=== PATIENT | female | born 1935 | race Caucasian/White ===

== ENCOUNTER → 2017-01-28 | Outpatient (CLI) | payer OTHER ==
[~2017-01-28] MED LIST: POLY335019 PO
[2017-01-28 16:38] LABS: BASO % 0.4 %; BASO ABS # 0.02 K/uL (0-0.2); COMPLETE YES; EOS % 1.9 %; LYMPH % 37.5 %; LYMPH ABS # 1.93 K/uL (1.2-3.4); MEAN CELL VOLUME 91.3 fL (80-100); MEAN CORPUSCULAR HEMOGLOBIN 30.4 pg (25-34); MEAN CORPUSCULAR HGB CONC 33.3 g/dl (32-36); MEAN PLATELET VOLUME 9.8 fL (7.4-10.4); MONO % 8.9 %; NEUT % 51.3 %; PLATELET COUNT 152 K/uL (130-400); RED BLOOD COUNT 4.71 M/uL (4.2-5.4); WHITE BLOOD COUNT 5.15 K/uL (4.8-10.8)
[2017-01-28 16:49] LABS: ALT/SGPT 13 U/L (12-78); BLOOD UREA NITROGEN 18 mg/dl (7-18); BUN/CREATININE RATIO 18.8 (10-20); CARBON DIOXIDE 26 mmol/L (21-32); CHLORIDE 108 mmol/L (98-107); CHOLESTEROL 177 mg/dl (0-200); CREATININE 0.98 mg/dl (0.60-1.20); GLUCOSE 95 mg/dl (70-99); POTASSIUM 4.2 mmol/L (3.5-5.1); SODIUM 143 mmol/L (136-145)
[2017-01-28 17:00] LABS: ALB/GLOB RATIO 1.2 (0.9-2); ALKALINE PHOSPHATASE 73 U/L (45-117); AST/SGOT 25 U/L (15-37); CHOLESTEROL/HDL RATIO 2.5; HDL CHOLESTEROL 71 mg/dl; LDL CHOLESTEROL CALCULATED 93 mg/dl; TRIGLYCERIDES 63 mg/dl (0-150); VERY LOW DENSITY LIPOPROT CALC 13 mg/dl
== END | disposition home or self-care (01) ==
LOC: C.LABBC 13:39
PROVIDERS: ATTEND Internal Medicine
DX: E55.9 Vitamin D deficiency, unspecified (principal)

== ENCOUNTER → 2017-03-22 | Outpatient (CLI) | payer OTHER ==
--- NOTE | 2017-03-22 11:10 | DIAGNOSTIC IMAGING REPORT ---
RIGHT SHOULDER MIN 2 VIEWS ROUTINE CLINICAL HISTORY: Right shoulder pain. COMPARISON: None FINDINGS: Alignment of the right shoulder is anatomic. No fracture or suspicious osseous lesion is present. There is moderate osteoarthritis of the right acromioclavicular joint. IMPRESSION: 1. Moderate osteoarthritis of the right acromioclavicular joint. Minimal osteoarthritis of the right glenohumeral joint. 2. No fracture or dislocation of the right shoulder. Electronically signed by: Kimani Cruz M.D. 03/22/2017 11:09 AM Dictated Date/Time: 03/22/2017 11:07 AM
--- NOTE | 2017-03-22 11:17 | DIAGNOSTIC IMAGING REPORT ---
RIGHT STERNOCLAVICULAR JOINT(S) CLINICAL HISTORY: 81 years-old Female presenting with pain in the right shoulder. TECHNIQUE: Frontal and bilateral oblique views of the sternoclavicular joints were obtained. COMPARISON: None. FINDINGS: The bilateral sternoclavicular joints are grossly intact. No clavicle fracture evident. Visualized portion of the thorax normal. IMPRESSION: No gross osseous abnormality of the sternoclavicular joints. Electronically signed by: Morro Lau M.D. 03/22/2017 11:15 AM Dictated Date/Time: 03/22/2017 11:14 AM
== END | disposition home or self-care (01) ==
LOC: C.RADBC 10:44
PROVIDERS: ATTEND Internal Medicine
DX: M19.011 Primary osteoarthritis, right shoulder (principal)

== ENCOUNTER → 2017-07-13 | Day surgery (SDC) | payer OTHER ==
[2017-06-24 11:57] VITALS: Ht 172.7 cm; Wt 74.5 kg
[~2017-07-13] VITALS: Ht 172.7 cm; Wt 74.5 kg
== END | disposition home or self-care (01) ==
LOC: EDSTATUS 09:30 → C.PAT 15:31
PROVIDERS: ATTEND Specialist
DX: H26.9 Unspecified cataract (principal)

== ENCOUNTER → 2017-07-20 | Outpatient (CLI) | payer OTHER ==
--- NOTE | 2017-07-20 11:36 | DIAGNOSTIC IMAGING REPORT ---
CHEST 2 VIEWS ROUTINE CLINICAL HISTORY: Cough. COMPARISON STUDY: Chest radiograph April 01, 2016. FINDINGS: Lung volumes are at the upper limits of normal. There is no pneumothorax or pleural effusion. There is no evidence for pulmonary edema. Mild linear bibasilar opacities suggest atelectasis or scarring. There is no consolidation to suggest pneumonia. Cardiomediastinal silhouette is normal. Pulmonary vascularity is normal. IMPRESSION: 1. No acute cardiopulmonary findings. 2. Linear bibasilar opacities suggestive atelectasis or scarring. Electronically signed by: Kimani Cruz M.D. 07/20/2017 11:34 AM Dictated Date/Time: 07/20/2017 11:32 AM
[2017-07-20 13:18] LABS: BASO % 0.2 %; BASO ABS # 0.01 K/uL (0-0.2); EOS % 0.5 %; EOS ABS # 0.03 K/uL (0-0.5); HEMATOCRIT 46.5 % (37-47); HEMOGLOBIN 15.5 g/dL (12.0-16.0); IG# 0.01 K/uL (0.00-0.02); LYMPH % 15.9 %; LYMPH ABS # 1.01 K/uL (1.2-3.4); MEAN CELL VOLUME 90.1 fL (80-100); MEAN CORPUSCULAR HGB CONC 33.3 g/dl (32-36); MONO % 8.7 %; MONO ABS # 0.55 K/uL (0.11-0.59); NEUT % 74.5 %; NEUT ABS # 4.73 K/uL (1.4-6.5); PLATELET COUNT 163 K/uL (130-400); RED CELL DISTRIBUTION WIDTH CV 13.7 % (11.5-14.5); RED CELL DISTRIBUTION WIDTH SD 45.8 fL (36.4-46.3); WHITE BLOOD COUNT 6.34 K/uL (4.8-10.8)
[2017-07-20 13:33] LABS: ALBUMIN 4.1 gm/dl (3.4-5.0); ALT/SGPT 15 U/L (12-78); BLOOD UREA NITROGEN 14 mg/dl (7-18); CALCIUM 9.3 mg/dl (8.5-10.1); CARBON DIOXIDE 27 mmol/L (21-32); CREATININE 1.06 mg/dl (0.60-1.20); GLUCOSE 117 mg/dl (70-99); POTASSIUM 3.7 mmol/L (3.5-5.1); SODIUM 138 mmol/L (136-145)
[2017-07-20 13:37] LABS: ALKALINE PHOSPHATASE 75 U/L (45-117); AST/SGOT 30 U/L (15-37); TOTAL PROTEIN 7.4 gm/dl (6.4-8.2)
== END | disposition home or self-care (01) ==
LOC: C.RADBC 11:01
PROVIDERS: ATTEND Physician Assistant Medical
DX: R05 Cough (principal); R91.8 Other nonspecific abnormal finding of lung field; R63.0 Anorexia; E55.9 Vitamin D deficiency, unspecified

== ENCOUNTER → 2017-07-21 | Outpatient (CLI) | payer OTHER | END | disposition home or self-care (01) | LOC: C.LABBC 12:27 | PROVIDERS: ATTEND Internal Medicine | DX: R63.0 Anorexia (principal) ==

== ENCOUNTER → 2017-09-02 | Outpatient (CLI) | payer OTHER ==
--- NOTE | 2017-09-02 14:59 | DIAGNOSTIC IMAGING REPORT ---
CHEST 2 VIEWS ROUTINE CLINICAL HISTORY: 82 years-old Female presenting with R05 Cough. TECHNIQUE: PA and lateral views of the chest were obtained. COMPARISON: 07/20/2017. FINDINGS: Atherosclerosis of the aortic arch. Cardiac silhouette normal in size. Minimal linear opacity at the left lung base unchanged, likely scarring. Lungs and pleural spaces clear. Slightly exaggerated thoracic kyphosis. Osseous structures otherwise normal. Upper abdomen normal. IMPRESSION: 1. No acute cardiopulmonary disease. Electronically signed by: Morro Lau M.D. 09/02/2017 2:58 PM Dictated Date/Time: 09/02/2017 2:57 PM
== END | disposition home or self-care (01) ==
LOC: C.RADBC 14:29
PROVIDERS: ATTEND Physician Assistant Medical
DX: R05 Cough (principal)

== ENCOUNTER 2017-11-15 10:28 | Emergency (ER) | payer OTHER ==
[2017-11-15 10:30] VITALS: TEMP 36.6
[2017-11-15] MEDS ORDERED: MECLIZINE HCL 25 MG TAB PO STA ×2 (11:13→12:56)
[2017-11-15] MEDS ORDERED: ONDANSETRON INJ 2 MG/ML 2 ML VIAL IV STA (11:13)
[2017-11-15] MEDS ORDERED: METHYLPREDNISOLONE 125 MG VIAL IV STA (11:13)
[2017-11-15] MEDS ORDERED: SODIUM CHLORIDE 0.9% 500ML 500 ML IV STA (11:13)
[2017-11-15] MEDS ORDERED: SODIUM CHLORIDE 0.9% 1000ML 1,000 ML IV STA (11:13)
[2017-11-15 11:29] LABS: BASO % 0.4 %; BASO ABS # 0.02 K/uL (0-0.2); HEMATOCRIT 42.2 % (37-47); IG# 0.01 K/uL (0.00-0.02); LYMPH % 45.3 %; LYMPH ABS # 2.24 K/uL (1.2-3.4); MEAN CELL VOLUME 88.7 fL (80-100); MEAN CORPUSCULAR HEMOGLOBIN 29.4 pg (25-34); MEAN CORPUSCULAR HGB CONC 33.2 g/dl (32-36); MEAN PLATELET VOLUME 9.3 fL (7.4-10.4); MONO % 6.1 %; NEUT ABS # 2.27 K/uL (1.4-6.5); PLATELET COUNT 123 K/uL (130-400); RED CELL DISTRIBUTION WIDTH CV 14.1 % (11.5-14.5); RED CELL DISTRIBUTION WIDTH SD 45.8 fL (36.4-46.3); WHITE BLOOD COUNT 4.94 K/uL (4.8-10.8)
--- NOTE | 2017-11-15 11:39 | DIAGNOSTIC IMAGING REPORT ---
SINGLE VIEW CHEST CLINICAL HISTORY: Cough FINDINGS: An AP, portable, upright chest radiograph is compared to study dated 09/02/2017. The examination is degraded by portable technique and patient rotation. The cardiomediastinal silhouette is unremarkable. There is atherosclerotic calcification of the thoracic aorta. Chronic interstitial thickening is similar to previous. There is minimal bibasilar atelectasis. No airspace consolidation or large pleural effusion is identified. No pneumothorax is seen. The skeletal structures are osteopenic. The bony thorax is grossly intact. IMPRESSION: No acute cardiopulmonary abnormality. Electronically signed by: Kevin Dobson M.D. 11/15/2017 11:38 AM Dictated Date/Time: 11/15/2017 11:37 AM
[2017-11-15 11:49] LABS: CREATININE 0.98 mg/dl (0.60-1.20); GLUCOSE 104 mg/dl (70-99)
--- NOTE | 2017-11-15 12:21 | DIAGNOSTIC IMAGING REPORT ---
HEAD CT NONCONTRAST, SINUS CT NONCONTRAST CT DOSE: HISTORY: Chronic congestion. Cough. vertigo TECHNIQUE: Multiaxial CT images of the head were performed without the use of intravenous contrast. Automated exposure control was utilized for this study. A dose lowering technique was utilized adhering to the principles of ALARA. Comparison: None. Findings: Sinus CT: Mild mucosal thickening within the right frontal sinus and ethmoid air cells. Moderate mucosal thickening within the floors of the bilateral maxillary sinuses. There are small fluid levels within the maxillary sinuses, left sphenoid sinus, and right ethmoid air cells therefore, these findings are consistent with acute on chronic sinusitis. The mastoid air cells are clear. The nasal septum is essentially midline. Partial opacification of the bilateral ethmoid infundibula the orbits are unremarkable. Head CT: The calvarium and skull base are intact. There is no mass, hematoma, midline shift, acute infarct. White matter hypodensity is nonspecific but suggestive of microvascular ischemic change. The ventricles and sulci demonstrate mild age-related involutional changes. Impression: 1. Mild acute on chronic paranasal sinusitis as described above. 2. No acute intracranial abnormality. Electronically signed by: Juan Luis Ugalde M.D. 11/15/2017 12:19 PM Dictated Date/Time: 11/15/2017 12:09 PM
[2017-11-15 12:29] LABS: ALBUMIN 3.9 gm/dl (3.4-5.0); ALKALINE PHOSPHATASE 71 U/L (45-117); ALT/SGPT 13 U/L (12-78); AST/SGOT 28 U/L (15-37); BLOOD UREA NITROGEN 16 mg/dl (7-18); CALCIUM 8.8 mg/dl (8.5-10.1); CARBON DIOXIDE 28 mmol/L (21-32); POTASSIUM 3.9 mmol/L (3.5-5.1); SODIUM 141 mmol/L (136-145)
[2017-11-15] MEDS ORDERED: LORAZEPAM 2 MG/ML 1 ML VIAL IV STA (12:56)
[2017-11-15] MEDS ORDERED: CEFD1CAP14 PO (13:19)
[2017-11-15 13:20] VITALS: BP 164/97; PULSE 77; O2SAT 95
[2017-11-15] MEDS ORDERED: ANT25 PO (13:20)
--- NOTE | 2017-11-15 13:34 | EMERGENCY ROOM VISIT NOTE ---
History Report prepared by Joanna: David Hamm Under the Supervision of: Dr. Damaris Johnson M.D. First contact with patient: 10:55 Chief Complaint: DIZZY Stated Complaint: DIZZINESS Nursing Triage Summary: Pt states she woke up at 0800 and was dizzy. Reports right sided weakness. History of Present Illness The patient is a 82 year old female who presents to the Emergency Room with complaints of constant lightheadedness beginning a few hours ago. She noticed her symptoms upon waking up today. She states "I feel like my equilibrium is off ". The patient denies vomiting or headaches. She does not feel like she is going to pass out. She has no history of similar symptoms. The patient states that she has had a cough for the past three months which has been treated with antibiotics and steroids, but has still persisted. Her cough is occasionally productive, producing a white sputum. She states that she does not have to blow her nose much. The patient notes that she is currently going through therapy for her right shoulder. Her most recent therapy was four days ago. She notes that she strained her neck a few weeks ago during therapy. Source of History: patient Onset: A few hours ago Quality: other (lightheadedness) Timing: constant Associated Symptoms: + cough (x3 months), No headache, No vomiting Review of Systems See HPI for pertinent positives & negatives. A total of 10 systems reviewed and were otherwise negative. Past Medical & Surgical Medical Problems: (1) Chronic constipation (2) History of - tubal ligation (3) IRRITABLE BOWEL SYNDROME (4) Tonsillectomy (5) Vaginal prolapse Family History No pertinent family history stated. Social History Smoking Status: Former Smoker Alcohol Use: occasionally Marital Status: Housing Status: lives with family Occupation Status: retired Current/Historical Medications Scheduled Cefdinir (Omnicef), 300 MG PO Q12H Scheduled PRN Meclizine HCl (Meclizine HCl), 1 TAB PO BID PRN for vertigo Polyethylene Glycol 3350 (Miralax), 17 GM PO DAILY PRN for CONSTIPATION Allergies Coded Allergies: Penicillins (Verified Adverse Reaction, Unknown, SEVERE INTERNAL VAGINITIS , 11/15/17) Physical Exam Vital Signs Date Time Temp Pulse Resp B/P (MAP) Pulse Ox O2 Delivery O2 Flow Rate FiO2 11/15/17 13:20 77 18 164/97 95 11/15/17 12:13 81 17 181/85 97 Room Air 11/15/17 10:49 79 170/93 82 159/89 99 158/94 11/15/17 10:46 79 11/15/17 10:30 36.6 78 20 160/94 99 Room Air Physical Exam Vital signs reviewed. Noted to be mildly orthostatic. General: Well-appearing female, in no significant distress. HEENT: No scleral icterus, PERRLA, neck supple. No nystagmus. Atraumatic. Cardiovascular: Regular rate and rhythm, no extra sounds. Pulmonary: Clear to auscultation bilaterally, normal work of breathing. Abdomen: Soft, nontender, nondistended, positive bowel sounds. Musculoskeletal: Atraumatic, no peripheral edema. Neurologic: Patient awake alert and oriented x 3, full strength in all 4 extremities. Cranial nerves 2 through 12 grossly intact. No nystagmus appreciated. Skin: Warm, dry, no rash Medical Decision & Procedures ER Provider Diagnostic Interpretation: Radiology results as stated below per my review and radiologist interpretation: SINGLE VIEW CHEST FINDINGS: An AP, portable, upright chest radiograph is compared to study dated 09/02/2017. The examination is degraded by portable technique and patient rotation. The cardiomediastinal silhouette is unremarkable. There is atherosclerotic calcification of the thoracic aorta. Chronic interstitial thickening is similar to previous. There is minimal bibasilar atelectasis. No airspace consolidation or large pleural effusion is identified. No pneumothorax is seen. The skeletal structures are osteopenic. The bony thorax is grossly intact. IMPRESSION: No acute cardiopulmonary abnormality. Electronically signed by: Kevin Dobson M.D. HEAD CT NONCONTRAST, SINUS CT NONCONTRAST Findings: Sinus CT: Mild mucosal thickening within the right frontal sinus and ethmoid air cells. Moderate mucosal thickening within the floors of the bilateral maxillary sinuses. There are small fluid levels within the maxillary sinuses, left sphenoid sinus, and right ethmoid air cells therefore, these findings are consistent with acute on chronic sinusitis. The mastoid air cells are clear. The nasal septum is essentially midline. Partial opacification of the bilateral ethmoid infundibula the orbits are unremarkable. Head CT: The calvarium and skull base are intact. There is no mass, hematoma, midline shift, acute infarct. White matter hypodensity is nonspecific but suggestive of microvascular ischemic change. The ventricles and sulci demonstrate mild age-related involutional changes. Impression: 1. Mild acute on chronic paranasal sinusitis as described above. 2. No acute intracranial abnormality. Electronically signed by: Juan Luis Ugalde M.D. 11/15/2017 12:19 PM Laboratory Results 11/15/17 10:50 Red Blood Count 4.76, Mean Corpuscular Volume 88.7, Mean Corpuscular Hemoglobin 29.4, Mean Corpuscular Hemoglobin Concent 33.2, Mean Platelet Volume 9.3, Neutrophils (%) (Auto) 46.0, Lymphocytes (%) (Auto) 45.3, Monocytes (%) (Auto) 6.1, Eosinophils (%) (Auto) 2.0, Basophils (%) (Auto) 0.4, Neutrophils # (Auto) 2.27, Lymphocytes # (Auto) 2.24, Monocytes # (Auto) 0.30, Eosinophils # (Auto) 0.10, Basophils # (Auto) 0.02 11/15/17 10:50 Test 11/15/17 10:50 11/15/17 11:40 White Blood Count 4.94 K/uL (4.8-10.8) Red Blood Count 4.76 M/uL (4.2-5.4) Hemoglobin 14.0 g/dL (12.0-16.0) Hematocrit 42.2 % (37-47) Mean Corpuscular Volume 88.7 fL (80-100) Mean Corpuscular Hemoglobin 29.4 pg (25-34) Mean Corpuscular Hemoglobin Concent 33.2 g/dl (32-36) Platelet Count 123 K/uL (130-400) Mean Platelet Volume 9.3 fL (7.4-10.4) Neutrophils (%) (Auto) 46.0 % Lymphocytes (%) (Auto) 45.3 % Monocytes (%) (Auto) 6.1 % Eosinophils (%) (Auto) 2.0 % Basophils (%) (Auto) 0.4 % Neutrophils # (Auto) 2.27 K/uL (1.4-6.5) Lymphocytes # (Auto) 2.24 K/uL (1.2-3.4) Monocytes # (Auto) 0.30 K/uL (0.11-0.59) Eosinophils # (Auto) 0.10 K/uL (0-0.5) Basophils # (Auto) 0.02 K/uL (0-0.2) RDW Standard Deviation 45.8 fL (36.4-46.3) RDW Coefficient of Variation 14.1 % (11.5-14.5) Immature Granulocyte % (Auto) 0.2 % Immature Granulocyte # (Auto) 0.01 K/uL (0.00-0.02) Anion Gap 6.0 mmol/L (3-11) Estimated GFR () 63.1 Estimated GFR (Non- 54.5 BUN/Creatinine Ratio 16.3 (10-20) Calcium Level 8.8 mg/dl (8.5-10.1) Magnesium Level 2.2 mg/dl (1.8-2.4) Total Bilirubin 0.7 mg/dl (0.2-1) Direct Bilirubin 0.2 mg/dl (0-0.2) Aspartate Amino Transf (AST/SGOT) 28 U/L (15-37) Alanine Aminotransferase (ALT/SGPT) 13 U/L (12-78) Alkaline Phosphatase 71 U/L (45-117) Total Protein 7.0 gm/dl (6.4-8.2) Albumin 3.9 gm/dl (3.4-5.0) Urine Color YELLOW Urine Appearance CLEAR (CLEAR) Urine pH 7.0 (4.5-7.5) Urine Specific [place] 1.010 (1.000-1.030) Urine Protein NEG (NEG) Urine Glucose (UA) NEG (NEG) Urine Ketones NEG (NEG) Urine Occult Blood NEG (NEG) Urine Nitrite NEG (NEG) Urine Bilirubin NEG (NEG) Urine Urobilinogen NEG (NEG) Urine Leukocyte Esterase NEG (NEG) Laboratory results per my review. Medications Administered Medications (Trade) Dose Ordered Sig/Raymond Route Start Time Stop Time Status Last Admin Dose Admin Sodium Chloride 500 ml @ 999 mls/hr Q31M STAT IV 11/15/17 11:13 11/15/17 11:43 DC 11/15/17 12:56 999 MLS/HR Sodium Chloride 1,000 ml @ 125 mls/hr Q8H STAT IV 11/15/17 11:13 11/15/17 15:02 DC 11/15/17 11:30 125 MLS/HR Meclizine HCl (Antivert Tab) 12.5 mg NOW STAT PO 11/15/17 11:13 11/15/17 11:18 DC 11/15/17 11:29 12.5 MG Methylprednisolone Sodium Succinate (Solu-Medrol IV) 125 mg NOW STAT IV 11/15/17 11:13 11/15/17 11:18 DC 11/15/17 11:30 125 MG Meclizine HCl (Antivert Tab) 12.5 mg NOW STAT PO 11/15/17 12:56 11/15/17 12:58 DC 11/15/17 13:11 12.5 MG Lorazepam (Ativan Inj) 1 mg NOW STAT IV 11/15/17 12:56 11/15/17 12:58 DC 11/15/17 13:11 1 MG ECG Per My Interpretation Indication: other (dizziness) Rate (beats per minute): 77 Rhythm: sinus rhythm Findings: PAC, other (No ST elevation. ) ED Course 1112: Past medical records reviewed. The patient was evaluated in room B11B. A complete history and physical examination was performed. 1113: Ordered Zofran Inj 4 mg IV, Solu-Medrol 125 mg IV, Antivert Tab 12.5 mg PO , Sodium Chloride 1000 ml @ 125 mls/hr IV, Sodium Chloride 500 ml @ 999 mls/hr IV. 1256: Ordered Ativan Inj 1 mg IV, Antivert Tab 12.5 mg PO. 1310: Upon reevaluation, the patient appeared to have improvement of her symptoms. I discussed findings with her. She verbalized agreement of the treatment plan. The patient was discharged home. Medical Decision Differential diagnosis: Etiologies such as benign positional vertigo, dehydration, hypovolemia, anemia, tumor, infection, hypoglycemia, electrolyte abnormalities, cardiac sources, intracerebral event, toxicologic, neurologic, as well as others were entertained. This patient was evaluated and appeared to be in no significant distress. Physical examination is fairly unrevealing. There is no focal neurologic deficit on exam. Patient is mildly orthostatic but is also slightly hypertensive. CT scan of the head and sinuses reveals a mild acute and chronic sinusitis. Patient was hydrated with normal saline solution, given p.o. meclizine 12.5 mg and IV Zofran. She was given 125 mg of IV Solu-Medrol. Patient states she is continually "dizzy" on her ambulation to the bathroom however did relatively well. She was given a dose of IV Ativan and additional 12.5 mg of p.o. meclizine. I discussed the findings with the patient and her . She has been complaining of sinus congestion for some time. I suspect this in addition to the patient's orthostasis is the cause of the patient's dizziness. She will be discharged with a prescription for meclizine as well as Omnicef 300 mg p.o. twice daily for 10 days for sinusitis. She was advised to use Afrin nasal spray for decongestion as she is slightly hypertensive. She will follow-up with her physician this week for reevaluation and return to the ER for worsening of symptoms or any medical concerns. Medication Reconcilliation Current Medication List: was personally reviewed by me Blood Pressure Screening Patient's blood pressure: Elevated blood pressure Blood pressure disposition: Referred to PCP Impression Primary Impression: Sinusitis, acute Additional Impression: Vertigo Scribe Attestation The scribe's documentation has been prepared under my direction and personally reviewed by me in its entirety. I confirm that the note above accurately reflects all work, treatment, procedures, and medical decision making performed by me. Departure Information Dispostion Home / Self-Care Prescriptions Meclizine HCl (Meclizine HCl) 25 Mg Tab 1 TAB PO BID Y for vertigo, #30 TAB Prov: Damaris Johnson M.D. 11/15/17 Cefdinir (Omnicef) 300 Mg Cap 300 MG PO Q12H, #20 CAP Prov: Damaris Johnson M.D. 11/15/17 Referrals Morro Chao M.D. (PCP) Forms HOME CARE DOCUMENTATION FORM, IMPORTANT VISIT INFORMATION Patient Instructions My [facility] Additional Instructions Diagnosis: Acute sinusitis, vertigo Please drink plenty of clear fluids. Meclizine 25 mg every 8 hours as needed for vertigo. Omnicef 300 mg twice daily for 10 days for sinusitis. Mucinex as directed or Afrin nasal spray to sprays in each nostril twice daily for 3 days. Follow-up with Dr. Chao for reevaluation this week. Return to the ER for worsening of symptoms or any medical concerns. Problem Qualifiers
== END 2017-11-15 13:20 | disposition home or self-care (01) ==
LOC: C.EDB 10:28
DX: J01.90 Acute sinusitis, unspecified (principal); R42 Dizziness and giddiness; Z98.51 Tubal ligation status; R03.0 Elevated blood-pressure reading, without diagnosis of hypertension; K58.1 Irritable bowel syndrome with constipation; Z88.0 Allergy status to penicillin; Z87.891 Personal history of nicotine dependence

== ENCOUNTER → 2018-02-08 | Day surgery (SDC) | payer OTHER ==
[2018-02-01 14:49] VITALS: Ht 172.7 cm; Wt 73.6 kg
[~2018-02-08] VITALS: Ht 172.7 cm; Wt 73.6 kg
[~2018-02-08] MED LIST changes: +500ML BSS 0.3ML EPI 1:1000PF IRRIG ONE; +ACETAMINOPHEN 325 MG TAB PO PRN; +AMVISC PLUS 0.8ML SYRINGE INT OCU ONE; +ANT25 PO; +ATROPINE SULFATE 0.1 MG/ML 5ML SYR IV PRN; +AcetaZOLAMIDE 250 MG TAB PO SCH; +BETAXOLOL HCL 0.25% OP SUSP PER DROP CHARGE OPR SCH; +BRIMONIDINE TART 0.2% OP SOLN PER DROP CHARGE ONE; +BSS FLUSH ONE; +CYCLOPENTOLATE HCL 1% OP SOLN PER DROP CHARGE OPR SCH; +ENDOCOAT 0.85ML SYRINGE INT OCU ONE; +EpHEDrine SULFATE INJ 50 MG/ML AMP IV PRN; +EpINEphrine INJ 1MG/ML AMP 1 MG/ML AMP ONE; +LACTATED RINGER'S 1000ML 500 ML IV SCH; +LIDOCAINE 4% OP SOLN DROP CHARGE ONE; +LIDOCAINE 4% OP SOLN DROP CHARGE OPR SCH; +LIDOCAINE HCL 1% MPF 2 ML VIAL ONE; +MIDAZOLAM HCL 1 MG/ML 2ML VIAL ONE; +MIX: 4ML BSS 1ML EPI 1:1000 PF INSTIL ONE; +MOXIFLOXACIN OPH SOLN PER DROP CHARGE ONE; +MOXIFLOXACIN OPH SOLN PER DROP CHARGE OPR SCH; +OCUCOAT 1 ML SOLN IO ONE; +PHENYLEPHRINE HCL 2.5% OP SOLN PER DROP CHARGE OPR SCH; +POVIDONE-IODINE OP SOLN 30 ML BTL ONE; +PROPARACAINE 0.5% OP SOLN PER DROP CHARGE OPR SCH; +TOBRAMYCIN/DEXAMETHASONE OPH OINT PER APPLN CHARGE ONE; +TROPICAMIDE 1% OP SOLN PER DROP CHARGE OPR SCH
--- NOTE | 2018-02-08 07:34 | History & Physical Bridge - SC ---
H&P Re-Evaluation Bridge Note: I have examined the patient, reviewed the History & Physical and in the interval since the performance of the History & Physical I have noted the following changes of clinical significance: No changes noted
--- NOTE | 2018-02-08 08:53 | [facility] Operative Report ---
Operative Report Date of Service Feb 08, 2018. Operative Report 1. PREOPERATIVE DIAGNOSIS: Senile nuclear cataract, right eye. 2. POSTOPERATIVE DIAGNOSIS: Senile nuclear cataract, right eye. 3. PROCEDURE: Phacoemulsification of right cataract with posterior chamber lens implant, type [employer], model MI60L, power +21.5 diopters. ANESTHESIA: Local standby. SURGEON: Dr. Fulton. COMPLICATIONS: None. OPERATING TIME: 10 minutes. 4. OPERATION AND FINDINGS: DESCRIPTION OF PROCEDURE: The right pupil was dilated. The anesthetic was administered using a topical technique. The right eye was prepped and draped. A speculum was placed. A clear corneal incision was formed. The chamber was filled with Amvisc Plus and Endocoat. Epinephrine solution was used. A paracentesis was placed. A capsulorrhexis was performed. The nucleus was hydrodissected. A dense lens was removed with phacoemulsification. Time was 8.85 seconds. The aspiration unit was used to remove the cortex. The capsule was filled with Amvisc Plus. The lens implant was folded and placed into the capsule. The incision was hydrated. The Amvisc was aspirated. The wound was secure. The chamber was deep. The pupil was round. Brimonidine, TobraDex ointment and Vigamox solution were placed. The speculum was removed. The patient was returned to the Recovery Room in stable condition. I attest to the content of the Intraoperative Record and any orders documented therein. Any exceptions are noted below. The scribe's documentation has been prepared in my presence, under my direction and personally reviewed by me in its entirety. I confirm that the note above accurately reflects all work, treatment, procedures, and medical decision making performed by me. I personally scribed for Сергей Fulton M.D. ([email or web address]) on 02/08/18 at 08:53. Electronically submitted by Ashley Ramon ([email or web address]).
--- NOTE | 2018-02-08 08:56 | Discharge Instructions-SurgCtr ---
Discharge Instructions Date of Service Feb 08, 2018. Visit Reason for Visit: Cataract Right Eye Discharge Discharge Diagnosis / Problem: lens implant right eye Discharge Goals Goal(s): Improve function Activity Recommendations Activity Limitations: resume your previous activity Lifting Limitations: no more than 10 pounds Exercise/Sports Limitations: gradually increase as tolerated May Resume Sexual Activity: when tolerated Shower/Bathe: tomorrow Driving or Machine Use: resume 1 day after discharge Anesthesia . Post Anesthesia Instructions: If you have had General Anesthesia or IV Sedation: * Do not drive today. * Resume driving when surgeon permits. * Do not make important decisions or sign legal documents today. * Call surgeon for: 1. Temperature elevations greater than 101 degrees F. 2. Uncontrollable pain. 3. Excessive bleeding. 4. Persistent nausea and vomiting. 5. Medication intolerance (nausea, vomiting or rash). * For nausea and vomiting use only clear liquids such as: tea, soda, bouillon until nausea subsides, then gradually increase diet as tolerated. * If you have any concerns or questions, call your surgeon's office. If physician is unavailable and it is an emergency, call 911 or go to the nearest emergency room. . Instructions / Follow-Up Instructions / Follow-Up ACTIVITY RECOMMENDATIONS: * Light activities. * Mild irritation and blurred vision are common for the first few days. * You may walk outside, read, watch television. * Redness around the white part of the eye is common. MEDICATIONS: Resume previous medications unless instructed otherwise by your surgeon. * Take white Diamox (Acetazolamide) tablet at 1 pm today. Start all eye drops at 1 pm today: * Eye drops (today and tomorrow): Prednisone - one drop in operative eye every 3 hours while awake Ofloxacin - one drop in operative eye every 3 hours while awake Prolensa - one drop in operative eye once daily SPECIAL CARE INSTRUCTIONS: * Tape plastic shield over eye to sleep at night. Call your doctor at with any concerns or problems. FOLLOW UP VISIT: Follow-up with Dr Fulton at [place] office as scheduled. Diet Recommendations Home Diet: no limitations Procedures Procedures Performed: Right Cataract Phacoemulsification With Intraocular Lens Implant Pending Studies Studies pending at discharge: no Medical Emergencies . Who to Call and When: Medical Emergencies: If at any time you feel your situation is an emergency, please call 911 immediately. . Non-Emergent Contact Non-Emergency issues call your: Tool And [employer] Inspector Call Non-Emergent contact if: your pain is not controlled [phone] . . "Provider Documentation" section prepared by Сергей Fulton. .
--- NOTE | 2018-02-08 09:13 | Anesthesia Progress Nt - [facility] ---
Anesthesia Post Op Note Date & Time Feb 08, 2018 at 09:14 Vital Signs Pain Intensity: 0 Vital Signs Past 12 Hours Date Time Temp Pulse Resp B/P (MAP) Pulse Ox O2 Delivery O2 Flow Rate FiO2 02/08/18 09:04 36.7 61 16 127/75 (92) 96 Room Air 02/08/18 07:50 37.2 84 16 150/86 (107) 94 Room Air Notes Mental Status: alert / awake / arousable, participated in evaluation Nausea / Vomiting: adequately controlled Pain: adequately controlled Airway Patency, RR, SpO2: stable & adequate BP & HR: stable & adequate Hydration State: stable & adequate Anesthetic Complications: no major complications apparent
[2018-02-08 09:21] VITALS: BP 134/80; PULSE 78; O2SAT 97
== END | disposition home or self-care (01) ==
LOC: X.SURG 07:42
PROVIDERS: ATTEND Specialist
DX: H25.11 Age-related nuclear cataract, right eye (principal); K21.9 Gastro-esophageal reflux disease without esophagitis; M19.90 Unspecified osteoarthritis, unspecified site; Z88.8 Allergy status to other drugs, medicaments and biological substances

== ENCOUNTER → 2018-02-17 | Outpatient (CLI) | payer MEDICARE, OTHER ==
[~2018-02-17] MED LIST changes: -500ML BSS 0.3ML EPI 1:1000PF IRRIG ONE; -ACETAMINOPHEN 325 MG TAB PO PRN; -AMVISC PLUS 0.8ML SYRINGE INT OCU ONE; -ATROPINE SULFATE 0.1 MG/ML 5ML SYR IV PRN; -AcetaZOLAMIDE 250 MG TAB PO SCH; -BETAXOLOL HCL 0.25% OP SUSP PER DROP CHARGE OPR SCH; -BRIMONIDINE TART 0.2% OP SOLN PER DROP CHARGE ONE; -BSS FLUSH ONE; -CYCLOPENTOLATE HCL 1% OP SOLN PER DROP CHARGE OPR SCH; -ENDOCOAT 0.85ML SYRINGE INT OCU ONE; -EpHEDrine SULFATE INJ 50 MG/ML AMP IV PRN; -EpINEphrine INJ 1MG/ML AMP 1 MG/ML AMP ONE; -LACTATED RINGER'S 1000ML 500 ML IV SCH; -LIDOCAINE 4% OP SOLN DROP CHARGE ONE; -LIDOCAINE 4% OP SOLN DROP CHARGE OPR SCH; -LIDOCAINE HCL 1% MPF 2 ML VIAL ONE; -MIDAZOLAM HCL 1 MG/ML 2ML VIAL ONE; -MIX: 4ML BSS 1ML EPI 1:1000 PF INSTIL ONE; -MOXIFLOXACIN OPH SOLN PER DROP CHARGE ONE; -MOXIFLOXACIN OPH SOLN PER DROP CHARGE OPR SCH; -OCUCOAT 1 ML SOLN IO ONE; -PHENYLEPHRINE HCL 2.5% OP SOLN PER DROP CHARGE OPR SCH; -POVIDONE-IODINE OP SOLN 30 ML BTL ONE; -PROPARACAINE 0.5% OP SOLN PER DROP CHARGE OPR SCH; -TOBRAMYCIN/DEXAMETHASONE OPH OINT PER APPLN CHARGE ONE; -TROPICAMIDE 1% OP SOLN PER DROP CHARGE OPR SCH
[2018-02-17 10:51] LABS: BASO % 0.4 %; BASO ABS # 0.02 K/uL (0-0.2); EOS % 3.1 %; EOS ABS # 0.15 K/uL (0-0.5); HEMATOCRIT 42.1 % (37-47); HEMOGLOBIN 13.9 g/dL (12.0-16.0); LYMPH ABS # 1.91 K/uL (1.2-3.4); MEAN CELL VOLUME 89.8 fL (80-100); MEAN CORPUSCULAR HEMOGLOBIN 29.6 pg (25-34); MEAN PLATELET VOLUME 9.8 fL (7.4-10.4); MONO % 7.5 %; MONO ABS # 0.36 K/uL (0.11-0.59); NEUT ABS # 2.34 K/uL (1.4-6.5); PLATELET COUNT 131 K/uL (130-400); RED CELL DISTRIBUTION WIDTH CV 14.4 % (11.5-14.5); RED CELL DISTRIBUTION WIDTH SD 47.1 fL (36.4-46.3); WHITE BLOOD COUNT 4.78 K/uL (4.8-10.8)
[2018-02-17 11:15] LABS: BLOOD UREA NITROGEN 16 mg/dl (7-18); GLUCOSE 103 mg/dl (70-99)
[2018-02-17 11:16] LABS: ALBUMIN 3.7 gm/dl (3.4-5.0); ALKALINE PHOSPHATASE 72 U/L (45-117); ALT/SGPT 12 U/L (12-78); AST/SGOT 22 U/L (15-37); CALCIUM 8.7 mg/dl (8.5-10.1); CARBON DIOXIDE 28 mmol/L (21-32); CHOLESTEROL 171 mg/dl (0-200); LDL CHOLESTEROL CALCULATED 85 mg/dl; POTASSIUM 3.9 mmol/L (3.5-5.1); SODIUM 141 mmol/L (136-145); TOTAL PROTEIN 6.6 gm/dl (6.4-8.2)
[2018-02-17 12:33] LABS: HEMOGLOBIN A1C 5.7 % (4.5-5.6)
== END | disposition home or self-care (01) ==
LOC: C.LABBC 08:43
PROVIDERS: ATTEND Internal Medicine
DX: D72.819 Decreased white blood cell count, unspecified (principal); E55.9 Vitamin D deficiency, unspecified; R73.9 Hyperglycemia, unspecified; K59.00 Constipation, unspecified; R03.0 Elevated blood-pressure reading, without diagnosis of hypertension

== ENCOUNTER 2019-10-04 08:38 | Inpatient (IN) ==
[2019-10-04] MEDS ORDERED: KETOROLAC TROMETHAMINE 15 MG/ML VIAL IV STA (09:04)
[2019-10-04] MEDS ORDERED: ONDANSETRON INJ 2 MG/ML 2 ML VIAL IV STA (09:04)
--- NOTE | 2019-10-04 09:10 | Emergency Department Note ---
History of Present Illness General Chief Complaint: Abdominal Pain Stated Complaint: STOMACH PAIN Time Seen by Provider: 10/04/19 08:48 Source: patient Mode of arrival: ambulatory Limitations: no limitations History of Present Illness Provider Complaint: abdominal pain Onset (ago): 3 hour(s) Pain Consistency: intermittent Location: LLQ and RLQ Radiation: none Migration to: no migration Severity: severe Maximum Pain Intensity: 10 Current Pain Intensity: 1 Quality: + cramping Relieved By: + nothing Exacerbated By: + nothing Context: no foreign travel, no possible food poisoning and no sick contacts Associated Symptoms: + nausea and + vomiting Treatments prior to arrival: none This is an 84-year-old female who presents to the ED with a chief complaint of lower abdominal pain. The patient states that her symptoms started around 5 AM this morning and awoke her from sleep. She states that she had a normal bowel movement yesterday. She thought that her symptoms might be related to constipation. She states that it is a colicky type pain that comes and goes. It is severe and when it comes on strong, it causes her to feel nauseated. This caused her to vomit once this morning. Denies any radiation of the pain. Denies any abdominal surgeries other than tubal ligation. Her symptoms are currently mild. They become severe with the pain. Home Medications Home Medications Medication Instructions Recorded Confirmed Type polyethylene glycol 3350 17 17 gm PO DAILY PRN gm 01/17/19 10/04/19 History gram/dose oral powder folic acid 1 mg PO DAILY 10/04/19 10/04/19 History methotrexate sodium 7.5 mg PO BID 10/04/19 10/04/19 History methylprednisolone 12 mg PO DAILY 10/04/19 10/04/19 History Allergies Allergy/AdvReac Type Severity Reaction Status Date / Time influenza virus vaccine Allergy Intermediate rash Verified 10/04/19 09:18 trivalent amoxicillin [From Amoxil] Allergy Unknown Verified 10/04/19 09:18 diazepam [From Valium] Allergy Unknown Verified 10/04/19 09:18 procaine [From Novocain] Allergy Unknown Verified 10/04/19 09:18 fexofenadine [From Sherine] Allergy Verified 10/04/19 09:18 Penicillins AdvReac Unknown SEVERE Verified 10/04/19 09:18 INTERNAL VAGINITIS Anesthesia IV Set MISC Allergy Unknown Uncoded 10/04/19 09:18 Ethyl Chloride AERO Allergy Unknown Uncoded 10/04/19 09:18 Past Med/Surg History Medical History Actinic keratosis Benign positional vertigo Cheilosis Cystocele, midline Elevated blood pressure reading without diagnosis of hypertension Gastroparesis Generalized anxiety disorder History of skin cancer of unknown type Hyperglycemia Hypothyroidism Irregular heartbeat Irritable bowel syndrome Leukopenia Pain in joint of right shoulder Paresthesias Persistent insomnia Rectocele Second degree uterine prolapse Skin cancer Tonsillectomy planned (01/30/13) Vitamin D deficiency Surgical History History of right cataract surgery History of surgical removal of ganglion cyst History of tonsillectomy History of tubal ligation (01/30/13) Family History Mother Lymphoma Heart disease Arthritis Father Stroke Social History Preferred Language: Malay Communication Ability: Effective Visual Impairment: Limited Hearing Ability: Normal 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 marital status: Current Living Situation: Spouse Current Living Situation Comment: [facility] at [facility] current occupational status: retired Feels Safe at Home: Yes Smoking Status: Never smoker Tobacco Type: cigarettes ; Age Started Using Tobacco: 22 ; Age Quit Using Tobacco: 42 ; packs per day: 1 ; Second Hand Exposure: No ; Hx Alcohol Use: Yes Hx Substance Use: No Childhood Exposure to Second-Hand Smoke: Yes caffeine: No Dental Care, Regularly: Yes Physical Activity Frequency: Does not Exercise Seatbelt Use: always Sunscreen Use: Yes Review of Systems A total of 10 systems reviewed and were otherwise negative Physical Exam Vital Signs: Vital Signs - 24 hr 10/04/19 08:43 10/04/19 09:08 10/04/19 09:40 Temperature 36.4 C L Temperature Source Oral Pulse Rate 80 Pulse Rate [Left F gayle] 73 Respiratory Rate 20 16 Respiratory Effort / Characteristics Non-Labored Sponta neous Respiratory Depth Normal Respiratory Patter n Regular Blood Pressure 167/91 H Blood Pressure [Le ft Arm] 139/67 Blood Pressure Moon n 116 Blood Pressure Moon n [Left Arm] 91 Blood Pressure Pos ition Sitting Pulse Oximetry 97 99 95 Oxygen Delivery Me thod Room Air Room Air Room Air Sepsis Recent Feve r Within 48 Hours No Sepsis New/Unexpla ined Change in Men lili Status No Sepsis Action Take n by Nursing No Action Required 10/04/19 10:05 10/04/19 11:28 Temperature Temperature Source Pulse Rate Pulse Rate [Left F gayle] 87 96 H Respiratory Rate 18 18 Respiratory Effort / Characteristics Respiratory Depth Respiratory Patter n Blood Pressure Blood Pressure [Le ft Arm] 139/67 136/93 Blood Pressure Moon n Blood Pressure Moon n [Left Arm] 91 107 Blood Pressure Pos ition Pulse Oximetry 97 98 Oxygen Delivery Me thod Room Air Sepsis Recent Feve r Within 48 Hours Sepsis New/Unexpla ined Change in Men lili Status Sepsis Action Take n by Nursing Physical Exam: CONSTITUTIONAL/VITAL SIGNS: Reviewed / noted above. GENERAL: Non-toxic in appearance. INTEGUMENTARY: Warm, dry, and [place]. HEAD: Normocephalic. EYES: without scleral icterus or trauma. ENT/OROPHARYNX: clear and moist. LYMPHADENOPATHY/NECK: Is supple without lymphadenopathy or meningismus. RESPIRATORY: Lungs clear and equal. CARDIOVASCULAR: Regular rate and rhythm. GI/ABDOMEN: Soft and diffusely tender but more so in the lower abdomen. No organomegaly or pulsatile mass. No rebound or guarding. Normal bowel sounds. EXTREMITIES: Warm and well perfused. BACK: No CVA tenderness. NEUROLOGICAL: Intact without focal deficits. PSYCHIATRIC: normal affect. MUSCULOSKELETAL: Normally developed with good muscle tone. RECTAL: There was no stool in the rectal vault on digital exam TRIAGE NURSING DOCUMENTATION REVIEWED. Course Administered Medications Fentanyl Citrate (Fentanyl Citrate) 50 mcg IV Q15M PRN PRN Reason: Pain Stop: 10/18/19 09:03 Last Admin: 10/04/19 10:58 Dose: 50 mcg Documented by: [id number] Admin: 10/04/19 10:04 Dose: 50 mcg Documented by: [id number] Admin: 10/04/19 09:13 Dose: 50 mcg Documented by: [id number] Discontinued Medications Sodium Chloride (Nss) 500 mls @ 999 mls/hr IV .Q31M SHELLY Stop: 10/04/19 09:45 Last Infusion: 10/04/19 09:59 Dose: 0 mls/hr Documented by: [id number] Admin: 10/04/19 09:13 Dose: 999 mls/hr Documented by: [id number] Ceftriaxone Sodium (Rocephin) 1,000 mg in 50 mls @ 100 mls/hr IV NOW STA Stop: 10/04/19 11:23 Last Infusion: 10/04/19 11:30 Dose: 0 mls/hr Documented by: [id number] Admin: 10/04/19 10:58 Dose: 100 mls/hr Documented by: [id number] Ketorolac Tromethamine (Toradol) 15 mg IV NOW STA Stop: 10/04/19 09:05 Last Admin: 10/04/19 09:13 Dose: 15 mg Documented by: [id number] Ondansetron HCl (Zofran) 4 mg IV NOW STA Stop: 10/04/19 09:05 Last Admin: 10/04/19 09:13 Dose: 4 mg Documented by: [id number] Medical Decision Making Differential Diagnosis Differential considered: pancreatitis, hepatitis, acute cholecystitis, AAA, UTI, pyelonephritis, kidney stones, appendicitis, diverticulitis, shingles, bowel obstruction, mesenteric ischemia, intussusception,hernia. Medical Records Attestation: I reviewed the patient's medical records. Home Medications Current Medication List: was personally reviewed by me Laboratory Data Attestation: I reviewed the patient's lab results. Result diagrams: 10/04/19 09:05 10/04/19 09:05 Lab Results 10/04/19 10/04/19 10/04/19 Range/Units 09:05 09:05 10:05 WBC 14.57 H (4.8-10.8) K/uL RBC 5.08 (4.2-5.4) M/uL Hgb 15.5 (12.0-16.0) g/dL Hct 46.5 (37-47) % MCV 91.5 (80-100) fL MCH 30.5 (25-34) pg MCHC 33.3 (32-36) g/dL RDW Std Deviation 51.0 H (36.4-46.3) fL RDW Coeff of Arturo 15.5 H (11.5-14.5) % Plt Count 138 (130-400) K/uL MPV 8.7 (7.4-10.4) fL Immature Gran % (Auto) 0.5 % Neut % (Auto) 81.3 % Lymph % (Auto) 14.2 % Garden % (Auto) 3.7 % Eos % (Auto) 0.3 % Baso % (Auto) 0.0 % Immature Gran # (Auto) 0.08 H (0.00-0.02) K/uL Neut # (Auto) 11.84 H (1.4-6.5) K/uL Lymph # (Auto) 2.07 (1.2-3.4) K/uL Garden # (Auto) 0.54 (0.11-0.59) K/uL Eos # (Auto) 0.04 (0-0.5) K/uL Baso # (Auto) 0.00 (0-0.2) K/uL Sodium 138 (136-145) mmol/L Potassium 3.6 (3.5-5.1) mmol/L Chloride 105 (98-107) mmol/L Carbon Dioxide 27 (21-32) mmol/L Anion Gap 6.0 (3-11) BUN 33 H (7-18) mg/dl Creatinine 1.11 (0.6-1.2) mg/dl Est Cr Clr Drug Dosing 36.6 ml/min Est GFR ( Amer) 53.6 Est GFR (Non-Af Amer) 46.2 BUN/Creatinine Ratio 29.3 H (10-20) Glucose 174 H (70-99) mg/dl Calcium 9.1 (8.5-10.1) mg/dl Total Bilirubin 0.8 (0.2-1) mg/dl AST 20 (15-37) U/L ALT 19 (12-78) U/L Alkaline Phosphatase 79 (45-117) U/L Total Protein 6.7 (6.4-8.2) gm/dl Albumin 3.9 (3.4-5.0) gm/dl Globulin 2.8 (2.5-4.0) gm/dl Albumin/Globulin Ratio 1.4 (0.9-2) Lipase 152 (73-393) U/L Urine Color Dark Yellow Urine Appearance Cloudy A (Clear) Urine pH 5.0 (4.5-7.5) Ur Specific [place] 1.031 H (1.000-1.030) Urine Protein Negative (Negative) Urine Glucose (UA) Negative (Negative) Urine Ketones Trace H (Negative) Urine Blood Negative (Negative) Urine Nitrite Positive A (Negative) Urine Bilirubin Negative (Negative) Urine Urobilinogen Negative (Negative) Ur Leukocyte Esterase Trace H (Negative) Urine WBC (Auto) 1-5 (0-5) /hpf Urine RBC (Auto) 0-4 (0-4) /hpf U Hyaline Cast (Auto) 1-5 (0-5) /lpf U Epithel Cells (Auto) >30 H (0-5) /lpf Urine Bacteria (Auto) 4+ H (Negative) Urine Crystals Calcium Oxalate A (None Prsent) Imaging Data Radiologist's Impression: MPRESSION: 1. Extensive wall thickening involving the mid to distal transverse colon through the rectosigmoid junction with mild to moderate pericolonic fat infiltration is consistent with colitis, most likely infectious or inflammatory. An ischemic etiology would be considered less likely. The extent also does not favor neoplasm. Low-grade partial large bowel obstruction may be present. Follow-up colonoscopy could be considered after resolution of inflammation. 2. Diverticulosis coli. Inflammation does not appear to represent diverticulitis. Blood Pressure Blood Pressure Findings: Elevated blood pressure Blood Pressure Disposition: Referred to patients primary care provider MDM Narrative This is an 84-year-old female who presents to the ED with a chief complaint of lower abdominal pain. The patient states that her symptoms started around 5 AM this morning and awoke her from sleep. She states that she had a normal bowel movement yesterday. She thought that her symptoms might be related to constipation. She states that it is a colicky type pain that comes and goes. It is severe and when it comes on strong, it causes her to feel nauseated. This caused her to vomit once this morning. Denies any radiation of the pain. Denies any abdominal surgeries other than tubal ligation. Her symptoms are currently mild. They become severe with the pain. The patient's blood pressure was noted to be elevated. Her physical exam revealed some diffuse abdominal tenderness but more so in the lower abdomen. The patient also had a rectal exam that did not show any stool in the rectal vault. There is no gross blood. The patient's white blood cell count is elevated at 14.5. BUN is 33. Chemistry panel was otherwise unremarkable. CT scan of the abdomen pelvis reveals extensive wall thickening of the transverse and rectosigmoid colon suggestive of colitis. A low grade partial large bowel obstruction is also noted. The patient's urine is suggestive of infection. The patient was treated with IV fluids, IV fentanyl, IV Toradol, IV Zofran as well as IV Rocephin. She will be seen by the hospitalist for further inpatient evaluation and care. Impression & Plan Partial bowel obstruction, Abdominal pain, Vomiting, Colitis, Acute UTI Discharge Plan Visit Data Chief Complaint: Abdominal Pain Stated Complaint: STOMACH PAIN ED Provider: Ned Hernandez Discharge Problem: Partial bowel obstruction, Abdominal pain, Vomiting, Colitis, Acute UTI Patient Disposition: Being Evaluated by Hospitalist Forms Stand Alone Forms: [facility] [employer] Direct Prescriptions Prescriptions: No Action polyethylene glycol 3350 17 gram/dose powder 17 gm PO DAILY PRN (Reason: Constipation) RF: 0 methotrexate sodium 2.5 mg tablet 7.5 mg PO BID RF: 0 methylprednisolone 8 mg tablet 12 mg PO DAILY RF: 0 folic acid 1 mg tablet 1 mg PO DAILY RF: 0 Referrals Referrals: Morro Chao MD [Primary Care Provider] -
[2019-10-04] MEDS: fentaNYL citrate 100 MCG/2 ML VIAL IV PRN ×3 (09:13→10:58)
[2019-10-04] MEDS ORDERED: SODIUM CHLORIDE 0.9% 500 ML IV SCH (09:15)
[2019-10-04 09:31] LABS: Eosinophils # (auto) 0.04 K/uL (0-0.5); Eosinophils % (auto) 0.3 %; Hematocrit (blood only) 46.5 % (37-47); Hemoglobin 15.5 g/dL (12.0-16.0); Immature Granulocytes # (auto) 0.08 K/uL (0.00-0.02); Immature Granulocytes % (auto) 0.5 %; Lymphocytes # (auto) 2.07 K/uL (1.2-3.4); Lymphocytes % (auto) 14.2 %; Mean Corpuscular Hemoglobin 30.5 pg (25-34); Mean Corpuscular Hgb Conc 33.3 g/dL (32-36); Mean Corpuscular Volume 91.5 fL (80-100); Mean Platelet Volume 8.7 fL (7.4-10.4); Monocytes # (auto) 0.54 K/uL (0.11-0.59); Monocytes % (auto) 3.7 %; Neutrophils # (auto) 11.84 K/uL (1.4-6.5); Neutrophils % (auto) 81.3 %; Platelet Count 138 K/uL (130-400); RDW Coefficient of Variation 15.5 % (11.5-14.5); Red Blood Count 5.08 M/uL (4.2-5.4); White Blood Count 14.57 K/uL (4.8-10.8)
[2019-10-04 09:37] LABS: Albumin Level 3.9 gm/dl (3.4-5.0); BUN Creatinine Ratio 29.3 (10-20); Calcium 9.1 mg/dl (8.5-10.1); Creatinine Clr Calc Pharmacy 36.6 ml/min; Est GFR (African American) 53.6; Est GFR (Non-African American) 46.2; Potassium 3.6 mmol/L (3.5-5.1)
[2019-10-04 09:40] LABS: Albumin Globulin Ratio 1.4 (0.9-2); Bilirubin,Total 0.8 mg/dl (0.2-1); Globulin 2.8 gm/dl (2.5-4.0); Total Protein 6.7 gm/dl (6.4-8.2)
--- NOTE | 2019-10-04 09:40 | CT Scan Report ---
CT abd pelvis wo con CLINICAL HISTORY: 84 years-old Female presenting with CRAMPY LOWER ABD PAIN, N/V. TECHNIQUE: Multidetector CT of the abdomen and pelvis was performed without the use of intravenous co ntrast. IV contrast: None. One or more dose lowering techniques were used consistent with the princip les of ALA (as low as reasonably achievable), including automatic exposure control, mA or kV adjust ment to individual patient size, and/or use of iterative reconstruction. COMPARISON: 01/30/2013. CT DOSE (mGy.cm): The estimated cumulative dose is 627.67 mGycm. FINDINGS: Continuous Churn Buttermaker topogram: Unremarkable. Lung bases: Normal heart size. No pericardial or pleural effusion. Minimal dependent changes likely a telectasis. Liver: Normal morphology. Normal density. Biliary: No gross biliary ductal dilatation allowing for noncontrast technique. Normal gallbladder. Pancreas: Normal noncontrast appearance. Spleen: Normal noncontrast appearance. Anterior splenule noted unchanged from prior. Adrenal glands: Normal noncontrast appearance. Kidneys and ureters: Several small parapelvic and more prominent upper pole left renal cysts. No hydr onephrosis or nephrolithiasis. Ureters nondistended. Bladder: Normal noncontrast appearance. Pelvic organs: Normal noncontrast appearance. Bowel: Diverticulosis of the distal sigmoid colon. Significant wall thickening of the descending colo n with moderate upstream stool burden. Wall thickening extends from the mid to distal transverse colo n to the rectosigmoid junction. There is mild to moderate pericolonic fat infiltration. The appendix is normal. No high-grade bowel obstruction. Small bowel nondistended. Trace hiatal hernia. Peritoneal cavity: Trace fluid in the left paracolic gutter. No extraluminal or free intraperitoneal gas. Lymph nodes: Scattered subcentimeter periaortic lymph nodes, nonspecific. No gross lymphadenopathy al lowing for noncontrast technique. Vasculature: Atherosclerosis of the normal caliber abdominal aorta. Abdominal wall: Small fat-containing umbilical hernia. Musculoskeletal: Degenerative changes of the spine. Osteopenia. IMPRESSION: 1. Extensive wall thickening involving the mid to distal transverse colon through the rectosigmoid j unction with mild to moderate pericolonic fat infiltration is consistent with colitis, most likely in fectious or inflammatory. An ischemic etiology would be considered less likely. The extent also does not favor neoplasm. Low-grade partial large bowel obstruction may be present. Follow-up colonoscopy c ould be considered after resolution of inflammation. 2. Diverticulosis coli. Inflammation does not appear to represent diverticulitis. ACT 112: Negative or not required by law. Electronically signed by: Morro Lau M.D. 10/04/2019 9:39 AM
[2019-10-04 10:22] LABS: Appearance Urine Cloudy (Clear); Blood Urine Negative (Negative); Color Urine Dark Yellow; Epithelial Cell Urine Auto >30 /lpf (0-5); Glucose Urine UA Negative (Negative); Ketones Urine Trace (Negative); Leukocyte Esterase Urine Trace (Negative); Nitrite Urine Positive (Negative); Protein Urine Negative (Negative); Specific Gravity Urine 1.031 (1.000-1.030); Urobilinogen Urine Negative (Negative)
[2019-10-04 10:52] LABS: Bilirubin Urine Negative (Negative); Ictotest Urine Negative (Negative)
[2019-10-04] MEDS ORDERED: cefTRIAXone SODIUM 1,000 MG/50 ML BAG IV STA (10:54)
[2019-10-04 11:07] LABS: Bacteria Urine Automated 4+ (Negative); RBC Urine Automated 0-4 /hpf (0-4)
--- NOTE | 2019-10-04 12:19 | History & Physical Report ---
Date of Service October 04, 2019 Assessment & Plan (1) Colitis: Admit med/surg With leukocytosis, afebrile, mild abdominal pain - CT a/p showing extensive wall thickening involving the mid to distal transverse colon through the rectosigmoid junction consistent with colitis, ischemia less likely. Low grade partial large bowel obstruction. Follow up colonoscopy recommended after resolution of inflammation Cipro/flagyl IV, NSS @ 80 mls/hr x 2L Stool culture, cdiff NPO for now (2) Partial bowel obstruction: As above (3) Abdominal pain: As above Morphine 2mg q4h prn for pain U/a with possible infection, will await cultures. Patient without specific urinary symptoms. Cipro for colitis will cover this anyhow (4) Idiopathic polyneuropathy: Will hold methotrexate for now, continue home methylprednisolone dosing of 12 mg daily (5) DVT prophylaxis: heparin subq, scds History of Present Illness Ms. Benito awoke this morning with diffuse abdominal pain. She vomited x1 which was brown in appearance, denies any further nausea or vomiting. Last bowel movement was yesterday. Her pain has improved and is now mild and on the left side of her abdomen. She denies aches, chills, fever, chest pain, palpitations, sob, cough, dysuria or hesitancy, no skin problems. She does note that her just had a diarrheal illness for about five days. 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 Primary Care Provider: Morro Chao MD Allergies Allergy/AdvReac Type Severity Reaction Status Date / Time influenza virus vaccine Allergy Intermediate rash Verified 10/04/19 09:18 trivalent amoxicillin [From Amoxil] Allergy Unknown Verified 10/04/19 09:18 diazepam [From Valium] Allergy Unknown Verified 10/04/19 09:18 procaine [From Novocain] Allergy Unknown Verified 10/04/19 09:18 fexofenadine [From Sherine] Allergy Verified 10/04/19 09:18 Penicillins AdvReac Unknown SEVERE Verified 10/04/19 09:18 INTERNAL VAGINITIS Anesthesia IV Set MISC Allergy Unknown Uncoded 10/04/19 09:18 Ethyl Chloride AERO Allergy Unknown Uncoded 10/04/19 09:18 Home Medications Home Medications Medication Instructions Recorded Confirmed Type polyethylene glycol 3350 17 17 gm PO DAILY PRN gm 01/17/19 10/04/19 History gram/dose oral powder folic acid 1 mg PO DAILY 10/04/19 10/04/19 History methotrexate sodium 7.5 mg PO BID 10/04/19 10/04/19 History methylprednisolone 12 mg PO DAILY 10/04/19 10/04/19 History Past Med/Surg History Medical History Actinic keratosis Benign positional vertigo Cheilosis Cystocele, midline Elevated blood pressure reading without diagnosis of hypertension Gastroparesis Generalized anxiety disorder History of skin cancer of unknown type Hyperglycemia Hypothyroidism Irregular heartbeat Irritable bowel syndrome Leukopenia Pain in joint of right shoulder Paresthesias Persistent insomnia Rectocele Second degree uterine prolapse Skin cancer Tonsillectomy planned (01/30/13) Vitamin D deficiency Surgical History History of right cataract surgery History of surgical removal of ganglion cyst History of tonsillectomy History of tubal ligation (01/30/13) Family History Mother Lymphoma Heart disease Arthritis Father Stroke Social History Preferred Language: Sinhala Communication Ability: Effective Visual Impairment: Limited Hearing Ability: Normal 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: No Beliefs That Will Affect Care: None marital status: Current Living Situation: Spouse Current Living Situation Comment: [facility] at [facility] current occupational status: retired Other Information That Helps Us Care for You: No Feels Safe at Home: Yes Safety Concerns: Feels Safe At This Time Smoking Status: Former smoker Tobacco Type: cigarettes ; Age Started Using Tobacco: 22 ; Age Quit Using Tobacco: 42 ; packs per day: 1 ; Do You Dip or Chew Tobacco: No ; Second Hand Exposure: No ; Tobacco Cessation Education Requested by Patient: No Hx Alcohol Use: Yes Alcohol type: wine Hx Substance Use: No Childhood Exposure to Second-Hand Smoke: Yes caffeine: No Dental Care, Regularly: Yes Physical Activity Frequency: Does not Exercise Seatbelt Use: always Sunscreen Use: Yes Physical Exam Physical Exam: General: no distress Eyes: normal inspection, PERLL Respiratory: chest non tender, clear to auscultation, normal breath sounds, no respiratory distress, no accessory muscle use Cardiac: regular rate and rhythm, no rub or gallop, diastolic murmur 2/6 llsb, +1 pitting edema lower extremities, no jvd GI/: active bowel sounds, mild abd pain left side, soft, non distended Extremities: normal range of motion, normal strength, non tender Neuro:oriented x 3, moves all extremities Psych: alert, normal mood and affect Skin: normal color, dry Results & Data Results & Data ([facility]) Vital Signs (Past 12 Hours) Vital Signs Temp Pulse Pulse Resp BP BP Pulse Ox 10/04/19 11:28 96 H 18 136/93 98 10/04/19 10:05 87 18 139/67 97 10/04/19 09:40 73 16 139/67 95 10/04/19 09:08 99 10/04/19 08:43 36.4 C L 80 20 167/91 H 97 Supervising Physician Co-Signing Physician Notes I supervised Belkis Chao NP on this patient's care. I examined the patient today independently of her. I discussed the plan of care with her with the plan being as written in her note except for any following changes/exceptions: None. Patient in no acute distress on interview today. Reports she had an episode of diarrhea after interview with Belkis Jeremie which matches her 's self- limited GI illness. Discussed with her my suspision that this is a viral GI illness and will hopefully resolve on its own. However, will rule out infectious causes (particularly C. diff given the diarrhea). Defer abx administration to Ms. Chao, though would probably preferentially not give them given no clear bacterial cause of her GI illness. Other possibility is an IBD. Possibly of higher concern given her autoimmune issues related to flu vaccination. Given present coronavirus concerns, likely cannot get colonoscopy in the near future; however, if diarrhea & abdominal pain persist, will likely need this eventually. However, non-bloody BM, acute onset, and close contact with similar illness all point away from IBD. Will discuss with GI as needed and arrange follow up DEB if needed. PG Care Time/CCT Total # of Minutes Spent Total Time Spent with Patient: Total time spent is greater than 50% in coordination of care (as documented) at patient's floor/unit and/or counseling patient: Coding Level of Care Code 46497 Initial Inpt Care Lvl 3 Diagnoses Colitis K52.9 Partial bowel obstruction K56.690 Intestinal obstruction type: other intestinal obstruction Abdominal pain R10.84 Abdominal location: generalized Idiopathic polyneuropathy G60.9 DVT prophylaxis Z29.9 (1) Partial bowel obstruction Intestinal obstruction type: other intestinal obstruction Qualified Code(s): K56.690 - Other partial intestinal obstruction (2) Abdominal pain Abdominal location: generalized Qualified Code(s): R10.84 - Generalized abdominal pain
[2019-10-04] MEDS ORDERED: ONDANSETRON INJ 2 MG/ML 2 ML VIAL IV PRN (14:30)
[2019-10-04] MEDS ORDERED: MoRPHine SULFATE 2 MG/ML CARP IV PRN (14:30)
[2019-10-04] MEDS ORDERED: POLYETHYLENE (MIRALAX) 17 GM PACK PO PRN (14:30)
[2019-10-04 15:09] LABS: Calcium 8.5 mg/dl (8.5-10.1); Creatinine Clr Calc Pharmacy 39.8 ml/min; Est GFR (African American) 59.3; Est GFR (Non-African American) 51.2
[2019-10-04] MEDS: metroNIDAZOLE 500 MG/100 ML BAG IV SCH ×2 (15:40→21:21)
[2019-10-04] MEDS: SODIUM CHLORIDE 0.9% 1000ML 1,000 ML IV SCH (15:40)
[2019-10-04] MEDS: CIPROFLOXACIN / D5W 400 MG/200 ML BAG IV SCH (15:50)
[2019-10-04] MEDS: HEPARIN SOD 5,000 UNIT/0.5 ML VIAL SQ SCH (20:20)
[2019-10-05] MEDS: CIPROFLOXACIN / D5W 400 MG/200 ML BAG IV SCH (02:26)
[2019-10-05] MEDS: SODIUM CHLORIDE 0.9% 1000ML 1,000 ML IV SCH (05:14)
[2019-10-05] MEDS: metroNIDAZOLE 500 MG/100 ML BAG IV SCH (05:15)
[2019-10-05 05:30] LABS: Eosinophils # (auto) 0.07 K/uL (0-0.5); Eosinophils % (auto) 0.9 %; Hematocrit (blood only) 39.3 % (37-47); Hemoglobin 12.7 g/dL (12.0-16.0); Immature Granulocytes # (auto) 0.01 K/uL (0.00-0.02); Immature Granulocytes % (auto) 0.1 %; Lymphocytes # (auto) 1.97 K/uL (1.2-3.4); Lymphocytes % (auto) 24.6 %; Mean Corpuscular Hemoglobin 30.3 pg (25-34); Mean Corpuscular Hgb Conc 32.3 g/dL (32-36); Mean Corpuscular Volume 93.8 fL (80-100); Mean Platelet Volume 8.9 fL (7.4-10.4); Monocytes # (auto) 0.27 K/uL (0.11-0.59); Monocytes % (auto) 3.4 %; Neutrophils # (auto) 5.69 K/uL (1.4-6.5); Platelet Count 114 K/uL (130-400); RDW Coefficient of Variation 16.2 % (11.5-14.5); RDW Standard Deviation 54.9 fL (36.4-46.3); Red Blood Count 4.19 M/uL (4.2-5.4); White Blood Count 8.01 K/uL (4.8-10.8)
[2019-10-05 05:58] LABS: BUN Creatinine Ratio 26.4 (10-20); Creatinine Clr Calc Pharmacy 39.4 ml/min; Est GFR (African American) 58.6; Est GFR (Non-African American) 50.6; Potassium 4.4 mmol/L (3.5-5.1)
[2019-10-05] MEDS: HEPARIN SOD 5,000 UNIT/0.5 ML VIAL SQ SCH (08:58)
[2019-10-05] MEDS ORDERED: methylPREDNISolone 4 MG TAB PO SCH (09:00)
[2019-10-05] MEDS ORDERED: FOLIC ACID 1 MG TAB PO SCH (09:00)
--- NOTE | 2019-10-05 12:24 | Discharge Summary ---
Date of Service October 05, 2019 Admission HPI Per Admitting Provider Ms. Benito awoke this morning with diffuse abdominal pain. She vomited x1 which was brown in appearance, denies any further nausea or vomiting. Last bowel movement was yesterday. Her pain has improved and is now mild and on the left side of her abdomen. She denies aches, chills, fever, chest pain, palpitations, sob, cough, dysuria or hesitancy, no skin problems. She does note that her just had a diarrheal illness for about five days. Principal Diagnosis colitis Discharge Exam Constitutional WD/WN, vitals as above Respiratory normal respiratory effort, lungs clear to auscultation Cardiovascular RRR, no murmur, no edema Gastrointestinal (Abdomen) Inspection/Auscultation: abdomen normal to inspection and normal bowel sounds; abdomen not distended Percussion/Palpation: abdomen soft; abdomen nontender Musculoskeletal no cyanosis or clubbing, extremities motor strength 5/5 Skin no rashes, warm and dry Neurologic moves all extremities and awake Psychiatric A+Ox3, euthymic affect Discharge Data Allergies Allergy/AdvReac Type Severity Reaction Status Date / Time influenza virus vaccine Allergy Intermediate rash Verified 10/04/19 09:18 trivalent amoxicillin [From Amoxil] Allergy Unknown Verified 10/04/19 09:18 diazepam [From Valium] Allergy Unknown Verified 10/04/19 09:18 procaine [From Novocain] Allergy Unknown Verified 10/04/19 09:18 fexofenadine [From Sherine] Allergy Verified 10/04/19 09:18 Penicillins AdvReac Unknown SEVERE Verified 10/04/19 09:18 INTERNAL VAGINITIS Anesthesia IV Set MISC Allergy Unknown Uncoded 10/04/19 09:18 Ethyl Chloride AERO Allergy Unknown Uncoded 10/04/19 09:18 Consultations 10/04/19 11:37 ED Decision to Admit Stat 10/04/19 14:30 Consult Case Management - Discharge Planning Routine Ordered Studies 10/04/19 09:04 CT abd pelvis wo con Stat Hospital Course (1) Colitis: Admit med/surg With leukocytosis, afebrile, mild abdominal pain - CT a/p showing extensive wall thickening involving the mid to distal transverse colon through the rectosigmoid junction consistent with colitis, ischemia less likely. Low grade partial large bowel obstruction. Follow up colonoscopy recommended after resolution of inflammation Cipro/flagyl IV, NSS @ 80 mls/hr x 2L - Stool culture, cdiff tolerating advancind diet Possible that patient has a viral enteritis as her recently had this however given her elevated white count on admission and immunocompromised status, will give cipro/flagyl x 7 days (2) Partial bowel obstruction: As above (3) Abdominal pain: As above given Morphine 2mg q4h prn for pain inpatient (4) Idiopathic polyneuropathy: Will hold methotrexate for now, continue home methylprednisolone dosing of 12 mg daily (5) DVT prophylaxis: heparin subq, scds (6) CKD (chronic kidney disease), stage III: avoid nephrotoxins Total Time Total Time Spent Total Time Spent (In Minutes): greater than 30 minutes Discharge Plan Discharge Items Patient Disposition: Home - Self-Care Reason For Visit: ABDOMINAL PAIN Discharge Diagnosis: abdominal pain Activity: Resume your previous activity Non-emergency contact: Primary Care Provider Call non-emergency contact if: you have any medication questions Follow-up/Referrals: Morro Chao MD [Primary Care Provider] - Diet: Regular Addtl Attending Provider Instructions: (1) Colitis: On admission you had increased white blood cells which can indicate infection. Your CT scan of your abdomen showed colitis in your colon with a low grade partial large bowel obstruction. You will continue with antibiotics for a total of 7 days. Your stool cultures are still pending. You will be notified if they are positive for bacterial growth Please arrange for a follow up colonoscopy with your primary care provider (2) Partial bowel obstruction: As above (3) Abdominal pain: Resolved (4) Idiopathic polyneuropathy: Hold your methotrexate until you finish your antibiotic course and then resume, continue home methylprednisolone dosing of 12 mg daily Pending Studies at Discharge: Yes Studies:: Stool culture Stand-Alone Forms: My [facility] [place], Smoking Cessation Medications and DC Order Prescriptions: New ciprofloxacin HCl 500 mg tablet 500 mg PO BID Qty: 12 RF: 0 metronidazole 500 mg tablet 500 mg PO TID Qty: 18 RF: 0 Continued polyethylene glycol 3350 17 gram/dose powder 17 gm PO DAILY PRN (Reason: Constipation) RF: 0 levothyroxine 25 mcg tablet 25 mcg PO DAILY Qty: 30 RF: 2 methotrexate sodium 2.5 mg tablet 7.5 mg PO BID RF: 0 methylprednisolone 8 mg tablet 12 mg PO DAILY RF: 0 folic acid 1 mg tablet 1 mg PO DAILY RF: 0 Discharge Orders: Discharge Order (Routine); Ordered 10/05/19 Ordered By: Belkis Marcano/Other Patient Handouts: DVT Admission Data Admit Date/Time: 10/04/19 12:45 Attending Provider: Rolando Emanuel Admit Provider: Rolando Emanuel Primary Care Provider: Morro Chao Other Providers: Rolando Emanuel Other Interventions: Discharge Summary Assessment (RN) Last Done: 10/05/19 13:17 DC Date/Time DO NOT enter until pt leaves facility: 10/05/19 13:45 Supervising Physician Co-Signing Physician Notes Attending note: patient seen and examined with Belkis HOGAN. I agree with her discharge summary. I personally reviewed the labs and imaging findings. patient feeling much better, tolerating diet, no pain, limited bowel movements, she wants to go home - Colitis: likely infectious, viral vs bacterial, will give her short course of Cipro/Flagyl advance diet as tolerated, discharge to home Coding Level of Care Code D/C Day Management >30 mins Diagnoses Colitis K52.9 Partial bowel obstruction K56.690 Intestinal obstruction type: other intestinal obstruction Abdominal pain R10.84 Abdominal location: generalized Idiopathic polyneuropathy G60.9 DVT prophylaxis Z29.9 CKD (chronic kidney disease), stage III N18.3
== END 2019-10-05 13:45 | disposition home or self-care (01) | DRG 392 ==
LOC: ED 08:38 → 3E 12:45

== ENCOUNTER 2019-11-25 06:49 | Inpatient (IN) ==
[2019-11-25] MEDS ORDERED: SODIUM CHLORIDE 0.9% 1000ML 1,000 ML IV SCH ×2 (07:30→13:16)
[2019-11-25] MEDS ORDERED: OPTIRAY 320 125ml IV PRN (07:31)
--- NOTE | 2019-11-25 07:43 | XRay Report ---
XR chest 1V portable CLINICAL HISTORY: Dyspnea COMPARISON STUDY: Chest radiograph November 15, 2017. FINDINGS: Note is made of a 2.3 cm nodular opacity within the left midlung. There is no pneumothorax or pleural effusion. There is lower lung interstitial thickening and bibasilar opacities. Cardiomedia stinal silhouette is stable. IMPRESSION: 1. 2.3 cm nodular opacity within the lateral left midlung. A small focus of pneumonia is favored mcnair keiko a pulmonary nodule could appear similar. Radiographic follow up is recommended. 2. Mild bibasilar opacities and interstitial thickening which favors atelectasis although an infectio us process could appear similar. ACT 112: Negative or not required by law. Electronically signed by: Kimani Cruz M.D. 11/25/2019 7:42 AM
[2019-11-25 07:46] LABS: Basophils # (auto) 0.01 K/uL (0-0.2); Basophils % (auto) 0.1 %; Eosinophils # (auto) 0.09 K/uL (0-0.5); Hematocrit (blood only) 38.7 % (37-47); Hemoglobin 12.7 g/dL (12.0-16.0); Immature Granulocytes # (auto) 0.09 K/uL (0.00-0.02); Lymphocytes # (auto) 0.54 K/uL (1.2-3.4); Lymphocytes % (auto) 6.1 %; Mean Corpuscular Hemoglobin 30.3 pg (25-34); Mean Corpuscular Hgb Conc 32.8 g/dL (32-36); Mean Corpuscular Volume 92.4 fL (80-100); Monocytes # (auto) 0.16 K/uL (0.11-0.59); Monocytes % (auto) 1.8 %; Neutrophils # (auto) 7.97 K/uL (1.4-6.5); Platelet Count 163 K/uL (130-400); RDW Coefficient of Variation 17.7 % (11.5-14.5); RDW Standard Deviation 58.8 fL (36.4-46.3); Red Blood Count 4.19 M/uL (4.2-5.4); White Blood Count 8.86 K/uL (4.8-10.8)
[2019-11-25 08:01] LABS: Partial Thromboplastin Ratio 0.7; Partial Thromboplastin Time 20.8 Seconds (21.0-31.0); Prothrombin Time 10.5 Seconds (9.0-12.0)
[2019-11-25 08:02] LABS: Alanine Aminotransferase 15 U/L (12-78); Albumin Level 3.1 gm/dl (3.4-5.0); Aspartate Aminotransferase 24 U/L (15-37); BUN Creatinine Ratio 21.1 (10-20); Blood Urea Nitrogen 20 mg/dl (7-18); Calcium 9.1 mg/dl (8.5-10.1); Carbon Dioxide 27 mmol/L (21-32); Chloride 106 mmol/L (98-107); Est GFR (African American) 65.5; Est GFR (Non-African American) 56.5; Glucose 110 mg/dl (70-99); Magnesium 2.2 mg/dl (1.8-2.4); Potassium 3.7 mmol/L (3.5-5.1); Sodium 141 mmol/L (136-145)
[2019-11-25 08:07] LABS: Albumin Globulin Ratio 1.1 (0.9-2); Alkaline Phosphatase 49 U/L (45-117); Bilirubin,Total 0.8 mg/dl (0.2-1); Globulin 2.8 gm/dl (2.5-4.0); Total Protein 5.9 gm/dl (6.4-8.2); Troponin I < 0.015 ng/ml (0-0.045)
--- NOTE | 2019-11-25 08:17 | Emergency Department Note ---
History of Present Illness General Chief complaint: Shortness of Breath/Dyspnea Stated complaint: SOB Time Seen by Provider: 11/25/19 07:10 Source: patient and RN notes reviewed Mode of arrival: ambulatory Limitations: no limitations History of Present Illness Provider complaint: Dry cough, shortness of breath Onset (ago): day(s) 2 Maximum Pain Intensity: 0 This patient is an 84-year-old female who presents to the emergency department with complaints of increasing shortness of breath and dry cough. Patient states she has had some low-grade fevers. She denies any significant chest pain. She states she and her have been quarantining with very little outside contact. Patient denies any nausea, vomiting or diarrhea. She does admit to a history of rheumatoid arthritis and vasculitis. She is currently taking hydroxychloroquine and methotrexate. Home Medications Home Medications Medication Instructions Recorded Confirmed Type polyethylene glycol 3350 17 17 gm PO DAILY PRN gm 01/17/19 11/25/19 History gram/dose oral powder folic acid 1 mg PO QAM 10/04/19 11/25/19 History methotrexate sodium 7.5 mg PO BID 10/04/19 11/25/19 History methylprednisolone 12 mg PO DAILY 10/04/19 11/25/19 History hydroxychloroquine 200 mg PO DAILY 11/25/19 11/25/19 History levothyroxine 25 mcg PO QAM 11/25/19 11/25/19 History Allergies Allergy/AdvReac Type Severity Reaction Status Date / Time influenza virus vaccine Allergy Intermediate rash Verified 11/25/19 09:04 trivalent amoxicillin [From Amoxil] Allergy Unknown Unknown Verified 11/25/19 09:04 Anesthetics - Amide Type Allergy Unknown Unknown Unverified 11/25/19 09:04 diazepam [From Valium] Allergy Unknown Unknown Verified 11/25/19 09:04 ethyl chloride Allergy Unknown Unknown Unverified 11/25/19 09:04 procaine [From Novocain] Allergy Unknown Unknown Verified 11/25/19 09:04 Penicillins AdvReac Unknown SEVERE Verified 11/25/19 09:04 INTERNAL VAGINITIS Past Med/Surg History Medical History Actinic keratosis Benign positional vertigo Cheilosis (Resolved) Cystocele, midline Elevated blood pressure reading without diagnosis of hypertension Gastroparesis Generalized anxiety disorder History of skin cancer of unknown type Hyperglycemia Hypothyroidism Irregular heartbeat (Resolved) Irritable bowel syndrome Leukopenia Pain in joint of right shoulder (Resolved) Paresthesias (Resolved) Persistent insomnia Rectocele Second degree uterine prolapse Skin cancer Tonsillectomy planned (Resolved 01/30/13) Vitamin D deficiency Surgical History H/O tooth extraction History of right cataract surgery History of surgical removal of ganglion cyst History of tonsillectomy History of tubal ligation (01/30/13) Family History Mother , age 80 Lymphoma Heart disease Arthritis Father , age 56 Stroke Denies family history of Ovarian cancer Breast cancer Colorectal cancer Social History Preferred Language: Georgian Communication Ability: Effective Visual Impairment: No Limitations Hearing Ability: Normal 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 Machine 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 Required: No Beliefs That Will Affect Care: None marital status: Current Living Situation: Spouse Current Living Situation Comment: [facility] current occupational status: retired Other Information That Helps Us Care for You: No Feels Safe at Home: Yes Safety Concerns: Feels Safe At This Time Smoking Status: Former smoker Tobacco Type: cigarettes ; Age Started Using Tobacco: 22 ; Age Quit Using Tobacco: 42 ; packs per day: 1 ; Do You Dip or Chew Tobacco: No ; Second Hand Exposure: No ; Tobacco Cessation Education Requested by Patient: No Hx Alcohol Use: Yes Alcohol type: wine and hard liquor Hx Substance Use: No Childhood Exposure to Second-Hand Smoke: Yes caffeine: No Dental Care, Regularly: Yes Physical Activity Frequency: Does not Exercise Seatbelt Use: always Sunscreen Use: Yes Review of Systems See HPI for pertinent positives & negatives. and A total of 10 systems reviewed and were otherwise negative Physical Exam Vital Signs Vital Signs - 24 hr 11/25/19 06:55 11/25/19 07:09 11/25/19 07:21 Temperature 36.8 C Temperature Source Oral Pulse Rate 110 H Pulse Rate [Apical] Respiratory Rate 20 Respiratory Effort / Characteristics Non-Labored Non-Labored Respiratory Depth Normal Normal Blood Pressure 132/91 Blood Pressure [Left Arm] Blood Pressure Mean 104 Blood Pressure Mean [Left Arm] Pulse Oximetry 94 95 95 Oxygen Delivery Method Room Air Room Air Room Air Oxygen Flow Rate Sepsis Recent Fever Within 48 Hours No Sepsis Action Taken by Nursing No Action Required 11/25/19 08:49 11/25/19 08:50 11/25/19 10:00 Temperature Temperature Source Pulse Rate Pulse Rate [Apical] 98 H 83 Respiratory Rate 18 19 Respiratory Effort / Characteristics Respiratory Depth Blood Pressure Blood Pressure [Left Arm] 154/88 H 128/74 Blood Pressure Mean Blood Pressure Mean [Left Arm] 110 92 Pulse Oximetry 96 89 L 96 Oxygen Delivery Method Room Air Room Air Room Air Oxygen Flow Rate 0 Sepsis Recent Fever Within 48 Hours Sepsis Action Taken by Nursing Vital signs reviewed. General: Generally well-appearing 84-year-old female, in no significant distress. HEENT: No scleral icterus, PERRLA, neck supple. Atraumatic. Cardiovascular: Regular rate and rhythm, no extra sounds. Pulmonary: Clear to auscultation bilaterally, normal work of breathing. Dry cough with deep inspiration. Abdomen: Soft, nontender, nondistended, positive bowel sounds. Musculoskeletal: Atraumatic, no peripheral edema. Neurologic: Patient awake alert and oriented x 3 Skin: Warm, dry, purpuric appearing rash to the ankles bilaterally Course Administered Medications Albuterol (Duoneb) 3 ml INH Q6R SHELLY Stop: 12/25/19 13:29 Last Admin: 11/25/19 13:35 Dose: 3 ml Documented by: [id number] Ceftriaxone Sodium 2,000 mg/ (Dextrose) 70 mls @ 100 mls/hr IV DAILY@1200 SHELLY; Protocol Stop: 12/02/19 13:59 Last Admin: 11/25/19 14:03 Dose: 100 mls/hr Documented by: [id number] Azithromycin 500 mg/ Dextrose 255 mls @ 125 mls/hr IV ONE ONE Stop: 11/25/19 15:32 Last Infusion: 11/25/19 14:09 Dose: 0 mls/hr Documented by: [id number] Admin: 11/25/19 14:03 Dose: 125 mls/hr Documented by: [id number] Sodium Chloride (Nss 1000ml) 1,000 mls @ 100 mls/hr IV .Q10H SHELLY Stop: 11/25/19 23:15 Last Admin: 11/25/19 14:03 Dose: 100 mls/hr Documented by: [id number] Discontinued Medications Sodium Chloride (Nss 1000ml) 1,000 mls @ 125 mls/hr IV .Q8H SHELLY Stop: 12/25/19 07:29 Last Infusion: 11/25/19 13:41 Dose: 0 mls/hr Documented by: [id number] Admin: 11/25/19 08:37 Dose: 125 mls/hr Documented by: [id number] Ioversol (Optiray 320 125ml) 120 ml IV ONCE PRN PRN Reason: Interaction Checking Stop: 11/29/19 07:30 Last Admin: 11/25/19 07:31 Dose: 120 ml Documented by: [id number] Medical Decision Making Differential Diagnosis Differential diagnosis: Etiologies such as infections, reactive airway disease, COPD, pneumonia, pleural effusion, pulmonary edema, ARDS, pneumothorax, CHF, cardiac ischemia, cardiac tamponade, dysrhythmia, anemia, pulmonary embolism, musculoskeletal, gastrointestinal process, as well as others were entertained. Medical Records Attestation: I reviewed the patient's medical records. Home Medications Current Medication List: was personally reviewed by me Laboratory Data Attestation: I reviewed the patient's lab results. Result diagrams: 11/25/19 07:37 11/25/19 07:37 Lab Results 11/25/19 11/25/19 11/25/19 Range/Units 07:37 07:37 07:37 WBC 8.86 (4.8-10.8) K/uL RBC 4.19 L (4.2-5.4) M/uL Hgb 12.7 (12.0-16.0) g/dL Hct 38.7 (37-47) % MCV 92.4 (80-100) fL MCH 30.3 (25-34) pg MCHC 32.8 (32-36) g/dL RDW Std Deviation 58.8 H (36.4-46.3) fL RDW Coeff of Arturo 17.7 H (11.5-14.5) % Plt Count 163 (130-400) K/uL MPV 9.0 (7.4-10.4) fL Immature Gran % (Auto) 1.0 % Neut % (Auto) 90.0 % Lymph % (Auto) 6.1 % Ferry % (Auto) 1.8 % Eos % (Auto) 1.0 % Baso % (Auto) 0.1 % Immature Gran # (Auto) 0.09 H (0.00-0.02) K/uL Neut # (Auto) 7.97 H (1.4-6.5) K/uL Lymph # (Auto) 0.54 L (1.2-3.4) K/uL Ferry # (Auto) 0.16 (0.11-0.59) K/uL Eos # (Auto) 0.09 (0-0.5) K/uL Baso # (Auto) 0.01 (0-0.2) K/uL PT 10.5 (9.0-12.0) Seconds INR 1.0 (0.9-1.1) APTT 20.8 L (21.0-31.0) Seconds PTT Ratio 0.7 Sodium 141 (136-145) mmol/L Potassium 3.7 (3.5-5.1) mmol/L Chloride 106 (98-107) mmol/L Carbon Dioxide 27 (21-32) mmol/L Anion Gap 8.0 (3-11) BUN 20 H (7-18) mg/dl Creatinine 0.94 (0.6-1.2) mg/dl Est Cr Clr Drug Dosing Not Reportable Est GFR ( Amer) 65.5 Est GFR (Non-Af Amer) 56.5 BUN/Creatinine Ratio 21.1 H (10-20) Glucose 110 H (70-99) mg/dl Calcium 9.1 (8.5-10.1) mg/dl Magnesium 2.2 (1.8-2.4) mg/dl Total Bilirubin 0.8 (0.2-1) mg/dl AST 24 (15-37) U/L ALT 15 (12-78) U/L Alkaline Phosphatase 49 (45-117) U/L Troponin I < 0.015 (0-0.045) ng/ml Total Protein 5.9 L (6.4-8.2) gm/dl Albumin 3.1 L (3.4-5.0) gm/dl Globulin 2.8 (2.5-4.0) gm/dl Albumin/Globulin Ratio 1.1 (0.9-2) Urine Color Urine Appearance (Clear) Urine pH (4.5-7.5) Ur Specific Roebling (1.000-1.030) Urine Protein (Negative) Urine Glucose (UA) (Negative) Urine Ketones (Negative) Urine Blood (Negative) Urine Nitrite (Negative) Urine Bilirubin (Negative) Urine Urobilinogen (Negative) Ur Leukocyte Esterase (Negative) COVID-19 PCR (Negative) 11/25/19 11/25/19 Range/Units 08:25 08:37 WBC (4.8-10.8) K/uL RBC (4.2-5.4) M/uL Hgb (12.0-16.0) g/dL Hct (37-47) % MCV (80-100) fL MCH (25-34) pg MCHC (32-36) g/dL RDW Std Deviation (36.4-46.3) fL RDW Coeff of Arturo (11.5-14.5) % Plt Count (130-400) K/uL MPV (7.4-10.4) fL Immature Gran % (Auto) % Neut % (Auto) % Lymph % (Auto) % Ferry % (Auto) % Eos % (Auto) % Baso % (Auto) % Immature Gran # (Auto) (0.00-0.02) K/uL Neut # (Auto) (1.4-6.5) K/uL Lymph # (Auto) (1.2-3.4) K/uL Ferry # (Auto) (0.11-0.59) K/uL Eos # (Auto) (0-0.5) K/uL Baso # (Auto) (0-0.2) K/uL PT (9.0-12.0) Seconds INR (0.9-1.1) APTT (21.0-31.0) Seconds PTT Ratio Sodium (136-145) mmol/L Potassium (3.5-5.1) mmol/L Chloride (98-107) mmol/L Carbon Dioxide (21-32) mmol/L Anion Gap (3-11) BUN (7-18) mg/dl Creatinine (0.6-1.2) mg/dl Est Cr Clr Drug Dosing Est GFR ( Amer) Est GFR (Non-Af Amer) BUN/Creatinine Ratio (10-20) Glucose (70-99) mg/dl Calcium (8.5-10.1) mg/dl Magnesium (1.8-2.4) mg/dl Total Bilirubin (0.2-1) mg/dl AST (15-37) U/L ALT (12-78) U/L Alkaline Phosphatase (45-117) U/L Troponin I (0-0.045) ng/ml Total Protein (6.4-8.2) gm/dl Albumin (3.4-5.0) gm/dl Globulin (2.5-4.0) gm/dl Albumin/Globulin Ratio (0.9-2) Urine Color Yellow Urine Appearance Clear (Clear) Urine pH 8.0 H (4.5-7.5) Ur Specific Roebling 1.029 (1.000-1.030) Urine Protein Negative (Negative) Urine Glucose (UA) Negative (Negative) Urine Ketones Negative (Negative) Urine Blood Negative (Negative) Urine Nitrite Negative (Negative) Urine Bilirubin Negative (Negative) Urine Urobilinogen Negative (Negative) Ur Leukocyte Esterase Negative (Negative) COVID-19 PCR NEGATIVE (Negative) Imaging Data Radiologist's Impression: XR chest 1V portable CLINICAL HISTORY: Dyspnea COMPARISON STUDY: Chest radiograph November 15, 2017. FINDINGS: Note is made of a 2.3 cm nodular opacity within the left midlung. There is no pneumothorax or pleural effusion. There is lower lung interstitial thickening and bibasilar opacities. Cardiomediastinal silhouette is stable. IMPRESSION: 1. 2.3 cm nodular opacity within the lateral left midlung. A small focus of pneumonia is favored however a pulmonary nodule could appear similar. Radiographic follow up is recommended. 2. Mild bibasilar opacities and interstitial thickening which favors atelectasis although an infectious process could appear similar. ACT 112: Negative or not required by law. Electronically signed by: Kimani Cruz M.D. 11/25/2019 7:42 AM Dictated: 11/25/19 0740 Transcribed: 11/25/[address] ANGIOGRAPHY OF THE CHEST, PULMONARY EMBOLUS PROTOCOL CLINICAL HISTORY: Shortness of breath. Upper chest pain radiating to back. COMPARISON STUDY: Chest radiographs November 15, 2017 and November 25, 2019. TECHNIQUE: Following IV administration of 129 mL of Optiray-320, helical axial images of the chest were obtained utilizing the pulmonary embolus protocol. Maximal intensity projections and sagittal and coronal reformats were viewed on an independent 3D workstation. IV contrast was administered without complication. Automated exposure control was utilized for the study. A dose lowering technique was utilized adhering to the principles of ALARA. CT DOSE: 360.83 mGy.cm FINDINGS: No pulmonary emboli are identified. The heart is mildly enlarged. There is no thoracic aortic dissection. No enlarged axillary, mediastinal or hilar lymph nodes are present. Central airways are patent. There is no pneumothorax or pleural effusion. Multifocal moderate groundglass opacities are noted throughout both lungs, predominately peripheral in location. There is no cavitation. There is no lobar consolidation. Bony thorax is unremarkable. A cyst within the upper pole the left kidney is noted. IMPRESSION: 1. No pulmonary emboli identified. 2. Moderate multifocal groundglass opacities throughout the lungs, predominantly peripheral in location. The findings favor an infectious process such as viral pneumonia. A bacterial etiology could appear similar although is considered less likely. Findings discussed with Dr. Johnson at time of dictation. ACT 112: Negative or not required by law. Electronically signed by: Kimani Cruz M.D. 11/25/2019 8:17 AM Dictated: 11/25/19807 Transcribed: 11/25/19807 ECG Data Attestation: I personally reviewed and interpreted this ECG as follows: Indication: + SOB/dyspnea Rate (beats per minute): 98 Rhythm: + sinus rhythm ECG Intervals/blocks: + Prolonged QT ECG ST segments: + Nonspecific ST abnormalities ECG Findings: + PACs and + LVH; no PVCs Blood Pressure Blood Pressure Findings: Elevated blood pressure Blood Pressure Disposition: further management by hospitalist MURALI Colunga An order for cardiac monitoring was placed and the patient is found to be in a sinus rhythm with occasional PAC at 110 bpm. This patient is an 84-year-old female who presents to the emergency department with complaints of shortness of breath/cough. Patient was placed on the bus driver/monitor and found to be in a sinus rhythm. IV hydration was initiated. Chest x-ray was performed and is concerning for a small focus of pneumonia within the lateral left midlung. Follow-up chest CT was performed and reveals moderate multifocal groundglass opacities. There is concern for COVID. COVID testing has been sent. No antibiotics were initiated at this time as the patient has no fever and no white count, awaiting viral testing. Patient became hypoxic upon ambulation to the bathroom according to nursing staff. She does remain stable while at rest on room air. Patient was informed of the findings. Case was discussed with the hospitalist, Dr. Irizarry, who will evaluate the patient for further management. Impression & Plan Hypoxia, Multifocal pneumonia Discharge Plan Visit Data *Final* Discharge Date/Time: 11/25/19 13:03 Chief Complaint: Shortness of Breath/Dyspnea Stated Complaint: SOB ED Provider: Damaris Johnson Discharge Problem: Hypoxia, Multifocal pneumonia Patient Disposition: Admitted As Inpatient Discharge Instructions Interventions: ED Discharge Assessment Last Done: 11/25/19 13:03
--- NOTE | 2019-11-25 08:18 | CT Scan Report ---
CT ANGIOGRAPHY OF THE CHEST, PULMONARY EMBOLUS PROTOCOL CLINICAL HISTORY: Shortness of breath. Upper chest pain radiating to back. COMPARISON STUDY: Chest radiographs November 15, 2017 and November 25, 2019. TECHNIQUE: Following IV administration of 129 mL of Optiray-320, helical axial images of the chest we re obtained utilizing the pulmonary embolus protocol. Maximal intensity projections and sagittal and coronal reformats were viewed on an independent 3D workstation. IV contrast was administered withou t complication. Automated exposure control was utilized for the study. A dose lowering technique wa s utilized adhering to the principles of ALARA. CT DOSE: 360.83 mGy.cm FINDINGS: No pulmonary emboli are identified. The heart is mildly enlarged. There is no thoracic aor tic dissection. No enlarged axillary, mediastinal or hilar lymph nodes are present. Central airways a re patent. There is no pneumothorax or pleural effusion. Multifocal moderate groundglass opacities ar e noted throughout both lungs, predominately peripheral in location. There is no cavitation. There is no lobar consolidation. Bony thorax is unremarkable. A cyst within the upper pole the left kidney is noted. IMPRESSION: 1. No pulmonary emboli identified. 2. Moderate multifocal groundglass opacities throughout the lungs, predominantly peripheral in locati on. The findings favor an infectious process such as viral pneumonia. A bacterial etiology could appe ar similar although is considered less likely. Findings discussed with Dr. Johnson at time of dict ation. ACT 112: Negative or not required by law. Electronically signed by: Kimani Cruz M.D. 11/25/2019 8:17 AM
[2019-11-25 08:55] LABS: Appearance Urine Clear (Clear); Bilirubin Urine Negative (Negative); Blood Urine Negative (Negative); Color Urine Yellow; Glucose Urine UA Negative (Negative); Ketones Urine Negative (Negative); Leukocyte Esterase Urine Negative (Negative); Nitrite Urine Negative (Negative); Protein Urine Negative (Negative); Specific Gravity Urine 1.029 (1.000-1.030); Urobilinogen Urine Negative (Negative)
--- NOTE | 2019-11-25 09:30 | History & Physical Report ---
Date of Service November 25, 2019 Assessment & Plan (1) Hypoxia: Hypoxia with peripheral groundglass opacities seen on CT scan. Patient be put on broad-spectrum antibiotics. COVID testing is negative. Pending bio i-Neumaticos test to evaluate for other viral etiologies. Patient is already on Plaquenil. She takes chronic daily steroids. We will give her stress dose steroids for [address] chest with contrast 11/25/2019 impression No PE Moderate multifocal groundglass opacities throughout the lungs predominantly in the periphery. This favors an infectious process. 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 Her methotrexate dosing is curious at 7.5 twice daily on Fridays per rheumatology notation from 11/12/2019 Patient's leukocytoclastic vasculitis was initially attributed to influenza vaccine. She was treated intermittently with steroids with transient response. Multiple serological markers were positive including rheumatoid factor JUAN CARLOS nucleolar pattern SCL 70 and low C4 (4) Reactive depression: Patient is typically not on any daily medication we will continue to f tacos (5) CKD (chronic kidney disease), stage III: Appropriate renally dose medications (6) DVT prophylaxis: Enoxaparin 30 subcu twice daily will be added History of Present Illness Primary Care Provider: Morro Chao MD This patient's been feeling ill for a few days. She saw Dr. Chao in the office 11/[address] Naylor was concerned she may have some steroid-induced myopathy and reduced her Medrol from 12 to 8 mg. She is very nondescript symptoms she is a nonproductive cough she has had mild nausea she is had generalized weakness mostly proximal muscle this is clouded by the f act that she is being treated for leukocytoclastic vasculitis and that may have come on after an influenza vaccine. She currently is on weekly methotrexate and steroids. She and her have been self isolating at home. She has had no known context of COVID. Her COVID test is negative in the ED. There is a bio fire respiratory panel and flu test pending. Patient does have groundglass inf iltrates on chest x-ray and she is placed on ceftriaxone and azithromycin. Allergies Allergy/AdvReac Type Severity Reaction Status Date / Time influenza virus vaccine Allergy Intermediate rash Verified 11/25/19 09:04 trivalent amoxicillin [From Amoxil] Allergy Unknown Unknown Verified 11/25/19 09:04 Anesthetics - Amide Type Allergy Unknown Unknown Unverified 11/25/19 09:04 diazepam [From Valium] Allergy Unknown Unknown Verified 11/25/19 09:04 ethyl chloride Allergy Unknown Unknown Unverified 11/25/19 09:04 procaine [From Novocain] Allergy Unknown Unknown Verified 11/25/19 09:04 Penicillins AdvReac Unknown SEVERE Verified 11/25/19 09:04 INTERNAL VAGINITIS Home Medications Home Medications Medication Instructions Recorded Confirmed Type polyethylene glycol 3350 17 17 gm PO DAILY PRN gm 01/17/19 11/25/19 History gram/dose oral powder folic acid 1 mg PO QAM 10/04/19 11/25/19 History methotrexate sodium 7.5 mg PO BID 10/04/19 11/25/19 History methylprednisolone 12 mg PO DAILY 10/04/19 11/25/19 History hydroxychloroquine 200 mg PO DAILY 11/25/19 11/25/19 History levothyroxine 25 mcg PO QAM 11/25/19 11/25/19 History Past Med/Surg History Medical History (Updated 11/25/19 @ 09:25 by Sheldon Irizarry MD) Actinic keratosis Benign positional vertigo Cheilosis (Resolved) Cystocele, midline Elevated blood pressure reading without diagnosis of hypertension Gastroparesis Generalized anxiety disorder History of skin cancer of unknown type Hyperglycemia Hypothyroidism Irregular heartbeat (Resolved) Irritable bowel syndrome Leukopenia Pain in joint of right shoulder (Resolved) Paresthesias (Resolved) Persistent insomnia Rectocele Second degree uterine prolapse Skin cancer Tonsillectomy planned (Resolved 01/30/13) Vitamin D deficiency Surgical History (Updated 10/09/19 @ 13:02 by Morro Chao MD) H/O tooth extraction History of right cataract surgery History of surgical removal of ganglion cyst History of tonsillectomy History of tubal ligation (01/30/13) Family History (Updated 10/11/19 @ 13:34 by Lexus Gaxiola MA) Mother , age 80 Lymphoma Heart disease Arthritis Father , age 56 Stroke Denies family history of Ovarian cancer Breast cancer Colorectal cancer Social History Preferred Language: Frisian Communication Ability: Effective Visual Impairment: No Limitations Hearing Ability: Normal Burr Sander Required: No Beliefs That Will Affect Care: None marital status: Current Living Situation: Spouse Current Living Situation Comment: [facility] current occupational status: retired Feels Safe at Home: Yes Smoking Status: Former smoker Tobacco Type: cigarettes ; Age Started Using Tobacco: 22 ; Age Quit Using Tobacco: 42 ; packs per day: 1 ; Second Hand Exposure: No ; Hx Alcohol Use: Yes Alcohol type: wine Hx Substance Use: No Childhood Exposure to Second-Hand Smoke: Yes caffeine: No Dental Care, Regularly: Yes Physical Activity Frequency: Does not Exercise Seatbelt Use: always Sunscreen Use: Yes Review of Systems Review of Systems: Mild to moderate distress and fatigue no headache, blurry or double vision no speech or swallowing issues no chest pain, pressure or palpitations Mild shortness of breath, nonproductive cough no wheezes no abdominal pain, mild nausea without vomiting, diarrhea or constipation no dysuria, hematuria or frequency no focal joint pain or swelling no back pain, CVA tenderness or radicular pain no bruising, bleeding or rashes no focal signs of weakness or numbness or altered sensation no complaints or anxiety or depression Physical Exam Physical Exam: The patient appeared well nourished and normally developed. Vital signs as documented. Head exam is normocephalic atraumatic no scleral icterus Neck is without JVD, thyromegaly, or carotid bruits. Lungs are scant coarse breath sounds heard bilaterally no wheezes no focal air loss Cardiac exam, Rhythm is regular.. No murmurs, rubs or gallops. Abdominal exam reveals normal bowel sounds, soft non tender, no masses Extremities are nonedematous and both pedal pulses are normal. Neurologic exam is alert and oriented, no focal loss of strength or sensation Skin is without bruises or rashes Psychologically is with concerns for anxiety Results & Data Results & Data ([facility]) Vital Signs (Past 12 Hours) Vital Signs Temp Pulse Pulse Resp BP BP Pulse Ox 11/25/19 08:50 89 L 11/25/19 08:49 98 H 18 154/88 H 96 11/25/19 07:21 95 11/25/19 07:09 95 11/25/19 06:55 98.2 F 110 H 20 132/91 94 PG Care Time/CCT Total # of Minutes Spent Total Time Spent with Patient: Total time spent is greater than 50% in coordination of care (as documented) at patient's floor/unit and/or counseling patient: Coding Level of Care Code 24773 Initial Inpt Care Lvl 2 Diagnoses Hypoxia R09.02 Hypothyroidism E03.9 Leukocytoclastic vasculitis M31.0 Reactive depression F32.9 CKD (chronic kidney disease), stage III N18.3 DVT prophylaxis Z29.9
--- NOTE | 2019-11-25 10:07 | Electrocardiogram Report ---
Test Reason : Blood Pressure : / mmHG Vent. Rate : 098 BPM Atrial Rate : 098 BPM P-R Int : 136 ms QRS Dur : 082 ms QT Int : 324 ms P-R-T Axes : 036 -01 017 degrees QTc Int : 413 ms Sinus rhythm with Premature atrial complexes Voltage criteria for left ventricular hypertrophy Borderline ECG When compared with ECG of 15-NOV-2017 10:44, No significant change was found Confirmed by Obed Rodarte ([id number]) on 11/25/2019 10:07:30 AM Referred By: REFERRED SELF Confirmed By:Obed Rodarte
[2019-11-25] MEDS ORDERED: ACETAMINOPHEN 325 MG TAB PO PRN (13:16)
[2019-11-25] MEDS ORDERED: POLYETHYLENE (MIRALAX) 17 GM PACK PO PRN (13:16)
[2019-11-25] MEDS ORDERED: ALUMINUM/MAGNESIUM SUSP 30 ML UDC PO PRN (13:16)
[2019-11-25] MEDS ORDERED: ONDANSETRON INJ 2 MG/ML 2 ML VIAL IV PRN (13:16)
[2019-11-25] MEDS ORDERED: AZITHROMYCIN 500 MG in DEXTROSE 5% 250 ML IV ONE (13:30)
[2019-11-25] MEDS: ALBUT/IPRATROP 3MG/0.5MG NEB 3 ML VIAL INH SCH ×2 (13:35→19:25)
[2019-11-25] MEDS ORDERED: HYDROCORTISONE SOD SUCCINATE 100 MG/2 ML VIAL IV SCH (14:00)
[2019-11-25] MEDS: cefTRIAXone SODIUM 2,000 MG in DEXTROSE 5% 50 ML IV SCH (14:03)
[2019-11-25] MEDS: HYDROCORTISONE SOD 50 MG in SYRINGE 0 ML IV SCH ×2 (14:48→20:18)
[2019-11-25 15:42] LABS: Adenovirus PCR Not Detected (NotDetected); Bordetella parapertussis PCR Not Detected (NotDetected); Bordetella pertussis PCR Not Detected (NotDetected); Chlamydia pneumoniae PCR Not Detected (NotDetected); Coronavirus 229E PCR Not Detected (NotDetected); Coronavirus HKU1 PCR Not Detected (NotDetected); Coronavirus NL63 PCR Not Detected (NotDetected); Coronavirus OC43PCR Not Detected (NotDetected); Human Metapneumovirus PCR Not Detected (NotDetected); Influenza A PCR Not Detected (NotDetected); Influenza B PCR Not Detected (NotDetected); Mycoplasma pneumoniae PCR Not Detected (NotDetected); Parainfluenza Virus 1 PCR Not Detected (NotDetected); Parainfluenza Virus 2 PCR Not Detected (NotDetected); Parainfluenza Virus 3 PCR Not Detected (NotDetected); Parainfluenza Virus 4 PCR Not Detected (NotDetected); Respiratory Syncytial VirusPCR Not Detected (NotDetected); Rhinovirus/Enterovirus PCR Not Detected (NotDetected)
[2019-11-25] MEDS ORDERED: ENOXAPARIN INJ 40 MG/0.4 ML SYR SQ SCH (16:00)
[2019-11-25] MEDS ORDERED: Nursing to Pharmacy Communication ONE (17:13)
[2019-11-25] MEDS ORDERED: HYDROXYCHLOROQUINE SULFATE 200 MG TAB PO SCH (18:00)
[2019-11-25] MEDS: BUDESONIDE 0.5 MG/2 ML VIAL (PULMICORT) NEB SCH (19:25)
[2019-11-26] MEDS: ALBUT/IPRATROP 3MG/0.5MG NEB 3 ML VIAL INH SCH ×3 (00:59→13:35)
[2019-11-26] MEDS ORDERED: LEVOTHYROXINE SODIUM 25 MCG TABLET PO SCH (04:00)
[2019-11-26] MEDS: HYDROCORTISONE SOD 50 MG in SYRINGE 0 ML IV SCH (04:16)
[2019-11-26] MEDS: BUDESONIDE 0.5 MG/2 ML VIAL (PULMICORT) NEB SCH (06:58)
[2019-11-26 07:33] LABS: Hematocrit (blood only) 36.4 % (37-47); Hemoglobin 11.9 g/dL (12.0-16.0); Mean Corpuscular Hgb Conc 32.7 g/dL (32-36); Mean Corpuscular Volume 91.7 fL (80-100); Mean Platelet Volume 9.1 fL (7.4-10.4); Platelet Count 171 K/uL (130-400); RDW Coefficient of Variation 17.3 % (11.5-14.5); RDW Standard Deviation 58.2 fL (36.4-46.3); Red Blood Count 3.97 M/uL (4.2-5.4); White Blood Count 6.97 K/uL (4.8-10.8)
[2019-11-26 07:52] LABS: BUN Creatinine Ratio 17.5 (10-20); Calcium 8.9 mg/dl (8.5-10.1); Creatinine Clr Calc Pharmacy 49.7 ml/min; Est GFR (African American) 70.9; Est GFR (Non-African American) 61.2; Potassium 3.6 mmol/L (3.5-5.1)
[2019-11-26] MEDS ORDERED: FOLIC ACID 1 MG TAB PO SCH ×2 (08:00→09:00)
[2019-11-26] MEDS ORDERED: HYDROXYCHLOROQUINE SULFATE 200 MG TAB PO SCH ×2 (08:00→17:00)
[2019-11-26] MEDS ORDERED: AZITHROMYCIN 500 MG in DEXTROSE 5% 250 ML IV SCH ×2 (08:00→09:00)
--- NOTE | 2019-11-26 12:24 | Discharge Summary ---
Date of Service November 26, 2019 Admission HPI Per Admitting Provider This patient's been feeling ill for a few days. She saw Dr. Chao in the office 11/[address] Naylor was concerned she may have some steroid-induced myopathy and reduced her Medrol from 12 to 8 mg. She is very nondescript symptoms she is a nonproductive cough she has had mild nausea she is had generalized weakness mostly proximal muscle this is clouded by the fact that she is being treated for leukocytoclastic vasculitis and that may have come on after an influenza vaccine. She currently is on weekly methotrexate and steroids. She and her have been self isolating at home. She has had no known context of COVID. Her COVID test is negative in the ED. There is a bio fire respiratory panel and flu test pending. Patient does have groundglass infiltrates on chest x-ray and she is placed on ceftriaxone and azithromycin. Principal Diagnosis Pneumonia Discharge Exam Constitutional WD/WN, vitals as above Eyes PERRL, conjunctivae normal, anicteric sclerae ENMT external ear and nose normal, oropharynx normal Neck trachea midline, no thyromegaly Respiratory normal respiratory effort, lungs clear to auscultation Cardiovascular RRR, no murmur, no edema Gastrointestinal (Abdomen) normal bowel sounds, soft, nontender, no hepatosplenomegaly Musculoskeletal no cyanosis or clubbing, extremities motor strength 5/5 Skin no rashes, warm and dry Neurologic patellar DTR's 2+ bilat, sensation intact and PERRL, EOMI, accommodation nl, no face palsy, no dysarthria Psychiatric A+Ox3, euthymic affect Lymphatic no cervical or axillary lymphadenopathy Discharge Data Allergies Allergy/AdvReac Type Severity Reaction Status Date / Time influenza virus vaccine Allergy Intermediate rash Verified 11/25/19 09:04 trivalent amoxicillin [From Amoxil] Allergy Unknown Unknown Verified 11/25/19 09:04 Anesthetics - Amide Type Allergy Unknown Unknown Unverified 11/25/19 09:04 diazepam [From Valium] Allergy Unknown Unknown Verified 11/25/19 09:04 ethyl chloride Allergy Unknown Unknown Unverified 11/25/19 09:04 procaine [From Novocain] Allergy Unknown Unknown Verified 11/25/19 09:04 Penicillins AdvReac Unknown SEVERE Verified 11/25/19 09:04 INTERNAL VAGINITIS Consultations 11/25/19 08:56 ED Decision to Admit Stat Ordered Studies 11/25/19 07:27 CT angio chest PE protocol Stat Hospital Course (1) Multifocal pneumonia: seen on CT chest, peripheral ground glass opacities COVID negative, Biofire for other viral etiologies also negative will treat for bacterial infection, initially given Rocephin and Zithromax d/c on Cefdinir and Zithromax follow up with PCP (2) Hypoxia: Hypoxia with peripheral groundglass opacities seen on CT scan. COVID testing is negative. Bio fire test to evaluate for other viral etiologies - all negative Patient is already on Plaquenil. She takes chronic daily steroids. We will give her stress dose steroids for 24 hours quickly titrated off of oxygen, breathing room air with no distress at time of discharge CT chest with contrast 11/25/2019 impression No PE Moderate multifocal groundglass opacities throughout the lungs predominantly in the periphery. This favors an infectious process. 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 Her methotrexate dosing is curious at 7.5 twice daily on Fridays per rheumatology notation from 11/12/2019 Patient's leukocytoclastic vasculitis was initially attributed to influenza vaccine. She was treated intermittently with steroids with transient response. Multiple serological markers were positive including rheumatoid factor JUAN CARLOS nucleolar pattern SCL 70 and low C4 (5) Reactive depression: Patient is typically not on any daily medication we will continue to follow (6) CKD (chronic kidney disease), stage III: Appropriate renally dose medications (7) DVT prophylaxis: Enoxaparin 30 subcu twice daily will be added Total Time Total Time Spent Total Time Spent (In Minutes): 33 minutes Total Time Includes: Examination of the Patient, Discharge Planning and Medication Reconciliation Discharge Plan Discharge Items Patient Disposition: Home - Self-Care Reason For Visit: HYPOXIA Discharge Diagnosis: Pneumonia Acute hypoxia, resolved Condition on Discharge: Good Goals: complete course of antibiotics get rest, stay well hydrated and well nourished follow up with rheumatology as previously scheduled Activity: Resume your previous activity Driving/Machine Use: No limitations Weightbearing: Full weightbearing Non-emergency contact: Primary Care Provider Call non-emergency contact if: you have any medication questions, your symptoms worsen and you have a fever Follow-up/Referrals: Morro Chao MD [Primary Care Provider] - (one week) Diet: Regular Addtl Attending Provider Instructions: Medications: CEFDINIR: 300mg twice a day for 5 more days for pneumonia AZITHROMYCIN: 250mg daily for 3 more days for pneumonia PLAQUENIL: HOLD this medication for three days due to interaction with azithromycin, can then resume Pneumonia, hypoxia CT of the chest with multifocal pneumonia COVID 19 is NEGATIVE, other viral testing is negative as well, will treat possible bacterial etiology titrated off of oxygen quickly, the lowest you reached was 89%, stable today on room air at 95% recommend that you complete a brief course of antibiotics, get rest, stay well hydrated and well nourished follow up with Dr. Chao in a week Pending Studies at Discharge: No Stand-Alone Forms: My [facility], Smoking Cessation Medications and DC Order Prescriptions: New cefdinir 300 mg capsule 300 mg PO BID 5 Days Qty: 10 RF: 0 Continued polyethylene glycol 3350 17 gram/dose powder 17 gm PO DAILY PRN (Reason: Constipation) RF: 0 methotrexate sodium 2.5 mg tablet 7.5 mg PO BID RF: 0 methylprednisolone 8 mg tablet 12 mg PO DAILY RF: 0 folic acid 1 mg tablet 1 mg PO QAM RF: 0 hydroxychloroquine 200 mg tablet 200 mg PO DAILY RF: 0 Discontinued levothyroxine 25 mcg tablet 25 mcg PO QAM RF: 0 Discharge Orders: Discharge Order (Routine); Ordered 11/26/19 Ordered By: Jimmy Chung Admission Data Admit Date/Time: 11/25/19 10:21 Attending Provider: Jimmy Chung Admit Provider: Sheldon Irizarry Primary Care Provider: Morro Chao Other Providers: Sheldon Irizarry Other Interventions: Discharge Summary Assessment (RN) Last Done: 11/26/19 14:32 DC Date/Time DO NOT enter until pt leaves facility: 11/26/19 14:33 Coding Level of Care Code D/C Day Management >30 mins Diagnoses Multifocal pneumonia J18.9 Hypoxia R09.02 Hypothyroidism E03.9 Leukocytoclastic vasculitis M31.0 Reactive depression F32.9 CKD (chronic kidney disease), stage III N18.3 DVT prophylaxis Z29.9
[2019-11-26] MEDS: cefTRIAXone SODIUM 2,000 MG in DEXTROSE 5% 50 ML IV SCH (12:58)
[2019-11-27] MEDS ORDERED: methylPREDNISolone 4 MG TAB PO SCH ×3 (08:00)
== END 2019-11-26 14:33 | disposition home or self-care (01) | DRG 195 ==
LOC: ED 06:49 → SUATTDRO 10:21 → 2N 10:21

== ENCOUNTER 2020-10-01 12:58 | Inpatient (IN) ==
[2020-10-01] MEDS ORDERED: SODIUM CHLORIDE 0.9% 1000ML 1,000 ML IV SCH (14:15)
[2020-10-01 14:32] LABS: Basophils # (auto) 0.02 K/uL (0-0.2); Basophils % (auto) 0.3 %; Eosinophils # (auto) 0.12 K/uL (0-0.5); Hematocrit (blood only) 32.6 % (37-47); Hemoglobin 10.5 g/dL (12.0-16.0); Immature Granulocytes # (auto) 0.01 K/uL (0.00-0.02); Immature Granulocytes % (auto) 0.2 %; Lymphocytes % (auto) 21.4 %; Mean Corpuscular Hgb Conc 32.2 g/dL (32-36); Mean Corpuscular Volume 90.1 fL (80-100); Mean Platelet Volume 9.9 fL (7.4-10.4); Monocytes # (auto) 0.31 K/uL (0.11-0.59); Monocytes % (auto) 5.1 %; Neutrophils # (auto) 4.32 K/uL (1.4-6.5); Platelet Count 151 K/uL (130-400); RDW Standard Deviation 49.3 fL (36.4-46.3); Red Blood Count 3.62 M/uL (4.2-5.4); White Blood Count 6.08 K/uL (4.8-10.8)
[2020-10-01 14:44] LABS: Partial Thromboplastin Ratio 0.8; Partial Thromboplastin Time 21.1 Seconds (21.0-31.0); Prothrombin Time 10.1 Seconds (9.0-12.0)
--- NOTE | 2020-10-01 14:56 | Electrocardiogram Report ---
Test Reason : Blood Pressure : / mmHG Vent. Rate : 090 BPM Atrial Rate : 090 BPM P-R Int : 142 ms QRS Dur : 076 ms QT Int : 382 ms P-R-T Axes : 036 000 023 degrees QTc Int : 467 ms Poor data quality, interpretation may be adversely affected Normal sinus rhythm Normal ECG When compared with ECG of 25-NOV-2019 07:09, Premature atrial complexes are no longer Present QT has lengthened Confirmed by Сергей Parham ([id number]) on 10/01/2020 2:55:57 PM Referred By: REFERRED SELF Confirmed By:Сергей Parham
[2020-10-01 15:10] LABS: Albumin Globulin Ratio 1.2 (0.9-2); Albumin Level 3.5 gm/dl (3.4-5.0); Bilirubin,Total 0.8 mg/dl (0.2-1); Blood Urea Nitrogen 20 mg/dl (7-18); Carbon Dioxide 24 mmol/L (21-32); Chloride 110 mmol/L (98-107); Creatinine Clr Calc Pharmacy 34.9 ml/min; Est GFR (African American) 53.8; Est GFR (Non-African American) 46.4; Glucose 138 mg/dl (70-99); Magnesium 2.1 mg/dl (1.8-2.4); Potassium 3.8 mmol/L (3.5-5.1); Sodium 140 mmol/L (136-145); Total Protein 6.5 gm/dl (6.4-8.2); Troponin I < 0.015 ng/ml (0-0.045)
[2020-10-01 15:11] LABS: Alanine Aminotransferase 10 U/L (12-78); Alkaline Phosphatase 55 U/L (45-117); Aspartate Aminotransferase 25 U/L (15-37); Calcium 9.7 mg/dl (8.5-10.1)
[2020-10-01] MEDS ORDERED: OPTIRAY 320 125ml IV ONE (15:52)
[2020-10-01 15:55] LABS: Influenza A virus by PCR Negative (Neg); Influenza B virus by PCR Negative (Neg); RSV by PCR Negative (Neg); SARS CoV2 RNA(COVID-19) InHosp NEGATIVE (Negative)
--- NOTE | 2020-10-01 16:10 | CT Scan Report ---
HEAD CT NONCONTRAST CT DOSE: 1093.56 mGy.cm HISTORY: Stroke Like Symptoms TECHNIQUE: Multiaxial CT images of the head were performed without the use of intravenous contrast. A utomated exposure control was utilized for this study. A dose lowering technique was utilized adheri ng to the principles of ALARA. Comparison: Head CT 11/15/2017. Findings: The paranasal sinuses and mastoid air cells are clear. The calvarium and skull base are int act. There is no mass, hematoma, midline shift, acute infarct. White matter hypodensity is nonspecifi c but suggestive of microvascular ischemic change. The ventricles and sulci demonstrate mild age-rela chelo involutional changes. Impression: No acute intracranial abnormality. Atrophy and microvascular ischemic changes. ACT 112: Negative or not required by law. Electronically signed by: Juan Luis Ugalde M.D. 10/01/2020 4:08 PM
--- NOTE | 2020-10-01 16:18 | CT Scan Report ---
CT angio neck with con, CT angio head w con CLINICAL HISTORY: 85 years-old Female with Stroke Like Symptoms. Acute strokelike symptoms COMPARISON STUDY: Head CT of same day and also 11/15/2017 TECHNIQUE: Following the IV administration of 118 mL of Optiray 320, CT angiogram of the head and nec k was performed from the aortic arch to the skull apex. Images are reviewed in the axial, sagittal, a nd coronal planes. 3-D MIPS images are created and assessed. IV contrast was administered without com plication. All measurements were calculated based on NASCET criteria. A dose lowering technique was utilized adhering to the principles of ALARA. FINDINGS: Three-vessel morphology of the thoracic aortic arch. Patency of the innominate and imaged subclavian arteries. The common and internal carotid arteries are patent. Calcified plaque of the cavernous, cli noid and supraclinoid segments without high-grade stenosis. Tortuosity of the distal cervical segment left ICA with 3 mm intramedial saccular outpouching on image 307. The middle and anterior cerebral a rteries are patent. Codominant and patent vertebral arteries. The basilar and posterior cerebral steven jose l are patent. Cerebral venous sinuses are patent. No abnormal intracranial enhancement. Intralobular septal thickening with subpleural round glass densities of the imaged right lung. No pne umothorax. Unremarkable thyroid and soft tissues. Prior right-sided lens repair. Degenerative changes of the cervical spine. No acute fracture. Grade 1 anterolisthesis C3 on C4, likely on a degenerative basis. IMPRESSION: 1. Tortuosity of the distal cervical segment left ICA with 3 mm saccular outpouching suggestive of an eurysm. 2. Otherwise unremarkable CTA of the head and neck. 3. Intralobular septal thickening of the lung apices suggestive of pulmonary edema. Asymmetric ground glass densities throughout the right lung may also reflect pulmonary edema or a nonspecific pneumonit is. ACT 112: Negative or not required by law. The above report was generated using voice recognition software. It may contain grammatical, syntax o r spelling errors. Electronically signed by: Truman Lau M.D. 10/01/2020 4:16 PM
[2020-10-01 17:36] LABS: Appearance Urine Cloudy (Clear); Bacteria Urine Automated 4+ (Negative); Bilirubin Urine Negative (Negative); Blood Urine 3+ (Negative); Color Urine Yellow; Epithelial Cell Urine Auto 20-30 /lpf (0-5); Glucose Urine UA Negative (Negative); Ketones Urine Negative (Negative); Leukocyte Esterase Urine Trace (Negative); Nitrite Urine Positive (Negative); Protein Urine 2+ (Negative); Specific Gravity Urine 1.015 (1.000-1.030); Urobilinogen Urine Negative (Negative); WBC Urine Automated >30 /hpf (0-5); pH Urine 6.5 (4.5-7.5)
[2020-10-01] MEDS ORDERED: cefTRIAXone SODIUM 1,000 MG/50 ML BAG IV STA (17:43)
--- NOTE | 2020-10-01 18:33 | XRay Report ---
XR chest 1V portable HISTORY: 85 years-old Female Intralobular septal thickening of lung apices CTA acute shortness of br eath with possible pulmonary edema COMPARISON: Chest radiograph 11/25/2019, chest CT 01/17/2020 TECHNIQUE: Portable AP view of the chest FINDINGS: Unchanged mild cardiomegaly. Unchanged reticular opacities. No overt pulmonary edema identified. No p neumothorax, pleural effusion or new airspace consolidation. Degenerative changes of the shoulders an d spine. IMPRESSION: Cardiomegaly with chronic interstitial coarsening. ACT 112: Negative or not required by law. The above report was generated using voice recognition software. It may contain grammatical, syntax o r spelling errors. Electronically signed by: Truman Lau M.D. 10/01/2020 6:31 PM
--- NOTE | 2020-10-01 20:56 | History & Physical Report ---
Date of Service October 01, 2020 Assessment & Plan (1) Facial droop: 85yo C female presenting with left facial droop first noted yesterday at 22:00. Concern for new CVA -Admit to medical floor with telemetry -Check MRI Brain -Check A1C and lipid panel -PT/OT evaluation -ASA 81mg po daily -Plavix 75mg po daily -Atorvastatin 40mg po daily -Speech/Swallow evaluation for formal testing in patient with significant facial droop -Neurology consultation appreciated Present on Admission?: Yes (2) UTI (urinary tract infection): Afebrile. Nontoxic in appearance. 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 She has been recently weaned off her steroids and Plaquenil with plan to repeat some blood work while off these agents. 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 Stable -Continue to monitor -Avoid nephrotoxic agents Present on Admission?: Yes (5) Elevated blood pressure reading without diagnosis of hypertension: Patient not on any antihypertensive agents. -Allow for permissive HTN in event of new CVA -Monitor. Presently 153/81 Present on Admission?: Yes History of Present Illness Chief Complaint: facial droop Primary Care Provider: Morro Chao MD Nuris Benito is a pleasant 85yo C female presenting with left facial droop and slurred speech that started 09/30/20 around 22:00. 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 She has been following with Rheumatology both locally and at [facility] as well as Hematology at [facility]. She has been on Prednisone and Plaquenil for years. She has recently been weaned off both medications (has been off Prednisone since August and Plaquenil and Cymbalta since September) with plans to repeat Rheumatological workup whilst off these medications to get a clearer picture of patient's diagnosis. Last night around 22:00 patient's noted her having slurred speech and not making sense. She went to bed and states she was very restless overnight - waking up appx 4 times to use the restroom which is unusual for her. This morning when she woke up at 10:00 her left face was drooping and she had some trouble ambulating initially. Her speech was improved, however, not quite back to normal. Patient also had some blurry vision in her right eye. These symptoms prompted her to come to the ER. Patient denies LALA, CP, palpitations, abdominal pain, nausea, vomiting, diarrhea, constipation. No additional complaints at this time. ER Course: Ceftriaxone. NSS Allergies Allergy/AdvReac Type Severity Reaction Status Date / Time influenza virus vaccine Allergy Intermediate rash Verified 09/09/20 14:57 trivalent amoxicillin [From Amoxil] Allergy Unknown Unknown Verified 09/09/20 14:57 Anesthetics - Amide Type - Allergy Unknown Unknown Verified 09/09/20 14:57 Select A [Anesthetics - Amide Type] diazepam [From Valium] Allergy Unknown Unknown Verified 09/09/20 14:57 ethyl chloride Allergy Unknown Unknown Verified 09/09/20 14:57 procaine [From Novocain] Allergy Unknown Unknown Verified 09/09/20 14:57 Penicillins AdvReac Unknown SEVERE Verified 09/09/20 14:57 INTERNAL VAGINITIS Home Medications Medication Instructions Recorded Confirmed Type polyethylene glycol 3350 17 17 gm PO DAILY PRN gm 01/17/19 10/01/20 History gram/dose oral powder multivitamin 1 tab PO DAILY 02/03/20 10/01/20 History cholecalciferol (vitamin D3) 25 1,000 unit PO DAILY tab 05/23/20 10/01/20 History mcg (1,000 unit) tablet cyanocobalamin (vitamin B-12) 1,000 mcg SUBLINGUAL DAILY 05/23/20 10/01/20 History 1,000 mcg sublingual lozenge Past Med/Surg History Medical History (Updated 10/02/20 @ 03:24 by Charlette Sage DO) Abrasion of knee Actinic keratosis Benign positional vertigo Cheilosis CKD (chronic kidney disease), stage III Cystocele, midline Elevated blood pressure reading without diagnosis of hypertension Gastroparesis Generalized anxiety disorder History of skin cancer of unknown type Hyperglycemia Hypothyroidism Irregular heartbeat Irritable bowel syndrome Leukocytoclastic vasculitis Leukopenia Pain in joint of right shoulder Paresthesias Persistent insomnia Rectocele Second degree uterine prolapse Skin cancer Tonsillectomy planned (01/30/13) Vitamin D deficiency Surgical History H/O tooth extraction History of right cataract surgery History of surgical removal of ganglion cyst History of tonsillectomy History of tubal ligation (01/30/13) Family History Mother , age 80 Lymphoma Heart disease Arthritis Father , age 56 Stroke Denies family history of Ovarian cancer Breast cancer Colorectal cancer Social History Smoking Status: Former smoker Tobacco Type: Cigarettes Age Started Using Tobacco: 22; Age Quit Using Tobacco: 42; packs per day: 1; Years Smoked: 20; Smoking End Date: quit in 1959; Second Hand Exposure: No; Hx Alcohol Use: Yes Alcohol type: hard liquor Alcohol Intake Frequency: Monthly or Less Hx Substance Use: No Preferred Language: Arabic Communication Ability: Effective Visual Impairment: Limited Hearing Ability: Normal Drywall Hanger Required: No Beliefs That Will Affect Care: None marital status: Current Living Situation: Spouse Current Living Situation Comment: with at [facility] current occupational status: retired Feels Safe at Home: Yes Safety Concerns: Feels Safe At This Time Childhood Exposure to Second-Hand Smoke: Yes caffeine: No Dental Care, Regularly: Yes Physical Activity Frequency: Does not Exercise Seatbelt Use: always Sunscreen Use: Yes Assistive Devices: Cane and Glasses Review of Systems Review of Systems: All systems reviewed & are unremarkable except as noted in HPI & below Physical Exam Physical Exam: General: patient resting comfortably, NAD, non-toxic in appearance, AA&O to self and location with confusion on date Skin: warm, dry, intact, erythematous, macular lesions noted on arms and legs, tender to palpation HEENT: NC/AT, PERRL, EOMI, anicteric sclera, conjunctiva without injection, external ear normal to inspection and nontender, nares patent, moist mucus membranes, dentition intact, no oropharyngeal lesions, neck supple, trachea midline, no LAD, no thyromegaly, no JVD Heart: +S1/S2, regular, no m/r/g Lungs: equal air entry bilaterally, no rales/rhonchi/wheezes Abd: +BS, soft, NT/ND, no masses/organomegaly/ascites Ext: warm, 2+ pulses in UE/LE bilaterally, no clubbing/cyanosis or edema Neuro: significant left facial droop, decreased sensation to light touch right V1 distribution, otherwise sensation to light touch intact, MS 5/5 Results & Data Results & Data ([facility]) Vital Signs (Past 12 Hours) Vital Signs Temp Pulse Resp BP Pulse Ox 10/01/20 19:31 109 H 18 169/96 H 99 10/01/20 19:00 92 H 16 164/97 H 99 10/01/20 18:00 85 23 157/77 H 98 10/01/20 17:30 91 H 17 159/95 H 98 10/01/20 17:00 84 20 149/85 H 98 10/01/20 16:30 90 26 H 161/88 H 98 10/01/20 16:01 104 H 14 172/91 H 98 10/01/20 15:30 97 H 167/100 H 99 10/01/20 15:00 84 152/82 H 99 10/01/20 14:30 86 146/85 H 99 10/01/20 14:11 90 20 139/80 98 10/01/20 13:13 36.7 C 106 H 18 128/77 96 Laboratory Results Lab Results 10/01/20 10/01/20 10/01/20 Range/Units 13:39 13:39 13:39 WBC 6.08 (4.8-10.8) K/uL RBC 3.62 L (4.2-5.4) M/uL Hgb 10.5 L (12.0-16.0) g/dL Hct 32.6 L (37-47) % MCV 90.1 (80-100) fL MCH 29.0 (25-34) pg MCHC 32.2 (32-36) g/dL RDW Std Deviation 49.3 H (36.4-46.3) fL RDW Coeff of Arturo 15.0 H (11.5-14.5) % Plt Count 151 (130-400) K/uL MPV 9.9 (7.4-10.4) fL Immature Gran % (Auto) 0.2 % Neut % (Auto) 71.0 % Lymph % (Auto) 21.4 % [place] % (Auto) 5.1 % Eos % (Auto) 2.0 % Baso % (Auto) 0.3 % Neut # (Auto) 4.32 (1.4-6.5) K/uL Lymph # (Auto) 1.30 (1.2-3.4) K/uL [place] # (Auto) 0.31 (0.11-0.59) K/uL Eos # (Auto) 0.12 (0-0.5) K/uL Baso # (Auto) 0.02 (0-0.2) K/uL Immature Gran # (Auto) 0.01 (0.00-0.02) K/uL PT 10.1 (9.0-12.0) Seconds INR 1.0 (0.9-1.1) APTT 21.1 (21.0-31.0) Seconds PTT Ratio 0.8 Sodium 140 (136-145) mmol/L Potassium 3.8 (3.5-5.1) mmol/L Chloride 110 H (98-107) mmol/L Carbon Dioxide 24 (21-32) mmol/L Anion Gap 6.0 (3-11) BUN 20 H (7-18) mg/dl Creatinine 1.10 (0.6-1.2) mg/dl Est Cr Clr Drug Dosing 34.9 ml/min Est GFR ( Amer) 53.8 Est GFR (Non-Af Amer) 46.4 BUN/Creatinine Ratio 18.0 (10-20) Glucose 138 H (70-99) mg/dl Calcium 9.7 (8.5-10.1) mg/dl Magnesium 2.1 (1.8-2.4) mg/dl Total Bilirubin 0.8 (0.2-1) mg/dl AST 25 (15-37) U/L ALT 10 L (12-78) U/L Alkaline Phosphatase 55 (45-117) U/L Troponin I < 0.015 (0-0.045) ng/ml Total Protein 6.5 (6.4-8.2) gm/dl Albumin 3.5 (3.4-5.0) gm/dl Globulin 3.0 (2.5-4.0) gm/dl Albumin/Globulin Ratio 1.2 (0.9-2) Urine Color Urine Appearance (Clear) Urine pH (4.5-7.5) Ur Specific [place] (1.000-1.030) Urine Protein (Negative) Urine Glucose (UA) (Negative) Urine Ketones (Negative) Urine Blood (Negative) Urine Nitrite (Negative) Urine Bilirubin (Negative) Urine Urobilinogen (Negative) Ur Leukocyte Esterase (Negative) Urine WBC (Auto) (0-5) /hpf Urine RBC (Auto) (0-4) /hpf U Hyaline Cast (Auto) (0-5) /lpf U Epithel Cells (Auto) (0-5) /lpf Urine Bacteria (Auto) (Negative) COVID-19 Eval Order SARS-CoV-2 (PCR) (Negative) Influenza Type A (PCR) (Neg) Influenza Type B (PCR) (Neg) RSV (RT-PCR) (Neg) Blood Type Antibody Screen 10/01/20 10/01/20 10/01/20 Range/Units 14:26 14:48 14:48 WBC (4.8-10.8) K/uL RBC (4.2-5.4) M/uL Hgb (12.0-16.0) g/dL Hct (37-47) % MCV (80-100) fL MCH (25-34) pg MCHC (32-36) g/dL RDW Std Deviation (36.4-46.3) fL RDW Coeff of Arturo (11.5-14.5) % Plt Count (130-400) K/uL MPV (7.4-10.4) fL Immature Gran % (Auto) % Neut % (Auto) % Lymph % (Auto) % [place] % (Auto) % Eos % (Auto) % Baso % (Auto) % Neut # (Auto) (1.4-6.5) K/uL Lymph # (Auto) (1.2-3.4) K/uL [place] # (Auto) (0.11-0.59) K/uL Eos # (Auto) (0-0.5) K/uL Baso # (Auto) (0-0.2) K/uL Immature Gran # (Auto) (0.00-0.02) K/uL PT (9.0-12.0) Seconds INR (0.9-1.1) APTT (21.0-31.0) Seconds PTT Ratio Sodium (136-145) mmol/L Potassium (3.5-5.1) mmol/L Chloride (98-107) mmol/L Carbon Dioxide (21-32) mmol/L Anion Gap (3-11) BUN (7-18) mg/dl Creatinine (0.6-1.2) mg/dl Est Cr Clr Drug Dosing ml/min Est GFR ( Amer) Est GFR (Non-Af Amer) BUN/Creatinine Ratio (10-20) Glucose (70-99) mg/dl Calcium (8.5-10.1) mg/dl Magnesium (1.8-2.4) mg/dl Total Bilirubin (0.2-1) mg/dl AST (15-37) U/L ALT (12-78) U/L Alkaline Phosphatase (45-117) U/L Troponin I (0-0.045) ng/ml Total Protein (6.4-8.2) gm/dl Albumin (3.4-5.0) gm/dl Globulin (2.5-4.0) gm/dl Albumin/Globulin Ratio (0.9-2) Urine Color Urine Appearance (Clear) Urine pH (4.5-7.5) Ur Specific [place] (1.000-1.030) Urine Protein (Negative) Urine Glucose (UA) (Negative) Urine Ketones (Negative) Urine Blood (Negative) Urine Nitrite (Negative) Urine Bilirubin (Negative) Urine Urobilinogen (Negative) Ur Leukocyte Esterase (Negative) Urine WBC (Auto) (0-5) /hpf Urine RBC (Auto) (0-4) /hpf U Hyaline Cast (Auto) (0-5) /lpf U Epithel Cells (Auto) (0-5) /lpf Urine Bacteria (Auto) (Negative) COVID-19 Eval Order [facility]Rsv at [facility] SARS-CoV-2 (PCR) NEGATIVE (Negative) Influenza Type A (PCR) Negative (Neg) Influenza Type B (PCR) Negative (Neg) RSV (RT-PCR) Negative (Neg) Blood Type B Positive Antibody Screen NEGATIVE 10/01/20 Range/Units 15:34 WBC (4.8-10.8) K/uL RBC (4.2-5.4) M/uL Hgb (12.0-16.0) g/dL Hct (37-47) % MCV (80-100) fL MCH (25-34) pg MCHC (32-36) g/dL RDW Std Deviation (36.4-46.3) fL RDW Coeff of Arturo (11.5-14.5) % Plt Count (130-400) K/uL MPV (7.4-10.4) fL Immature Gran % (Auto) % Neut % (Auto) % Lymph % (Auto) % [place] % (Auto) % Eos % (Auto) % Baso % (Auto) % Neut # (Auto) (1.4-6.5) K/uL Lymph # (Auto) (1.2-3.4) K/uL [place] # (Auto) (0.11-0.59) K/uL Eos # (Auto) (0-0.5) K/uL Baso # (Auto) (0-0.2) K/uL Immature Gran # (Auto) (0.00-0.02) K/uL PT (9.0-12.0) Seconds INR (0.9-1.1) APTT (21.0-31.0) Seconds PTT Ratio Sodium (136-145) mmol/L Potassium (3.5-5.1) mmol/L Chloride (98-107) mmol/L Carbon Dioxide (21-32) mmol/L Anion Gap (3-11) BUN (7-18) mg/dl Creatinine (0.6-1.2) mg/dl Est Cr Clr Drug Dosing ml/min Est GFR ( Amer) Est GFR (Non-Af Amer) BUN/Creatinine Ratio (10-20) Glucose (70-99) mg/dl Calcium (8.5-10.1) mg/dl Magnesium (1.8-2.4) mg/dl Total Bilirubin (0.2-1) mg/dl AST (15-37) U/L ALT (12-78) U/L Alkaline Phosphatase (45-117) U/L Troponin I (0-0.045) ng/ml Total Protein (6.4-8.2) gm/dl Albumin (3.4-5.0) gm/dl Globulin (2.5-4.0) gm/dl Albumin/Globulin Ratio (0.9-2) Urine Color Yellow Urine Appearance Cloudy A (Clear) Urine pH 6.5 (4.5-7.5) Ur Specific [place] 1.015 (1.000-1.030) Urine Protein 2+ H (Negative) Urine Glucose (UA) Negative (Negative) Urine Ketones Negative (Negative) Urine Blood 3+ H (Negative) Urine Nitrite Positive A (Negative) Urine Bilirubin Negative (Negative) Urine Urobilinogen Negative (Negative) Ur Leukocyte Esterase Trace H (Negative) Urine WBC (Auto) >30 H (0-5) /hpf Urine RBC (Auto) 10-30 H (0-4) /hpf U Hyaline Cast (Auto) 1-5 (0-5) /lpf U Epithel Cells (Auto) 20-30 H (0-5) /lpf Urine Bacteria (Auto) 4+ H (Negative) COVID-19 Eval Order SARS-CoV-2 (PCR) (Negative) Influenza Type A (PCR) (Neg) Influenza Type B (PCR) (Neg) RSV (RT-PCR) (Neg) Blood Type Antibody Screen Diagnostic Findings HEAD CT NONCONTRAST CT DOSE: 1093.56 mGy.cm HISTORY: Stroke Like Symptoms TECHNIQUE: Multiaxial CT images of the head were performed without the use of intravenous contrast. Automated exposure control was utilized for this study. A dose lowering technique was utilized adhering to the principles of ALARA. Comparison: Head CT 11/15/2017. Findings: The paranasal sinuses and mastoid air cells are clear. The calvarium and skull base are intact. There is no mass, hematoma, midline shift, acute infarct. White matter hypodensity is nonspecific but suggestive of microvascular ischemic change. The ventricles and sulci demonstrate mild age-related involutional changes. Impression: No acute intracranial abnormality. Atrophy and microvascular ischemic changes. ACT 112: Negative or not required by law. Electronically signed by: Juan Luis Ugalde M.D. 10/01/2020 4:08 PM Dictated: 10/01/20 1600Transcribed: 10/01/[address] angio neck with con, CT angio head w con CLINICAL HISTORY: 85 years-old Female with Stroke Like Symptoms. Acute strokelike symptoms COMPARISON STUDY: Head CT of same day and also 11/15/2017 TECHNIQUE: Following the IV administration of 118 mL of Optiray 320, CT angiogram of the head and neck was performed from the aortic arch to the skull apex. Images are reviewed in the axial, sagittal, and coronal planes. 3-D MIPS images are created and assessed. IV contrast was administered without complication. All measurements were calculated based on NASCET criteria. A dose lowering technique was utilized adhering to the principles of ALARA. FINDINGS: Three-vessel morphology of the thoracic aortic arch. Patency of the innominate and imaged subclavian arteries. The common and internal carotid arteries are patent. Calcified plaque of the cavernous, clinoid and supraclinoid segments without high-grade stenosis. Tortuosity of the distal cervical segment left ICA with 3 mm intramedial saccular outpouching on image 307. The middle and anterior cerebral arteries are patent. Codominant and patent vertebral arteries. The b asilar and posterior cerebral arteries are patent. Cerebral venous sinuses are patent. No abnormal intracranial enhancement. Intralobular septal thickening with subpleural round glass densities of the imaged right lung. No pneumothorax. Unremarkable thyroid and soft tissues. Prior right-sided lens repair. Degenerative changes of the cervical spine. No acute fracture. Grade 1 anterolisthesis C3 on C4, likely on a degenerative basis. IMPRESSION: 1. Tortuosity of the distal cervical segment left ICA with 3 mm saccular outpouching suggestive of aneurysm. 2. Otherwise unremarkable CTA of the head and neck. 3. Intralobular septal thickening of the lung apices suggestive of pulmonary edema. Asymmetric groundglass densities throughout the right lung may also reflect pulmonary edema or a nonspecific pneumonitis. ACT 112: Negative or not required by law. The above report was generated using voice recognition software. It may contain grammatical, syntax or spelling errors. Electronically signed by: Truman Lau M.D. 10/01/2020 4:16 PM Dictated: 10/01/201607Transcribed: 10/01/201607 R chest 1V portable HISTORY: 85 years-old Female Intralobular septal thickening of lung apices CTA acute shortness of breath with possible pulmonary edema COMPARISON: Chest radiograph 11/25/2019, chest CT 01/17/2020 TECHNIQUE: Portable AP view of the chest FINDINGS: Unchanged mild cardiomegaly. Unchanged reticular opacities. No overt pulmonary edema identified. No pneumothorax, pleural effusion or new airspace consolidation. Degenerative changes of the shoulders and spine. IMPRESSION: Cardiomegaly with chronic interstitial coarsening. ACT 112: Negative or not required by law. The above report was generated using voice recognition software. It may contain grammatical, syntax or spelling errors. Electronically signed by: Truman Lau M.D. 10/01/2020 6:31 PM Dictated: 10/01/201828Transcribed: 10/01/201828 ECG Additional Comments: est Reason : Blood Pressure : / mmHG Vent. Rate : 090 BPM Atrial Rate : 090 BPM P-R Int : 142 ms QRS Dur : 076 ms QT Int : 382 ms P-R-T Axes : 036 000 023 degrees QTc Int : 467 ms Poor data quality, interpretation may be adversely affected Normal sinus rhythm Normal ECG When compared with ECG of 25-NOV-2019 07:09, Premature atrial complexes are no longer Present QT has lengthened Confirmed by Сергей Parham ([id number]) on 10/01/2020 2:55:57 PM Referred By: REFERRED SELF Confirmed By:Сергей Parham PG Care Time/CCT Total # of Minutes Spent Total Time Spent with Patient: Total time spent is greater than 50% in coordination of care (as documented) at patient's floor/unit and/or counseling patient: Coding Level of Care Code 41840 Initial Inpt Care Lvl 3 Diagnoses Facial droop R29.810 UTI (urinary tract infection) N39.0 Urinary tract infection type: site unspecified Hematuria presence: without hematuria Leukocytoclastic vasculitis M31.0 CKD (chronic kidney disease), stage III N18.30 Chronic kidney disease stage 3 subtype: unspecified whether 3a or 3b Elevated blood pressure reading without diagnosis of hypertension R03.0 (1) CKD (chronic kidney disease), stage III Chronic kidney disease stage 3 subtype: unspecified whether 3a or 3b Qualified Code(s): N18.30 - Chronic kidney disease, stage 3 unspecified (2) UTI (urinary tract infection) Urinary tract infection type: site unspecified Hematuria presence: without hematuria Qualified Code(s): N39.0 - Urinary tract infection, site not specified
[2020-10-01] MEDS ORDERED: LORazepam 1 MG/2 ML VIAL IV STA (20:59)
[2020-10-01] MEDS ORDERED: ONDANSETRON INJ 2 MG/ML 2 ML VIAL IV PRN (22:14)
[2020-10-01] MEDS ORDERED: LORazepam 1 MG/2 ML VIAL IV PRN (22:14)
[2020-10-02 06:39] LABS: Basophils # (auto) 0.01 K/uL (0-0.2); Basophils % (auto) 0.1 %; Eosinophils # (auto) 0.13 K/uL (0-0.5); Eosinophils % (auto) 1.9 %; Hematocrit (blood only) 30.7 % (37-47); Hemoglobin 10.3 g/dL (12.0-16.0); Immature Granulocytes # (auto) 0.01 K/uL (0.00-0.02); Immature Granulocytes % (auto) 0.1 %; Lymphocytes # (auto) 0.59 K/uL (1.2-3.4); Lymphocytes % (auto) 8.8 %; Mean Corpuscular Hemoglobin 29.7 pg (25-34); Mean Corpuscular Hgb Conc 33.6 g/dL (32-36); Mean Corpuscular Volume 88.5 fL (80-100); Mean Platelet Volume 9.8 fL (7.4-10.4); Monocytes # (auto) 0.34 K/uL (0.11-0.59); Monocytes % (auto) 5.1 %; Neutrophils # (auto) 5.61 K/uL (1.4-6.5); Platelet Count 131 K/uL (130-400); RDW Coefficient of Variation 15.1 % (11.5-14.5); RDW Standard Deviation 48.8 fL (36.4-46.3); Red Blood Count 3.47 M/uL (4.2-5.4); White Blood Count 6.69 K/uL (4.8-10.8)
[2020-10-02 07:25] LABS: BUN Creatinine Ratio 16.7 (10-20); Calcium 8.6 mg/dl (8.5-10.1); Est GFR (African American) 64.2; Est GFR (Non-African American) 55.4; Potassium 3.4 mmol/L (3.5-5.1)
[2020-10-02 07:33] LABS: Estimated Average Glucose 103 mg/dl; Hemoglobin A1C 5.2 % (4.5-5.6)
--- NOTE | 2020-10-02 07:36 | Magnetic Resonance Report ---
MRI OF THE BRAIN WITHOUT IV CONTRAST CLINICAL HISTORY: Strokelike symptoms. COMPARISON STUDY: CT of the brain dated 10/01/2020. TECHNIQUE: MRI of the brain was performed utilizing various T1 and T2-weighted sequences in the axial , sagittal, and coronal planes. IV contrast was not administered for this examination. The examinatio n is degraded by motion artifact. FINDINGS: Brain parenchyma: There are foci of restricted diffusion identified in the right basal ganglia and th e right ji radiata consistent acute to subacute ischemia. Tiny T1 hyperintense foci within the ri ght basal ganglia and the right ji radiata seen on axial images #14 and #16 likely represent trac e petechial hemorrhage. No additional foci of restricted diffusion are identified. There is no mass e ffect. There is age-related involutional change noting moderate subcortical and periventricular micro angiopathic disease. No extra-axial fluid collection is seen. The cerebellar tonsils are normal in c onfiguration. Ventricles, sulci, and cisterns: Prominent secondary to involutional change. Pituitary and sella: Unremarkable. Intracranial vasculature: Normal flow voids are maintained at the skull base. Orbits: The bony orbits are grossly intact. Orbital contents are normal in appearance noting a right ocular lens implant. Sinuses and mastoids: Clear. Calvarium: Unremarkable. Cervical cord: Partially visualized cervical spinal cord is normal in morphology and signal intensity . IMPRESSION: 1. There are foci of the restricted diffusion in the right ji radiata and the right basal ganglia consistent with acute to subacute ischemia. 2. There are trace foci of petechial hemorrhage identified within these infarcts. 3. No additional foci of acute ischemia are identified and there is no mass effect. ACT 112: Negative or not required by law. Electronically signed by: Kevin Dobson M.D. 10/02/2020 7:35 AM
--- NOTE | 2020-10-02 07:54 | Medical Student Progress Note ---
Date of Service October 02, 2020 Assessment & Plan (1) Facial droop: Nuris is a 85-yo woman who presented to the ED with left facial droop, dysarthria first noted 09/30 at 22:00. She was found to also have a UTI with symptoms of frequency and urgency. Imaging showed stroke of the R MCA territory. Patient started on Plavix, aspirin, and atorvastatin. Stroke with Facial Droop -MRI showed restricted diffusion in rt ji radiata and rt basal ganglia, trace foci of petechial hemorrhage -Echo showed no cardiac source of emboli, mild mitral regurg -Neuro: acute to subacute thromboembolic stroke to R MCA territory, LCV is likely unrelated to cause -A1C and lipids nl -PT/OT evaluation -ASA 81mg po daily -Plavix 75mg po daily -Atorvastatin 40mg po daily -Repeat CT ordered to rule out hemorrhage in setting of sedate state at bedside UTI -urinary frequency and urgency, afebrile, no dysuria, no hematuria -Cx prelim gram negative bacilli -Ceftriaxone dose given 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 -Allow for permissive HTN in event of new CVA -Monitor. Presently 131/76 Admission and Anticipated Discharge Date Admission Date: October 01, 2020 Supervising Attestation I personally examined the patient and verified all borrego points of history and exam, discussed case, and agree with decision making with Le. No HPI or review of systems obtainable from me. MS 2 corroborates that patient was much different earlier in the day. She will awaken to noxious stim such as sternal rub, follow some simple commands, but then falls back to sleep. present, extensive discussion (probably 40 minutes) on diagnosis and implicatio ns, he also expressed an adamant desire that I ensure that her [facility] veterans service officer was okay with her being on antiplatelet agents for her stroke. He gave me his name, and the phone number for the central scheduling at [facility]. I tried to call, but was unable to get through at this time. 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 Vitals noted, fairly somnolent does awaken briefly to sternal rub, not just grimace, follows simple commands nad. heent nc at mmm. lungs cta bl no rrw good effort abd soft nd nt. ext no c/c, maybe trace edema. neuro difficult to assess since somnolent, no gross asymmetry in muscle tone. neuro exam by ms2 and dr zamorano far more telling, given that she was more alert then. Cryptogenic strokesecondary risk reduction per neuro for now. Should have prolonged rhythm monitoring (has had sinus here on monitor and on EKG, had a 48- hour Holter as an outpatient that was sinus, but still concerning given no clear source). Altered mental statusmost likely is waxing and waning delirium, and more of a somnolent phase now, but given that her stroke did have a very small area of hemorrhage into it, repeat head CT to ensure she does not have any expansion of this (highly unlikely). Outlined delirium to her extensively. Leukocytoclastic vasculitisshe was for a hematologic malignancy work-up at [facility], apparently including a bone marrow biopsy, is adamant that I reach out to [facility] to be sure that her veterans service officer there is okay with our stroke management here. Dr Dayne Leavitt -- # given is main [employer] [place] line of [phone] Subjective Nuris is feeling alright today. She continues to have trouble talking due to the facial droop and her mouth being very dry. She notes that her legs still feel weak making getting out of bed difficult. She had noticed that she was peeing much more frequently in the past few days, and urinary frequency and urgency in combination with her leg weakness make it difficult for her to make it to the restroom here in the hospital. Today she recalled that her father of a cerebral hemorrhage; she denies any other family history of stroke, hemorrhage, or heart problems. Returned to bedside in the evening, she was deeply sleeping and difficult to arose. Review of Systems Constitutional: + chills; no fever Eyes: reports no noticeable changes in vision Cardiovascular: + dyspnea (some SOB in the morning); no chest pain Genitourinary: as per Subjective / HPI Musculoskeletal: as per Subjective / HPI Neurologic: + unsteadiness (uses a cane when walking) Physical Exam Constitutional: well developed; no acute distress appeared tired Respiratory: normal respiratory effort, lungs clear to auscultation Cardiovascular: Rate/Rhythm: + tachycardic Heart Sounds: normal S1 and normal S2; no gallop, no murmur and no cardiac rub Neurologic: moves all extremities and awake left sided facial droop, dysarthria, in tact symmetric sensation on the face, filler block inserter remover strength symmetric Results & Data ([facility]) Vital Signs (Past 12 Hours) Vital Signs Temp Pulse Pulse Resp BP BP Pulse Ox 10/02/20 07:35 112 H 10/02/20 07:26 36.7 C 105 H 20 146/79 H 97 10/02/20 04:20 36.7 C 107 H 20 157/81 H 98 10/02/20 01:28 36.8 C 107 H 18 153/81 H 97 10/01/20 22:14 36.8 C 103 H 96 H 20 161/81 H 99 10/01/20 21:57 92 H 18 174/92 H 98 10/01/20 21:00 22 161/94 H 99 10/01/20 20:30 15 159/100 H 99 10/01/20 20:01 20 198/119 H 98
--- NOTE | 2020-10-02 09:52 | Neurology Consultation ---
Date of Consultation October 02, 2020 Assessment & Plan (1) Stroke: Acute to subacute thromboembolic stroke to the right MCA territory. No significant thrombosis or vascular lesion on CT angiography of the head and neck. (Does have an incidental 3 mm saccular aneurysm within the distal cervic al segment of the left ICA.) Patient has been hypertensive in the context of this current hospitalization, although no history of hypertension as an outpatient. She did have a 2-day Holter monitor completed in August that revealed frequent isolated APD's and couplets as well as isolated nonsustained episodes of atrial tachycardia. No atrial fibrillation, however. She has a history of leukocytoclastic vasculitis which appears to be primarily a cutaneous issue for which she has been following with rheumatology. I do not suspect that her stroke is due to cerebral vasculitis. Agree with aspirin, Plavix, and atorvastatin as initiated during this hospitalization. However, would discontinue Plavix after 3 weeks and continue with low-dose aspirin monotherapy thereafter. Would also recommend a mobile 30-day court monitor. Follow-up with results of echocardiogram. PT/OT/speech therapy. Continue to monitor patient's hypertension, avoid aggressive treatment. The 3 mm saccular aneurysm within the distal cervical segment of the left ICA will need some follow-up imaging. Would not require a neurosurgical consultation at this time. History of Present Illness Reason for Consultation: Stroke Requesting Physician: Charlette Sage Attending Physician: Chaim Wahl DO History of Present Illness The patient is an 85-year-old female with a chief complaint of persistent left facial droop and associated dysarthria that began 2 days ago, on September 30 at around 10 PM. She also complains of some associated mild weakness of the left arm and leg. Her history is notable for a leukocytoclastic vasculitis for which she follows with rheumatology at [facility] and locally. This vasculitis appears to have primarily cutaneous manifestations. She has been treated with glucocorticoids and Plaquenil previously. She does not take an antiplatelet medication, statin, or antihypertensive as an outpatient. A brain MRI revealed foci of restricted diffusion within the right ji radiata and right basal ganglia consistent with acute to subacute infarcts. There are trace foci of petechial hemorrhage within these infarcts as well. There is a moderate degree of chronic small vessel ischemic disease. These findings were observed by the interpreting radiologist. I reviewed the images as well and agree. CT angiography of the head and neck revealed some tortuosity of the distal cervical segment of the left internal carotid artery with a 3 [address] saccular aneurysm. The CT angiography is otherwise unremarkable, no occlusion, thrombosis, or dissection within the vessels of the head or neck. Allergies Allergy/AdvReac Type Severity Reaction Status Date / Time influenza virus vaccine Allergy Intermediate rash Verified 09/09/20 14:57 trivalent amoxicillin [From Amoxil] Allergy Unknown Unknown Verified 09/09/20 14:57 Anesthetics - Amide Type - Allergy Unknown Unknown Verified 09/09/20 14:57 Select A [Anesthetics - Amide Type] diazepam [From Valium] Allergy Unknown Unknown Verified 09/09/20 14:57 ethyl chloride Allergy Unknown Unknown Verified 09/09/20 14:57 procaine [From Novocain] Allergy Unknown Unknown Verified 09/09/20 14:57 Penicillins AdvReac Unknown SEVERE Verified 09/09/20 14:57 INTERNAL VAGINITIS Home Medications Medication Instructions Recorded Confirmed Type polyethylene glycol 3350 17 17 gm PO DAILY PRN gm 01/17/19 10/01/20 History gram/dose oral powder multivitamin 1 tab PO DAILY 02/03/20 10/01/20 History cholecalciferol (vitamin D3) 25 1,000 unit PO DAILY tab 05/23/20 10/01/20 History mcg (1,000 unit) tablet cyanocobalamin (vitamin B-12) 1,000 mcg SUBLINGUAL DAILY 05/23/20 10/01/20 History 1,000 mcg sublingual lozenge Patient History Medical History (Updated 10/02/20 @ 09:42 by Segun Bang MD) Abrasion of knee Actinic keratosis Benign positional vertigo Cheilosis CKD (chronic kidney disease), stage III Cystocele, midline Elevated blood pressure reading without diagnosis of hypertension Gastroparesis Generalized anxiety disorder History of skin cancer of unknown type Hyperglycemia Hypothyroidism Irregular heartbeat Irritable bowel syndrome Leukocytoclastic vasculitis Leukopenia Pain in joint of right shoulder Paresthesias Persistent insomnia Rectocele Second degree uterine prolapse Skin cancer Tonsillectomy planned (01/30/13) Vitamin D deficiency Surgical History H/O tooth extraction History of right cataract surgery History of surgical removal of ganglion cyst History of tonsillectomy History of tubal ligation (01/30/13) Family History Mother , age 80 Lymphoma Heart disease Arthritis Father , age 56 Stroke Denies family history of Ovarian cancer Breast cancer Colorectal cancer Social History Smoking Status: Former smoker Tobacco Type: Cigarettes Age Started Using Tobacco: 22; Age Quit Using Tobacco: 42; packs per day: 1; Years Smoked: 20; Smoking End Date: quit in 1959; Second Hand Exposure: No; Hx Alcohol Use: Yes Alcohol type: hard liquor Alcohol Intake Frequency: Monthly or Less Hx Substance Use: No Preferred Language: Vietnamese Communication Ability: Effective Visual Impairment: Limited Hearing Ability: Normal Operations Manager Assistant Required: No Beliefs That Will Affect Care: None marital status: Current Living Situation: Spouse Current Living Situation Comment: with at [facility] current occupational status: retired Feels Safe at Home: Yes Safety Concerns: Feels Safe At This Time Childhood Exposure to Second-Hand Smoke: Yes caffeine: No Dental Care, Regularly: Yes Physical Activity Frequency: Does not Exercise Seatbelt Use: always Sunscreen Use: Yes Assistive Devices: Cane and Glasses Review of Systems Constitutional: no fever and no chills Eyes: no blind spots and no diplopia Ear, Nose, Mouth, Throat: no hearing loss Respiratory: no cough and no dyspnea Cardiovascular: no chest pain and no palpitations Gastrointestinal: no nausea and no vomiting Genitourinary: no dysuria Musculoskeletal: no myalgia Integumentary: + rash and + lesions Neurologic: + localized weakness; no tremor(s), no headache(s) and no confusion Psychiatric: no depression and no anxiety Hematologic / Lymphatic: no easy bleeding and no easy bruising Exam (Neuro) Constitutional: well developed and well nourished; no acute distress Eyes: normal visual rush by confrontation, PERRL, normal accommodation and EOM intact bilaterally; no fundoscopic abnormality, no nystagmus and no papilledema Cardiovascular: Vessels: normal carotid upstroke; no carotid bruit Neurologic: Oriented to:: Person, Place and Time Memory: Short Term Intact and Remote Intact Attention: Span Intact; negative Concentration Intact Language: Naming Objects and Repeating Phrases Speech Fluency: Dysarthria Speech Aphasia: negative Aphasia Fund of Knowledge: Current Events, Past History and Vocabulary Cranial Nerves: Normal II (Visual rush full to confrontation, visual acuity normal), III, IV, (Pupils equal round reactive to light and accommodation, eye movements normal), V (Facial sensation intact), VIII (Hearing intact), IX, X (Palate elevates to midline), XI (Shoulder shrug intact) and XII (Tongue protrudes to midline); Abnorm VII (There is a moderate degree of left lower facial weakness/facial droop noted) Motor Strength: Hemiparesis (mild left hemiparesis noted) Laterality: Left; negative Normal Lower Extremities, Normal Upper Extremities and Pronator Drift Motor Tone: Normal Lower Extremities and Normal Upper Extremities Muscle Bulk/Involuntary Movements: No Involuntary Movements; negative Muscle Atrophy Sensation: Light Touch Intact, Pain/Temperature Intact, Vibration Intact and Proprioception Intact Coordination: Normal, Finger-Nose Abnormal Laterality: Left and Heel- Hackett Abnormal Laterality: Left; negative Dysdiadochokinesia Deep Tendon Reflexes: Rt Triceps: 2+, Lt Triceps: 2+, Rt Biceps: 2+, Lt Biceps: 3+, Rt Brachioradialis: 2+, Lt Brachioradialis: 2+, Rt Patellar: 2+, Lt Patellar: 3+, Rt Ankle: 2+ and Lt Ankle: 2+ Special Tests: Babinski Present (Left plantar response equivocal) Details: Gait not tested in the context of patient's current neurological/medical status. Results & Data ([facility]) Vital Signs (Past 12 Hours) Vital Signs Temp Pulse Pulse Resp BP BP Pulse Ox 10/02/20 07:35 112 H 10/02/20 07:26 36.7 C 105 H 20 146/79 H 97 10/02/20 04:20 36.7 C 107 H 20 157/81 H 98 10/02/20 01:28 36.8 C 107 H 18 153/81 H 97 10/01/20 22:14 36.8 C 103 H 96 H 20 161/81 H 99 10/01/20 21:57 92 H 18 174/92 H 98 Laboratory Results WBC 6.69, hemoglobin 10.3, hematocrit 30.7, platelet count 131, sodium 144, potassium 3.4, BUN 16, creatinine 0.95, glucose 89, hemoglobin A1c 5.2, triglycerides 77, cholesterol 144, LDL 80, VLDL 15, HDL 49 Diagnostic Findings Neuro imaging results including CT of the head, CT angiography of the head and neck, and brain MRI are as described in the history of present illness. An electrocardiogram reveals a normal sinus rhythm, 90 bpm. A 2-day Holter monitor completed August 18, 2020 revealed a sinus rhythm. There were isolated nonsustained episodes of atrial tachycardia. Coding Level of Care Code 63638 Initial In Care Lvl 3 Diagnoses Stroke I63.9
[2020-10-02] MEDS ORDERED: LACTATED RINGER'S 500 ML IV ONE (10:30)
[2020-10-02] MEDS: ASPIRIN 81 MG ECTAB PO SCH (11:52)
[2020-10-02] MEDS: CLOPIDOGREL BISULFATE 75 MG TAB PO SCH (11:53)
[2020-10-02] MEDS: ATORVASTATIN 40 MG TAB PO SCH (11:53)
--- NOTE | 2020-10-02 12:52 | XCELERA ---
[id number]
--- NOTE | 2020-10-02 19:46 | Billing Data ---
Date of Service October 02, 2020 Coding Level of Care Code 73142 Subseq Hosp Care Lvl 3
--- NOTE | 2020-10-02 20:54 | CT Scan Report ---
CT OF THE HEAD WITHOUT CONTRAST CLINICAL HISTORY: somnolence, small bleed on MRI, eval for expansion COMPARISON STUDY: Head CT, CTA of the head and MRI of the brain October 01, 2020. CT DOSE: 614.27 mGy.cm TECHNIQUE: Helical axial images of the head were obtained without IV contrast. Automated exposure con trol was utilized for the study. A dose lowering technique was utilized adhering to the principles o f ALARA. FINDINGS: No acute intracranial hemorrhage, midline shift or mass effect is present. Ventricular syst em is stable. Basilar cisterns are patent. There are no extra axial collections. Acute infarcts withi n the right basal ganglia and right ji radiata are better depicted on MRI of October 01, 2020. Ther e is no mass effect. No hemorrhage is identified by CT. There are no significant calvarial abnormalit ies. IMPRESSION: Acute infarcts within the right basal ganglia and right ji radiata better depicted on MRI of Varun 2020. No mass effect. No hemorrhage by CT. Petechial hemorrhage shown on MRI is not evident giv en CT technique. ACT 112: Negative or not required by law. Electronically signed by: Kimani Cruz M.D. 10/02/2020 8:53 PM
[2020-10-03 06:49] LABS: Basophils # (auto) 0.01 K/uL (0-0.2); Basophils % (auto) 0.2 %; Eosinophils # (auto) 0.25 K/uL (0-0.5); Eosinophils % (auto) 4.1 %; Hematocrit (blood only) 28.6 % (37-47); Hemoglobin 9.5 g/dL (12.0-16.0); Immature Granulocytes # (auto) 0.01 K/uL (0.00-0.02); Immature Granulocytes % (auto) 0.2 %; Lymphocytes # (auto) 1.04 K/uL (1.2-3.4); Lymphocytes % (auto) 17.2 %; Mean Corpuscular Hemoglobin 29.6 pg (25-34); Mean Corpuscular Hgb Conc 33.2 g/dL (32-36); Mean Corpuscular Volume 89.1 fL (80-100); Mean Platelet Volume 9.4 fL (7.4-10.4); Monocytes # (auto) 0.29 K/uL (0.11-0.59); Monocytes % (auto) 4.8 %; Neutrophils # (auto) 4.43 K/uL (1.4-6.5); Neutrophils % (auto) 73.5 %; Platelet Count 118 K/uL (130-400); RDW Coefficient of Variation 15.3 % (11.5-14.5); Red Blood Count 3.21 M/uL (4.2-5.4); White Blood Count 6.03 K/uL (4.8-10.8)
[2020-10-03 07:34] LABS: BUN Creatinine Ratio 18.8 (10-20); Calcium 8.4 mg/dl (8.5-10.1); Creatinine Clr Calc Pharmacy 42.6 ml/min; Est GFR (African American) 61.8; Est GFR (Non-African American) 53.3; Potassium 3.2 mmol/L (3.5-5.1)
[2020-10-03] MEDS: ATORVASTATIN 40 MG TAB PO SCH (08:09)
[2020-10-03] MEDS: CLOPIDOGREL BISULFATE 75 MG TAB PO SCH (08:10)
[2020-10-03] MEDS: ASPIRIN 81 MG ECTAB PO SCH (08:10)
--- NOTE | 2020-10-03 18:01 | Hospitalist Progress Note ---
Date of Service October 03, 2020 Assessment & Plan (1) Facial droop: 85yo female who presented to the ED approx 12 hours after the onset of left-sided facial droop and slurred speech, imaging consistent with ischemic stroke of right MCA territory. Stable, being treated with DAPT and pending dis charge to long-term care. Also being treated for UTI. Ischemic stroke -likely thromboembolic in nature -echo showed mild mitral regurgitation but no mural thrombus -A1c and lipid panel unremarkable -minced and moist diet with monitoring for oral pocketing recommended per speech -continue atorvastatin -continue DAPT with ASA/clopidogrel for 3 weeks followed by ASA monotherapy -recommend 30-day event monitor -plan for discharge back to [facility] on 10/04 - approved per CM UTI -patient presented with new-onset urinary incontinence, frequency, and urgency; afebrile, no dysuria or hematuria -received one dose of ceftriaxone in ED -culture positive for pansensitive E. coli -continue to monitor Elevated BP -noted on admission (high of 198/119), no history of HTN; pressures have since normalized; no signs/symptoms ACS -plan to allow for permissive HTN per neurology -continue to monitor; recommend PCP follow-up CKD3 -Cr stable -avoiding nephrotoxic agents -recommend PCP follow-up Leukocytoclastic vasculitis -followed by rheumatology at [facility] -neuro felt unlikely to be a contributory factor to current clinical picture; patient's advertising account executive agreed; follow-up FENGI: minced moist diet CODE STATUS: full code ISOLATION: none HELD HOME MEDS: none CONSULTS: neurology DISPO: discharge to the [facility] approved for Wednesday 10/04 Admission and Anticipated Discharge Date Admission Date: October 01, 2020 Supervising Physician Co-Signing Physician Notes I personally examined the patient and verified all borrego points of history and exam, discussed case, and agree with decision making with Dr Harvey. More awake and alert, still seems to be easily confused, shows no new findings, or immediate complaints. At the 's request I was able to contact her rhe umatologist at [place], who was perfectly okay with us using antiplatelets for part of her stroke treatment/secondary risk reduction. Vitals noted, in general she is awake and alert although easily confused (for instance she asked me if she finished her salad) no distress. HEENT normocephalic atraumatic mucous membranes moist. Breathing unlabored no accessory muscle use good effort. Skin shows no rashes no pallor or icterus. Strokecryptogenic. For now antiplatelets as recommended per neurology, 30-day event monitor, plus or minus loop recorder. Delirium/metabolic encephalopathyrelated to stroke, hospital environment, etc. Supportive care. Dispoanticipate [facility]acute [facility] Subjective No acute events overnight. Feels okay today. Facial droop and swallowing difficulties have improved. Urinary incontinence continues but seems to be improving. Denies CP, SOB, nausea, vomiting, or other symptoms. Review of Systems Review of Systems: See HPI Physical Exam Physical Exam: Awake but drowsy, laying in bed NCAT, MMM Resp CTABL Neuro: left sided facial droop, no new focal deficits appreciated Psych: mood "okay", flat affect, cooperative but tired Results & Data Results & Data ([facility]) Vital Signs (Past 12 Hours) Vital Signs Temp Pulse Pulse Resp BP Pulse Ox 10/03/20 15:51 101 H 10/03/20 15:19 36.8 C 98 H 18 124/76 97 10/03/20 11:58 36.8 C 97 H 16 144/73 H 99 10/03/20 08:15 36.6 C 96 H 16 134/68 96 10/03/20 07:47 86 Resident Activity Tracking Resident Involvement: Resident Care Provided Care Provided: Adult Hospital Medicine
--- NOTE | 2020-10-03 18:40 | Emergency Department Note ---
Impression & Plan Stroke-like symptoms, Arrival in emergency room within 2 hours after onset of stroke symptoms, Slurred speech, Mouth droop due to facial weakness ED Provider Note NAME: MAGNOLIA GANDHI AGE: 85 SEX: F ARRIVES VIA: Walk-In INFORMANT: Patient, ED PROVIDER(S): Damaris Johnson MD CHIEF COMPLAINT: Stroke symptoms, slurred speech PLAN: Disposition: Admission Condition: Fair Referral: Hospitalist MEDICAL DECISION MAKING: This pt was evaluated and appeared to be in no distress. IV access was obtained and lab work was drawn. An order for cardiac monitoring was placed and the pt was noted to be in a NSR at [address]/CTA of head and neck was performed and revealed negative noncontrast head CT, tortuosity of the distal cervical segment L ICA with 3 mm saccular outpouching suggestive of aneurysm on CTA. Pt does have a mild dysarthria and L nasolabial fold flattening however she presents >12 hours after onset of symptoms. No stroke alert was called as pt presents outside of window for IV TPA and no large vessel occlusion was seen on CTA. I did inform patient of the findings and plan, she became upset with the idea of the MRI. Hospitalist was consulted for admission and IV ativan was ordered prior to her MR. Triage Nursing notes reviewed. Additional history obtained from . Prior medical records reviewed Vital Signs: reviewed and remarkable for no significant abnormalities Differential diagnosis: Infection, dehydration, metabolic abnormality, hypo/hyperglycemia, electrolyte disturbance, anemia, hypoxia, cardiac sources, intracerebral event, toxicologic, neurologic, as well as other pathologies. ER treatment provided: IVF IV ativan Diagnostics interpreted by me: ECG: See below Laboratory studies: See below Imaging studies: See below Consultation(s): hospitalist HPI: 85/F arrives for evaluation of CVA symptoms. Pt slurred speech and facial droop. Pt's states her speech was "off" last night before bed at approximately 10-1030 pm. Pt felt her balance was off as well, states "that's been going on for months. Pt woke up this am at about 10 am propped herself up, noting speech continued to be slurred and left face is droopy. They have a magnet on their fridge detailing warning signs of stroke, so decided to get evaluated this morning. Pt denies confusion, visual changes, LALA, fevers, cough, CP. ROS: See above HPI for pertinent positives & negatives. A total of 10 systems reviewed and were otherwise negative. PAST MEDICAL HISTORY:See Below PAST SURGICAL HISTORY:See Below FAMILY HISTORY:See Below SOCIAL HISTORY:See Below HOME MEDICATIONS:See Below ALLERGIES:See Below VITALS:See Below PHYSICAL EXAMINATION: Vital signs reviewed. General: Well-appearing elderly 85 yo female , in no significant distress. HEENT: No scleral icterus, PERRLA, neck supple. Atraumatic. Cardiovascular: Regular rate and rhythm, no extra sounds. Pulmonary: Clear to auscultation bilaterally, normal work of breathing. Abdomen: Soft, nontender, nondistended, positive bowel sounds. Musculoskeletal: Atraumatic, no peripheral edema. Neurologic: Patient awake alert and oriented x 3 (although initially says 2021), full strength in all 4 extremities. Slurred speech, L nasolabial fold flattening. Neg pronator drift, intact finger to nose. Skin: Warm, dry, no rash Damaris Johnson MD Past Med/Surg History Medical History (Updated 10/03/20 @ 18:34 by Damairs Johnson MD) Abrasion of knee Actinic keratosis Benign positional vertigo Cheilosis CKD (chronic kidney disease), stage III Cystocele, midline Elevated blood pressure reading without diagnosis of hypertension Gastroparesis Generalized anxiety disorder History of skin cancer of unknown type Hyperglycemia Hypothyroidism Irregular heartbeat Irritable bowel syndrome Leukocytoclastic vasculitis Leukopenia Pain in joint of right shoulder Paresthesias Persistent insomnia Rectocele Second degree uterine prolapse Skin cancer Tonsillectomy planned (01/30/13) Vitamin D deficiency Surgical History H/O tooth extraction History of right cataract surgery History of surgical removal of ganglion cyst History of tonsillectomy History of tubal ligation (01/30/13) Family History Mother , age 80 Lymphoma Heart disease Arthritis Father , age 56 Stroke Denies family history of Ovarian cancer Breast cancer Colorectal cancer Social History Smoking Status: Former smoker Tobacco Type: Cigarettes Age Started Using Tobacco: 22; Age Quit Using Tobacco: 42; packs per day: 1; Years Smoked: 20; Smoking End Date: quit in 1959; Second Hand Exposure: No; Hx Alcohol Use: Yes Alcohol type: hard liquor Alcohol Intake Frequency: Monthly or Less Hx Substance Use: No Preferred Language: Croatian Communication Ability: Effective Visual Impairment: Limited Hearing Ability: Normal Stacker Tender Required: No Beliefs That Will Affect Care: None marital status: Current Living Situation: Spouse Current Living Situation Comment: with at [facility] current occupational status: retired Feels Safe at Home: Yes Safety Concerns: Feels Safe At This Time Childhood Exposure to Second-Hand Smoke: Yes caffeine: No Dental Care, Regularly: Yes Physical Activity Frequency: Does not Exercise Seatbelt Use: always Sunscreen Use: Yes Assistive Devices: Cane and Glasses Allergies Allergies Allergy/AdvReac Type Severity Reaction Status Date / Time influenza virus vaccine Allergy Intermediate rash Verified 09/09/20 14:57 trivalent amoxicillin [From Amoxil] Allergy Unknown Unknown Verified 09/09/20 14:57 Anesthetics - Amide Type - Allergy Unknown Unknown Verified 09/09/20 14:57 Select A [Anesthetics - Amide Type] diazepam [From Valium] Allergy Unknown Unknown Verified 09/09/20 14:57 ethyl chloride Allergy Unknown Unknown Verified 09/09/20 14:57 procaine [From Novocain] Allergy Unknown Unknown Verified 09/09/20 14:57 Penicillins AdvReac Unknown SEVERE Verified 09/09/20 14:57 INTERNAL VAGINITIS Home Meds Home Medications Medication Instructions Recorded Confirmed polyethylene glycol 3350 17 17 gm PO DAILY PRN gm 01/17/19 10/01/20 gram/dose oral powder multivitamin 1 tab PO DAILY 02/03/20 10/01/20 cholecalciferol (vitamin D3) 25 1,000 unit PO DAILY tab 05/23/20 10/01/20 mcg (1,000 unit) tablet cyanocobalamin (vitamin B-12) 1,000 mcg SUBLINGUAL DAILY 05/23/20 10/01/20 1,000 mcg sublingual lozenge Results & Data (ED) Vital Signs Vital Signs - 24 hr 10/01/20 13:13 10/01/20 14:11 10/01/20 14:30 Temperature 36.7 C Temperature Source Oral Pulse Rate 106 H 90 86 Pulse Rate from SpO2 Sensor 90 85 Pulse Rhythm Regular Pulse Strength Normal Respiratory Rate 18 20 Respiratory Effort / Characteristics Non-Labored Respiratory Depth Normal Respiratory Pattern Regular Blood Pressure 128/77 139/80 146/85 H Blood Pressure Mean 94 99 105 Blood Pressure Position Sitting Pulse Oximetry 96 98 99 Oxygen Delivery Method Room Air Sepsis Recent Fever Within 48 Hours No Sepsis New/Unexplained Change in Mental Status N/A Sepsis Action Taken by Nursing No Action Required Home Medications Current Medication List: was personally reviewed by me Laboratory Data Attestation: I reviewed the patient's lab results. Result diagrams: 10/03/20 06:22 10/03/20 06:22 Lab Results 10/01/20 10/01/20 10/01/20 Range/Units 13:39 13:39 13:39 WBC 6.08 (4.8-10.8) K/uL RBC 3.62 L (4.2-5.4) M/uL Hgb 10.5 L (12.0-16.0) g/dL Hct 32.6 L (37-47) % MCV 90.1 (80-100) fL MCH 29.0 (25-34) pg MCHC 32.2 (32-36) g/dL RDW Std Deviation 49.3 H (36.4-46.3) fL RDW Coeff of Arturo 15.0 H (11.5-14.5) % Plt Count 151 (130-400) K/uL MPV 9.9 (7.4-10.4) fL Immature Gran % (Auto) 0.2 % Neut % (Auto) 71.0 % Lymph % (Auto) 21.4 % [place] % (Auto) 5.1 % Eos % (Auto) 2.0 % Baso % (Auto) 0.3 % Neut # (Auto) 4.32 (1.4-6.5) K/uL Lymph # (Auto) 1.30 (1.2-3.4) K/uL [place] # (Auto) 0.31 (0.11-0.59) K/uL Eos # (Auto) 0.12 (0-0.5) K/uL Baso # (Auto) 0.02 (0-0.2) K/uL Immature Gran # (Auto) 0.01 (0.00-0.02) K/uL PT 10.1 (9.0-12.0) Seconds INR 1.0 (0.9-1.1) APTT 21.1 (21.0-31.0) Seconds PTT Ratio 0.8 Sodium 140 (136-145) mmol/L Potassium 3.8 (3.5-5.1) mmol/L Chloride 110 H (98-107) mmol/L Carbon Dioxide 24 (21-32) mmol/L Anion Gap 6.0 (3-11) BUN 20 H (7-18) mg/dl Creatinine 1.10 (0.6-1.2) mg/dl Est Cr Clr Drug Dosing 34.9 ml/min Est GFR ( Amer) 53.8 Est GFR (Non-Af Amer) 46.4 BUN/Creatinine Ratio 18.0 (10-20) Glucose 138 H (70-99) mg/dl Calcium 9.7 (8.5-10.1) mg/dl Magnesium 2.1 (1.8-2.4) mg/dl Total Bilirubin 0.8 (0.2-1) mg/dl AST 25 (15-37) U/L ALT 10 L (12-78) U/L Alkaline Phosphatase 55 (45-117) U/L Troponin I < 0.015 (0-0.045) ng/ml Total Protein 6.5 (6.4-8.2) gm/dl Albumin 3.5 (3.4-5.0) gm/dl Globulin 3.0 (2.5-4.0) gm/dl Albumin/Globulin Ratio 1.2 (0.9-2) Urine Color Urine Appearance (Clear) Urine pH (4.5-7.5) Ur Specific [place] (1.000-1.030) Urine Protein (Negative) Urine Glucose (UA) (Negative) Urine Ketones (Negative) Urine Blood (Negative) Urine Nitrite (Negative) Urine Bilirubin (Negative) Urine Urobilinogen (Negative) Ur Leukocyte Esterase (Negative) Urine WBC (Auto) (0-5) /hpf Urine RBC (Auto) (0-4) /hpf U Hyaline Cast (Auto) (0-5) /lpf U Epithel Cells (Auto) (0-5) /lpf Urine Bacteria (Auto) (Negative) COVID-19 Eval Order SARS-CoV-2 (PCR) (Negative) Influenza Type A (PCR) (Neg) Influenza Type B (PCR) (Neg) RSV (RT-PCR) (Neg) Blood Type Antibody Screen 10/01/20 10/01/20 10/01/20 Range/Units 14:26 14:48 14:48 WBC (4.8-10.8) K/uL RBC (4.2-5.4) M/uL Hgb (12.0-16.0) g/dL Hct (37-47) % MCV (80-100) fL MCH (25-34) pg MCHC (32-36) g/dL RDW Std Deviation (36.4-46.3) fL RDW Coeff of Arturo (11.5-14.5) % Plt Count (130-400) K/uL MPV (7.4-10.4) fL Immature Gran % (Auto) % Neut % (Auto) % Lymph % (Auto) % [place] % (Auto) % Eos % (Auto) % Baso % (Auto) % Neut # (Auto) (1.4-6.5) K/uL Lymph # (Auto) (1.2-3.4) K/uL [place] # (Auto) (0.11-0.59) K/uL Eos # (Auto) (0-0.5) K/uL Baso # (Auto) (0-0.2) K/uL Immature Gran # (Auto) (0.00-0.02) K/uL PT (9.0-12.0) Seconds INR (0.9-1.1) APTT (21.0-31.0) Seconds PTT Ratio Sodium (136-145) mmol/L Potassium (3.5-5.1) mmol/L Chloride (98-107) mmol/L Carbon Dioxide (21-32) mmol/L Anion Gap (3-11) BUN (7-18) mg/dl Creatinine (0.6-1.2) mg/dl Est Cr Clr Drug Dosing ml/min Est GFR ( Amer) Est GFR (Non-Af Amer) BUN/Creatinine Ratio (10-20) Glucose (70-99) mg/dl Calcium (8.5-10.1) mg/dl Magnesium (1.8-2.4) mg/dl Total Bilirubin (0.2-1) mg/dl AST (15-37) U/L ALT (12-78) U/L Alkaline Phosphatase (45-117) U/L Troponin I (0-0.045) ng/ml Total Protein (6.4-8.2) gm/dl Albumin (3.4-5.0) gm/dl Globulin (2.5-4.0) gm/dl Albumin/Globulin Ratio (0.9-2) Urine Color Urine Appearance (Clear) Urine pH (4.5-7.5) Ur Specific [place] (1.000-1.030) Urine Protein (Negative) Urine Glucose (UA) (Negative) Urine Ketones (Negative) Urine Blood (Negative) Urine Nitrite (Negative) Urine Bilirubin (Negative) Urine Urobilinogen (Negative) Ur Leukocyte Esterase (Negative) Urine WBC (Auto) (0-5) /hpf Urine RBC (Auto) (0-4) /hpf U Hyaline Cast (Auto) (0-5) /lpf U Epithel Cells (Auto) (0-5) /lpf Urine Bacteria (Auto) (Negative) COVID-19 Eval Order [facility]sv at [facility] SARS-CoV-2 (PCR) NEGATIVE (Negative) Influenza Type A (PCR) Negative (Neg) Influenza Type B (PCR) Negative (Neg) RSV (RT-PCR) Negative (Neg) Blood Type B Positive Antibody Screen NEGATIVE 10/01/20 Range/Units 15:34 WBC (4.8-10.8) K/uL RBC (4.2-5.4) M/uL Hgb (12.0-16.0) g/dL Hct (37-47) % MCV (80-100) fL MCH (25-34) pg MCHC (32-36) g/dL RDW Std Deviation (36.4-46.3) fL RDW Coeff of Arturo (11.5-14.5) % Plt Count (130-400) K/uL MPV (7.4-10.4) fL Immature Gran % (Auto) % Neut % (Auto) % Lymph % (Auto) % [place] % (Auto) % Eos % (Auto) % Baso % (Auto) % Neut # (Auto) (1.4-6.5) K/uL Lymph # (Auto) (1.2-3.4) K/uL [place] # (Auto) (0.11-0.59) K/uL Eos # (Auto) (0-0.5) K/uL Baso # (Auto) (0-0.2) K/uL Immature Gran # (Auto) (0.00-0.02) K/uL PT (9.0-12.0) Seconds INR (0.9-1.1) APTT (21.0-31.0) Seconds PTT Ratio Sodium (136-145) mmol/L Potassium (3.5-5.1) mmol/L Chloride (98-107) mmol/L Carbon Dioxide (21-32) mmol/L Anion Gap (3-11) BUN (7-18) mg/dl Creatinine (0.6-1.2) mg/dl Est Cr Clr Drug Dosing ml/min Est GFR ( Amer) Est GFR (Non-Af Amer) BUN/Creatinine Ratio (10-20) Glucose (70-99) mg/dl Calcium (8.5-10.1) mg/dl Magnesium (1.8-2.4) mg/dl Total Bilirubin (0.2-1) mg/dl AST (15-37) U/L ALT (12-78) U/L Alkaline Phosphatase (45-117) U/L Troponin I (0-0.045) ng/ml Total Protein (6.4-8.2) gm/dl Albumin (3.4-5.0) gm/dl Globulin (2.5-4.0) gm/dl Albumin/Globulin Ratio (0.9-2) Urine Color Yellow Urine Appearance Cloudy A (Clear) Urine pH 6.5 (4.5-7.5) Ur Specific [place] 1.015 (1.000-1.030) Urine Protein 2+ H (Negative) Urine Glucose (UA) Negative (Negative) Urine Ketones Negative (Negative) Urine Blood 3+ H (Negative) Urine Nitrite Positive A (Negative) Urine Bilirubin Negative (Negative) Urine Urobilinogen Negative (Negative) Ur Leukocyte Esterase Trace H (Negative) Urine WBC (Auto) >30 H (0-5) /hpf Urine RBC (Auto) 10-30 H (0-4) /hpf U Hyaline Cast (Auto) 1-5 (0-5) /lpf U Epithel Cells (Auto) 20-30 H (0-5) /lpf Urine Bacteria (Auto) 4+ H (Negative) COVID-19 Eval Order SARS-CoV-2 (PCR) (Negative) Influenza Type A (PCR) (Neg) Influenza Type B (PCR) (Neg) RSV (RT-PCR) (Neg) Blood Type Antibody Screen Administered Medications Aspirin (Aspirin 81 Mg Ectab) 81 mg PO [facility] Stop: 11/01/20 08:59 Last Admin: 10/03/20 08:10 Dose: 81 mg Documented by: [id number] Admin: 10/02/20 11:52 Dose: 81 mg Documented by: [id number] Atorvastatin Calcium (Atorvastatin 40 Mg Tab) 40 mg PO [facility] Stop: 11/01/20 08:59 Last Admin: 10/03/20 08:09 Dose: 40 mg Documented by: [id number] Admin: 10/02/20 11:53 Dose: 40 mg Documented by: [id number] Clopidogrel Bisulfate (Clopidogrel Bisulfate 75 Mg Tab) 75 mg PO [facility] Stop: 11/01/20 08:59 Last Admin: 10/03/20 08:10 Dose: 75 mg Documented by: [id number] Admin: 10/02/20 11:53 Dose: 75 mg Documented by: [id number] Discontinued Medications Sodium Chloride (Nss 1000ml) 1,000 mls @ 125 mls/hr IV .Q8H [facility] Stop: 10/31/20 14:14 Last Infusion: 10/01/20 21:43 Dose: 0 mls/hr Documented by: [id number] Admin: 10/01/20 14:15 Dose: 125 mls/hr Documented by: [id number] Ceftriaxone Sodium (Rocephin) 1,000 mg in 50 mls @ 100 mls/hr IV NOW STA Stop: 10/01/20 18:12 Last Infusion: 10/01/20 20:22 Dose: 0 mls/hr Documented by: [id number] Admin: 10/01/20 17:51 Dose: 100 mls/hr Documented by: [id number] Lorazepam (Ativan) 1 mg in 2 mls @ 2 mls/min IV NOW STA Stop: 10/01/20 21:00 Last Admin: 10/01/20 22:22 Dose: 2 mls/min Documented by: [id number] Lactated Ringer's (Lr) 500 mls @ 999 mls/hr IV .Q31M ONE Stop: 10/02/20 11:00 Last Infusion: 10/02/20 11:53 Dose: 0 mls/hr Documented by: [id number] Admin: 10/02/20 11:17 Dose: 999 mls/hr Documented by: [id number] Ioversol (Optiray 320 125ml) 118 ml IV ONCE ONE Stop: 10/01/20 15:53 Last Admin: 10/01/20 15:53 Dose: 118 ml Documented by: [id number] Imaging Data Radiologist's Impression: Head CT 10/01/20 14:[address] DOSE: 1093.56 mGy.cm HISTORY: Stroke Like Symptoms TECHNIQUE: Multiaxial CT images of the head were performed without the use of intravenous contrast. Automated exposure control was utilized for this study. A dose lowering technique was utilized adhering to the principles of ALARA. Comparison: Head CT 11/15/2017. Findings: The paranasal sinuses and mastoid air cells are clear. The calvarium and skull base are intact. There is no mass, hematoma, midline shift, acute infarct. White matter hypodensity is nonspecific but suggestive of microvascular ischemic change. The ventricles and sulci demonstrate mild age-related involutional changes. Impression: No acute intracranial abnormality. Atrophy and microvascular ischemic changes. ACT 112: Negative or not required by law. Electronically signed by: Juan Luis Ugalde M.D. 10/01/2020 4:08 PM Head CTA 10/01/20 14:06 CT angio neck with con, CT angio head w con CLINICAL HISTORY: 85 years-old Female with Stroke Like Symptoms. Acute strokelike symptoms COMPARISON STUDY: Head CT of same day and also 11/15/2017 TECHNIQUE: Following the IV administration of 118 mL of Optiray 320, CT angiogram of the head and neck was performed from the aortic arch to the skull apex. Images are reviewed in the axial, sagittal, and coronal planes. 3-D MIPS images are created and assessed. IV contrast was administered without complication. All measurements were calculated based on NASCET criteria. A dose lowering technique was utilized adhering to the principles of ALARA. FINDINGS: Three-vessel morphology of the thoracic aortic arch. Patency of the innominate and imaged subclavian arteries. The common and internal carotid arteries are patent. Calcified plaque of the cavernous, clinoid and supraclinoid segments without high-grade stenosis. Tortuosity of the distal cervical segment left ICA with 3 mm intramedial saccular outpouching on image 307. The middle and anterior cerebral arteries are patent. Codominant and patent vertebral arteries. The basilar and posterior cerebral arteries are patent. Cerebral venous sinuses are patent. No abnormal intracranial enhancement. Intralobular septal thickening with subpleural round glass densities of the imaged right lung. No pneumothorax. Unremarkable thyroid and soft tissues. Prior right-sided lens repair. Degenerative changes of the cervical spine. No acute fracture. Grade 1 anterolisthesis C3 on C4, likely on a degenerative basis. IMPRESSION: 1. Tortuosity of the distal cervical segment left ICA with 3 mm saccular outpouching suggestive of aneurysm. 2. Otherwise unremarkable CTA of the head and neck. 3. Intralobular septal thickening of the lung apices suggestive of pulmonary edema. Asymmetric groundglass densities throughout the right lung may also reflect pulmonary edema or a nonspecific pneumonitis. ACT 112: Negative or not required by law. The above report was generated using voice recognition software. It may contain grammatical, syntax or spelling errors. Electronically signed by: Truman Lau M.D. 10/01/2020 4:16 PM Neck CTA 10/01/20 14:06 CT angio neck with con, CT angio head w con CLINICAL HISTORY: 85 years-old Female with Stroke Like Symptoms. Acute strokelike symptoms COMPARISON STUDY: Head CT of same day and also 11/15/2017 TECHNIQUE: Following the IV administration of 118 mL of Optiray 320, CT angiogram of the head and neck was performed from the aortic arch to the skull apex. Images are reviewed in the axial, sagittal, and coronal planes. 3-D MIPS images are created and assessed. IV contrast was administered without complication. All measurements were calculated based on NASCET criteria. A dose lowering technique was utilized adhering to the principles of ALARA. FINDINGS: Three-vessel morphology of the thoracic aortic arch. Patency of the innominate and imaged subclavian arteries. The common and internal carotid arteries are patent. Calcified plaque of the cavernous, clinoid and supraclinoid segments without high-grade stenosis. Tortuosity of the distal cervical segment left ICA with 3 mm intramedial saccular outpouching on image 307. The middle and anterior cerebral arteries are patent. Codominant and patent vertebral arteries. The basilar and posterior cerebral arteries are patent. Cerebral venous sinuses are patent. No abnormal intracranial enhancement. Intralobular septal thickening with subpleural round glass densities of the imaged right lung. No pneumothorax. Unremarkable thyroid and soft tissues. Prior right-sided lens repair. Degenerative changes of the cervical spine. No acute fracture. Grade 1 anterolisthesis C3 on C4, likely on a degenerative basis. IMPRESSION: 1. Tortuosity of the distal cervical segment left ICA with 3 mm saccular outpouching suggestive of aneurysm. 2. Otherwise unremarkable CTA of the head and neck. 3. Intralobular septal thickening of the lung apices suggestive of pulmonary edema. Asymmetric groundglass densities throughout the right lung may also reflect pulmonary edema or a nonspecific pneumonitis. ACT 112: Negative or not required by law. The above report was generated using voice recognition software. It may contain grammatical, syntax or spelling errors. Electronically signed by: Truman Lau M.D. 10/01/2020 4:16 PM Chest X-Ray 10/01/20 18:06 XR chest 1V portable HISTORY: 85 years-old Female Intralobular septal thickening of lung apices CTA acute shortness of breath with possible pulmonary edema COMPARISON: Chest radiograph 11/25/2019, chest CT 01/17/2020 TECHNIQUE: Portable AP view of the chest FINDINGS: Unchanged mild cardiomegaly. Unchanged reticular opacities. No overt pulmonary edema identified. No pneumothorax, pleural effusion or new airspace conso lidation. Degenerative changes of the shoulders and spine. IMPRESSION: Cardiomegaly with chronic interstitial coarsening. ACT 112: Negative or not required by law. The above report was generated using voice recognition software. It may contain grammatical, syntax or spelling errors. Electronically signed by: Truman Lau M.D. 10/01/2020 6:31 PM ECG Data Attestation: I personally reviewed and interpreted this ECG as follows: Indication: + weakness (Cva sx) Rate (beats per minute): 90 Rhythm: normal sinus ECG Intervals/blocks: + Prolonged QT (467) ECG Aiken: + Normal ECG ST segments: + Normal ST segments ECG Findings: + Other (Poor quality baseline for interpretation); no PACs and no PVCs Comparison ECG Date: from (11/25/19) Change: the following changes noted (QTc lengthened from 413->) Discharge Plan Visit Data Chief Complaint: Neuro Symptoms/Deficit Stated Complaint: WORRIED OF POSSIBLE STROKE, NEUROLOGICAL SYMPTOMS ED Provider: Damaris Johnson Discharge Problem: Stroke-like symptoms, Arrival in emergency room within 2 hours after onset of stroke symptoms, Slurred speech, Mouth droop due to facial weakness Patient Disposition: Admitted As Inpatient Discharge Instructions Interventions: ED Discharge Assessment Last Done: 10/01/20 21:57
--- NOTE | 2020-10-03 19:32 | Billing Data ---
Date of Service October 03, 2020 Coding Level of Care Code 77479 Subseq Hosp Care Lvl 3
[2020-10-04] MEDS ORDERED: ACETAMINOPHEN 500 MG TAB PO ONE (00:55)
--- NOTE | 2020-10-04 07:45 | Discharge Summary ---
Date of Service October 04, 2020 Admission HPI Per Admitting Provider Nuris Benito is a pleasant 85yo C female presenting with left facial droop and slurred speech that started 09/30/20 around 22:00. 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 She has been following with Rheumatology both locally and at [facility] as well as Hematology at [facility]. She has been on Prednisone and Plaquenil for years. She has recently been weaned off both medications (has been off Prednisone since August and Plaquenil and Cymbalta since September) with plans to repeat Rheumatological workup whilst off these medications to get a clearer picture of patient's diagnosis. Last night around 22:00 patient's noted her having slurred speech and not making sense. She went to bed and states she was very restless overnight - waking up appx 4 times to use the restroom which is unusual for her. This morning when she woke up at 10:00 her left face was drooping and she had some trouble ambulating initially. Her speech was improved, however, not quite back to normal. Patient also had some blurry vision in her right eye. These symptoms prompted her to come to the ER. Patient denies LALA, CP, palpitations, abdominal pain, nausea, vomiting, diarrhea, constipation. No additional complaints at this time. ER Course: Ceftriaxone. NSS Admission Exam Per Admitting Provider General: patient resting comfortably, NAD, non-toxic in appearance, AA&O to self and location with confusion on date Skin: warm, dry, intact, erythematous, macular lesions noted on arms and legs, tender to palpation HEENT: NC/AT, PERRL, EOMI, anicteric sclera, conjunctiva without injection, external ear normal to inspection and nontender, nares patent, moist mucus membranes, dentition intact, no oropharyngeal lesions, neck supple, trachea midline, no LAD, no thyromegaly, no JVD Heart: +S1/S2, regular, no m/r/g Lungs: equal air entry bilaterally, no rales/rhonchi/wheezes Abd: +BS, soft, NT/ND, no masses/organomegaly/ascites Ext: warm, 2+ pulses in UE/LE bilaterally, no clubbing/cyanosis or edema Neuro: significant left facial droop, decreased sensation to light touch right V1 distribution, otherwise sensation to light touch intact, MS 5/5 Principal Diagnosis Ischemic stroke Discharge Exam General: Lying in bed no acute distress HEENT: Normocephalic atraumatic Cardiac: Regular rate and rhythm I did not appreciate significant murmurs rubs or gallops, normal S1, normal S2, negative pedal edema, negative calf tenderness Respiratory: Clear to auscultation bilaterally with symmetrical chest expansion I did not appreciate any significant wheezes, rales, rhonchi GI: Soft nontender, bowel sounds present Neuro: Left-sided facial droop, no new focal deficits appreciated Psych: Calm and cooperative with the interview Discharge Data Allergies Allergy/AdvReac Type Severity Reaction Status Date / Time influenza virus vaccine Allergy Intermediate rash Verified 09/09/20 14:57 trivalent amoxicillin [From Amoxil] Allergy Unknown Unknown Verified 09/09/20 14:57 Anesthetics - Amide Type - Allergy Unknown Unknown Verified 09/09/20 14:57 Select A [Anesthetics - Amide Type] diazepam [From Valium] Allergy Unknown Unknown Verified 09/09/20 14:57 ethyl chloride Allergy Unknown Unknown Verified 09/09/20 14:57 procaine [From Novocain] Allergy Unknown Unknown Verified 09/09/20 14:57 Penicillins AdvReac Unknown SEVERE Verified 09/09/20 14:57 INTERNAL VAGINITIS Consultations 10/01/20 18:19 ED Decision to Admit Stat 10/01/20 22:14 Consult Neurology Routine Ordered Studies 10/01/20 14:06 CT angio head w con Stat CT angio neck with con Stat CT head/brain wo con Stat 10/01/20 22:14 MR brain wo con Routine 10/02/20 19:38 CT head/brain wo con Urgent Hospital Course (1) Facial droop: Ischemic stroke Patient presented to the ED on 10/01/20 approximately 12 hours after the onset of slurred speech and facial droop. Imaging was consistent with acute to subacute thromboembolic stroke to the right MCA territory. No significant thrombosis or vascular lesion was seen, nor was any sign of hemorrhage. Thrombolytics were not indicated. DAPT and statin therapy were initiated. Cardiac rhythm was sinus, and echo showed mild mitral regurgitation but no mural thrombus. Neurology was consulted and felt patients symptoms were likely due to thromboembolic stroke. Speech therapy evaluated patients swallowing function and found her to be at risk for aspiration, and recommended a minced and moist diet with monitoring for oral pocketing. Patients slurred speech and facial droop improved slightly during her hospital stay. Patient was discharged to long-term care on hospital day two in stable condition with a 30-day event monitor. New medications on discharge included atorvastatin and three weeks of DAPT (aspirin 81mg and clopidogrel 75mg) followed by aspirin monotherapy. Elevated blood pressure Patients BP in the ED was elevated, with a max of 198/119. Patient was noted to not carry a diagnosis of HTN prior to admission. This gradually improved over time. Medical team as well as neurology consult felt patient's elevated BP was likely a consequence rather than cause of patient's stroke. Neurology recommended close monitoring without pharmacologic intervention. Antihypertensives were not initiated during this hospital stay, nor upon discharge. PCP follow-up was recommended. UTI Urinalysis done in the ED showed a UTI, and patient was treated with a dose of ceftriaxone. Patient noted new-onset urinary incontinence, frequency, and urgency without urinary pain. Urine culture of a sample obtained prior to antibiotic therapy was notable for pansensitve E. coli. Further therapy was not felt to be indicated. CKD Patients history of CKD was noted on admission. Nephrotoxic agents were avoided. Leukocytoclastic vasculitis Patient was noted on admission to have a history of leukocytoclastic vasculitis, managed by a [facility] cost and sales record supervisor. Neurology felt this condition was not contributory to patients stroke. Case was discussed with patients cost and sales record supervisor, who agreed that her leukocytoclastic vasculitis was noncontributory. DIET INSTRUCTIONS As noted above, speech therapy was consulted due to concern for aspiration risk, and recommended minced and moist diet with monitoring for oral pocketing. Total Time Total Time Spent Total Time Spent (In Minutes): <30 Discharge Plan Discharge Items Patient Disposition: Transfer [facility] Fac Reason For Visit: LEFT FACIAL DROOP, SLURRED SPEECH Discharge Diagnosis: Ischemic stroke Activity: Per Instructions section Non-emergency contact: Primary Care Provider Call non-emergency contact if: your symptoms worsen and you have a fever Follow-up/Referrals: Morro Chao MD [Primary Care Provider] - Diet: Other - See Diet Comment Addtl Attending Provider Instructions: Ischemic stroke Patient presented to the ED on 10/01/20 approximately 12 hours after the onset of slurred speech and facial droop. Imaging was consistent with acute to subacute thromboembolic stroke to the right MCA territory. No significant thrombosis or vascular lesion was seen, nor was any sign of hemorrhage. Thrombolytics were not indicated. DAPT and statin therapy were initiated. Cardiac rhythm was sinus, and echo showed mild mitral regurgitation but no mural thrombus. Neurology was consulted and felt patients symptoms were likely due to thromboembolic stroke. Speech therapy evaluated patients swallowing function and found her to be at risk for aspiration, and recommended a minced and moist diet with monitoring for oral pocketing. Patients slurred speech and facial droop improved slightly during her hospital stay. Patient was discharged to long-term care on hospital day two in stable condition with a 30-day event monitor. New medications on discharge included atorvastatin and three weeks of DAPT (aspirin 81mg and clopidogrel 75mg) followed by aspirin monotherapy. Elevated blood pressure Patients BP in the ED was elevated, with a max of 198/119. Patient was noted to not carry a diagnosis of HTN prior to admission. This gradually improved over time. Medical team as well as neurology consult felt patient's elevated BP was likely a consequence rather than cause of patient's stroke. Neurology recommended close monitoring without pharmacologic intervention. Antihypertensives were not initiated during this hospital stay, nor upon discharge. PCP follow-up was recommended. UTI Urinalysis done in the ED showed a UTI, and patient was treated with a dose of ceftriaxone. Patient noted new-onset urinary incontinence, frequency, and urgency without urinary pain. Urine culture of a sample obtained prior to antibiotic therapy was notable for pansensitve E. coli. Further therapy was not felt to be indicated. CKD Patients history of CKD was noted on admission. Nephrotoxic agents were avoided. Leukocytoclastic vasculitis Patient was noted on admission to have a history of leukocytoclastic vasculitis, managed by a [facility] cost and sales record supervisor. Neurology felt this condition was not contributory to patients stroke. Case was discussed with patients cost and sales record supervisor, who agreed that her leukocytoclastic vasculitis was n oncontributory. DIET INSTRUCTIONS As noted above, speech therapy was consulted due to concern for aspiration risk, and recommended minced and moist diet with monitoring for oral pocketing. Patient education information: Risk Factors for Stroke: You can reduce your chances of stroke by working with your medical provider to adopt a healthy lifestyle. Some specific ways to lower your chance of stroke are: * If you are a smoker, now is the time to stop smoking cigarettes * If you are diabetic, improve the control of your blood sugars * Avoid excessive amounts of alcohol * Control high blood pressure * Lose weight if you are overweight * Be sure to lead an active lifestyle * Eat a healthy diet low in salt, cholesterol and fat You should know about other risk factors for stroke that you are unable to control. These include: * Age 55 years or older * Male gender * Certain racial groups: , or / * Family History of Stroke, Mini stroke or Heart Attack * Sickle Cell Disease Follow Up: It is important for you to keep your follow up appointments with your medical provider. Who to Call and When: Medical Emergencies: Call 911 immediately if you experience any of the following warning signs and symptoms of Stroke: * Sudden numbness or weakness of the face, arm or leg, especially on one side of the body * Sudden confusion, trouble speaking or understanding * Sudden trouble seeing in one or both eyes * Sudden trouble walking, dizziness, loss of balance or coordination * Sudden severe headache with no cause Do not delay calling 911 if you experience any warning signs or symptoms of a stroke. Delay in seeking medical attention may affect what treatments can be given to you. . Pending Studies at Discharge: No Stand-Alone Forms: [facility] Skilled Items Patient informed of condition?: Yes DNR: No Discharge Level of Care: Skilled Communicable Disease: No Discharge Prognosis: Stable Lines: None Urinary Catheter: No Medications and DC Order Prescriptions: New atorvastatin 40 mg Tablet 40 mg PO QAM 30 Days Qty: 30 RF: 0 clopidogrel 75 mg Tablet 75 mg PO QAM 30 Days Qty: 30 RF: 0 aspirin 81 mg Tablet,Delayed Release (Dr/Ec) 81 mg PO QAM 30 Days Qty: 30 RF: 0 cefdinir 300 mg capsule 300 mg PO BID 5 Days Qty: 10 RF: 0 Continued polyethylene glycol 3350 17 gram/dose powder 17 gm PO DAILY PRN (Reason: Constipation) RF: 0 cholecalciferol (vitamin D3) 25 mcg (1,000 unit) tablet 1,000 unit PO DAILY RF: 0 cyanocobalamin (vitamin B-12) 1,000 mcg lozenge 1,000 mcg sublingual DAILY RF: 0 multivitamin Tablet 1 tab PO DAILY RF: 0 Discharge Orders: Discharge Order (Routine); Ordered 10/04/20 Ordered By: Brandyn Sage Admission Data Admit Date/Time: 10/01/20 20:55 Attending Provider: Chaim Wahl Admit Provider: Charlette Sage Primary Care Provider: Morro Chao Other Providers: Oneil Waggoner ; Segun Bang ; Charlette Sage Other Interventions: Discharge Summary Assessment (RN) Last Done: 10/04/20 13:06 Supervising Physician Co-Signing Physician Notes I personally examined the patient and verified all borrego points of history and exam, discussed case, and agree with decision making with Dr Sage. Awake, sitting up in the chair, no distress. [facility]els okay [facility], outlined plans with patient. Vitals noted, in general she is awake and alert HEENT normocephalic atraumatic mucous membranes moist right facial droop. Skin shows no rashes no pallor or icterus. Breathing unlabored no accessory muscle use good effort. Strokecryptogenic. For now antiplatelets as recommended per neurology, 30-day event monitor, plus or minus loop recorder. Stable for transfer to SNF with a rehab emphasis. Delirium/metabolic encephalopathyrelated to stroke, hospital environment, etc. Supportive care. This appears surprisingly much better today Dispostable for subacute rehab at the [facility] Resident Activity Tracking Resident Involvement: Resident Care Provided Care Provided: Adult Hospital Medicine
[2020-10-04] MEDS: CLOPIDOGREL BISULFATE 75 MG TAB PO SCH (07:52)
[2020-10-04] MEDS: ASPIRIN 81 MG ECTAB PO SCH (07:53)
[2020-10-04] MEDS: ATORVASTATIN 40 MG TAB PO SCH (07:53)
[2020-10-04 08:25] LABS: Basophils # (auto) 0.01 K/uL (0-0.2); Basophils % (auto) 0.2 %; Eosinophils % (auto) 3.7 %; Hematocrit (blood only) 32.4 % (37-47); Hemoglobin 10.8 g/dL (12.0-16.0); Immature Granulocytes # (auto) 0.01 K/uL (0.00-0.02); Immature Granulocytes % (auto) 0.2 %; Lymphocytes # (auto) 1.42 K/uL (1.2-3.4); Lymphocytes % (auto) 26.6 %; Mean Corpuscular Hemoglobin 29.7 pg (25-34); Mean Corpuscular Hgb Conc 33.3 g/dL (32-36); Mean Platelet Volume 9.5 fL (7.4-10.4); Monocytes # (auto) 0.18 K/uL (0.11-0.59); Monocytes % (auto) 3.4 %; Neutrophils # (auto) 3.52 K/uL (1.4-6.5); Neutrophils % (auto) 65.9 %; Platelet Count 130 K/uL (130-400); RDW Standard Deviation 49.2 fL (36.4-46.3); Red Blood Count 3.64 M/uL (4.2-5.4); White Blood Count 5.34 K/uL (4.8-10.8)
[2020-10-04] MEDS ORDERED: CEFDINIR 300 MG CAP PO STA (08:33)
[2020-10-04 08:46] LABS: Calcium 8.8 mg/dl (8.5-10.1)
[2020-10-04 08:47] LABS: BUN Creatinine Ratio 22.3 (10-20); Creatinine Clr Calc Pharmacy 41.9 ml/min; Est GFR (African American) 61.1; Est GFR (Non-African American) 52.7; Potassium 3.2 mmol/L (3.5-5.1)
--- NOTE | 2020-10-04 15:43 | Billing Data ---
Date of Service October 04, 2020 Coding Level of Care Code D/C Day Management <30 mins
== END 2020-10-04 14:41 | DRG 64 ==
LOC: ED 12:58 → 2W 20:55 → SUATTDRO 20:55 → 2W 21:57

== ENCOUNTER 2020-11-15 08:13 | Inpatient (IN) ==
--- NOTE | 2020-11-15 09:01 | Emergency Department Note ---
History of Present Illness General Chief complaint: Weakness Stated complaint: WEAKNESS Time Seen by Provider: 11/15/20 08:33 Source: patient, family (Spouse who is at the bedside), RN notes reviewed and old records reviewed Mode of arrival: EMS Limitations: no limitations History of Present Illness Maximum Pain Intensity: 4 This patient comes in with inability to go to walk. She has been weak on her left side. It started yesterday morning before 6 AM so it has been going on for over 24 hours now. She does have a history of stroke but her said in the past it only affected her speech. She was seen here at the end of September with the stroke. She does not normally have trouble walking. She said yest erday morning at the she was on the toilet and clean get off and felt like she had no strength in her left leg. She was seen here yesterday had extensive work-up done her CAT scan did show no acute hemorrhage but had some subacute infarcts. She is finishing up antibiotics for UTI she has no symptoms with that she is had no fever or chills she is had both Covid vaccines. She said her left hand felt a little uncoordinated yesterday but is no numbness or weakness in the hand or face. No worsening of her swallowing or difficulty speaking. No change in vision. No headache neck pain or stiffness. She is on no significant blood thinners. Home Medications Medication Instructions Recorded Confirmed Type polyethylene glycol 3350 17 17 gm PO DAILY PRN gm 01/17/19 11/15/20 History gram/dose oral powder cyanocobalamin (vitamin B-12) 1,000 mcg SUBLINGUAL QAM 05/23/20 11/15/20 History 1,000 mcg sublingual lozenge ciprofloxacin HCl 250 mg tablet 250 mg PO BID #10 tab 11/12/20 11/15/20 Rx aspirin [Aspir-81] 81 mg PO QAM 11/14/20 11/15/20 History atorvastatin 40 mg PO QAM 11/14/20 11/15/20 History cholecalciferol (vitamin D3) 25 mcg PO QAM 11/14/20 11/15/20 History [Vitamin D3] multivitamin [Daily-Charlie] 1 tab PO QAM 11/14/20 11/15/20 History Allergies Allergy/AdvReac Type Severity Reaction Status Date / Time influenza virus vaccine Allergy Intermediate rash Verified 11/15/20 09:44 trivalent amoxicillin [From Amoxil] Allergy Unknown Unknown Verified 11/15/20 09:44 Anesthetics - Amide Type - Allergy Unknown Unknown Verified 11/15/20 09:44 Select A [Anesthetics - Amide Type] diazepam [From Valium] Allergy Unknown Unknown Verified 11/15/20 12:59 ethyl chloride Allergy Unknown Unknown Verified 11/15/20 09:44 procaine [From Novocain] Allergy Unknown Unknown Verified 11/15/20 09:44 Penicillins AdvReac Unknown SEVERE Verified 11/15/20 09:44 INTERNAL VAGINITIS Past Med/Surg History Medical History (Updated 11/15/20 @ 14:44 by Segun Simpson MD) Abrasion of knee Actinic keratosis Benign positional vertigo Cheilosis CKD (chronic kidney disease), stage III Cystocele, midline Elevated blood pressure reading without diagnosis of hypertension Gastroparesis Generalized anxiety disorder History of skin cancer of unknown type Hyperglycemia Hypothyroidism Irregular heartbeat Irritable bowel syndrome Leukocytoclastic vasculitis Leukopenia Pain in joint of right shoulder Paresthesias Persistent insomnia Rectocele Second degree uterine prolapse Skin cancer Tonsillectomy planned (01/30/13) Vitamin D deficiency Surgical History H/O tooth extraction History of right cataract surgery History of surgical removal of ganglion cyst History of tonsillectomy History of tubal ligation (01/30/13) Family History Mother , age 80 Lymphoma Heart disease Arthritis Father , age 56 Stroke Denies family history of Ovarian cancer Breast cancer Colorectal cancer Social History Smoking Status: Never smoker Tobacco Type: Cigarettes Age Started Using Tobacco: 22; Age Quit Using Tobacco: 42; packs per day: 1; Years Smoked: 20; Second Hand Exposure: No; Hx Alcohol Use: Yes Alcohol type: wine and hard liquor Alcohol Intake Frequency: Monthly or Less Hx Substance Use: No Preferred Language: Maori Communication Ability: Effective Visual Impairment: Limited Hearing Ability: Normal Instructor Pilot Required: No Beliefs That Will Affect Care: None marital status: Current Living Situation: Personal Care Facility Current Living Situation Comment: [facility] current occupational status: retired Other Information That Helps Us Care for You: No Feels Safe at Home: Yes Safety Concerns: Feels Safe At This Time Childhood Exposure to Second-Hand Smoke: Yes caffeine: No Dental Care, Regularly: Yes Physical Activity Frequency: Does not Exercise Seatbelt Use: always Sunscreen Use: Yes Assistive Devices: Cane, Glasses and Walker Assistive Devices Comment: GLASSES WITH PATIENT Review of Systems A total of 10 systems reviewed and were otherwise negative Physical Exam Vital Signs Vital Signs - 24 hr 11/15/20 08:17 11/15/20 08:20 11/15/20 10:03 Temperature 37.0 C Temperature Source Oral Pulse Rate 100 H 87 Pulse Rate from SpO2 Sensor 97 H Respiratory Rate 21 16 Blood Pressure 177/94 H 177/94 H 161/89 H Blood Pressure Mean 121 121 113 Pulse Oximetry 99 99 Oxygen Delivery Method Room Air Sepsis Recent Fever Within 48 Hours No Sepsis New/Unexplained Change in Mental Status N/A Sepsis Action Taken by Nursing No Action Required 11/15/20 10:22 11/15/20 10:30 11/15/20 11:00 Temperature Temperature Source Pulse Rate 88 83 97 H Pulse Rate from SpO2 Sensor Respiratory Rate 19 16 18 Blood Pressure 164/84 H 152/82 H 165/90 H Blood Pressure Mean 110 105 115 Pulse Oximetry Oxygen Delivery Method Sepsis Recent Fever Within 48 Hours Sepsis New/Unexplained Change in Mental Status Sepsis Action Taken by Nursing 11/15/20 11:30 Temperature Temperature Source Pulse Rate 73 Pulse Rate from SpO2 Sensor Respiratory Rate 19 Blood Pressure 167/83 H Blood Pressure Mean 111 Pulse Oximetry Oxygen Delivery Method Sepsis Recent Fever Within 48 Hours Sepsis New/Unexplained Change in Mental Status Sepsis Action Taken by Nursing General: Well developed well nourished older female who appears in no acute distress, breathing comfortably on room air. Normal speech HEENT: Normal cephalic atraumatic. Pupils are equal round and reactive to light. Extraocular movements are intact. Oropharynx is pink with moist mucous membranes. No swelling of the mouth lips or tongue. Neck: Supple with a midline trachea. No meningeal signs or stiffness, no JVD or bruits. No Stridor. Chest: Clear to auscultation bilaterally. No wheezes or rhonchi. No increased work of breathing. Heart: Regular rate and rhythm without murmurs or gallops. Abdomen: Soft nontender, nondistended without rebound guarding or rigidity. Extremities: No cyanosis clubbing or edema. No calf tenderness or assymetry Spine/Back. Non tender to palpation. No CVA tenderness Skin: Good turgor without rashes. Neurologic exam: Cranial nerves two through 12 are intact. Motor and sensation are intact and symmetrical throughout the exception of she does seem weaker on the left leg than the right. Especially with flexion at the hip. Anger to nose is intact. No tremor or pronator drift. Course Administered Medications Discontinued Medications Lorazepam (Ativan) 0.5 mg in 1 mls @ 1 mls/min IV NOW STA Stop: 11/15/20 12:45 Last Admin: 11/15/20 14:30 Dose: 1 mls/min Documented by: [id number] Ioversol (Optiray 350 500ml) 106 ml IV ONCE ONE Stop: 11/15/20 10:15 Last Admin: 11/15/20 10:14 Dose: 106 ml Documented by: [id number] Medical Decision Making Differential Diagnosis Stroke, intracranial hemorrhage, electrolyte or metabolic abnormality, sepsis, trauma Medical Records Attestation: I reviewed the patient's medical records. Home Medications Current Medication List: was personally reviewed by me Laboratory Data Attestation: I reviewed the patient's lab results. Result diagrams: 11/15/20 09:10 11/15/20 09:10 Lab Results 11/15/20 11/15/20 11/15/20 Range/Units 09:10 09:10 09:10 WBC 5.17 (4.8-10.8) K/uL RBC 3.05 L (4.2-5.4) M/uL Hgb 9.2 L (12.0-16.0) g/dL Hct 28.6 L (37-47) % MCV 93.8 (80-100) fL MCH 30.2 (25-34) pg MCHC 32.2 (32-36) g/dL RDW Std Deviation 52.9 H (36.4-46.3) fL RDW Coeff of Arturo 15.5 H (11.5-14.5) % Plt Count 141 (130-400) K/uL MPV 9.6 (7.4-10.4) fL Immature Gran % (Auto) 0.0 % Neut % (Auto) 67.9 % Lymph % (Auto) 23.2 % [place] % (Auto) 5.8 % Eos % (Auto) 2.7 % Baso % (Auto) 0.4 % Neut # (Auto) 3.51 (1.4-6.5) K/uL Lymph # (Auto) 1.20 (1.2-3.4) K/uL [place] # (Auto) 0.30 (0.11-0.59) K/uL Eos # (Auto) 0.14 (0-0.5) K/uL Baso # (Auto) 0.02 (0-0.2) K/uL Immature Gran # (Auto) 0.00 (0.00-0.02) K/uL PT 10.3 (9.0-12.0) Seconds INR 1.0 (0.9-1.1) APTT 21.4 (21.0-31.0) Seconds PTT Ratio 0.8 Sodium 144 (136-145) mmol/L Potassium 4.3 (3.5-5.1) mmol/L Chloride 111 H (98-107) mmol/L Carbon Dioxide 29 (21-32) mmol/L Anion Gap 4.0 (3-11) BUN 19 H (7-18) mg/dl Creatinine 0.98 (0.6-1.2) mg/dl Est Cr Clr Drug Dosing 43.9 ml/min Est GFR ( Amer) 61.8 ml/min Est GFR (Non-Af Amer) 53.3 ml/min BUN/Creatinine Ratio 19.4 (10-20) Glucose 106 H (70-99) mg/dl Calcium 9.1 (8.5-10.1) mg/dl Magnesium 2.2 (1.8-2.4) mg/dl Total Bilirubin 0.7 (0.2-1) mg/dl AST 24 (15-37) U/L ALT 10 L (12-78) U/L Alkaline Phosphatase 57 (45-117) U/L Troponin I < 0.015 (0-0.045) ng/ml Total Protein 6.3 L (6.4-8.2) gm/dl Albumin 3.1 L (3.4-5.0) gm/dl Globulin 3.2 (2.5-4.0) gm/dl Albumin/Globulin Ratio 1.0 (0.9-2) COVID-19 Eval Order SARS-CoV-2 (PCR) (Negative) 11/15/20 11/15/20 Range/Units 09:10 09:10 WBC (4.8-10.8) K/uL RBC (4.2-5.4) M/uL Hgb (12.0-16.0) g/dL Hct (37-47) % MCV (80-100) fL MCH (25-34) pg MCHC (32-36) g/dL RDW Std Deviation (36.4-46.3) fL RDW Coeff of Arturo (11.5-14.5) % Plt Count (130-400) K/uL MPV (7.4-10.4) fL Immature Gran % (Auto) % Neut % (Auto) % Lymph % (Auto) % [place] % (Auto) % Eos % (Auto) % Baso % (Auto) % Neut # (Auto) (1.4-6.5) K/uL Lymph # (Auto) (1.2-3.4) K/uL [place] # (Auto) (0.11-0.59) K/uL Eos # (Auto) (0-0.5) K/uL Baso # (Auto) (0-0.2) K/uL Immature Gran # (Auto) (0.00-0.02) K/uL PT (9.0-12.0) Seconds INR (0.9-1.1) APTT (21.0-31.0) Seconds PTT Ratio Sodium (136-145) mmol/L Potassium (3.5-5.1) mmol/L Chloride (98-107) mmol/L Carbon Dioxide (21-32) mmol/L Anion Gap (3-11) BUN (7-18) mg/dl Creatinine (0.6-1.2) mg/dl Est Cr Clr Drug Dosing ml/min Est GFR ( Amer) ml/min Est GFR (Non-Af Amer) ml/min BUN/Creatinine Ratio (10-20) Glucose (70-99) mg/dl Calcium (8.5-10.1) mg/dl Magnesium (1.8-2.4) mg/dl Total Bilirubin (0.2-1) mg/dl AST (15-37) U/L ALT (12-78) U/L Alkaline Phosphatase (45-117) U/L Troponin I (0-0.045) ng/ml Total Protein (6.4-8.2) gm/dl Albumin (3.4-5.0) gm/dl Globulin (2.5-4.0) gm/dl Albumin/Globulin Ratio (0.9-2) COVID-19 Eval Order Covid19 at [facility] SARS-CoV-2 (PCR) NEGATIVE (Negative) Imaging Data Radiologist's Impression: Head CTA 11/15/20 08:51 CT angio head wo/w CT DOSE: CLINICAL HISTORY: Weakness. Difficulty ambulating. Possible acute stroke. TECHNIQUE: Noncontrast images were obtained to the brain. CT angiography was then performed a dynamic helical fashion during intravenous administration of 105 cc Optiray 350. MIP images were acquired. A dose lowering technique was utilized adhering to the principles of ALARA. COMPARISON STUDY: Noncontrast head CT dated 11/14/2020, CT angiography the brain dated 10/02/2019 FINDINGS: Noncontrast images reveal no evidence of acute or subacute infarction. There is no midline shift. There is no evidence of acute hemorrhage. There is no h ydrocephalus. There are patchy white matter hypodensities likely on a small vessel ischemic basis. There are areas of prior infarction within the right basal ganglia and ji radiata. There is no evidence of acute sinusitis. 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 There are no major intracranial branch occlusions. There is a mild stenosis of the left posterior cerebral artery. There is no evidence of dural venous sinus thrombosis. IMPRESSION: 1. No acute intracranial findings 2. Areas of prior infarction within the right basal ganglia and ji radiata 3. 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 Mild stenosis of the left posterior cerebral artery. ACT 112: Negative or not required by law. Electronically signed by: Kal Diaz M.D. 11/15/2020 10:30 AM Neck CTA 11/15/20 08:51 CT angio neck with con CLINICAL HISTORY: left leg weakness COMPARISON STUDY: No previous studies for comparison. TECHNIQUE: CT angiography was performed from the aortic arch to the skull base. MIP imaging was performed. The patient was scanned in a dynamic helical fashion during intravenous administration of cc of Optiray. A dose lowering technique was utilized adhering to the principles of ALARA. CT DOSE: 1157.72 mGy.cm Technique: CT angiogram of the carotid and vertebral arteries was obtained using intravenous contrast and 3-D reconstruction. NASCET criteria was utilized. Findings: Images to the lung apices reveal partial visualization of a 37 mm low-density pleural-based opacity within the right upper lobe. There is mild interlobular septal thickening. The right carotid revealed no evidence of aneurysm and no evidence of dissection. There is no evidence of hemodynamic significant stenosis. Images the left carotid revealed a 3 mm saccular aneurysm of the high left cerv ical internal carotid. There is no evidence of hemodynamically significant stenosis. There is no evidence of dissection. There is no evidence of hemodynamically significant vertebral stenosis. There is no evidence of vertebral dissection. IMPRESSION: 1. 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 No evidence of carotid or vertebral artery stenosis or dissection 3. Interlobular septal thickening at the lung apices 4. Partial visualization of a 37 mm low-density pleural-based opacity within the right upper lung ACT 112: Negative or not required by law. Electronically signed by: Kal Diaz M.D. 11/15/2020 10:36 AM Chest X-Ray 11/15/20 11:29 XR chest 1V portable CLINICAL HISTORY: Abnormal CT scan LEFT LEG WEAKNESS. POSSIBLE STROKE. COMPARISON STUDY: 11/14/2020, CT angiogram of the neck dated 11/15/2020 FINDINGS: The cardiac and mediastinal contours remain stable. There is chronic interstitial thickening. There is a new right basilar opacity, atelectatic versus infectious/inflammatory. The low-density pleural-based opacity described on the CT scan performed the same day is not visualized on chest x-ray..[ IMPRESSION: 1. Chronic interstitial thickening 2. New right basilar opacity, atelectatic versus infectious/inflammatory 3. 37 mm low-density pleural-based opacity visualized on the CT angiogram is not visualized on chest x-ray. ACT 112: Negative or not required by law. Electronically signed by: Kal Diaz M.D. 11/15/2020 11:46 AM ECG Data Attestation: I personally reviewed and interpreted this ECG as follows: Indication: + weakness Rate (beats per minute): 91 Rhythm: + normal sinus and + other (Poor baseline) ECG Intervals/blocks: + Normal QRS, + Normal QT and + Normal VA ECG [place]: + Normal ECG ST segments: + Normal ST segments ECG Findings: no PACs and no PVCs Comparison ECG Date: from (11/14/20) Change: no significant change MDM Narrative This patient comes in as described above. She was placed on a school bus monitor room A2. She is here for treatment and evaluation of weakness mostly in her left leg. It has been going on for over 24 hours so she is outside of the window for TPA or acute intervention. I did review her records from yesterday and she does have some subacute infarcts. I am concerned that she is not functional at home in her setting. I did order a CTA of the head and the neck as it was done without contrast yesterday to further do a stroke work-up. Multiple blood testing was obtained using a stroke order set. She was placed on a school bus monitor. She was reassessed frequently. CTA of the head and neck did not show any acute findings. She does have subacute infarcts noted yesterday however looking at her most recent MRI when she had a recent stroke these are in the same distribution. She has nursing of electrolyte or metabolic abnormality. Has not think she has acute coronary syndrome or arrhythmia. I am concerned she may have had another stroke as she is weak in the left leg. This is her second visit and she is having difficulty caring for self at home. I have consulted the hospitalist to see her in the ER for these measures. Continuous cardiac monitoring: An order was placed in the EMR for continuous cardiac monitoring. The patient was noted to be normal sinus rhythm with a rate of 85. Impression & Plan Acute CVA (cerebrovascular accident), Left leg weakness, Ambulatory dysfunctio n, Lab test negative for COVID-19 virus Discharge Plan Visit Data Chief Complaint: Weakness Stated Complaint: WEAKNESS ED Provider: Segun Simpson Discharge Problem: Acute CVA (cerebrovascular accident), Left leg weakness, Ambulatory dysfunction, Lab test negative for COVID-19 virus Patient Disposition: Admitted As Inpatient Discharge Instructions Interventions: ED Discharge Assessment Last Done: 11/15/20 13:10
[2020-11-15 09:24] LABS: Basophils # (auto) 0.02 K/uL (0-0.2); Basophils % (auto) 0.4 %; Eosinophils # (auto) 0.14 K/uL (0-0.5); Eosinophils % (auto) 2.7 %; Hematocrit (blood only) 28.6 % (37-47); Hemoglobin 9.2 g/dL (12.0-16.0); Lymphocytes % (auto) 23.2 %; Mean Corpuscular Hemoglobin 30.2 pg (25-34); Mean Corpuscular Hgb Conc 32.2 g/dL (32-36); Mean Corpuscular Volume 93.8 fL (80-100); Mean Platelet Volume 9.6 fL (7.4-10.4); Monocytes % (auto) 5.8 %; Neutrophils # (auto) 3.51 K/uL (1.4-6.5); Neutrophils % (auto) 67.9 %; Platelet Count 141 K/uL (130-400); RDW Coefficient of Variation 15.5 % (11.5-14.5); RDW Standard Deviation 52.9 fL (36.4-46.3); Red Blood Count 3.05 M/uL (4.2-5.4); White Blood Count 5.17 K/uL (4.8-10.8)
[2020-11-15 09:34] LABS: Partial Thromboplastin Ratio 0.8; Partial Thromboplastin Time 21.4 Seconds (21.0-31.0); Prothrombin Time 10.3 Seconds (9.0-12.0)
[2020-11-15 09:51] LABS: Albumin Level 3.1 gm/dl (3.4-5.0); BUN Creatinine Ratio 19.4 (10-20); Bilirubin,Total 0.7 mg/dl (0.2-1); Blood Urea Nitrogen 19 mg/dl (7-18); Carbon Dioxide 29 mmol/L (21-32); Chloride 111 mmol/L (98-107); Creatinine Clr Calc Pharmacy 43.9 ml/min; Est GFR (African American) 61.8 ml/min; Est GFR (Non-African American) 53.3 ml/min; Globulin 3.2 gm/dl (2.5-4.0); Magnesium 2.2 mg/dl (1.8-2.4); Potassium 4.3 mmol/L (3.5-5.1); Sodium 144 mmol/L (136-145); Total Protein 6.3 gm/dl (6.4-8.2); Troponin I < 0.015 ng/ml (0-0.045)
[2020-11-15 09:52] LABS: Alanine Aminotransferase 10 U/L (12-78); Alkaline Phosphatase 57 U/L (45-117); Aspartate Aminotransferase 24 U/L (15-37); Calcium 9.1 mg/dl (8.5-10.1); Glucose 106 mg/dl (70-99)
[2020-11-15] MEDS ORDERED: OPTIRAY 350 500ml IV ONE (10:14)
--- NOTE | 2020-11-15 10:32 | CT Scan Report ---
CT angio head wo/w CT DOSE: CLINICAL HISTORY: Weakness. Difficulty ambulating. Possible acute stroke. TECHNIQUE: Noncontrast images were obtained to the brain. CT angiography was then performed a dynamic helical fashion during intravenous administration of 105 cc Optiray 350. MIP images were acquired. A dose lowering technique was utilized adhering to the principles of ALARA. COMPARISON STUDY: Noncontrast head CT dated 11/14/2020, CT angiography the brain dated 10/02/2019 FINDINGS: Noncontrast images reveal no evidence of acute or subacute infarction. There is no midline shift. The re is no evidence of acute hemorrhage. There is no hydrocephalus. There are patchy white matter hypod ensities likely on a small vessel ischemic basis. There are areas of prior infarction within the righ t basal ganglia and ji radiata. There is no evidence of acute sinusitis. CT angiographic images reveal a stable 3 mm saccular aneurysm of the distal left internal carotid art tana. There are no major intracranial branch occlusions. There is a mild stenosis of the left posterio r cerebral artery. There is no evidence of dural venous sinus thrombosis. IMPRESSION: 1. No acute intracranial findings 2. Areas of prior infarction within the right basal ganglia and ji radiata 3. 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 Mild stenosis of the left posterior cerebral artery. ACT 112: Negative or not required by law. Electronically signed by: Kal Diaz M.D. 11/15/2020 10:30 AM
--- NOTE | 2020-11-15 10:38 | CT Scan Report ---
CT angio neck with con CLINICAL HISTORY: left leg weakness COMPARISON STUDY: No previous studies for comparison. TECHNIQUE: CT angiography was performed from the aortic arch to the skull base. MIP imaging was perfo rmed. The patient was scanned in a dynamic helical fashion during intravenous administration of cc of Optiray. A dose lowering technique was utilized adhering to the principles of ALARA. CT DOSE: 1157.72 mGy.cm Technique: CT angiogram of the carotid and vertebral arteries was obtained using intravenous contrast and 3-D reconstruction. NASCET criteria was utilized. Findings: Images to the lung apices reveal partial visualization of a 37 mm low-density pleural-based opacity w ithin the right upper lobe. There is mild interlobular septal thickening. The right carotid revealed no evidence of aneurysm and no evidence of dissection. There is no evidenc e of hemodynamic significant stenosis. Images the left carotid revealed a 3 mm saccular aneurysm of the high left cervical internal carotid. There is no evidence of hemodynamically significant stenosis. There is no evidence of dissection. There is no evidence of hemodynamically significant vertebral stenosis. There is no evidence of verte bral dissection. IMPRESSION: 1. 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 No evidence of carotid or vertebral artery stenosis or dissection 3. Interlobular septal thickening at the lung apices 4. Partial visualization of a 37 mm low-density pleural-based opacity within the right upper lung ACT 112: Negative or not required by law. Electronically signed by: Kal Diaz M.D. 11/15/2020 10:36 AM
--- NOTE | 2020-11-15 11:32 | History & Physical Report ---
Date of Service November 15, 2020 Assessment & Plan (1) Stroke-like symptoms: LLE > LUE weakness CTA head/neck without any acute findings MRI brain with and without contrast TTE HbA1c 5.2 in October. No reason to repeat this. LDL 80 in October. No reason to repeat this. PT/OT/speech Consult neurology (2) Left leg weakness: as above (3) Ataxia of left upper extremity: As above (4) Fall: Suspected secondary to CVA. Management as above No injuries suspected from fall as mainly just slumped to side on toilet. (5) Ambulatory dysfunction: PT/OT as above (6) Asymptomatic bacteriuria: Persistent E. coli in urine. No symptoms per patient. Currently on ciprofloxacin with 2 days left of current course. Will currently hold off further antibiotics at this time as no indication this represents a current infection. 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 (8) DVT prophylaxis: SCDs Chemical prophylaxis deferred pending MRI History of Present Illness Chief Complaint: Left sided weakness Primary Care Provider: Morro Chao MD Nuris Benito is an 85-year-old female who presents to the ER with recurrent falls and left-sided weakness. She has a significant history of a CVA on October 01 causing mainly dysarthria, left facial droop and mild weakness in her left arm and leg. She was discharged on 10/04/20 on aspirin and clopidogrel with the clopidogrel since being stopped after three weeks. She is yet to have her outpatient cardiac monitoring. Her notes since her stroke she has been getting progressively weaker with a slow decline from a cane to a walker. She has not been eating much. However, there has also been a more rapid decline over the last few days. Yesterday she fell to the side while sitting on the toilet, she was found hunched over the left side after pressing her call jansen. She was brought to the ER and CT head was taken which showed evolving subacute infarcts in right basal ganglia and ji radiata. Since no new CVA was found suspected symptoms were secondary to old CVA therefore [facility]. Unfortunately she has continued to be profoundly weak on her left side and unable to ambulate at this time therefore this morning was sent back to the ER. No change in speech, vision or hearing. No new facial droop. LLE > LUE weakness. Her reports she has had a poor appetite since her CVA, only just started getting physical therapy 2 weeks ago and is yet to have her cardiac event monitor placed. In the ER CTA showed stable 3mm saccular aneurysm but no evidence of carotid or vertebral stenosis or dissection. Allergies Allergy/AdvReac Type Severity Reaction Status Date / Time influenza virus vaccine Allergy Intermediate rash Verified 11/15/20 09:44 trivalent amoxicillin [From Amoxil] Allergy Unknown Unknown Verified 11/15/20 09:44 Anesthetics - Amide Type - Allergy Unknown Unknown Verified 11/15/20 09:44 Select A [Anesthetics - Amide Type] diazepam [From Valium] Allergy Unknown Unknown Verified 11/15/20 12:59 ethyl chloride Allergy Unknown Unknown Verified 11/15/20 09:44 procaine [From Novocain] Allergy Unknown Unknown Verified 11/15/20 09:44 Penicillins AdvReac Unknown SEVERE Verified 11/15/20 09:44 INTERNAL VAGINITIS Home Medications Medication Instructions Recorded Confirmed Type polyethylene glycol 3350 17 17 gm PO DAILY PRN gm 01/17/19 11/15/20 History gram/dose oral powder cyanocobalamin (vitamin B-12) 1,000 mcg SUBLINGUAL QAM 05/23/20 11/15/20 History 1,000 mcg sublingual lozenge ciprofloxacin HCl 250 mg tablet 250 mg PO BID #10 tab 11/12/20 11/15/20 Rx aspirin [Aspir-81] 81 mg PO QAM 11/14/20 11/15/20 History atorvastatin 40 mg PO QAM 11/14/20 11/15/20 History cholecalciferol (vitamin D3) 25 mcg PO QAM 11/14/20 11/15/20 History [Vitamin D3] multivitamin [Daily-Charlie] 1 tab PO QAM 11/14/20 11/15/20 History Past Med/Surg History Medical History (Updated 11/16/20 @ 07:05 by Oneil Waggoner MD) Abrasion of knee Actinic keratosis Benign positional vertigo Cheilosis CKD (chronic kidney disease), stage III Cystocele, midline Elevated blood pressure reading without diagnosis of hypertension Gastroparesis Generalized anxiety disorder History of skin cancer of unknown type Hyperglycemia Hypothyroidism Irregular heartbeat Irritable bowel syndrome Leukocytoclastic vasculitis Leukopenia Pain in joint of right shoulder Paresthesias Persistent insomnia Rectocele Second degree uterine prolapse Skin cancer Tonsillectomy planned (01/30/13) Vitamin D deficiency Surgical History H/O tooth extraction History of right cataract surgery History of surgical removal of ganglion cyst History of tonsillectomy History of tubal ligation (01/30/13) Family History Mother , age 80 Lymphoma Heart disease Arthritis Father , age 56 Stroke Denies family history of Ovarian cancer Breast cancer Colorectal cancer Social History Smoking Status: Never smoker Tobacco Type: Cigarettes Age Started Using Tobacco: 22; Age Quit Using Tobacco: 42; packs per day: 1; Years Smoked: 20; Second Hand Exposure: No; Hx Alcohol Use: Yes Alcohol type: wine and hard liquor Alcohol Intake Frequency: Monthly or Less Hx Substance Use: No Preferred Language: Colombian Communication Ability: Effective Visual Impairment: Limited Hearing Ability: Normal 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 Quality Specialist Required: No Beliefs That Will Affect Care: None marital status: Current Living Situation: Personal Care Facility Current Living Situation Comment: [facility] current occupational status: retired Other Information That Helps Us Care for You: No Feels Safe at Home: Yes Safety Concerns: Feels Safe At This Time Childhood Exposure to Second-Hand Smoke: Yes caffeine: No Dental Care, Regularly: Yes Physical Activity Frequency: Does not Exercise Seatbelt Use: always Sunscreen Use: Yes Assistive Devices: None Assistive Devices Comment: GLASSES WITH PATIENT Review of Systems Review of Systems: All systems reviewed & are unremarkable except as noted in HPI & below Physical Exam Constitutional: WD/WN, vitals as above Eyes: PERRL, conjunctivae normal, anicteric sclerae ENMT: external ear and nose normal, oropharynx normal Neck: trachea midline Respiratory: normal respiratory effort, lungs clear to auscultation Cardiovascular: Rate/Rhythm: regular rate and regular rhythm Heart Sounds: normal S1 and normal S2; no murmur Extremities: normal capillary refill; no calf tenderness and no pedal edema Gastrointestinal (Abdomen): normal bowel sounds, soft, nontender, no hepatosplenomegaly Musculoskeletal: no cyanosis or clubbing, extremities motor strength 5/5 Skin: no rashes, warm and dry Neurologic: moves all extremities, + focal motor deficit (Left sided LE > UE weakness) and awake Speech / Cognition: normal speech Motor/Sensory: + pronator drift (mild left sided); no tremor Cranial Nerves: PERRL, normal accommodation, EOM intact bilaterally, normal facial strength, tongue midline, able to rotate head bilaterally, able to elevate shoulders bilaterally, no nystagmus and symmetric palate elevation Coordination: + abnormal [id number] test (significantly impaired on left) Psychiatric: A+Ox3, euthymic affect Results & Data Results & Data ([facility]) Vital Signs (Past 12 Hours) Vital Signs Temp Pulse Resp BP Pulse Ox 11/15/20 11:00 97 H 18 165/90 H 11/15/20 10:30 83 16 152/82 H 11/15/20 10:22 88 19 164/84 H 11/15/20 10:03 161/89 H 11/15/20 08:20 37.0 C 87 16 177/94 H 99 11/15/20 08:17 100 H 21 177/94 H [address] angio head wo/w IMPRESSION: 1. No acute intracranial findings 2. Areas of prior infarction within the right basal ganglia and ji radiata 3. 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 Mild stenosis of the left posterior cerebral artery. CT angio neck with con IMPRESSION: 1. 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 No evidence of carotid or vertebral artery stenosis or dissection 3. Interlobular septal thickening at the lung apices 4. Partial visualization of a 37 mm low-density pleural-based opacity within the right upper lung XR chest 1V portable IMPRESSION: 1. Chronic interstitial thickening 2. New right basilar opacity, atelectatic versus infectious/inflammatory 3. 37 mm low-density pleural-based opacity visualized on the CT angiogram is not visualized on chest x-ray. MRI OF THE BRAIN WITHOUT AND WITH IV CONTRAST IMPRESSION: 1. Redemonstration of the previously described right basal ganglia and coronal radiata infarcts. There is slight increase in the post infarct microhemorrhage. 2. New focus of restricted water diffusion involving the right thalamus consistent with interval development of an acute/subacute thalamic infarct Medications Administered ER medications given: None ECG Indication: other Rate (beats per minute): 91 Rhythm: normal sinus Comparison ECG Date: from (November 14, 2020) Change: the following changes noted (Fusion complexes no longer present) Code Status & VTE Plan Code Status Full - per POLST VTE Prophylaxis Plan VTE Prophylaxis will be ordered: Yes Reason for no VTE drug order: Treatment not indicated PG Care Time/CCT Total # of Minutes Spent Total Time Spent with Patient: Total time spent is greater than 50% in coordination of care (as documented) at patient's floor/unit and/or counseling patient: Coding Level of Care Code 55666 OBS Care - Level 3 Diagnoses Stroke-like symptoms R29.90 Left leg weakness R29.898 Ataxia of left upper extremity R27.0 Fall W19.XXXA Encounter type: initial encounter Ambulatory dysfunction R26.2 Asymptomatic bacteriuria R82.71 Leukocytoclastic vasculitis M31.0 DVT prophylaxis Z29.9 (1) Fall Encounter type: initial encounter Qualified Code(s): W19.XXXA - Unspecified fall, initial encounter
--- NOTE | 2020-11-15 11:47 | XRay Report ---
XR chest 1V portable CLINICAL HISTORY: Abnormal CT scan LEFT LEG WEAKNESS. POSSIBLE STROKE. COMPARISON STUDY: 11/14/2020, CT angiogram of the neck dated 11/15/2020 FINDINGS: The cardiac and mediastinal contours remain stable. There is chronic interstitial thickenin g. There is a new right basilar opacity, atelectatic versus infectious/inflammatory. The low-density pleural-based opacity described on the CT scan performed the same day is not visualized on chest x-ra y..[ IMPRESSION: 1. Chronic interstitial thickening 2. New right basilar opacity, atelectatic versus infectious/inflammatory 3. 37 mm low-density pleural-based opacity visualized on the CT angiogram is not visualized on chest x-ray. ACT 112: Negative or not required by law. Electronically signed by: Kal Diaz M.D. 11/15/2020 11:46 AM
[2020-11-15] MEDS ORDERED: LORazepam 0.5 MG/1 ML VIAL IV STA (12:44)
[2020-11-15] MEDS ORDERED: ACETAMINOPHEN 325 MG TAB PO PRN (14:13)
[2020-11-15] MEDS ORDERED: POLYETHYLENE (MIRALAX) 17 GM PACK PO PRN (14:13)
[2020-11-15] MEDS ORDERED: PHARMACIST DISCHARGE MED REC CONSULT PRN (14:13)
[2020-11-15] MEDS ORDERED: GADOBUTROL 65ML VIAL IV ONE (15:17)
--- NOTE | 2020-11-15 15:33 | Magnetic Resonance Report ---
MRI OF THE BRAIN WITHOUT AND WITH IV CONTRAST CLINICAL HISTORY: Left sided weakness POSSIBLE ACUTE STROKE. INABILITY TO WALK. COMPARISON STUDY: MRI dated 10/01/2020, CT scan dated 11/14/2020 TECHNIQUE: MRI of the brain was performed from the vertex to the skull base utilizing various T1 and T2 weighted sequences. Following the IV administration of 6.5 mL of Gadavist contrast, additional enh anced images were obtained. FINDINGS: Sagittal T1, axial diffusion, proton density and T2 weighted axial, coronal FLAIR, and pre and post a xial T1-weighted images were acquired. These were supplemented with post gadolinium coronal T1 weight ed images. No intra or extra-axial mass lesions are visualized. There are persistent foci of restricted water diffusion involving the right basal ganglia and ji radiata consistent with subacute infarcts. There is a new subtle focus of restricted water diffusion involving the right thalamus consistent with interval development of an acute/subacute thalamic infar ct. There is no evidence of ventricular dilatation. Proton density T2-weighted and FLAIR images reveal scattered foci of increased T2 signal within the w sarita matter, likely on a small vessel basis. There are areas of increased T2 signal in the right basa l ganglia and coronal radiata consistent with subacute infarcts. There are no abnormal flow voids. There is no evidence of pathologic enhancement. There is increased T1 hemorrhage in the region of the right basal ganglia infarct consistent with khadra rohemorrhage. The examination is motion degraded. IMPRESSION: 1. Redemonstration of the previously described right basal ganglia and coronal radiata infarcts. Ther e is slight increase in the post infarct microhemorrhage. 2. New focus of restricted water diffusion involving the right thalamus consistent with interval deve lopment of an acute/subacute thalamic infarct ACT 112: Negative or not required by law. Electronically signed by: Kal Diaz M.D. 11/15/2020 3:31 PM
--- NOTE | 2020-11-15 16:33 | Electrocardiogram Report ---
Test Reason : Blood Pressure : / mmHG Vent. Rate : 091 BPM Atrial Rate : 091 BPM P-R Int : 148 ms QRS Dur : 076 ms QT Int : 392 ms P-R-T Axes : 056 016 039 degrees QTc Int : 482 ms Poor data quality, interpretation may be adversely affected Normal sinus rhythm Normal ECG When compared with ECG of 14-NOV-2020 08:09, Fusion complexes are no longer Present Confirmed by Louie Burks ([id number]) on 11/15/2020 4:32:52 PM Referred By: REFERRED SELF Confirmed By:Jeremy Burks
[2020-11-15] MEDS ORDERED: ASPIRIN 300 MG SUPP PR STA (16:48)
[2020-11-15] MEDS: D5W AND 1/2NSS 1,000 ML IV SCH (17:12)
[2020-11-16] MEDS: D5W AND 1/2NSS 1,000 ML IV SCH ×2 (00:57→13:06)
[2020-11-16] MEDS ORDERED: ACETAMINOPHEN 1000 MG/100 ML IV IV PRN (02:43)
[2020-11-16 06:35] LABS: Basophils # (auto) 0.01 K/uL (0-0.2); Basophils % (auto) 0.1 %; Eosinophils # (auto) 0.31 K/uL (0-0.5); Eosinophils % (auto) 3.1 %; Hematocrit (blood only) 25.3 % (37-47); Hemoglobin 8.4 g/dL (12.0-16.0); Immature Granulocytes # (auto) 0.01 K/uL (0.00-0.02); Immature Granulocytes % (auto) 0.1 %; Lymphocytes # (auto) 0.62 K/uL (1.2-3.4); Lymphocytes % (auto) 6.2 %; Mean Corpuscular Hemoglobin 30.4 pg (25-34); Mean Corpuscular Hgb Conc 33.2 g/dL (32-36); Mean Corpuscular Volume 91.7 fL (80-100); Mean Platelet Volume 9.3 fL (7.4-10.4); Monocytes # (auto) 0.44 K/uL (0.11-0.59); Monocytes % (auto) 4.4 %; Neutrophils # (auto) 8.66 K/uL (1.4-6.5); Neutrophils % (auto) 86.1 %; Platelet Count 123 K/uL (130-400); RDW Standard Deviation 53.6 fL (36.4-46.3); Red Blood Count 2.76 M/uL (4.2-5.4); White Blood Count 10.05 K/uL (4.8-10.8)
[2020-11-16 07:04] LABS: BUN Creatinine Ratio 17.5 (10-20); Est GFR (African American) 51.5 ml/min; Est GFR (Non-African American) 44.4 ml/min; Potassium 3.3 mmol/L (3.5-5.1)
[2020-11-16] MEDS ORDERED: ATORVASTATIN 40 MG TAB PO SCH (09:00)
--- NOTE | 2020-11-16 09:35 | Neurology Consultation ---
Date of Consultation November 16, 2020 Assessment & Plan (1) Acute CVA (cerebrovascular accident): Recent subacute to acute ischemic infarct within the right thalamus presenting with worsening left-sided weakness, especially the leg. This stroke is adjacent to her previous strokes occurring within the right basal ganglia and ji radiata, diagnosed 6 weeks ago. She had presented with dysarthria and mild hemiparesis at that time. There is also evidence of a slight increase in the post infarct microhemorrhage involving the previous right basal ganglia and ji radiata infarcts. This patient's most recent stroke occurs while on daily low-dose aspirin and atorvastatin. She had been on Plavix as well after her previous hospitalization although the Plavix was discontinued after 3 weeks as directed. Her blood pressure has been elevated although appears to be improved this morning. She does not have a diagnosis of longstanding hypertension. She had an unremarkable lipid panel previously. She does not have a known history of at rial fibrillation. She has had hyperglycemia previously although this issue may have been related to glucocorticoid therapy. She is a former cigarette smoker, quit 40 years ago. 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 She continues to follow periodically with rheumatology at [facility]. She may have an associated cryoglobulinemia, monoclonal gammopathy and idiopathic polyneuropathy . She has never been diagnosed with temporal arteritis or [employer]OR angiitis. Given the presence of evolving post stroke microhemorrhage, I would recommend discontinuing the atorvastatin. Her previous lipid panel was fairly unremarkab le. I would recommend a temporal artery biopsy to potentially evaluate for temporal arteritis in this patient in light of her history of recurrent stroke, headache, and history of vasculitis. Given this patient's clinical stability, I would rather hold off on starting glucocorticoids (prednisone) until her biopsy results return. She has been on prednisone previously for her leukocytoclastic vasculitis and was more than happy to get off of this medication. It looks like she may have had modestly elevated glucose while on prednisone. Continue with daily low-dose aspirin for the time being. However, after completion of temporal artery biopsy, I would recommend switching from aspirin to clopidogrel 75 mg/day. If patient's temporal artery biopsy is suggestive of vasculitis, patient would need start prednisone 60 mg/day. Would need additional follow-up with her installation & maintenance executive as well. History of Present Illness Reason for Consultation: Stroke Requesting Physician: Oneil Waggoner MD Attending Physician: Jimmy Chung DO History of Present Illness The patient is an 85-year-old female with a history of recent subacute thromboembolic stroke to the right MCA territory occurring 6 weeks ago, presenting with a mild left hemiparesis and dysarthria. I had evaluated her in neurological consultation at that time. She underwent a thorough stroke evaluation including CT angiography of the head and neck, brain MRI, and echocardiography. Past medical history notable for leukocytoclastic vasculitis (follows with a installation & maintenance executive at [facility]), thrombocytopenia, and idiopathic polyneuropathy. Patient was started on aspirin, Plavix, and atorvastatin during her last hospitalization. Plavix was discontinued after 3 weeks as recommended and she has continued with daily low-dose aspirin. The patient had presented to the emergency department 2 days ago, on November 14 complaining of headache and left- sided weakness after a fall at home. She did have a CT of the head and cervical spine completed at that time. She was discharged to home in stable condition. She presented again, yesterday, complaining of difficulty walking and persistent left-sided weakness, especially the leg that seems worse or new since her last stroke occurring 6 weeks ago. She also complains of an associated low-grade frontal headache. Again, she has been following with a installation & maintenance executive at [facility], Dr. Danye Leavitt, for leukocytoclastic vasculitis. According to a clinic note from this past September she has had lab work suggesting the possibility of cryoglobulinemia and plasma cell disorder previously. She has been treated with glucocorticoids, methotrexate briefly, and Plaquenil. Her condition is characterized primarily by cutaneous lesions. She was also evaluated by hematology oncology at [facility], Dr. Nicole Cat this past August. This particular clinic note discusses the possibility of IgM kappa monoclonal gammopathy in the setting of her leukocytoclastic vasculitis. She has been weaning off prednisone at that time. There was a discussion regarding obtaining follow-up lab evaluation as well as a possible consultation with neurology which I presume may have been related to the monoclonal gammopathy and her history of idiopathic polyneuropathy. Upon further questioning of the patient, she denies experiencing any history of painless monocular vision loss (amaurosis fugax), significant myalgias, jaw claudication, or exquisite scalp sensitivity. She has never had a temporal artery biopsy and does not have a known history of giant cell arteritis or [employer] angiitis. Her leukocytoclastic vasculitis apparently began in April 2019 potentially related to an influenza vaccine at that time. She did have an EMG completed August till 2019 in our office, with Dr. 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 Allergies Allergy/AdvReac Type Severity Reaction Status Date / Time influenza virus vaccine Allergy Intermediate rash Verified 11/15/20 09:44 trivalent amoxicillin [From Amoxil] Allergy Unknown Unknown Verified 11/15/20 09:44 Anesthetics - Amide Type - Allergy Unknown Unknown Verified 11/15/20 09:44 Select A [Anesthetics - Amide Type] diazepam [From Valium] Allergy Unknown Unknown Verified 11/15/20 12:59 ethyl chloride Allergy Unknown Unknown Verified 11/15/20 09:44 procaine [From Novocain] Allergy Unknown Unknown Verified 11/15/20 09:44 Penicillins AdvReac Unknown SEVERE Verified 11/15/20 09:44 INTERNAL VAGINITIS Home Medications Medication Instructions Recorded Confirmed Type polyethylene glycol 3350 17 17 gm PO DAILY PRN gm 01/17/19 11/15/20 History gram/dose oral powder cyanocobalamin (vitamin B-12) 1,000 mcg SUBLINGUAL QAM 05/23/20 11/15/20 History 1,000 mcg sublingual lozenge ciprofloxacin HCl 250 mg tablet 250 mg PO BID #10 tab 11/12/20 11/15/20 Rx aspirin [Aspir-81] 81 mg PO QAM 11/14/20 11/15/20 History atorvastatin 40 mg PO QAM 11/14/20 11/15/20 History cholecalciferol (vitamin D3) 25 mcg PO QAM 11/14/20 11/15/20 History [Vitamin D3] multivitamin [Daily-Charlie] 1 tab PO QAM 11/14/20 11/15/20 History Patient History Medical History Abrasion of knee Actinic keratosis Benign positional vertigo Cheilosis CKD (chronic kidney disease), stage III Cystocele, midline Elevated blood pressure reading without diagnosis of hypertension Gastroparesis Generalized anxiety disorder History of skin cancer of unknown type Hyperglycemia Hypothyroidism Irregular heartbeat Irritable bowel syndrome Leukocytoclastic vasculitis Leukopenia Pain in joint of right shoulder Paresthesias Persistent insomnia Rectocele Second degree uterine prolapse Skin cancer Tonsillectomy planned (01/30/13) Vitamin D deficiency Surgical History H/O tooth extraction History of right cataract surgery History of surgical removal of ganglion cyst History of tonsillectomy History of tubal ligation (01/30/13) Family History Mother , age 80 Lymphoma Heart disease Arthritis Father , age 56 Stroke Denies family history of Ovarian cancer Breast cancer Colorectal cancer Social History Smoking Status: Never smoker Tobacco Type: Cigarettes Age Started Using Tobacco: 22; Age Quit Using Tobacco: 42; packs per day: 1; Years Smoked: 20; Second Hand Exposure: No; Hx Alcohol Use: Yes Alcohol type: wine and hard liquor Alcohol Intake Frequency: Monthly or Less Hx Substance Use: No Preferred Language: Vincentian Communication Ability: Effective Visual Impairment: Limited Hearing Ability: Normal Garbage Person Required: No Beliefs That Will Affect Care: None marital status: Current Living Situation: Personal Care Facility Current [facility] Situation Comment: [facility] current occupational status: retired Other Information That Helps Us Care for You: No Feels Safe at Home: Yes Safety Concerns: Feels Safe At This Time Childhood Exposure to Second-Hand Smoke: Yes caffeine: No Dental Care, Regularly: Yes Physical Activity Frequency: Does not Exercise Seatbelt Use: always Sunscreen Use: Yes Assistive Devices: None Assistive Devices Comment: GLASSES WITH PATIENT Review of Systems Constitutional: no fever and no chills Eyes: no blind spots and no diplopia Ear, Nose, Mouth, Throat: no ear pain and no hearing loss Respiratory: no cough and no dyspnea Cardiovascular: no chest pain and no palpitations Gastrointestinal: no nausea and no vomiting Genitourinary: no dysuria Musculoskeletal: no myalgia Integumentary: as per Subjective / HPI and + lesions (Cutaneous lesions related to leukocytoclastic vasculitis, purpura, arms and legs.) Neurologic: as per Subjective / HPI, + gait abnormality, + localized weakness, + loss of sensation and + headache(s) Psychiatric: + anxiety; no depression Hematologic / Lymphatic: + easy bruising; no easy bleeding Exam (Neuro) Constitutional: well developed and well nourished; no acute distress Eyes: normal visual rush by confrontation, PERRL, normal accommodation and EOM intact bilaterally; no fundoscopic abnormality, no nystagmus and no papilledema Cardiovascular: Vessels: normal carotid upstroke; no carotid bruit Neurologic: Oriented to:: Person, Place and Time Memory: Short Term Intact and Remote Intact Attention: Span Intact and Concentration Intact L anguage: Naming Objects and Repeating Phrases Speech Fluency: negative Dysarthria Speech Aphasia: negative Aphasia Fund of Knowledge: Current Events, Past History and Vocabulary Cranial Nerves: Normal II (Visual rush full to confrontation, visual acuity normal), III, IV, (Pupils equal round reactive to light and accommodation, eye movements normal), V (Facial sensation intact), VIII (Hearing intact), IX, X (Palate elevates to midline), XI (Shoulder shrug intact) and XII (Tongue protrudes to midline); Abnorm VII (There is a mild left lower facial droop noted) Motor Strength: Pronator Drift Laterality: Left and Hemiparesis (Mild) Laterality: Left; negative Normal Lower Extremities and Normal Upper Extremities Motor Tone: Normal Lower Extremities and Normal Upper Extremities Muscle Bulk/Involuntary Movements: No Involuntary Movements; negative Muscle Atrophy Sensation: negative Light Touch Intact, Pain/Temperature Intact, Vibration Intact and Proprioception Intact Coordination: Finger-Nose Abnormal Laterality: Left and Heel-Hackett Abnormal Laterality: Left; negative Dysdiadochokinesia Deep Tendon Reflexes: Rt Triceps: 2+, Lt Triceps: 3+, Rt Biceps: 2+, Lt Biceps: 3+, Rt Brachioradialis: 2+, Lt Brachioradialis: 3+, Rt Patellar: 2+, Lt Patellar: 3+, Rt Ankle: 2+ and Lt Ankle: 2+ Special Tests: Babinski Present (Plantar response grasp on the left, downgoing on the right) Details: Gait not tested in the context of patient's neurological status. Results & Data ([facility]) Vital Signs (Past 12 Hours) Vital Signs Temp Pulse Pulse Resp BP Pulse Ox 11/16/20 07:34 36.9 C 96 H 20 122/71 96 11/16/20 03:55 37.2 C 97 H 20 128/70 96 11/15/20 23:40 103 H 11/15/20 23:00 36.7 C 100 H 20 150/76 H 97 Laboratory Results WBC 10.05, hemoglobin 8.4, hematocrit 25.3, platelet count 123, sodium 142, potassium 3.3, BUN 20, creatinine 1.14, calcium 8.0, AST 24, ALT 10, troponin less than 0.015 Lipid panel completed this past October reviewed, triglycerides 77, cholesterol 144, VLDL 15, HDL 49 Diagnostic Findings Most recent neuroimaging evaluation reviewed including CT of the head, CT angio graphy of the head and neck, and brain MRI. Brain MRI does reveal a new focus of restricted diffusion within the right thalamus consistent with an acute to subacute ischemic infarct in this area, new compared with the previous MRI done on October 01, 2020. The previous acute infarcts within the right basal ganglia and ji radiata were again seen with evidence of associated post infarct microhemorrhage, slight increase compared with prior. 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 There is mild stenosis of the left posterior cerebral artery. I reviewed the images as well as the radiologist's interpretation of these tests. Electrocardiogram reveals a normal sinus rhythm, 91 bpm An echocardiogram completed on October 02, 2020 was negative for cardioembolic source. Normal left ventricular systolic function. No definitive PFO although inconclusive in this regard. Normal left atrial size. Coding Level of Care Code 89624 Initial Inpt Care Lvl 3 Diagnoses Acute CVA (cerebrovascular accident) I63.9
[2020-11-16] MEDS: CYANOCOBALAMIN 500 MCG TABLET (VITAMIN B-12) PO SCH (11:54)
[2020-11-16] MEDS: ASPIRIN 81 MG ECTAB PO SCH (11:54)
[2020-11-16] MEDS: MULTIVITAMIN TAB PO SCH (11:55)
[2020-11-16] MEDS: CHOLECALCIFEROL 1,000 UNITS 25 MCG TAB PO SCH (11:55)
[2020-11-16 12:07] LABS: Folate (Folic Acid) > 20.00 ng/ml (>5.38); Vitamin B12 1064 pg/ml (193-986)
--- NOTE | 2020-11-16 12:48 | XCELERA ---
[id number]
--- NOTE | 2020-11-16 13:46 | Hospitalist Progress Note ---
Date of Service November 16, 2020 Assessment & Plan (1) Acute CVA (cerebrovascular accident): new acute stroke in right thalamus on MRI, prior strokes in right basal ganglia and ji radiata with microhemorrhage second stroke in 6 weeks d/w Dr. Bang, certainly could just be atherosclerotic, could treat with aspirin and Plavix x 3 weeks then just Plavix will stop Lipitor due to microhemorrhage, her LDL had been well controlled no h/o diabetes, BP is normal (no h/o HTN) due to her history of vasculitis, need to consider remote possibility of temporal artery arteritis, inflammation of cerebral vessels causing strokes will ask for temporal artery biopsy, hold on Plavix until is is done discussed starting on Prednisone 60mg now, she is adverse to doing that due to side effects she experienced before, she wants to wait Dr. Bang ordered further serological work up, extensive studies, see his orders/consultation, follow up results, they are send out labs PT/OT consulted, speech therapy consulted (she was not eating well at home, minced/moist diet was very unappealing, hoping she can eat more substantial food) continue on tele might need rehab on discharge, very weak in left leg (2) Stroke-like symptoms: see above, MRI with new stroke in right thalamus (3) Left leg weakness: as above (4) Ataxia of left upper extremity: As above (5) Fall: Suspected secondary to CVA. Management as above No injuries suspected from fall as mainly just slumped to side on toilet. likely will need rehab, await PT/OT (6) Ambulatory dysfunction: PT/OT as above (7) Asymptomatic bacteriuria: Persistent E. coli in urine. No symptoms per patient. Currently on ciprofloxacin with 2 days left of current course. Will currently hold off further antibiotics at this time as no indication this represents a current infection. 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 per her , she follows with Dr. Dayne Leavitt, his phone number is [phone] he was suspicious that some hematologic malignancy was driving the vasculitis as she did not respond to typical therapies (Prednisone, Methotrexate, Plaquenil) she was supposed to get hematologic work up once off steroids, last day of steroids was October 01 and then she suffered first stroke her suggests that we can call Dr. Leavitt with any questions (9) DVT prophylaxis: SCDs hold on Lovenox due to microhemorrhage on MRI brain Admission and Anticipated Discharge Date Admission Date: November 15, 2020 Subjective patient sleeping when I visited her in the afternoon, she is comfortable she says she still has weakness in her left lower extremity, but she can swallow and her speech is clear has not been evaluated by therapy, unsure how she is ambulating spoke with Dr. Bang, appreciate his input he would like to rule out temporal arteritis due to her history of leukoclastic vasculitis, being treated by [facility] patient is open to getting temporal artery biopsy, will place general surgery consult she does not want to start on Prednisone at this time, see below long talk with her , he said she has had the vasculitis for a few years she did not respond to typical treatment with Prednisone, Methotrexate, Hydroxychloroquine they were not getting any answers locally so they were referred to [facility] she follows there with Dr. Dayne Leavitt, his phone number is [phone] Leavitt wanted her to see hematology/oncology as he had concerns there was underlying blood disorder, leukemia? so the c.o.d. clerk wanted her to wean off steroids so that her testing would be accurate the patient went through a long tapering process and finally finished on October 01 and was supposed to get her hematologic work up and then she had her first stroke so now she has not had any work up and it will continue to be delayed while she gets stroke treatment he understands plan for temporal artery biopsy and reasoning behind it I explained that we were stopping the Lipitor due to small amount of stroke bed hemorrhage on MRI brain Review of Systems Review of Systems: All systems reviewed & are unremarkable except as noted in Subjective Constitutional: + fatigue and + weakness; no fever Respiratory: no cough and no dyspnea Cardiovascular: no chest pain, no palpitations and no edema Gastrointestinal: + early satiety; no abdominal pain, no nausea, no vomiting, no constipation and no diarrhea/loose stools Musculoskeletal: + muscle weakness (left leg) Neurologic: + localized weakness (left lower extremity) Physical Exam Constitutional: WD/WN, vitals as above Neck: trachea midline, no thyromegaly Respiratory: normal respiratory effort, lungs clear to auscultation Cardiovascular: RRR, no murmur, no edema Gastrointestinal (Abdomen): normal bowel sounds, soft, nontender, no hepatosplenomegaly Musculoskeletal: Head/Neck/Chest: normocephalic, head atraumatic and neck supple Extremities: extremities normal to inspection; + abnormal strength (left lower extremity 3 out of 5 strength), no cyanosis, no clubbing and no petechiae Skin: no rashes, warm and dry Neurologic: normal touch/pain/proprioception, CN's II-XI intact bilaterally, deep tendon reflexes 2+ bilaterally, moves all extremities, + focal motor deficit (left lower leg) and awake Speech / Cognition: normal speech Psychiatric: A+Ox3, euthymic affect Lymphatic: no cervical or axillary lymphadenopathy Results & Data Results & Data ([facility]) Vital Signs (Past 12 Hours) Vital Signs Temp Pulse Pulse Resp BP Pulse Ox 11/16/20 12:12 37.2 C 96 H 18 125/75 97 11/16/20 08:00 82 11/16/20 07:34 36.9 C 96 H 20 122/71 96 11/16/20 03:55 37.2 C 97 H 20 128/70 96 Laboratory Results Laboratory Results - last 24 hr 11/16/20 11/16/20 11/16/20 06:15 06:15 06:15 WBC 10.05 RBC 2.76 L Hgb 8.4 L Hct 25.3 L MCV 91.7 MCH 30.4 MCHC 33.2 RDW Std Deviation 53.6 H RDW Coeff of Arturo 16.0 H Plt Count 123 L MPV 9.3 Immature Gran % (Auto) 0.1 Neut % (Auto) 86.1 Lymph % (Auto) 6.2 [place] % (Auto) 4.4 Eos % (Auto) 3.1 Baso % (Auto) 0.1 Neut # (Auto) 8.66 H Lymph # (Auto) 0.62 L [place] # (Auto) 0.44 Eos # (Auto) 0.31 Baso # (Auto) 0.01 Immature Gran # (Auto) 0.01 ESR 20 Lupus Anticoagulant Lupus Anticoag aPTT Dil Chas Viper Venom dRVVT Mix Interpret Sodium 142 Potassium 3.3 L D Chloride 110 H Carbon Dioxide 28 Anion Gap 4.0 BUN 20 H Creatinine 1.14 Est Cr Clr Drug Dosing 36.0 Est GFR ( Amer) 51.5 Est GFR (Non-Af Amer) 44.4 BUN/Creatinine Ratio 17.5 Glucose 120 H Calcium 8.0 L C-Reactive Protein Vitamin B12 Folate Homocysteine Serum Immunofixation Cryoglobulin Cryoglobulin Cryocrit Rheumatoid Factor JUAN CARLOS Screen SS-A/Ro Antibody SS-B/La Antibody Sm (Rosales) Antibody DATA WAREHOUSING ENGINEER Antibody Scl-70 Scleroderma Ab Anti-ds DNA (Crithidia) Chromatin Antibody Anti-Centromere Ab Thyroid Antimicrosomal Anti-Cardiolipin IgG Ab Anti-Cardiolipin IgA Ab Anti-Cardiolipin IgM Ab Complement C3 Complement C4 11/16/20 11/16/20 11/16/20 10:42 10:42 10:42 WBC RBC Hgb Hct MCV MCH MCHC RDW Std Deviation RDW Coeff of Arturo Plt Count MPV Immature Gran % (Auto) Neut % (Auto) Lymph % (Auto) [place] % (Auto) Eos % (Auto) Baso % (Auto) Neut # (Auto) Lymph # (Auto) [place] # (Auto) Eos # (Auto) Baso # (Auto) Immature Gran # (Auto) ESR Lupus Anticoagulant Pending Lupus Anticoag aPTT Pending Dil Chas Viper Venom Pending dRVVT Mix Interpret Pending Sodium Potassium Chloride Carbon Dioxide Anion Gap BUN Creatinine Est Cr Clr Drug Dosing Est GFR ( Amer) Est GFR (Non-Af Amer) BUN/Creatinine Ratio Glucose Calcium C-Reactive Protein 5.94 H Vitamin B12 1064 H Folate > 20.00 Homocysteine Serum Immunofixation Pending Cryoglobulin Cancelled Cryoglobulin Cryocrit Cancelled Rheumatoid Factor Pending JUAN CARLOS Screen Pending SS-A/Ro Antibody Pending SS-B/La Antibody Pending Sm (Rosales) Antibody Pending DATA WAREHOUSING ENGINEER Antibody Pending Scl-70 Scleroderma Ab Pending Anti-ds DNA (Crithidia) Pending Chromatin Antibody Pending Anti-Centromere Ab Pending Thyroid Antimicrosomal Pending Anti-Cardiolipin IgG Ab Pending Anti-Cardiolipin IgA Ab Pending Anti-Cardiolipin IgM Ab Pending Complement C3 Pending Complement C4 Pending 11/16/20 10:42 WBC RBC Hgb Hct MCV MCH MCHC RDW Std Deviation RDW Coeff of Arturo Plt Count MPV Immature Gran % (Auto) Neut % (Auto) Lymph % (Auto) [place] % (Auto) Eos % (Auto) Baso % (Auto) Neut # (Auto) Lymph # (Auto) [place] # (Auto) Eos # (Auto) Baso # (Auto) Immature Gran # (Auto) ESR Lupus Anticoagulant Lupus Anticoag aPTT Dil Chas Viper Venom dRVVT Mix Interpret Sodium Potassium Chloride Carbon Dioxide Anion Gap BUN Creatinine Est Cr Clr Drug Dosing Est GFR ( Amer) Est GFR (Non-Af Amer) BUN/Creatinine Ratio Glucose Calcium C-Reactive Protein Vitamin B12 Folate Homocysteine Pending Serum Immunofixation Cryoglobulin Cryoglobulin Cryocrit Rheumatoid Factor JUAN CARLOS Screen SS-A/Ro Antibody SS-B/La Antibody Sm (Rosales) Antibody DATA WAREHOUSING ENGINEER Antibody Scl-70 Scleroderma Ab Anti-ds DNA (Crithidia) Chromatin Antibody Anti-Centromere Ab Thyroid Antimicrosomal Anti-Cardiolipin IgG Ab Anti-Cardiolipin IgA Ab Anti-Cardiolipin IgM Ab Complement C3 Complement C4 Diagnostic Findings MRI brain IMPRESSION: 1. Redemonstration of the previously described right basal ganglia and coronal radiata infarcts. There is slight increase in the post infarct microhemorrhage. 2. New focus of restricted water diffusion involving the right thalamus consistent with interval development of an acute/subacute thalamic infarct Medications Administered Current Inpatient Medications Acetaminophen (Acetaminophen 325 Mg Tab) 650 mg PO Q4H PRN PRN Reason: Pain or Fever Stop: 12/15/20 14:12 Acetaminophen (Acetaminophen 1000 Mg/100 Ml Iv) 1,000 mg IV Q8 PRN PRN Reason: Pain Stop: 11/19/20 02:42 Last Admin: 11/16/20 02:55 Dose: 1,000 mg Documented by: Aspirin (Aspirin 81 Mg Ectab) 81 mg PO QAM [facility] Stop: 12/16/20 08:59 Last Admin: 11/16/20 11:54 Dose: 81 mg Documented by: Cyanocobalamin (Cyanocobalamin 500 Mcg Tablet (Vitamin B-12)) 1,000 mcg PO QAM SHELLY Stop: 12/16/20 08:59 Last Admin: 11/16/20 11:54 Dose: 1,000 mcg Documented by: Dextrose/Sodium Chloride (D5w And 1/2nss) 1,000 mls @ 80 mls/hr IV .[id number] [facility] Stop: 12/15/20 16:59 Last Admin: 11/16/20 13:06 Dose: 80 mls/hr Documented by: Miscellaneous Information (Pharmacist Discharge Med Rec Consult) 1 ea N/A UD PRN PRN Reason: Consult Stop: 12/15/20 14:12 Multivitamins (Multivitamin Tab) 1 tab PO QAM [facility] Stop: 12/16/20 08:59 Last Admin: 11/16/20 11:55 Dose: 1 tab Documented by: Polyethylene Glycol (Polyethylene (Miralax) 17 Gm Pack) 17 gm PO DAILY PRN PRN Reason: Constipation Stop: 12/15/20 14:12 Vitamin D (Cholecalciferol 1,000 Units 25 Mcg Tab) 1,000 units PO QAM [facility] Stop: 12/16/20 08:59 Last Admin: 11/16/20 11:55 Dose: 1,000 units Documented by: PG Care Time/CCT Total # of Minutes Spent Total Time Spent with Patient: Total time spent is greater than 50% in coordination of care (as documented) at patient's floor/unit and/or counseling patient: Coding Level of Care Code 94573 Subseq Hosp Care Lvl 3 Diagnoses Acute CVA (cerebrovascular accident) I63.9 Stroke-like symptoms R29.90 Left leg weakness R29.898 Ataxia of left upper extremity R27.0 Fall W19.XXXA Encounter type: initial encounter Ambulatory dysfunction R26.2 Asymptomatic bacteriuria R82.71 Leukocytoclastic vasculitis M31.0 DVT prophylaxis Z29.9 (1) Fall Encounter type: initial encounter Qualified Code(s): W19.XXXA - Unspecified fall, initial encounter
[2020-11-17 05:48] LABS: Basophils # (auto) 0.01 K/uL (0-0.2); Basophils % (auto) 0.2 %; Eosinophils # (auto) 0.38 K/uL (0-0.5); Eosinophils % (auto) 6.2 %; Hematocrit (blood only) 24.5 % (37-47); Hemoglobin 8.1 g/dL (12.0-16.0); Immature Granulocytes # (auto) 0.01 K/uL (0.00-0.02); Immature Granulocytes % (auto) 0.2 %; Lymphocytes # (auto) 1.16 K/uL (1.2-3.4); Lymphocytes % (auto) 18.8 %; Mean Corpuscular Hemoglobin 29.9 pg (25-34); Mean Corpuscular Hgb Conc 33.1 g/dL (32-36); Mean Corpuscular Volume 90.4 fL (80-100); Mean Platelet Volume 9.2 fL (7.4-10.4); Monocytes # (auto) 0.34 K/uL (0.11-0.59); Monocytes % (auto) 5.5 %; Neutrophils # (auto) 4.26 K/uL (1.4-6.5); Neutrophils % (auto) 69.1 %; Platelet Count 119 K/uL (130-400); RDW Coefficient of Variation 15.7 % (11.5-14.5); RDW Standard Deviation 52.1 fL (36.4-46.3); Red Blood Count 2.71 M/uL (4.2-5.4); White Blood Count 6.16 K/uL (4.8-10.8)
[2020-11-17 06:25] LABS: BUN Creatinine Ratio 22.5 (10-20); Calcium 8.1 mg/dl (8.5-10.1); Creatinine Clr Calc Pharmacy 41.8 ml/min; Est GFR (African American) 58.9 ml/min; Est GFR (Non-African American) 50.8 ml/min; Potassium 3.4 mmol/L (3.5-5.1)
[2020-11-17] MEDS: MULTIVITAMIN TAB PO SCH (08:41)
[2020-11-17] MEDS: CYANOCOBALAMIN 500 MCG TABLET (VITAMIN B-12) PO SCH (08:41)
[2020-11-17] MEDS: ASPIRIN 81 MG ECTAB PO SCH (08:41)
[2020-11-17] MEDS: CHOLECALCIFEROL 1,000 UNITS 25 MCG TAB PO SCH (08:41)
--- NOTE | 2020-11-17 09:56 | Surgery Consultation ---
Date of Consultation November 17, 2020 Assessment & Plan (1) Acute CVA (cerebrovascular accident): This is an 85yF with a PMH of a recent CVA 09/21, vasculitis, anxiety, who presented to the [facility] ED on 11/14/20 after a fall and complaining of left sided weakness. Workup consistent with an acute/subacute right thalamic infarct. It has been requested to perform a temporal artery biopsy to evaluate for temporal arteritis in light of recurrent stroke in 6 weeks. Plavix has been held. We can plan to book patient for the OR tomorrow for a temporal artery biopsy. Keep NPO at midnight. Dr. العلي will be by to obtain surgical consent. Supervising Physician Co-Signing Physician Notes I personally saw and evaluated the patient with Jojo Davis PA-C and agree with the assessment and plan 85 yo female with possible vasculitis, recent CVA -Will plan on right TA biopsy tomorrow -NPO after MN -Hold Plavix -Ok to keep ASA onboard History of Present Illness Attending Physician: Stephane Alba History of Present Illness This is an 85yF with a PMH of a recent CVA 09/21, vasculitis, anxiety, who presented to the [facility] ED on 11/14/20 after a fall and complaining of left sided weakness. Hospitalists admitted the patient with Neurology consultation. Workup consistent with an acute/subacute right thalamic infarct. It is noted she has a history of leukocytoclastic vasculitis and neurology requesting temporal artery biopsy to rule out temporal arteritis. Today on my interview patient denies h eadaches, dizziness, change in eye sight. She says at home she usually ambulates with a walker. Today she does complain of some lower extremity left sided weakness. Allergies Allergy/AdvReac Type Severity Reaction Status Date / Time influenza virus vaccine Allergy Intermediate rash Verified 11/15/20 09:44 trivalent amoxicillin [From Amoxil] Allergy Unknown Unknown Verified 11/15/20 09:44 Anesthetics - Amide Type - Allergy Unknown Unknown Verified 11/15/20 09:44 Select A [Anesthetics - Amide Type] diazepam [From Valium] Allergy Unknown Unknown Verified 11/15/20 12:59 ethyl chloride Allergy Unknown Unknown Verified 11/15/20 09:44 procaine [From Novocain] Allergy Unknown Unknown Verified 11/15/20 09:44 Penicillins AdvReac Unknown SEVERE Verified 11/15/20 09:44 INTERNAL VAGINITIS Home Medications Medication Instructions Recorded Confirmed Type polyethylene glycol 3350 17 17 gm PO DAILY PRN gm 01/17/19 11/15/20 History gram/dose oral powder cyanocobalamin (vitamin B-12) 1,000 mcg SUBLINGUAL QAM 05/23/20 11/15/20 History 1,000 mcg sublingual lozenge ciprofloxacin HCl 250 mg tablet 250 mg PO BID #10 tab 11/12/20 11/15/20 Rx aspirin [Aspir-81] 81 mg PO QAM 11/14/20 11/15/20 History atorvastatin 40 mg PO QAM 11/14/20 11/15/20 History cholecalciferol (vitamin D3) 25 mcg PO QAM 11/14/20 11/15/20 History [Vitamin D3] multivitamin [Daily-Charlie] 1 tab PO QAM 11/14/20 11/15/20 History Patient History Medical History Abrasion of knee Actinic keratosis Anemia Benign positional vertigo Cheilosis CKD (chronic kidney disease), stage III Cystocele, midline Elevated blood pressure reading without diagnosis of hypertension Gastroparesis Generalized anxiety disorder History of skin cancer of unknown type Hyperglycemia Hypothyroidism Irregular heartbeat Irritable bowel syndrome Leukocytoclastic vasculitis Leukopenia Pain in joint of right shoulder Paresthesias Persistent insomnia Rectocele Second degree uterine prolapse Skin cancer Tonsillectomy planned (01/30/13) Vitamin D deficiency Surgical History H/O tooth extraction History of right cataract surgery History of surgical removal of ganglion cyst History of tonsillectomy History of tubal ligation (01/30/13) Family History Mother , age 80 Lymphoma Heart disease Arthritis Father , age 56 Stroke Denies family history of Ovarian cancer Breast cancer Colorectal cancer Social History Smoking Status: Never smoker Tobacco Type: Cigarettes Age Started Using Tobacco: 22; Age Quit Using Tobacco: 42; packs per day: 1; Years Smoked: 20; Second Hand Exposure: No; Hx Alcohol Use: Yes Alcohol type: wine and hard liquor Alcohol Intake Frequency: Monthly or Less Hx Substance Use: No Preferred Language: Serbian Communication Ability: Effective Visual Impairment: Limited Hearing Ability: Normal Jacket Preparer Required: No Beliefs That Will Affect Care: None marital status: Current Living Situation: Personal Care Facility Current Living Situation Comment: [facility] current occupational status: retired Other Information That Helps Us Care for You: No Feels Safe at Home: Yes Safety Concerns: Feels Safe At This Time Childhood Exposure to Second-Hand Smoke: Yes caffeine: No Dental Care, Regularly: Yes Physical Activity Frequency: Does not Exercise Seatbelt Use: always Sunscreen Use: Yes Assistive Devices: None Assistive Devices Comment: GLASSES WITH PATIENT Review of Systems Eyes: no problem reported Respiratory: no dyspnea Gastrointestinal: no nausea and no vomiting Neurologic: + falls and + numbness (left foot); no dizziness and no headache(s) Left lower extremity weakness Physical Exam Physical Exam: awake Constitutional: cooperative and comfortable; no acute distress Respiratory: normal respiratory effort Neurologic: moves all extremities and awake Speech / Cognition: normal speech upper extremity strength equal bilaterally, lower extremity weakness noted Results & Data ([facility]) Vital Signs (Past 12 Hours) Vital Signs Temp Pulse Pulse Resp BP Pulse Ox 11/17/20 07:10 36.7 C 97 H 19 147/76 H 96 11/17/20 04:00 36.6 C 99 H 19 127/82 98 11/16/20 23:58 101 H 11/16/20 23:20 36.8 C 99 H 20 136/77 95 PG Care Time/CCT Total # of Minutes Spent Total Time Spent with Patient: Total time spent is greater than 50% in coordination of care (as documented) at patient's floor/unit and/or counseling patient: Coding Level of Care Code 83538 Initial Inpt Care Lvl 2 Diagnoses Acute CVA (cerebrovascular accident) I63.9
--- NOTE | 2020-11-17 14:56 | Anesthesiology Consultation ---
Date of Service November 17, 2020 The patient had a recent stroke. Neurology recommends temporal artery biopsy. Assessment & Plan (1) Encounter for pre-operative examination: Chart Review Chart Review: Acceptable Risk for Surgery (necessary surgery) and Patient NOT seen in Pre Admission Testing Consults Requested none History Surgery Operation Date: 11/18/20 10:45 Proposed Procedures p Right Temporal Artery Biopsy - Abebe العلي, DO Height/Weight Height: 5 ft 8 in Weight: 63.4 kg Allergies Allergy/AdvReac Type Severity Reaction Status Date / Time influenza virus vaccine Allergy Intermediate rash Verified 11/15/20 09:44 trivalent amoxicillin [From Amoxil] Allergy Unknown Unknown Verified 11/15/20 09:44 Anesthetics - Amide Type - Allergy Unknown Unknown Verified 11/15/20 09:44 Select A [Anesthetics - Amide Type] diazepam [From Valium] Allergy Unknown Unknown Verified 11/15/20 12:59 ethyl chloride Allergy Unknown Unknown Verified 11/15/20 09:44 procaine [From Novocain] Allergy Unknown Unknown Verified 11/15/20 09:44 Penicillins AdvReac Unknown SEVERE Verified 11/15/20 09:44 INTERNAL VAGINITIS Medications Home Medications Medication Instructions Recorded Confirmed Last Taken polyethylene glycol 3350 17 17 gm PO DAILY PRN gm 01/17/19 11/15/20 10/03/19 gram/dose oral powder cyanocobalamin (vitamin B-12) 1,000 mcg SUBLINGUAL QA 05/23/20 11/15/20 11/14/20 08:00 1,000 mcg sublingual lozenge ciprofloxacin HCl 250 mg tablet 250 mg PO BID #10 tab 11/12/20 11/15/20 11/14/20 20:00 aspirin [Aspir-81] 81 mg PO QAM 11/14/20 11/15/20 11/14/20 08:00 atorvastatin 40 mg PO QAM 11/14/20 11/15/20 11/14/20 08:00 cholecalciferol (vitamin D3) 25 mcg PO QAM 11/14/20 11/15/20 11/14/20 08:00 [Vitamin D3] multivitamin [Daily-Charlie] 1 tab PO QAM 11/14/20 11/15/20 11/14/20 08:00 Active Medications Generic Name Dose Route Start Last Admin Trade Name Freq PRN Reason Stop Dose Admin Acetaminophen 1,000 mg 11/16/20 02:43 11/16/20 02:55 Acetaminophen 1000 Mg/100 Ml Iv IV 11/19/20 02:42 1,000 mg Q8 PRN Administration Pain Aspirin 81 mg 11/16/20 09:00 11/17/20 08:41 Aspirin 81 Mg Ectab PO 12/16/20 08:59 81 mg QAM SHELLY Administration Cyanocobalamin 1,000 mcg 11/16/20 09:00 11/17/20 08:41 Cyanocobalamin 500 Mcg Tablet (Vitamin B-12) PO 12/16/20 08:59 1,000 mcg QAM SHELLY Administration Multivitamins 1 tab 11/16/20 09:00 11/17/20 08:41 Multivitamin Tab PO 12/16/20 08:59 1 tab QAM SHELLY Administration Polyethylene Glycol 17 gm 11/15/20 14:13 11/16/20 18:51 Polyethylene (Miralax) 17 Gm Pack PO 12/15/20 14:12 17 gm DAILY PRN Administration Constipation Vitamin D 1,000 units 11/16/20 09:00 11/17/20 08:41 Cholecalciferol 1,000 Units 25 Mcg Tab PO 12/16/20 08:59 1,000 units QAM SHELLY Administration Past Medical History Medical History Abrasion of knee Actinic keratosis Anemia Benign positional vertigo Cheilosis CKD (chronic kidney disease), stage III Cystocele, midline Elevated blood pressure reading without diagnosis of hypertension Gastroparesis Generalized anxiety disorder History of skin cancer of unknown type Hyperglycemia Hypothyroidism Irregular heartbeat Irritable bowel syndrome Leukocytoclastic vasculitis Leukopenia Pain in joint of right shoulder Paresthesias Persistent insomnia Rectocele Second degree uterine prolapse Skin cancer Tonsillectomy planned (01/30/13) Vitamin D deficiency Past Family History Family History Mother , age 80 Lymphoma Heart disease Arthritis Father , age 56 Stroke Denies family history of Ovarian cancer Breast cancer Colorectal cancer Past Surgical History Surgical History H/O tooth extraction History of right cataract surgery History of surgical removal of ganglion cyst History of tonsillectomy History of tubal ligation (01/30/13) Social History Smoking Status: Never smoker tobacco type: cigarettes Hx Alcohol Use: Yes Alcohol type: wine and hard liquor alcohol intake frequency: other Alcohol Intake Frequency Comment: CASUAL Hx Substance Use: No substance use type: does not use Physical Exam Vital Signs Last Vital Signs Temp 36.8 C 11/17/20 11:06 Pulse 90 11/17/20 11:06 Resp 19 11/17/20 11:06 BP 129/69 11/17/20 11:06 Pulse Ox 97 11/17/20 11:06 Testing Laboratory Results 11/17/20 05:32 11/17/20 05:32 PT 10.3 Seconds (9.0-12.0) 11/15/20 09:10 INR 1.0 (0.9-1.1) 11/15/20 09:10 APTT 21.4 Seconds (21.0-31.0) 11/15/20 09:10
--- NOTE | 2020-11-17 22:24 | Hospitalist Progress Note ---
Date of Service November 17, 2020 Assessment & Plan (1) Acute CVA (cerebrovascular accident): new acute stroke in right thalamus on MRI, prior strokes in right basal ganglia and ji radiata with microhemorrhage second stroke in 6 weeks d/w Dr. Bang, certainly could just be atherosclerotic, could treat with aspirin and Plavix x 3 weeks then just Plavix will stop Lipitor due to microhemorrhage, her LDL had been well controlled no h/o diabetes, BP is normal (no h/o HTN) due to her history of vasculitis, need to consider remote possibility of temporal artery arteritis, inflammation of cerebral vessels causing strokes will ask for temporal artery biopsy, hold on Plavix until is is done discussed starting on Prednisone 60mg now, she is adverse to doing that due to side effects she experienced before, she wants to wait Dr. Bang ordered further serological work up, extensive studies, see his orders/consultation, follow up results, they are send out labs PT/OT consulted, speech therapy consulted (she was not eating well at home, minced/moist diet was very unappealing, hoping she can eat more substantial food) continue on tele might need rehab on discharge, very weak in left leg She will be getting a temporal artery biopsy. (2) Stroke-like symptoms: see above, MRI with new stroke in right thalamus (3) Left leg weakness: as above (4) Ataxia of left upper extremity: As above (5) Fall: Suspected secondary to CVA. Management as above No injuries suspected from fall as mainly just slumped to side on toilet. likely will need rehab, await PT/OT (6) Ambulatory dysfunction: PT/OT as above (7) Asymptomatic bacteriuria: Persistent E. coli in urine. No symptoms per patient. Currently on ciprofloxacin with 2 days left of current course. Will currently hold off further antibiotics at this time as no indication this represents a current infection. 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 per her , she follows with Dr. Dayne Leavitt, his phone number is [phone] he was suspicious that some hematologic malignancy was driving the vasculitis as she did not respond to typical therapies (Prednisone, Methotrexate, Plaquenil) she was supposed to get hematologic work up once off steroids, last day of steroids was October 01 and then she suffered first stroke her suggests that we can call Dr. Leavitt with any questions (9) DVT prophylaxis: SCDs hold on Lovenox due to microhemorrhage on MRI brain Admission and Anticipated Discharge Date Admission Date: November 17, 2020 Subjective 85 yo female reports no new symptoms today. Review of Systems Review of Systems: All systems reviewed & are unremarkable except as noted in HPI & below Physical Exam Physical Exam: Constitutional: WD/WN, vitals as above Neck: trachea midline, no thyromegaly Respiratory: normal respiratory effort, lungs clear to auscultation Cardiovascular: RRR, no murmur, no edema Gastrointestinal (Abdomen): normal bowel sounds, soft, nontender, no hepatosplenomegaly Musculoskeletal: Head/Neck/Chest: normocephalic, head atraumatic and neck supple Extremities: extremities normal to inspection; + abnormal strength (left lower extremity 3 out of 5 strength), no cyanosis, no clubbing and no petechiae Skin: no rashes, warm and dry Neurologic: normal touch/pain/proprioception, CN's II-XI intact bilaterally, deep tendon reflexes 2+ bilaterally, moves all extremities, + focal motor deficit (left lower leg) and awake Speech / Cognition: normal speech Psychiatric: A+Ox3, euthymic affect Lymphatic: no cervical or axillary lymphadenopathy Results & Data Results & Data ([facility]) Vital Signs (Past 12 Hours) Vital Signs Temp Pulse Pulse Resp BP Pulse Ox 11/17/20 20:07 37.3 C 97 H 16 144/79 H 96 11/17/20 15:23 101 H 11/17/20 15:01 36.9 C 93 H 18 162/78 H 97 11/17/20 11:06 36.8 C 90 19 129/69 97 PG Care Time/CCT Total # of Minutes Spent Total Time Spent with Patient: Total time spent is greater than 50% in coordination of care (as documented) at patient's floor/unit and/or counseling patient: Coding Level of Care Code 19757 Subseq Hosp Care Lvl 3 Diagnoses Acute CVA (cerebrovascular accident) I63.9 Stroke-like symptoms R29.90 Left leg weakness R29.898 Ataxia of left upper extremity R27.0 Fall W19.XXXA Encounter type: initial encounter Ambulatory dysfunction R26.2 Asymptomatic bacteriuria R82.71 Leukocytoclastic vasculitis M31.0 DVT prophylaxis Z29.9 Time Spent (min) 35 (1) Fall Encounter type: initial encounter Qualified Code(s): W19.XXXA - Unspecified fall, initial encounter
[2020-11-18] MEDS ORDERED: ceFAZolin 2000MG 2,000 MG/15 ML SYR IV ONE (07:00)
[2020-11-18 07:45] LABS: Basophils # (auto) 0.01 K/uL (0-0.2); Basophils % (auto) 0.2 %; Eosinophils % (auto) 4.5 %; Hemoglobin 8.5 g/dL (12.0-16.0); Immature Granulocytes # (auto) 0.01 K/uL (0.00-0.02); Immature Granulocytes % (auto) 0.2 %; Lymphocytes # (auto) 1.03 K/uL (1.2-3.4); Lymphocytes % (auto) 23.4 %; Mean Corpuscular Hemoglobin 29.6 pg (25-34); Mean Corpuscular Hgb Conc 32.7 g/dL (32-36); Mean Corpuscular Volume 90.6 fL (80-100); Mean Platelet Volume 9.5 fL (7.4-10.4); Monocytes # (auto) 0.26 K/uL (0.11-0.59); Monocytes % (auto) 5.9 %; Neutrophils % (auto) 65.8 %; Platelet Count 128 K/uL (130-400); RDW Coefficient of Variation 15.5 % (11.5-14.5); RDW Standard Deviation 51.9 fL (36.4-46.3); Red Blood Count 2.87 M/uL (4.2-5.4); White Blood Count 4.41 K/uL (4.8-10.8)
[2020-11-18 08:22] LABS: BUN Creatinine Ratio 24.9 (10-20); Est GFR (African American) 69.5 ml/min; Est GFR (Non-African American) 59.9 ml/min; Potassium 3.4 mmol/L (3.5-5.1)
[2020-11-18 08:55] LABS: Platelet Estimate Decreased (Normal); Tear Drop Cells 1+
--- NOTE | 2020-11-18 08:59 | History & Physical Bridge Note ---
Date of Service November 18, 2020 History & Physical Bridge Note I have examined the patient, reviewed the History & Physical and in the interval since the performance of the History & Physical I have noted the following changes of clinical significance: no changes noted
[2020-11-18] MEDS ORDERED: fentaNYL citrate 100 MCG/2 ML VIAL ONE (10:30)
[2020-11-18] MEDS ORDERED: LIDOCAINE/EPINEPHRINE 1% 20 ML VIAL ONE (10:43)
[2020-11-18] MEDS ORDERED: BACITRACIN OINT 15 GM TUBE ONE (10:43)
[2020-11-18] MEDS ORDERED: BUPIVACAINE 0.5 % 5 MG/1 ML MPF 30ML VIAL ONE (10:46)
[2020-11-18] MEDS ORDERED: ONDANSETRON INJ 2 MG/ML 2 ML VIAL IV PRN (10:47)
[2020-11-18] MEDS ORDERED: ATROPINE SULFATE 0.1 MG/ML 10ML SYR IV PRN (10:47)
[2020-11-18] MEDS ORDERED: fentaNYL citrate 100 MCG/2 ML VIAL IV PRN (10:47)
[2020-11-18] MEDS ORDERED: ceFAZolin 2,000 MG/15 ML IV PUSH IV ONE (10:51)
[2020-11-18] MEDS ORDERED: PROPOFOL IV EMULSION 10 MG/ML 20 ML VIAL IV ONE (11:05)
[2020-11-18] MEDS ORDERED: LIDOCAINE 2% 2 ML VIAL/AMP(20MG/ML) INFIL ONE (11:05)
[2020-11-18] MEDS ORDERED: diphenhydrAMINE 50 MG/ML VIAL IV STA (12:19)
[2020-11-18] MEDS ORDERED: diphenhydrAMINE 50 MG/ML VIAL ONE (12:19)
--- NOTE | 2020-11-18 12:19 | Post Operative Brief Note ---
PG Immediate Post Op with CF Date of Surgery November 18, 2020 Pre & Post Diagnosis Operation Date: 11/18/20 10:45 Pre-Op Diagnosis: Right Cerebrovascular Accident Post-Op Diagnosis: Right Cerebrovascular Accident I identified the patient and participated in the time-out.: Yes Procedure Operation Date: 11/18/20 10:45 Actual Procedures p Right Temporal Artery Biopsy(Right) - Abebe العلي DO Surgeon Abebe العلي DO Client Server Developer Jojo Davis PA-C Estimated Blood Loss 5 Findings Consistent with Post-Op Diagnosis Specimens Specimen Description: Permanent Solution: A.) Right Temporal Artery Anesthesia Type General Complications none Disposition Disposition: Recovery Room
--- NOTE | 2020-11-18 12:20 | Operative Report ---
PG Post Operative Report Pre & Post Diagnosis Operation Date: 11/18/20 10:45 Pre-Op Diagnosis: Right Cerebrovascular Accident Post-Op Diagnosis: Right Cerebrovascular Accident I identified the patient and participated in the time-out.: Yes Procedure Operation Date: 11/18/20 10:45 Actual Procedures p Right Temporal Artery Biopsy(Right) - Abebe العلي DO Surgeon Abebe العلي DO Inside Technical Sales Representative Jojo Davis PA-C Estimated Blood Loss 5 Findings Consistent with Post-Op Diagnosis Specimens Right temporal artery to pathology Drains None Anesthesia Type General Complications none Disposition Disposition: Recovery Room Indications 85 yo female with history of CVA, concern for temporal arteritis Description of Procedure Patient was brought to the operating room and placed in the supine position with both arms tucked. At this time MAC sedation was administered and the patients right face was prepped and draped in the usual sterile fashion. A timeout was called, the procedure was verified as Right Temporal Artery Biopsy. Appropriate pre-operative antibiotics were administered. Surgical, anesthesia and nursing teams agreed and the procedure was begun. After Injection of 1% lidocaine without epinephrine directly over the Doppler signal in the right temporal region. A skin incision was made using a #15 blade scalpel. This was carried through the subcutaneous tissue with electrocautery down to the temporal fascia. The artery was directly visualized and confirmed with Doppler. The artery was then skeletonized using tenotomy scissors for a length of 2cm and tied on each end using a 3-0 silk suture. The artery was then transected using tenotomy scissors and passed off as specimen. Doppler signal was then absent. Hemostasis was achieved using electrocautery and was complete. The incision was then closed using 3-0 Vicryl suture at the deep dermal level and 4-0 Monocryl in the skin in a running subcuticular fashion. Surgical glue was applied to the incision. The patient was awakened from anesthesia having remained stable throughout the entire case and transported to PACU. I attest to the content of the Intraoperative Record and any orders documented therein. Any exceptions are noted below.
--- NOTE | 2020-11-18 13:29 | Anesthesiology Progress Note ---
Date of Service November 18, 2020 Anesthesia Post Procedure Vital Signs Vital Signs: Temp Pulse Pulse Pulse Resp BP Pulse Ox 11/18/20 13:00 36.9 C 93 H 18 158/80 H 97 11/18/20 12:45 36.7 C 91 H 15 156/78 H 96 11/18/20 12:40 88 18 147/83 H 96 11/18/20 12:30 92 H 20 147/94 H 97 11/18/20 12:20 87 18 143/76 H 100 11/18/20 12:13 36.2 C L 104 H 16 156/74 H 99 11/18/20 10:35 37.1 C 95 H 20 152/84 H 99 11/18/20 08:00 89 11/18/20 07:32 36.5 C 87 20 166/80 H 97 11/18/20 05:01 36.7 C 99 H 18 96 11/18/20 00:45 37.0 C 82 18 147/73 H 97 11/17/20 23:45 91 H 11/17/20 20:07 37.3 C 97 H 16 144/79 H 96 11/17/20 15:23 101 H 11/17/20 15:01 36.9 C 93 H 18 162/78 H 97 Transfer of Care Handoff Completed per policy Notes Mental Status: alert / awake / arousable Patient Amnestic to Procedure: Yes Nausea / Vomiting: adequately controlled Pain: adequately controlled Airway Patency, RR, SpO2: stable & adequate BP & HR: stable & adequate Hydration State: stable & adequate Anesthetic Complications: no major complications apparent
[2020-11-18] MEDS ORDERED: STROKE PATIENT DISCHARGE STA (13:59)
[2020-11-18] MEDS: MULTIVITAMIN TAB PO SCH (14:03)
[2020-11-18] MEDS: ASPIRIN 81 MG ECTAB PO SCH (14:03)
[2020-11-18] MEDS: CHOLECALCIFEROL 1,000 UNITS 25 MCG TAB PO SCH (14:03)
[2020-11-18] MEDS: CYANOCOBALAMIN 500 MCG TABLET (VITAMIN B-12) PO SCH (14:03)
[2020-11-20 10:50] LABS: Albumin 2.6 g/dL (3.8-4.8); Alpha 1 Globulin 0.4 g/dL (0.2-0.3); Alpha 2 Globulin 0.6 g/dL (0.5-0.9); Beta-1-Globulin 0.2 g/dL (0.4-0.6); Beta-2-Globulin 0.1 g/dL (0.2-0.5); Gamma Globulin 0.9 g/dL (0.8-1.7); Monoclonal Protein Band 1 0.8 g/dL (NONE DETECTED); Monoclonal Protein Band 2 DNR g/dL (NONE DETECTED); Monoclonal Protein Band 3 DNR g/dL (NONE DETECTED); Total Protein 4.8 g/dL (6.1-8.1)
[2020-11-22 01:02] LABS: Anti Cardiolipin Ab IgG <14 GPL; Anti Cardiolipin Ab IgM <12 MPL; Anti Nuclear Antibody Screen NEGATIVE (NEGATIVE); Anti-Cardiolipin Ab IgA <11 APL; Anti-Centromere Ab <1.0 NEG AI (<1.0 NEG); Anti-SS-A <1.0 NEG AI (<1.0 NEG); Anti-SS-B <1.0 NEG AI (<1.0 NEG); Chromatin Antibody <1.0 NEG AI (<1.0 NEG); Complement C3 74 mg/dL; DNA ds Crithidia NEGATIVE (NEGATIVE); Microsomal Ab <1 IU/mL (<9); RNP Antibody <1.0 NEG AI (<1.0 NEG); Rheumatoid Factor >1000 IU/mL (<14); Scleroderma Anti Scl-70 Ab <1.0 NEG AI (<1.0 NEG); Sm Antibody <1.0 NEG AI (<1.0 NEG)
[2020-11-23 16:12] LABS: % Cryocrit None Detected; Cryoglobulin, QL Negative (Negative)
--- NOTE | 2020-11-26 13:58 | Coding Query ---
CODING QUERY To promote full compliance with coding requirements relating to patient care, provider participation is requested in all cases of netbackup admin uncertainty. Please assist us with the question(s) below: Coding Question(s): There is documentation in the record, as on Progress Note 11/17/20 of, "due to her history of vasculitis, need to consider remote possibility of temporal artery arteritis, inflammation of cerebral vessels causing strokes will ask for temporal artery biopsy". It is not clear if temporal artery arteritis is still possible or if it was ruled-out. Please specify below, in your clinical opinion. (x ) Temporal artery arteritis is still possible ( ) Temporal artery arteritis is Ruled-Out ( ) Other: Please Specify Physician's Response(s): Thank you Daniela Hayden Principal Diagnosis: "that condition established after study, to be chiefly responsible for occasioning the admission of the patient to the hospital for care." Co-Existing Principal Diagnosis: "when two or more diagnoses equally meet the criteria for principal diagnosis as determined by the circumstances of admission, diagnostic work up, and/or therapy provided, and the Alphabetic Index, Tabular List, or another coding guideline does not provide sequencing direction, any one of the diagnoses may be sequenced first." "When the physician has documented what appears to be a current diagnosis in the body of the record, but has not included the diagnosis in the final diagnostic statement, the physician should be asked whether the diagnosis should be added." (Source [facility]oding [facility] 2 QTR90. p3-4) [facility]
--- NOTE | 2020-12-03 13:49 | Discharge Summary ---
Date of Service November 18, 2020 Admission HPI Per Admitting Provider Nuris Benito is an 85-year-old female who presents to the ER with recurrent falls and left-sided weakness. She has a significant history of a CVA on October 01 causing mainly dysarthria, left facial droop and mild weakness in her left arm and leg. She was discharged on 10/04/20 on aspirin and clopidogrel with the clopidogrel since being stopped after three weeks. She is yet to have her outpatient cardiac monitoring. Her notes since her stroke she has been getting progressively weaker with a slow decline from a cane to a walker. She has not been eating much. However, there has also been a more rapid decline over the last few days. Yesterday she fell to the side while sitting on the toilet, she was found hunched over the left side after pressing her call jansen. She was brought to the ER and CT head was taken which showed evolving subacute infarcts in right basal ganglia and ji radiata. Since no new CVA was found suspected symptoms were secondary to old CVA therefore [facility]. Unfortunately she has continued to be profoundly weak on her left side and unable to ambulate at this time therefore this morning was sent back to the ER. No change in speech, vision or hearing. No new facial droop. LLE > LUE weakness. Her reports she has had a poor appetite since her CVA, only just started getting physical therapy 2 weeks ago and is yet to have her cardiac event m onitor placed. In the ER CTA showed stable 3mm saccular aneurysm but no evidence of carotid or vertebral stenosis or dissection. Principal Diagnosis Acute CVA Discharge Exam Constitutional: WD/WN, vitals as above Neck: trachea midline, no thyromegaly Respiratory: normal respiratory effort, lungs clear to auscultation Cardiovascular: RRR, no murmur, no edema Gastrointestinal (Abdomen): normal bowel sounds, soft, nontender, no hepatosplenomegaly Musculoskeletal: Head/Neck/Chest: normocephalic, head atraumatic and neck supple Extremities: extremities normal to inspection; + abnormal strength (left lower extremity 3 out of 5 strength), no cyanosis, no clubbing and no petechiae Skin: no rashes, warm and dry Neurologic: normal touch/pain/proprioception, CN's II-XI intact bilaterally, deep tendon reflexes 2+ bilaterally, moves all extremities, + focal motor deficit (left lower leg) and awake Speech / Cognition: normal speech Psychiatric: A+Ox3, euthymic affect Lymphatic: no cervical or axillary lymphadenopathy Discharge Data Allergies Allergy/AdvReac Type Severity Reaction Status Date / Time influenza virus vaccine Allergy Intermediate rash Verified 12/02/20 07:58 trivalent amoxicillin [From Amoxil] Allergy Unknown Unknown Verified 12/02/20 07:58 Anesthetics - Amide Type - Allergy Unknown Unknown Verified 12/02/20 07:58 Select A [Anesthetics - Amide Type] diazepam [From Valium] Allergy Unknown Unknown Verified 12/02/20 07:58 ethyl chloride Allergy Unknown Unknown Verified 12/02/20 07:58 procaine [From Novocain] Allergy Unknown Unknown Verified 12/02/20 07:58 Penicillins AdvReac Unknown SEVERE Verified 12/02/20 07:58 INTERNAL VAGINITIS Consultations 11/15/20 10:57 ED Decision to Admit Stat 11/15/20 14:13 Consult Neurology Routine 11/16/20 15:46 Consult General Surgery Routine Procedures Performed Operation Date: 11/18/20 10:45 Actual Procedures p Right Temporal Artery Biopsy(Right) - Abebe العلي, Ordered Studies 11/15/20 08:51 CT angio head wo/w Stat CT angio neck with con Stat 11/15/20 11:32 MR brain wo/w con Urgent Hospital Course (1) Acute CVA (cerebrovascular accident): new acute stroke in right thalamus on MRI, prior strokes in right basal ganglia and ji radiata with microhemorrhage second stroke in 6 weeks d/w Dr. Bang, certainly could just be atherosclerotic, could treat with aspirin and Plavix x 3 weeks then just Plavix will stop Lipitor due to microhemorrhage, her LDL had been well controlled no h/o diabetes, BP is normal (no h/o HTN) due to her history of vasculitis, need to consider remote possibility of temporal artery arteritis, inflammation of cerebral vessels causing strokes will ask for temporal artery biopsy, hold on Plavix until is is done discussed starting on Prednisone 60mg now, she is adverse to doing that due to side effects she experienced before, she wants to wait Dr. Bang ordered further serological work up, extensive studies, see his orders/consultation, follow up results, they are send out labs PT/OT consulted, speech therapy consulted (she was not eating well at home, minced/moist diet was very unappealing, hoping she can eat more substantial food) will be discharged to SNF as very weak in left leg Obtained a temporal artery biopsy, patient is ok for discharge as per surgeon. (2) Stroke-like symptoms: see above, MRI with new stroke in right thalamus (3) Left leg weakness: as above (4) Ataxia of left upper extremity: As above (5) Fall: Suspected secondary to CVA. Management as above No injuries suspected from fall as mainly just slumped to side on toilet. (6) Ambulatory dysfunction: PT/OT as above (7) Asymptomatic bacteriuria: Persistent E. coli in urine. No symptoms per patient. Currently on ciprofloxacin with 2 days left of current course. Will currently hold off further antibiotics at this time as no indication this represents a current infection. 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 per her , she follows with Dr. Dayne Leavitt, his phone number is [phone] he was suspicious that some hematologic malignancy was driving the vasculitis as she did not respond to typical therapies (Prednisone, Methotrexate, Plaquenil) she was supposed to get hematologic work up once off steroids, last day of steroids was October 01 and then she suffered first stroke her suggests that we can call Dr. Leavitt with any questions (9) DVT prophylaxis: SCDs hold on Lovenox due to microhemorrhage on MRI brain Total Time Total Time Spent Total Time Spent (In Minutes): 32 Total Time Includes: Examination of the Patient, Discharge Planning and Medication Reconciliation Discharge Plan Discharge Items Patient Disposition: Transfer Care Home Fac Reason For Visit: LACUNAR STROKE Discharge Diagnosis: Lacunar Stroke Activity: Resume your previous activity Non-emergency contact: Primary Care Provider Call non-emergency contact if: you have any medication questions Follow-up/Referrals: Morro Chao MD [Primary Care Provider] - Abebe العلي DO [Physician] - (Please call to schedule follow up in clinic within 1-2 weeks) Diet: Heart Healthy Diet Comment: minced and moist diet Addtl Attending Provider Instructions: JUAN CARLOS 12 panel, rheumatoid factor, ESR, CRP, lupus anticoagulant, homocystine, B12, folate, immunofixation, serum protein electrophoresis, cryoglobulins pending. Would recommend obtaining an assessment with a local torpedoman's mate as well, while still seeing [facility] at [facility].. Continue rehab at Nursing facility. Will defer to outpatient provider further rehab recommendations. Risk Factors for Stroke: You can reduce your chances of stroke by working with your medical provider to adopt a healthy lifestyle. Some specific ways to lower your chance of stroke are: * If you are a smoker, now is the time to stop smoking cigarettes * If you are diabetic, improve the control of your blood sugars * Avoid excessive amounts of alcohol * Control high blood pressure * Lose weight if you are overweight * Be sure to lead an active lifestyle * Eat a healthy diet low in salt, cholesterol and fat You should know about other risk factors for stroke that you are unable to control. These include: * Age 55 years or older * Male gender * Certain racial groups: , or / * Family History of Stroke, Mini stroke or Heart Attack * Sickle Cell Disease Follow Up: It is important for you to keep your follow up appointments with your medical provider. Who to Call and When: Medical Emergencies: Call 911 immediately if you experience any of the following warning signs and symptoms of Stroke: * Sudden numbness or weakness of the face, arm or leg, especially on one side of the body * Sudden confusion, trouble speaking or understanding * Sudden trouble seeing in one or both eyes * Sudden trouble walking, dizziness, loss of balance or coordination * Sudden severe headache with no cause Do not delay calling 911 if you experience any warning signs or symptoms of a stroke. Delay in seeking medical attention may affect what treatments can be given to you. . Pending Studies at Discharge: No Stand-Alone Forms: My [facility] Skilled Items Patient informed of condition?: Yes DNR: No Discharge Level of Care: Acute rehab Communicable Disease: No Discharge Prognosis: Stable Lines: None Urinary Catheter: No Medications and DC Order Prescriptions: New clopidogrel 75 mg tablet 75 mg PO DAILY Qty: 30 RF: 0 Continued polyethylene glycol 3350 17 gram/dose powder 17 gm PO DAILY PRN (Reason: Constipation) RF: 0 cyanocobalamin (vitamin B-12) 1,000 mcg lozenge 1,000 mcg sublingual QAM RF: 0 multivitamin [Daily-Charlie] Tablet 1 tab PO QAM RF: 0 cholecalciferol (vitamin D3) [Vitamin D3] 25 mcg (1,000 unit) Capsule 25 mcg PO QAM RF: 0 Discontinued ciprofloxacin HCl [Cipro] 250 mg tablet 250 mg PO BID Qty: 10 RF: 0 atorvastatin 40 mg tablet 40 mg PO QAM RF: 0 aspirin [Aspir-81] 81 mg Tablet,Delayed Release (Dr/Ec) 81 mg PO QAM RF: 0 No Action pyridoxine (vitamin B6) 25 mg tablet 25 mg PO DAILY RF: 0 pantoprazole [Protonix] 40 mg tablet,delayed release (DR/EC) 40 mg PO DAILY RF: 0 atorvastatin 40 mg tablet 40 mg PO DAILY RF: 0 Discharge Orders: Discharge Order (Routine); Ordered 11/18/20 Ordered By: Stephane Alba Admission Data Admit Date/Time: 11/17/20 17:18 Attending Provider: Stephane Alba Admit Provider: Oneil Waggoner Primary Care Provider: Morro Chao Other Providers: Segun Bang ; Abebe العلي Other Interventions: Discharge Summary Assessment (RN) Last Done: 11/18/20 15:46 Coding Level of Care Code D/C Day Management >30 mins Diagnoses Acute CVA (cerebrovascular accident) I63.9 Stroke-like symptoms R29.90 Left leg weakness R29.898 Ataxia of left upper extremity R27.0 Fall W19.XXXA Encounter type: initial encounter Ambulatory dysfunction R26.2 Asymptomatic bacteriuria R82.71 Leukocytoclastic vasculitis M31.0 DVT prophylaxis Z29.9
== END 2020-11-18 16:39 | DRG 40 ==
LOC: ED 08:13 → 2W 08:13 → SUATTDRO 11:42 → 2W 13:10 → 2S 16:50

== ENCOUNTER 2020-12-02 07:02 | Inpatient (IN) ==
--- NOTE | 2020-12-02 07:06 | Emergency Department Note ---
Impression & Plan Closed left femoral fracture, Anemia, Fall ED Provider Note NAME: MAGNOLIA GANDHI AGE: 85 SEX: F : 1935 ARRIVES VIA: Ambulance INFORMANT: Patient, ED PROVIDER(S): Elton Bledsoe MD Chief Complaint: Fall, hip pain HPI: Patient does present status post ground-level fall approximate 2 hours prior to arrival. The patient does live at the [facility]. The patient reportedly was getting up and trying to get to her walker when she tripped over some blankets falling to her left side. The patient denies any LOC or head strike. The patient does take Plavix. Patient does complain of some pain to the left hand as well as left hip. The patient was unable to bear weight or walk. The patient denies any fevers or chills. The patient states that the pain is worse with movement or palpation located lateral aspect left hip. It is achy at baseline and sharp with pain or movement. Patient denies any numbness tingling or focal weakness. ROS: See HPI for pertinent positives and negatives. A total of 10 systems were reviewed and otherwise negative. Past medical history: See below Surgical history: See below Social history: See below Physical Exam: GENERAL: Wearing glasses and a mask. NAD, non-toxic. EYE EXAM: Normal conjunctiva. PERRL, no anisocoria and EOM's grossly intact w/o pain. Head: Normocephalic atraumatic with no TTP or obvious deformity. NECK: Supple, no nuchal rigidity, no adenopathy, non-tender. No signs of meningismus. No midline C-spine TTP. LUNGS: Clear to auscultation. Normal chest wall mechanics. HEART: NSR, no MRG. ABDOMEN: Abdomen soft, non-tender, normo-active bowel sounds, no masses, no rebound or guarding. BACK: No CVA TTP. SKIN: No rashes and no bruising. UPPER EXTREMITIES: Mild pain with 2 small areas of bruising over the left hand. Compartments are soft. No obvious laceration. LOWER EXTREMITIES: Pain over lateral aspect of left hip, decreased range of motion secondary to pain, compartments are soft, neurovascular intact distally with exception of decreased range of motion. NEURO EXAM: A&O x3, cranial nerves II-XII grossly intact, normal speech, moves all 4 extremities exception of decreased range of motion left lower extremity secondary to pain. Differential diagnoses: Fracture, dislocation, contusion, intra-abdominal, pneumothorax, intrathoracic, intracranial, neurologic, compartment syndrome, rhabdomyolysis, as well as other pathologies. Course: Patient was seen and evaluated the bedside. Full history physical exam was perf ormed. EKG Sinus tachycardia, rate of 112, no obvious ST changes. Normal axis. Imaging Studies: See below Cardiac monitoring: An order was placed for continuous cardiac monitoring. The monitor shows a rate of 95 with sinus rhythm. MDM: Patient did present status post fall earlier this morning. The patient did have a CT of the head and plain films completed. CT head negative. The patient's danica in films do show concern for the left femur fracture. Patient did have blood work ordered along with a Covid swab. I did speak with the on-call orthopedist Juan Diego Pacheco PA-C. I did speak with Zach Alfonso PA-C with [facility] and to be admitted under Dr. Rowan. Patient's blood work showed a normal white count chronic and stable anemia with a hemoglobin of 9.4. Kidney function unremarkable. Covid negative. Past Med/Surg History Medical History Abrasion of knee Actinic keratosis Anemia Benign positional vertigo Cheilosis CKD (chronic kidney disease), stage III Cystocele, midline Elevated blood pressure reading without diagnosis of hypertension Gastroparesis Generalized anxiety disorder History of skin cancer of unknown type Hyperglycemia Hypothyroidism Irregular heartbeat Irritable bowel syndrome Leukocytoclastic vasculitis Leukopenia Pain in joint of right shoulder Paresthesias Persistent insomnia Rectocele Second degree uterine prolapse Skin cancer Tonsillectomy planned (01/30/13) Vitamin D deficiency Surgical History H/O tooth extraction History of right cataract surgery History of surgical removal of ganglion cyst History of temporal artery biopsy (11/18/20) Right Temporal Artery Biopsy(Right) - Abebe العلي DO History of tonsillectomy History of tubal ligation (01/30/13) Family History Mother , age 80 Lymphoma Heart disease Arthritis Father , age 56 Stroke Denies family history of Ovarian cancer Breast cancer Colorectal cancer Social History Smoking Status: Former smoker Tobacco Type: Cigarettes Age Started Using Tobacco: 22; Age Quit Using Tobacco: 42; packs per day: 1; Years Smoked: 20; Second Hand Exposure: No; Hx Alcohol Use: Yes Alcohol type: wine and hard liquor Alcohol Intake Frequency: Monthly or Less Hx Substance Use: No Preferred Language: Wolof Communication Ability: Impaired Visual Impairment: Limited Hearing Ability: Normal Auto Transmission Technician Required: No Beliefs That Will Affect Care: None marital status: Current Living Situation: Personal Care Facility Current Living Situation Comment: [facility] current occupational status: retired Feels Safe at Home: Yes Childhood Exposure to Second-Hand Smoke: Yes caffeine: No Dental Care, Regularly: Yes Physical Activity Frequency: Does not Exercise Seatbelt Use: always Sunscreen Use: Yes Assistive Devices: None Allergies Allergies Allergy/AdvReac Type Severity Reaction Status Date / Time influenza virus vaccine Allergy Intermediate rash Verified 12/02/20 07:58 trivalent amoxicillin [From Amoxil] Allergy Unknown Unknown Verified 12/02/20 07:58 Anesthetics - Amide Type - Allergy Unknown Unknown Verified 12/02/20 07:58 Select A [Anesthetics - Amide Type] diazepam [From Valium] Allergy Unknown Unknown Verified 12/02/20 07:58 ethyl chloride Allergy Unknown Unknown Verified 12/02/20 07:58 procaine [From Novocain] Allergy Unknown Unknown Verified 12/02/20 07:58 Penicillins AdvReac Unknown SEVERE Verified 12/02/20 07:58 INTERNAL VAGINITIS Home Meds Home Medications Medication Instructions Recorded Confirmed polyethylene glycol 3350 17 17 gm PO DAILY PRN gm 01/17/19 12/02/20 gram/dose oral powder cyanocobalamin (vitamin B-12) 1,000 mcg SUBLINGUAL QAM 05/23/20 12/02/20 1,000 mcg sublingual lozenge cholecalciferol (vitamin D3) 25 mcg PO QAM 11/14/20 12/02/20 [Vitamin D3] multivitamin [Daily-Charlie] 1 tab PO QAM 11/14/20 12/02/20 pantoprazole 40 mg tablet,delayed 40 mg PO DAILY 11/26/20 12/02/20 release pyridoxine (vitamin B6) 25 mg 25 mg PO DAILY 11/26/20 12/02/20 tablet atorvastatin 40 mg PO DAILY 12/02/20 12/02/20 Previous Rx's Medication Instructions Recorded clopidogrel 75 mg PO DAILY #30 tab 11/18/20 Results & Data (ED) Vital Signs Vital Signs - 24 hr 12/02/20 07:15 12/02/20 09:07 12/02/20 09:37 Temperature 36.8 C Temperature Source Oral Pulse Rate 86 114 H Pulse Rate from SpO2 Sensor 115 H Pulse Rhythm Regular Pulse Strength Normal Respiratory Rate 20 17 Respiratory Effort / Characteristics Non-Labored Respiratory Depth Normal Respiratory Pattern Regular Blood Pressure 159/103 H 164/110 H Blood Pressure Mean 121 128 Blood Pressure Position Lying Pulse Oximetry 99 93 94 Oxygen Delivery Method Room Air Room Air Room Air Sepsis Recent Fever Within 48 Hours No Sepsis New/Unexplained Change in Mental Status N/A Sepsis Action Taken by Nursing No Action Required Home Medications Current Medication List: was personally reviewed by me Laboratory Data Result diagrams: 12/02/20 09:32 12/02/20 09:32 Lab Results 12/02/20 12/02/20 12/02/20 Range/Units 09:25 09:25 09:32 WBC (4.8-10.8) K/uL RBC (4.2-5.4) M/uL Hgb (12.0-16.0) g/dL Hct (37-47) % MCV (80-100) fL MCH (25-34) pg MCHC (32-36) g/dL RDW Std Deviation (36.4-46.3) fL RDW Coeff of Arturo (11.5-14.5) % Plt Count (130-400) K/uL MPV (7.4-10.4) fL Immature Gran % (Auto) % Neut % (Auto) % Lymph % (Auto) % [place] % (Auto) % Eos % (Auto) % Baso % (Auto) % Neut # (Auto) (1.4-6.5) K/uL Lymph # (Auto) (1.2-3.4) K/uL Kenton # (Auto) (0.11-0.59) K/uL Eos # (Auto) (0-0.5) K/uL Baso # (Auto) (0-0.2) K/uL Immature Gran # (Auto) (0.00-0.02) K/uL PT (9.0-12.0) Seconds INR (0.9-1.1) APTT (21.0-31.0) Seconds PTT Ratio Sodium (136-145) mmol/L Potassium (3.5-5.1) mmol/L Chloride (98-107) mmol/L Carbon Dioxide (21-32) mmol/L Anion Gap (3-11) BUN (7-18) mg/dl Creatinine (0.6-1.2) mg/dl Est Cr Clr Drug Dosing ml/min Est GFR ( Amer) ml/min Est GFR (Non-Af Amer) ml/min BUN/Creatinine Ratio (10-20) Glucose (70-99) mg/dl Calcium (8.5-10.1) mg/dl Total Bilirubin (0.2-1) mg/dl AST (15-37) U/L ALT (12-78) U/L Alkaline Phosphatase (45-117) U/L Total Protein (6.4-8.2) gm/dl Albumin (3.4-5.0) gm/dl Globulin (2.5-4.0) gm/dl Albumin/Globulin Ratio (0.9-2) Urine Color Urine Appearance (Clear) Urine pH (4.5-7.5) Ur Specific [place] (1.000-1.030) Urine Protein (Negative) Urine Glucose (UA) (Negative) Urine Ketones (Negative) Urine Blood (Negative) Urine Nitrite (Negative) Urine Bilirubin (Negative) Urine Urobilinogen (Negative) Ur Leukocyte Esterase (Negative) Urine WBC (Auto) (0-5) /hpf Urine RBC (Auto) (0-4) /hpf U Hyaline Cast (Auto) (0-5) /lpf U Epithel Cells (Auto) (0-5) /lpf Urine Bacteria (Auto) (Negative) Ur Renal Epithelial Cell (0-5) /lpf Granular Casts (0) /lpf WBC Casts (0) /lpf COVID-19 Eval Order Covid19 at [facility] SARS-CoV-2 (PCR) NEGATIVE (Negative) Blood Type B Positive Antibody Screen NEGATIVE 12/02/20 12/02/20 12/02/20 Range/Units 09:32 09:32 09:32 WBC 8.74 (4.8-10.8) K/uL RBC 3.12 L (4.2-5.4) M/uL Hgb 9.4 L (12.0-16.0) g/dL Hct 29.4 L (37-47) % MCV 94.2 (80-100) fL MCH 30.1 (25-34) pg MCHC 32.0 (32-36) g/dL RDW Std Deviation 55.4 H (36.4-46.3) fL RDW Coeff of Arturo 16.1 H (11.5-14.5) % Plt Count 155 (130-400) K/uL MPV 9.4 (7.4-10.4) fL Immature Gran % (Auto) 0.1 % Neut % (Auto) 86.1 % Lymph % (Auto) 8.8 % Kenton % (Auto) 4.3 % Eos % (Auto) 0.6 % Baso % (Auto) 0.1 % Neut # (Auto) 7.52 H (1.4-6.5) K/uL Lymph # (Auto) 0.77 L (1.2-3.4) K/uL Kenton # (Auto) 0.38 (0.11-0.59) K/uL Eos # (Auto) 0.05 (0-0.5) K/uL Baso # (Auto) 0.01 (0-0.2) K/uL Immature Gran # (Auto) 0.01 (0.00-0.02) K/uL PT 10.3 (9.0-12.0) Seconds INR 1.0 (0.9-1.1) APTT 21.1 (21.0-31.0) Seconds PTT Ratio 0.8 Sodium 143 (136-145) mmol/L Potassium 3.5 (3.5-5.1) mmol/L Chloride 110 H (98-107) mmol/L Carbon Dioxide 27 (21-32) mmol/L Anion Gap 6.0 (3-11) BUN 14 (7-18) mg/dl Creatinine 1.03 (0.6-1.2) mg/dl Est Cr Clr Drug Dosing 41.7 ml/min Est GFR ( Amer) 58.2 ml/min Est GFR (Non-Af Amer) 50.2 ml/min BUN/Creatinine Ratio 14.0 (10-20) Glucose 96 (70-99) mg/dl Calcium 9.2 (8.5-10.1) mg/dl Total Bilirubin 0.9 (0.2-1) mg/dl AST 32 (15-37) U/L ALT 12 (12-78) U/L Alkaline Phosphatase 63 (45-117) U/L Total Protein 6.8 (6.4-8.2) gm/dl Albumin 3.3 L (3.4-5.0) gm/dl Globulin 3.5 (2.5-4.0) gm/dl Albumin/Globulin Ratio 0.9 (0.9-2) Urine Color Urine Appearance (Clear) Urine pH (4.5-7.5) Ur Specific [place] (1.000-1.030) Urine Protein (Negative) Urine Glucose (UA) (Negative) Urine Ketones (Negative) Urine Blood (Negative) Urine Nitrite (Negative) Urine Bilirubin (Negative) Urine Urobilinogen (Negative) Ur Leukocyte Esterase (Negative) Urine WBC (Auto) (0-5) /hpf Urine RBC (Auto) (0-4) /hpf U Hyaline Cast (Auto) (0-5) /lpf U Epithel Cells (Auto) (0-5) /lpf Urine Bacteria (Auto) (Negative) Ur Renal Epithelial Cell (0-5) /lpf Granular Casts (0) /lpf WBC Casts (0) /lpf COVID-19 Eval Order SARS-CoV-2 (PCR) (Negative) Blood Type Antibody Screen 12/02/20 Range/Units 09:45 WBC (4.8-10.8) K/uL RBC (4.2-5.4) M/uL Hgb (12.0-16.0) g/dL Hct (37-47) % MCV (80-100) fL MCH (25-34) pg MCHC (32-36) g/dL RDW Std Deviation (36.4-46.3) fL RDW Coeff of Arturo (11.5-14.5) % Plt Count (130-400) K/uL MPV (7.4-10.4) fL Immature Gran % (Auto) % Neut % (Auto) % Lymph % (Auto) % Kenton % (Auto) % Eos % (Auto) % Baso % (Auto) % Neut # (Auto) (1.4-6.5) K/uL Lymph # (Auto) (1.2-3.4) K/uL [place]on # (Auto) (0.11-0.59) K/uL Eos # (Auto) (0-0.5) K/uL Baso # (Auto) (0-0.2) K/uL Immature Gran # (Auto) (0.00-0.02) K/uL PT (9.0-12.0) Seconds INR (0.9-1.1) APTT (21.0-31.0) Seconds PTT Ratio Sodium (136-145) mmol/L Potassium (3.5-5.1) mmol/L Chloride (98-107) mmol/L Carbon Dioxide (21-32) mmol/L Anion Gap (3-11) BUN (7-18) mg/dl Creatinine (0.6-1.2) mg/dl Est Cr Clr Drug Dosing ml/min Est GFR ( Amer) ml/min Est GFR (Non-Af Amer) ml/min BUN/Creatinine Ratio (10-20) Glucose (70-99) mg/dl Calcium (8.5-10.1) mg/dl Total Bilirubin (0.2-1) mg/dl AST (15-37) U/L ALT (12-78) U/L Alkaline Phosphatase (45-117) U/L Total Protein (6.4-8.2) gm/dl Albumin (3.4-5.0) gm/dl Globulin (2.5-4.0) gm/dl Albumin/Globulin Ratio (0.9-2) Urine Color Yellow Urine Appearance Clear (Clear) Urine pH 6.5 (4.5-7.5) Ur Specific [place] 1.012 (1.000-1.030) Urine Protein 2+ H (Negative) Urine Glucose (UA) Negative (Negative) Urine Ketones Trace H (Negative) Urine Blood 3+ H (Negative) Urine Nitrite Negative (Negative) Urine Bilirubin Negative (Negative) Urine Urobilinogen Negative (Negative) Ur Leukocyte Esterase Negative (Negative) Urine WBC (Auto) 10-30 H (0-5) /hpf Urine RBC (Auto) >30 H (0-4) /hpf U Hyaline Cast (Auto) 1-5 (0-5) /lpf U Epithel Cells (Auto) >30 H (0-5) /lpf Urine Bacteria (Auto) Negative (Negative) Ur Renal Epithelial Cell 0-5 (0-5) /lpf Granular Casts 1-5 H (0) /lpf WBC Casts 1-5 H (0) /lpf COVID-19 Eval Order SARS-CoV-2 (PCR) (Negative) Blood Type Antibody Screen Administered Medications Discontinued Medications Morphine Sulfate (Morphine Sulfate 2 Mg/Ml Carp) 2 mg IV Q1H PRN PRN Reason: Moderate Pain (Rating 3,4,5,6) Stop: 12/16/20 09:06 Last Admin: 12/02/20 10:01 Dose: 2 mg Documented by: [id number] Ondansetron HCl (Ondansetron Inj 2 Mg/Ml 2 Ml Vial) Confirm Administered Dose 4 mg .ROUTE .[employer]-MED ONE Stop: 12/02/20 09:34 Last Admin: 12/02/20 09:35 Dose: 4 mg Documented by: [id number] Ondansetron HCl (Ondansetron Inj 2 Mg/Ml 2 Ml Vial) 4 mg IV NOW STA Stop: 12/02/20 09:35 Last Admin: 12/02/20 09:59 Dose: Not Given Documented by: [id number] Imaging Data Radiologist's Impression: Hand X-Ray 12/02/20 07:10 XR hand LT min 3V routine CLINICAL HISTORY: pain post fall COMPARISON: None FINDINGS: Alignment of the left hand is anatomic. There is no acute fracture. 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 There is also osteoarthritis within multiple interphalangeal joints of the left hand, most pronounced within the interphalangeal joint of the left thumb. IMPRESSION: No acute fracture or dislocation within the left hand. ACT 112: Negative or not required by law. Electronically signed by: Kimani Cruz M.D. 12/02/2020 9:[address] 12/02/20 07:10 CT OF THE HEAD WITHOUT CONTRAST CLINICAL HISTORY: Fall. COMPARISON STUDY: Head CT November 14, 2020. CTA of the head and MRI of the brain November 15, 2020. CT DOSE: 537.48 mGy.cm TECHNIQUE: Helical axial images of the head were obtained without IV contrast. Automated exposure control was utilized for the study. A dose lowering technique was utilized adhering to the principles of ALARA. FINDINGS: No acute intracranial hemorrhage, midline shift or mass effect is present. Ventricular system is stable. Basilar cisterns are patent. No extra axial collections are present. 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 There is no calvarial fracture. IMPRESSION: 1. No acute intracranial findings. 2. Expected evolution of the multiple infarcts within the right basal ganglia and ji radiata on MRI of November 15, 2020. ACT 112: Negative or not required by law. Electronically signed by: Kimani Cruz M.D. 12/02/2020 7:39 AM Hip/Pelvis X-Ray 12/02/20 07:10 XR hip LT 2V w pelvis CLINICAL HISTORY: pain post fall, unable to bear weight COMPARISON: Pelvis radiograph November 14, 2020. FINDINGS: Note is made of an acute basicervical fracture of the left femur. Fracture may extend into the left femoral head. There is a possible adjacent 1.4 cm bone fragment. No additional acute fractures are identified on this exam. The sacroiliac joints and symphysis pubis are intact. IMPRESSION: Acute basicervical fracture of the left femur which may extend into the femoral head with possible adjacent bone fragment, as described above. ACT 112: Negative or not required by law. Electronically signed by: Kimani Cruz M.D. 12/02/2020 9:10 AM Sacrum and Coccyx X-Ray 12/02/20 07:10 XR sacrum coccyx min 2V CLINICAL HISTORY: pain post fall COMPARISON: None. Correlation is made with radiograph of the pelvis performed on March 15, 2019 DISCUSSION: Transverse lucent line is seen within the medial aspect of the partially visualized left femoral neck and might represent acute fracture. No other fractures or dislocation seen. Osseous structures are diffusely demineralized which limits evaluation. Mild degenerative changes of the lower lumbar spine. Asymmetric appearance of the left ischial bone is seen without definite fractures might be positional. Multiple calcifications are seen within pelvic region and could represent phleboliths. IMPRESSION: Possible fracture within left femoral neck. ACT 112: Negative or not required by law. The above report was generated using voice recognition software. It may contain grammatical, syntax or spelling errors. Electronically signed by: Xochitl Li DO 12/02/2020 9:04 AM Chest X-Ray 12/02/20 10:28 XR chest 1V portable CLINICAL HISTORY: evaluate pre-op COMPARISON STUDY: November 15, 2020 FINDINGS: No pneumothorax. No pleural effusion. Previously seen reticular opacities within the right lower lung are improved. Opacities at the left retrocardiac region could represent small atelectasis or infiltrate. Overall previously seen diffuse reticular prominence of pulmonary interstitium is improved since prior study. Cardiomediastinal silhouette is within normal limits in size. No significant pulmonary vascular congestion.. Osseous structures: Degenerative changes of the spine. IMPRESSION: 1. Opacities at the left retrocardiac region could represent atelectasis or infiltrate. 2. Previously seen opacity at the right base and diffuse prominence of pulmonary interstitium are improved since prior study. ACT 112: Negative or not required by law. The above report was generated using voice recognition software. It may contain grammatical, syntax or spelling errors. Electronically signed by: Xochitl Li DO 12/02/2020 11:23 AM Discharge Plan Visit Data Chief Complaint: Fall Stated Complaint: FALL ED Provider: Elton Bledsoe Discharge Problem: Closed left femoral fracture, Anemia, Fall Forms Stand Alone Forms: [facility] [employer] Prescriptions Prescriptions: No Action polyethylene glycol 3350 17 gram/dose powder 17 gm PO DAILY PRN (Reason: Constipation) RF: 0 cyanocobalamin (vitamin B-12) 1,000 mcg lozenge 1,000 mcg sublingual QAM RF: 0 pyridoxine (vitamin B6) 25 mg tablet 25 mg PO DAILY RF: 0 pantoprazole [Protonix] 40 mg tablet,delayed release (DR/EC) 40 mg PO DAILY RF: 0 clopidogrel 75 mg tablet 75 mg PO DAILY Qty: 30 RF: 0 atorvastatin 40 mg tablet 40 mg PO DAILY RF: 0 multivitamin [Daily-Charlie] Tablet 1 tab PO QAM RF: 0 cholecalciferol (vitamin D3) [Vitamin D3] 25 mcg (1,000 unit) Capsule 25 mcg PO QAM RF: 0 Discharge Problem: Closed left femoral fracture Qualifiers: Encounter type: initial encounter Femur location: unspecified portion of femur Fracture morphology: unspecified fracture morphology Qualified Code(s): S72.92XA - Unspecified fracture of left femur, initial encounter for closed fracture Anemia Qualifiers: Anemia type: unspecified type Qualified Code(s): D64.9 - Anemia, unspecified Fall Qualifiers: Encounter type: initial encounter Qualified Code(s): W19.XXXA - Unspecified fall, initial encounter
--- NOTE | 2020-12-02 07:41 | CT Scan Report ---
CT OF THE HEAD WITHOUT CONTRAST CLINICAL HISTORY: Fall. COMPARISON STUDY: Head CT November 14, 2020. CTA of the head and MRI of the brain November 15, 2020. CT DOSE: 537.48 mGy.cm TECHNIQUE: Helical axial images of the head were obtained without IV contrast. Automated exposure con trol was utilized for the study. A dose lowering technique was utilized adhering to the principles o f ALARA. FINDINGS: No acute intracranial hemorrhage, midline shift or mass effect is present. Ventricular syst em is stable. Basilar cisterns are patent. No extra axial collections are present. 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 There is no calvarial fracture. IMPRESSION: 1. No acute intracranial findings. 2. Expected evolution of the multiple infarcts within the right basal ganglia and ji radiata on M RI of November 15, 2020. ACT 112: Negative or not required by law. Electronically signed by: Kimani Cruz M.D. 12/02/2020 7:39 AM
--- NOTE | 2020-12-02 09:05 | XRay Report ---
XR sacrum coccyx min 2V CLINICAL HISTORY: pain post fall COMPARISON: None. Correlation is made with radiograph of the pelvis performed on March 15, 2019 DISCUSSION: Transverse lucent line is seen within the medial aspect of the partially visualized left femoral neck and might represent acute fracture. No other fractures or dislocation seen. Osseous structures are d iffusely demineralized which limits evaluation. Mild degenerative changes of the lower lumbar spine. Asymmetric appearance of the left ischial bone is seen without definite fractures might be positional . Multiple calcifications are seen within pelvic region and could represent phleboliths. IMPRESSION: Possible fracture within left femoral neck. ACT 112: Negative or not required by law. The above report was generated using voice recognition software. It may contain grammatical, syntax o r spelling errors. Electronically signed by: Xochitl Li DO 12/02/2020 9:04 AM
[2020-12-02] MEDS ORDERED: MoRPHine SULFATE 2 MG/ML CARP IV PRN (09:07)
--- NOTE | 2020-12-02 09:12 | XRay Report ---
XR hip LT 2V w pelvis CLINICAL HISTORY: pain post fall, unable to bear weight COMPARISON: Pelvis radiograph November 14, 2020. FINDINGS: Note is made of an acute basicervical fracture of the left femur. Fracture may extend into the left femoral head. There is a possible adjacent 1.4 cm bone fragment. No additional acute fractu res are identified on this exam. The sacroiliac joints and symphysis pubis are intact. IMPRESSION: Acute basicervical fracture of the left femur which may extend into the femoral head with possible adjacent bone fragment, as described above. ACT 112: Negative or not required by law. Electronically signed by: Kimani Cruz M.D. 12/02/2020 9:10 AM
--- NOTE | 2020-12-02 09:14 | XRay Report ---
XR hand LT min 3V routine CLINICAL HISTORY: pain post fall COMPARISON: None FINDINGS: Alignment of the left hand is anatomic. There is no acute fracture. There is moderate to s evere osteoarthritis of the left triscaphe and first carpometacarpal joints. There is also osteoarthr itis within multiple interphalangeal joints of the left hand, most pronounced within the interphalang eal joint of the left thumb. IMPRESSION: No acute fracture or dislocation within the left hand. ACT 112: Negative or not required by law. Electronically signed by: Kimani Cruz M.D. 12/02/2020 9:12 AM
[2020-12-02] MEDS ORDERED: ONDANSETRON INJ 2 MG/ML 2 ML VIAL ONE ×2 (09:33→18:17)
[2020-12-02] MEDS ORDERED: ONDANSETRON INJ 2 MG/ML 2 ML VIAL IV STA (09:34)
[2020-12-02 09:41] LABS: Basophils # (auto) 0.01 K/uL (0-0.2); Basophils % (auto) 0.1 %; Eosinophils # (auto) 0.05 K/uL (0-0.5); Eosinophils % (auto) 0.6 %; Hematocrit (blood only) 29.4 % (37-47); Hemoglobin 9.4 g/dL (12.0-16.0); Immature Granulocytes # (auto) 0.01 K/uL (0.00-0.02); Immature Granulocytes % (auto) 0.1 %; Lymphocytes # (auto) 0.77 K/uL (1.2-3.4); Lymphocytes % (auto) 8.8 %; Mean Corpuscular Hemoglobin 30.1 pg (25-34); Mean Corpuscular Volume 94.2 fL (80-100); Mean Platelet Volume 9.4 fL (7.4-10.4); Monocytes # (auto) 0.38 K/uL (0.11-0.59); Monocytes % (auto) 4.3 %; Neutrophils # (auto) 7.52 K/uL (1.4-6.5); Neutrophils % (auto) 86.1 %; Platelet Count 155 K/uL (130-400); RDW Coefficient of Variation 16.1 % (11.5-14.5); RDW Standard Deviation 55.4 fL (36.4-46.3); Red Blood Count 3.12 M/uL (4.2-5.4); White Blood Count 8.74 K/uL (4.8-10.8)
[2020-12-02 09:54] LABS: Partial Thromboplastin Ratio 0.8; Partial Thromboplastin Time 21.1 Seconds (21.0-31.0); Prothrombin Time 10.3 Seconds (9.0-12.0)
[2020-12-02 10:11] LABS: Calcium 9.2 mg/dl (8.5-10.1)
[2020-12-02 10:13] LABS: Albumin Globulin Ratio 0.9 (0.9-2); Albumin Level 3.3 gm/dl (3.4-5.0); Bilirubin,Total 0.9 mg/dl (0.2-1); Creatinine Clr Calc Pharmacy 41.7 ml/min; Est GFR (African American) 58.2 ml/min; Est GFR (Non-African American) 50.2 ml/min; Globulin 3.5 gm/dl (2.5-4.0); Potassium 3.5 mmol/L (3.5-5.1); Total Protein 6.8 gm/dl (6.4-8.2)
[2020-12-02] MEDS ORDERED: MAGNESIUM HYDROXIDE SUSP 30 ML UDC PO PRN ×2 (10:23→21:02)
[2020-12-02] MEDS ORDERED: bisacodyL 10 MG SUPP PR PRN (10:23)
[2020-12-02] MEDS ORDERED: NALOXONE HCL 0.4 MG/1 ML VIAL/CARP IV PRN (10:23)
[2020-12-02 10:31] LABS: Appearance Urine Clear (Clear); Bacteria Urine Automated Negative (Negative); Bilirubin Urine Negative (Negative); Blood Urine 3+ (Negative); Color Urine Yellow; Epithelial Cell Urine Auto >30 /lpf (0-5); Glucose Urine UA Negative (Negative); Ketones Urine Trace (Negative); Leukocyte Esterase Urine Negative (Negative); Nitrite Urine Negative (Negative); Protein Urine 2+ (Negative); RBC Urine Automated >30 /hpf (0-4); Specific Gravity Urine 1.012 (1.000-1.030); Urobilinogen Urine Negative (Negative); pH Urine 6.5 (4.5-7.5)
[2020-12-02 10:50] LABS: Renal Epithelial Cells Urine 0-5 /lpf (0-5)
--- NOTE | 2020-12-02 11:25 | XRay Report ---
XR chest 1V portable CLINICAL HISTORY: evaluate pre-op COMPARISON STUDY: November 15, 2020 FINDINGS: No pneumothorax. No pleural effusion. Previously seen reticular opacities within the right lower lung are improved. Opacities at the left r etrocardiac region could represent small atelectasis or infiltrate. Overall previously seen diffuse r eticular prominence of pulmonary interstitium is improved since prior study. Cardiomediastinal silhouette is within normal limits in size. No significant pulmonary vascular congestion.. Osseous structures: Degenerative changes of the spine. IMPRESSION: 1. Opacities at the left retrocardiac region could represent atelectasis or infiltrate. 2. Previously seen opacity at the right base and diffuse prominence of pulmonary interstitium are im proved since prior study. ACT 112: Negative or not required by law. The above report was generated using voice recognition software. It may contain grammatical, syntax o r spelling errors. Electronically signed by: Xochitl Li DO 12/02/2020 11:23 AM
--- NOTE | 2020-12-02 11:40 | History & Physical Report ---
Date of Service December 02, 2020 Assessment & Plan (1) Basicervical fracture of left femur: Orthopaedics consulted for acute basicervical fracture of the left femur following fall - Pain control- Morphine 2 mg IV q2 hours PRN, Tylenol 1GM IV q8 prn while npo - Ice to affected area for pain relief, 20 min on 20 min off - NPO- LR at 75 ml per hour - Reeves catheter - Hold plavix- restart when hemostasis is ensured - ABX per orthopaedics - SCD's and TEDs- chemoprophylaxis when cleared by orthopaedics - PT/OT- weight bearing per Orthopaedics Sammy perioperative risk for intraoperative cardiac arrest or PA- 0.43% Geriatric Sensitive probability of intraoperative cardiac arrest or PA 2.3% She has a normal ECHO from 10/02/20 with normal EF 55-60% and mild mitral regurg and normal left ventricular wall motion No chronic pulmonary disease CXR pending ECG reviewed no dynamic changes and no acute symptoms (2) CVA (cerebral vascular accident): As per HPI- history of CVA recent - Plavix as above - Statin discontinued secondary to microhemmorhage and normal lipids profile - BP control, HTN appears to be situational and not chronically needed - Continue OT/PT rehab while in house when weight bearing cleard by ortho - With her elevated homcystiene levels (17.7) she is on the pyridoxine and ? 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 Her history is also significant for leukocytoclastic vasculitis; followed by fostertology at [place] as well as Dr. Telles from [facility], mild HTN, low IgM [place], mild Mitral Regurge. The patient comes to the emergency room after [facility] where she was recovering and rehabbing following the above CVA. Following her CVA admisison her statin was discontinued and on Plavix. Her last dose of Plavix was [id number] per the patient. The patient was attempting to get blankets off her bed, where she became tangled in them and fell onto her left hip. She had immediate pain at that site and was unable to bear weight. The patient did not use her walker, as she says it was out of reach. In the [facility] the patient had a multiple Xrays performed and a head CT scan performed. Hip and Pelvis X-ray revealed an acute basicervical fracture of the left femur which may extend into the femoral head with possible adjacent bone fragment. Orthopaedics was consulted by the [facility] physician Dr. Bledsoe and hospitalist team was notified for admisison. Patient will be admitted to medical surgical floor, await orthopaedics evaluation and treatment plan, will keep NPO at this time. I have updated the Sonia via phone as he called the nursing station for an update. He will be coming back to the hospital today or this evening The patient was in the process of getting her vasculitis workup started to rule out any hematologic malignancies, as reportedly was not responding to conservative therapies. She was being weaned off her steroids when she had her first CVA on October 01. She had residual left sided weakness and persistent balance and facial droop. She had repeat imaging on November 15 which revealed the right infarction of the right thalamus. During this CVA work up with her history of vasculitis, she was to have a temporal artery biopsy that was performed, but unfortunately did not have any arterial material in the biopsy for diagnosis. Her life skills worker at [place] is Dr. Dayne Leavitt, his phone number is [phone]. The patient's speech is improved at this time, with some residual left sided mild weakness in her upper extremity. She feels that her rehab was going very well and she was progressing. Her was not at the bedside, but she is anxious at this time. Allergies Allergy/AdvReac Type Severity Reaction Status Date / Time influenza virus vaccine Allergy Intermediate rash Verified 12/02/20 07:58 trivalent amoxicillin [From Amoxil] Allergy Unknown Unknown Verified 12/02/20 07:58 Anesthetics - Amide Type - Allergy Unknown Unknown Verified 12/02/20 07:58 Select A [Anesthetics - Amide Type] diazepam [From Valium] Allergy Unknown Unknown Verified 12/02/20 07:58 ethyl chloride Allergy Unknown Unknown Verified 12/02/20 07:58 procaine [From Novocain] Allergy Unknown Unknown Verified 12/02/20 07:58 Penicillins AdvReac Unknown SEVERE Verified 12/02/20 07:58 INTERNAL VAGINITIS Home Medications Medication Instructions Recorded Confirmed Type polyethylene glycol 3350 17 17 gm PO DAILY PRN gm 01/17/19 12/02/20 History gram/dose oral powder cyanocobalamin (vitamin B-12) 1,000 mcg SUBLINGUAL QAM 05/23/20 12/02/20 History 1,000 mcg sublingual lozenge cholecalciferol (vitamin D3) 25 mcg PO QAM 11/14/20 12/02/20 History [Vitamin D3] multivitamin [Daily-Charlie] 1 tab PO QAM 11/14/20 12/02/20 History clopidogrel 75 mg PO DAILY #30 tab 11/18/20 12/02/20 Rx pantoprazole 40 mg tablet,delayed 40 mg PO DAILY 11/26/20 12/02/20 History release pyridoxine (vitamin B6) 25 mg 25 mg PO DAILY 11/26/20 12/02/20 History tablet atorvastatin 40 mg PO DAILY 12/02/20 12/02/20 History Past Med/Surg History Medical History Abrasion of knee Actinic keratosis Anemia Benign positional vertigo Cheilosis CKD (chronic kidney disease), stage III Cystocele, midline Elevated blood pressure reading without diagnosis of hypertension Gastroparesis Generalized anxiety disorder Hip fracture, left History of skin cancer of unknown type Hyperglycemia Hypothyroidism Irregular heartbeat Irritable bowel syndrome Leukocytoclastic vasculitis Leukopenia Pain in joint of right shoulder Paresthesias Persistent insomnia Rectocele Second degree uterine prolapse Skin cancer Tonsillectomy planned (01/30/13) Vitamin D deficiency Surgical History H/O tooth extraction History of right cataract surgery History of surgical removal of ganglion cyst History of temporal artery biopsy (11/18/20) Right Temporal Artery Biopsy(Right) - Abebe العلي DO History of tonsillectomy History of tubal ligation (01/30/13) Family History Mother , age 80 Lymphoma Heart disease Arthritis Father , age 56 Stroke Denies family history of Ovarian cancer Breast cancer Colorectal cancer Social History Smoking Status: Former smoker Tobacco Type: Cigarettes Age Started Using Tobacco: 22; Age Quit Using Tobacco: 42; packs per day: 1; Years Smoked: 20; Smoking End Date: 1990; Second Hand Exposure: No; Hx Alcohol Use: Yes Alcohol type: beer, wine and hard liquor Alcohol Intake Frequency: Monthly or Less Hx Substance Use: No Preferred Language: Czech Communication Ability: Effective Visual Impairment: Limited Hearing Ability: Normal Complaint Supervisor Required: No Beliefs That Will Affect Care: None marital status: Current Living Situation: Spouse Current Living Situation Comment: [facility] current occupational status: retired Other Information That Helps Us Care for You: No Feels Safe at Home: Yes Safety Concerns: Feels Safe At This Time Childhood Exposure to Second-Hand Smoke: Yes caffeine: No Dental Care, Regularly: Yes Physical Activity Frequency: Does not Exercise Seatbelt Use: always Sunscreen Use: Yes Assistive Devices: Glasses and Walker Review of Systems Review of Systems: REVIEW OF SYSTEMS: Constitutional: No fever, sweats or chills Eyes: No diplopia, no worsening or blurred vision ENT: normal hearing, no trouble swallowing Respiratory: No cough, sputum, dyspnea at rest or on exertion Cardiovascular: No chest pain, tightness or palpitations Abdomen: No pain, nausea, vomiting, diarrhea or constipation Musculoskeletal: (+) left hip pain, No calf pain, swelling Neurologic: (+) left weakness, No numbness/tingling, or balance problems Psychiatric: No anxiety or depression Skin: (+) old purpura lesions Physical Exam Physical Exam: PHYSICAL EXAM: General: awake, alert, no apparent distress Head: Normocephalic, atraumatic ENT: PERRLA, EOMI, no pharyngeal exudate, mucous membranes dry Neuro: AAO x 3, speech clear and appropriate, strength intact bilaterally 5/5 right upper and lower, Strength 4/5 left upper and lower, sensation intact and equal all extremities and dermatomes, no pronator drift Chest: equal rise and fall of the chest, no accessory muscle use, no heaves or thrills, Clear to auscultation, on room air, Cardiac: Regular rate and rhythm, telemetry reviewed, skin warm dry, cap refill <3 seconds, peripheral pulses +2 no JVD, no murmur, 1-2+ edema to bilateral lower extremities GI: NABS x 4 quadrants, soft, nontender to palpation, tympany on percussion, no rebound, guarding or tenderness : reeves to gravity, no pain, no CVA tenderness, Extremities: Normal inspection calfs nontender to palpation Psych: Normal mood and affect Skin: old venous and purpura discolortions Results & Data Results & Data ([facility]) Vital Signs (Past 12 Hours) Vital Signs Temp Pulse Resp BP Pulse Ox 12/02/20 09:37 114 H 17 164/110 H 94 12/02/20 09:07 93 12/02/20 07:15 36.8 C 86 20 159/103 H 99 Laboratory Results Discontinued Medications Morphine Sulfate (Morphine Sulfate 2 Mg/Ml Carp) 2 mg IV Q1H PRN PRN Reason: Moderate Pain (Rating 3,4,5,6) Stop: 12/16/20 09:06 Last Admin: 12/02/20 10:01 Dose: 2 mg Documented by: [id number] Ondansetron HCl (Ondansetron Inj 2 Mg/Ml 2 Ml Vial) Confirm Administered Dose 4 mg .ROUTE .STK-MED ONE Stop: 12/02/20 09:34 Last Admin: 12/02/20 09:35 Dose: 4 mg Documented by: [id number] Ondansetron HCl (Ondansetron Inj 2 Mg/Ml 2 Ml Vial) 4 mg IV NOW STA Stop: 12/02/20 09:35 Last Admin: 12/02/20 09:59 Dose: Not Given Documented by: [id number] Diagnostic Findings Hand X-Ray 12/02/20 07:10 XR hand LT min 3V routine CLINICAL HISTORY: pain post fall COMPARISON: None FINDINGS: Alignment of the left hand is anatomic. There is no acute fracture. 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 There is also osteoarthritis within multiple interphalangeal joints of the left hand, most pronounced within the interphalangeal joint of the left thumb. IMPRESSION: No acute fracture or dislocation within the left hand. Electronically signed by: Kimani Cruz M.D. 12/02/2020 9:[address] 12/02/20 07:10 CT OF THE HEAD WITHOUT CONTRAST CLINICAL HISTORY: Fall. COMPARISON STUDY: Head CT November 14, 2020. CTA of the head and MRI of the brain November 15, 2020. CT DOSE: 537.48 mGy.cm TECHNIQUE: Helical axial images of the head were obtained without IV contrast. Automated exposure control was utilized for the study. A dose lowering technique was utilized adhering to the principles of ALARA. FINDINGS: No acute intracranial hemorrhage, midline shift or mass effect is present. Ventricular system is stable. Basilar cisterns are patent. No extra axial collections are present. 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 There is no calvarial fracture. IMPRESSION: 1. No acute intracranial findings. 2. Expected evolution of the multiple infarcts within the right basal ganglia and ji radiata on MRI of November 15, 2020. Electronically signed by: Kimani Cruz M.D. 12/02/2020 7:39 AM Hip/Pelvis X-Ray 12/02/20 07:10 XR hip LT 2V w pelvis CLINICAL HISTORY: pain post fall, unable to bear weight COMPARISON: Pelvis radiograph November 14, 2020. FINDINGS: Note is made of an acute basicervical fracture of the left femur. Fracture may extend into the left femoral head. There is a possible adjacent 1.4 cm bone fragment. No additional acute fractures are identified on this exam. The sacroiliac joints and symphysis pubis are intact. IMPRESSION: Acute basicervical fracture of the left femur which may extend into the femoral head with possible adjacent bone fragment, as described above. Electronically signed by: Kimani Cruz M.D. 12/02/2020 9:10 AM Sacrum and Coccyx X-Ray 12/02/20 07:10 XR sacrum coccyx min 2V CLINICAL HISTORY: pain post fall COMPARISON: None. Correlation is made with radiograph of the pelvis performed on March 15, 2019 DISCUSSION: Transverse lucent line is seen within the medial aspect of the partially visualized left femoral neck and might represent acute fracture. No other fractures or dislocation seen. Osseous structures are diffusely demineralized which limits evaluation. Mild degenerative changes of the lower lumbar spine. Asymmetric appearance of the left ischial bone is seen without definite fractures might be positional. Multiple calcifications are seen within pelvic region and could represent phleboliths. IMPRESSION: Possible fracture within left femoral neck. The above report was generated using voice recognition software. It may contain grammatical, syntax or spelling errors. Electronically signed by: Xochitl Li DO 12/02/2020 9:04 AM Medications Administered Discontinued Medications Morphine Sulfate (Morphine Sulfate 2 Mg/Ml Carp) 2 mg IV Q1H PRN PRN Reason: Moderate Pain (Rating 3,4,5,6) Stop: 12/16/20 09:06 Last Admin: 12/02/20 10:01 Dose: 2 mg Documented by: [id number] Ondansetron HCl (Ondansetron Inj 2 Mg/Ml 2 Ml Vial) Confirm Administered Dose 4 mg .ROUTE .K-MED ONE Stop: 12/02/20 09:34 Last Admin: 12/02/20 09:35 Dose: 4 mg Documented by: [id number] Ondansetron HCl (Ondansetron Inj 2 Mg/Ml 2 Ml Vial) 4 mg IV NOW STA Stop: 12/02/20 09:35 Last Admin: 12/02/20 09:59 Dose: Not Given Documented by: [id number] ECG Additional Comments: Poor data quality, interpretation may be adversely affected Sinus tachycardia with Premature supraventricular complexes Nonspecific T wave abnormality no dynamic changes Code Status & VTE Plan Code Status CODE: FULL VTE: SCD's, TEDS to righ, chemoprophylaxis following evaluaiton/treatment by orthopaedics VTE Prophylaxis Plan VTE Prophylaxis will be ordered: Yes Supervising Physician Co-Signing Physician Notes Attending Admit Note & Attestation: Pt seen / examined; chart reviewed in detail; admission care plan d/w NAVEEN Alfonso. I agree w/ the borrego components of his documentation. 85yo female with h/o leukocytoclastic vasculitis previously on steroids up until late September 2020; h/o CVA x 2 in 2020; CKD stage 3; reported h/o hypothyroidism. Currently rehabbing at [facility] following her recent admission for right-sided stroke. Fell this am, fracturing left hip. Dr Osiel Peña from [facility] Ortho consulted, patient taken to OR today by Dr Peña for s/p ORIF. I was called by DARCY Carlisle, following her ORIF. Towards end of case the patient had significant tachycardia. Reported HRs into the 140-150 range with irregularity. IV beta cayla was given. HRs improved per anesthesia. I spoke with the PACU nurse and she stated that when patient arrived in PAC HRs were still 130+ range and rhythm was irregular on monitor. I saw patient in PACU and by the time I arrived her HR was 70s and rhythm was NSR. Patient was still sedated from recent anesthesia but looked very pale. 1 brief rhythm strip was available for review - HR was about 120-130, either a.fib vs sinus tach with ectopy. PMH, PSH, allergies, meds, sochx, famhx, ros - reviewed VSS, afebrile (in PACU) HR 70s gen - sedated, opens eyes briefly to name being called eyes - PERRL mouth - MM dry heart - RRR, s1 s2, no obvious murmur lungs - CTA b/l abd - soft NT ND ext - no edema in ankles, pulses 2+ b/l skin - pallor, no leukcocytoclastic type rashes or petechiae any location labs reviewed - Hb 9.4 Cr 1 last TSH 04/21 was 2; no TSH since K this am wnl imaging reviewed A/P: 1. left hip pathological osteoporotic fx s/p ORIF today by Dr Peña appreciate his assistance check 25-OH vit D level am DVT proph - I spoke with Dr Peña - will keep her on asa/plavix combo 2. ?PAF vs sinus tach with ectopy - place on tele; check K/Mag/Trop/TSH/H & H NOW. STAT EKG. If she had PAF this could be reason for recent strokes this spring. 3. anemia with concern for acute blood loss anemia - H/H now, transfuse if necessary; considerable pallor on exam post-op. 4. h/o hypothyroidism - check TSH, begin replacement if needed. 5. h/o recent CVA x 2 - asa/plavix for secondary prevention; monitor for a.fib on tele. 6. h/o leukocytoclastic vasculitis - appears quiescent at this time; no rash, etc. Oneil Rowan MD PG Care Time/CCT Total # of Minutes Spent Total Time Spent with Patient: Total time spent is greater than 50% in coordination of care (as documented) at patient's floor/unit and/or counseling patient: Coding Level of Care Code 83961 Initial Inpt Care Lvl 3 Diagnoses Basicervical fracture of left femur S72.045A Encounter type: initial encounter Fracture alignment: nondisplaced Fracture type: closed CVA (cerebral vascular accident) I63.9 CVA mechanism: unspecified Left leg weakness R29.898 Leukocytoclastic vasculitis M31.0 Vitamin D deficiency E55.9 Idiopathic polyneuropathy G60.9 (1) Basicervical fracture of left femur Encounter type: initial encounter Fracture alignment: nondisplaced Fracture type: closed Qualified Code(s): S72.045A - Nondisplaced fracture of base of neck of left femur, initial encounter for closed fracture (2) CVA (cerebral vascular accident) CVA mechanism: unspecified Qualified Code(s): I63.9 - Cerebral infarction, unspecified
[2020-12-02] MEDS: LACTATED RINGER'S 1,000 ML IV SCH (12:30)
[2020-12-02] MEDS ORDERED: ACETAMINOPHEN 1,000 MG/100 ML VIAL IV PRN (12:32)
[2020-12-02] MEDS ORDERED: POLYETHYLENE (MIRALAX) 17 GM PACK PO PRN (12:32)
--- NOTE | 2020-12-02 12:46 | Orthopedic Consultation ---
Date of Consultation December 02, 2020 Assessment & Plan (1) Hip fracture, left: The patient is a 85 year old female who sustained a left hip fracture from ground level fall. Will obtain CT hip stat to determine best treatment options of Conservative vs CRPP vs left hip shayne-arthroplasty. Their treatment options of conservative versus surgical intervention were discussed. Since the patient was an ambulatory prior to their injury and to avoid the risks of bed sores, pulmonary complications, and to give them the best chance for ambulation, I recommended surgery. The patient and their family understands the risks of surgery, which include but are not limited to: bleeding, infection, re-op eration, damage to nerves and arteries, continued pain, failure of the hardware, mal-union, non-union, DVT, and . Due to their medical problems the patient and their family understand that the patient is a high risk candidate for surgery. In addition the patient and family are aware of the 20-30% morbidity associated with hip fracture for up to 1 year following a hip fracture. The patient understands all of these instructions and explanations, all of their questions have been satisfactorily addressed. After evaluating the CT of the Left hip shows involvement of the basicervical and transcervical hip fracture with comminution at the head neck junction superiorly, I recommended Left hip shayne-arthroplasty and went through the risks and benefits again with the patient and her . The patient and her have elected to proceed with surgery and the informed consent was signed. Present on Admission?: Yes History of Present Illness Reason for Consultation: Left hip fracture Requesting Physician: Liborio Peña MD Attending Physician: Oneil Rowan Allergies Allergy/AdvReac Type Severity Reaction Status Date / Time influenza virus vaccine Allergy Intermediate rash Verified 12/02/20 07:58 trivalent amoxicillin [From Amoxil] Allergy Unknown Unknown Verified 12/02/20 07:58 Anesthetics - Amide Type - Allergy Unknown Unknown Verified 12/02/20 07:58 Select A [Anesthetics - Amide Type] diazepam [From Valium] Allergy Unknown Unknown Verified 12/02/20 07:58 ethyl chloride Allergy Unknown Unknown Verified 12/02/20 07:58 procaine [From Novocain] Allergy Unknown Unknown Verified 12/02/20 07:58 Penicillins AdvReac Unknown SEVERE Verified 12/02/20 07:58 INTERNAL VAGINITIS Home Medications Medication Instructions Recorded Confirmed Type polyethylene glycol 3350 17 17 gm PO DAILY PRN gm 01/17/19 12/02/20 History gram/dose oral powder cyanocobalamin (vitamin B-12) 1,000 mcg SUBLINGUAL QAM 05/23/20 12/02/20 History 1,000 mcg sublingual lozenge cholecalciferol (vitamin D3) 25 mcg PO QAM 11/14/20 12/02/20 History [Vitamin D3] multivitamin [Daily-Charlie] 1 tab PO QAM 11/14/20 12/02/20 History clopidogrel 75 mg PO DAILY #30 tab 11/18/20 12/02/20 Rx pantoprazole 40 mg tablet,delayed 40 mg PO DAILY 11/26/20 12/02/20 History release pyridoxine (vitamin B6) 25 mg 25 mg PO DAILY 11/26/20 12/02/20 History tablet atorvastatin 40 mg PO DAILY 12/02/20 12/02/20 History Patient History Medical History Abrasion of knee Actinic keratosis Anemia Benign positional vertigo Cheilosis CKD (chronic kidney disease), stage III Cystocele, midline Elevated blood pressure reading without diagnosis of hypertension Gastroparesis Generalized anxiety disorder Hip fracture, left History of skin cancer of unknown type Hyperglycemia Hypothyroidism Irregular heartbeat Irritable bowel syndrome Leukocytoclastic vasculitis Leukopenia Pain in joint of right shoulder Paresthesias Persistent insomnia Rectocele Second degree uterine prolapse Skin cancer Tonsillectomy planned (01/30/13) Vitamin D deficiency Surgical History H/O tooth extraction History of right cataract surgery History of surgical removal of ganglion cyst History of temporal artery biopsy (11/18/20) Right Temporal Artery Biopsy(Right) - Abebe العلي DO History of tonsillectomy History of tubal ligation (01/30/13) Family History Mother , age 80 Lymphoma Heart disease Arthritis Father , age 56 Stroke Denies family history of Ovarian cancer Breast cancer Colorectal cancer Social History Smoking Status: Former smoker Tobacco Type: Cigarettes Age Started Using Tobacco: 22; Age Quit Using Tobacco: 42; packs per day: 1; Years Smoked: 20; Smoking End Date: 1990; Second Hand Exposure: No; Hx Alcohol Use: Yes Alcohol type: beer, wine and hard liquor Alcohol Intake Frequency: Monthly or Less Hx Substance Use: No Preferred Language: Finnish Communication Ability: Effective Visual Impairment: Limited Hearing Ability: Normal Edi Coordinator Required: No Beliefs That Will Affect Care: None marital status: Current Living Situation: Spouse Current Living Situation Comment: [facility] current occupational status: retired Other Information That Helps Us Care for You: No Feels Safe at Home: Yes Safety Concerns: Feels Safe At This Time Childhood Exposure to Second-Hand Smoke: Yes caffeine: No Dental Care, Regularly: Yes Physical Activity Frequency: Does not Exercise Seatbelt Use: always Sunscreen Use: Yes Assistive Devices: Glasses and Walker Review of Systems Review of Systems: All systems reviewed & are unremarkable except as noted in HPI & below Physical Exam Physical Exam: LLE: Sensation to light touch intact. BCR < 2 sec. Strength gastroc/Soleus, Tibialis Anterior, EHL 4/5. length is normal. - log roll. pain with gentle limited ROM hip. Results & Data ([facility]) Vital Signs (Past 12 Hours) Vital Signs Temp Pulse Resp BP Pulse Ox 12/02/20 11:30 101 H 20 142/99 H 91 12/02/20 11:00 109 H 17 155/111 H 93 12/02/20 10:30 103 H 24 166/83 H 94 12/02/20 10:00 108 H 18 159/82 H 92 12/02/20 09:37 114 H 17 164/110 H 94 12/02/20 09:07 93 12/02/20 07:15 36.8 C 86 20 159/103 H 99 Laboratory Results 12/02/20 12/02/20 12/02/20 Range/Units 09:45 09:32 09:32 WBC (4.8-10.8) K/uL RBC (4.2-5.4) M/uL Hgb (12.0-16.0) g/dL Hct (37-47) % MCV (80-100) fL MCH (25-34) pg MCHC (32-36) g/dL RDW Std Deviation (36.4-46.3) fL RDW Coeff of Arturo (11.5-14.5) % Plt Count (130-400) K/uL MPV (7.4-10.4) fL Immature Gran % (Auto) % Neut % (Auto) % Lymph % (Auto) % Gibson % (Auto) % Eos % (Auto) % Baso % (Auto) % Neut # (Auto) (1.4-6.5) K/uL Lymph # (Auto) (1.2-3.4) K/uL Gibson # (Auto) (0.11-0.59) K/uL Eos # (Auto) (0-0.5) K/uL Baso # (Auto) (0-0.2) K/uL Immature Gran # (Auto) (0.00-0.02) K/uL PT 10.3 (9.0-12.0) Seconds INR 1.0 (0.9-1.1) APTT 21.1 (21.0-31.0) Seconds PTT Ratio 0.8 Sodium 143 (136-145) mmol/L Potassium 3.5 (3.5-5.1) mmol/L Chloride 110 H (98-107) mmol/L Carbon Dioxide 27 (21-32) mmol/L Anion Gap 6.0 (3-11) BUN 14 (7-18) mg/dl Creatinine 1.03 (0.6-1.2) mg/dl Est Cr Clr Drug Dosing 41.7 ml/min Est GFR ( Amer) 58.2 ml/min Est GFR (Non-Af Amer) 50.2 ml/min BUN/Creatinine Ratio 14.0 (10-20) Glucose 96 (70-99) mg/dl Calcium 9.2 (8.5-10.1) mg/dl Total Bilirubin 0.9 (0.2-1) mg/dl AST 32 (15-37) U/L ALT 12 (12-78) U/L Alkaline Phosphatase 63 (45-117) U/L Total Protein 6.8 (6.4-8.2) gm/dl Albumin 3.3 L (3.4-5.0) gm/dl Globulin 3.5 (2.5-4.0) gm/dl Albumin/Globulin Ratio 0.9 (0.9-2) Urine Color Yellow Urine Appearance Clear (Clear) Urine pH 6.5 (4.5-7.5) Ur Specific [place] 1.012 (1.000-1.030) Urine Protein 2+ H (Negative) Urine Glucose (UA) Negative (Negative) Urine Ketones Trace H (Negative) Urine Blood 3+ H (Negative) Urine Nitrite Negative (Negative) Urine Bilirubin Negative (Negative) Urine Urobilinogen Negative (Negative) Ur Leukocyte Esterase Negative (Negative) Urine WBC (Auto) 10-30 H (0-5) /hpf Urine RBC (Auto) >30 H (0-4) /hpf U Hyaline Cast (Auto) 1-5 (0-5) /lpf U Epithel Cells (Auto) >30 H (0-5) /lpf Urine Bacteria (Auto) Negative (Negative) Ur Renal Epithelial Cell 0-5 (0-5) /lpf Granular Casts 1-5 H (0) /lpf WBC Casts 1-5 H (0) /lpf COVID-19 Eval Order SARS-CoV-2 (PCR) (Negative) Blood Type Antibody Screen 12/02/20 12/02/20 12/02/20 Range/Units 09:32 09:32 09:25 WBC 8.74 (4.8-10.8) K/uL RBC 3.12 L (4.2-5.4) M/uL Hgb 9.4 L (12.0-16.0) g/dL Hct 29.4 L (37-47) % MCV 94.2 (80-100) fL MCH 30.1 (25-34) pg MCHC 32.0 (32-36) g/dL RDW Std Deviation 55.4 H (36.4-46.3) fL RDW Coeff of Arturo 16.1 H (11.5-14.5) % Plt Count 155 (130-400) K/uL MPV 9.4 (7.4-10.4) fL Immature Gran % (Auto) 0.1 % Neut % (Auto) 86.1 % Lymph % (Auto) 8.8 % Gibson % (Auto) 4.3 % Eos % (Auto) 0.6 % Baso % (Auto) 0.1 % Neut # (Auto) 7.52 H (1.4-6.5) K/uL Lymph # (Auto) 0.77 L (1.2-3.4) K/uL Gibson # (Auto) 0.38 (0.11-0.59) K/uL Eos # (Auto) 0.05 (0-0.5) K/uL Baso # (Auto) 0.01 (0-0.2) K/uL Immature Gran # (Auto) 0.01 (0.00-0.02) K/uL PT (9.0-12.0) Seconds INR (0.9-1.1) APTT (21.0-31.0) Seconds PTT Ratio Sodium (136-145) mmol/L Potassium (3.5-5.1) mmol/L Chloride (98-107) mmol/L Carbon Dioxide (21-32) mmol/L Anion Gap (3-11) BUN (7-18) mg/dl Creatinine (0.6-1.2) mg/dl Est Cr Clr Drug Dosing ml/min Est GFR ( Amer) ml/min Est GFR (Non-Af Amer) ml/min BUN/Creatinine Ratio (10-20) Glucose (70-99) mg/dl Calcium (8.5-10.1) mg/dl Total Bilirubin (0.2-1) mg/dl AST (15-37) U/L ALT (12-78) U/L Alkaline Phosphatase (45-117) U/L Total Protein (6.4-8.2) gm/dl Albumin (3.4-5.0) gm/dl Globulin (2.5-4.0) gm/dl Albumin/Globulin Ratio (0.9-2) Urine Color Urine Appearance (Clear) Urine pH (4.5-7.5) Ur Specific [place] (1.000-1.030) Urine Protein (Negative) Urine Glucose (UA) (Negative) Urine Ketones (Negative) Urine Blood (Negative) Urine Nitrite (Negative) Urine Bilirubin (Negative) Urine Urobilinogen (Negative) Ur Leukocyte Esterase (Negative) Urine WBC (Auto) (0-5) /hpf Urine RBC (Auto) (0-4) /hpf U Hyaline Cast (Auto) (0-5) /lpf U Epithel Cells (Auto) (0-5) /lpf Urine Bacteria (Auto) (Negative) Ur Renal Epithelial Cell (0-5) /lpf Granular Casts (0) /lpf WBC Casts (0) /lpf COVID-19 Eval Order SARS-CoV-2 (PCR) NEGATIVE (Negative) Blood Type B Positive Antibody Screen NEGATIVE 12/02/20 Range/Units 09:25 WBC (4.8-10.8) K/uL RBC (4.2-5.4) M/uL Hgb (12.0-16.0) g/dL Hct (37-47) % MCV (80-100) fL MCH (25-34) pg MCHC (32-36) g/dL RDW Std Deviation (36.4-46.3) fL RDW Coeff of Arturo (11.5-14.5) % Plt Count (130-400) K/uL MPV (7.4-10.4) fL Immature Gran % (Auto) % Neut % (Auto) % Lymph % (Auto) % Gibson % (Auto) % Eos % (Auto) % Baso % (Auto) % Neut # (Auto) (1.4-6.5) K/uL Lymph # (Auto) (1.2-3.4) K/uL Gibson # (Auto) (0.11-0.59) K/uL Eos # (Auto) (0-0.5) K/uL Baso # (Auto) (0-0.2) K/uL Immature Gran # (Auto) (0.00-0.02) K/uL PT (9.0-12.0) Seconds INR (0.9-1.1) APTT (21.0-31.0) Seconds PTT Ratio Sodium (136-145) mmol/L Potassium (3.5-5.1) mmol/L Chloride (98-107) mmol/L Carbon Dioxide (21-32) mmol/L Anion Gap (3-11) BUN (7-18) mg/dl Creatinine (0.6-1.2) mg/dl Est Cr Clr Drug Dosing ml/min Est GFR ( Amer) ml/min Est GFR (Non-Af Amer) ml/min BUN/Creatinine Ratio (10-20) Glucose (70-99) mg/dl Calcium (8.5-10.1) mg/dl Total Bilirubin (0.2-1) mg/dl AST (15-37) U/L ALT (12-78) U/L Alkaline Phosphatase (45-117) U/L Total Protein (6.4-8.2) gm/dl Albumin (3.4-5.0) gm/dl Globulin (2.5-4.0) gm/dl Albumin/Globulin Ratio (0.9-2) Urine Color Urine Appearance (Clear) Urine pH (4.5-7.5) Ur Specific [place] (1.000-1.030) Urine Protein (Negative) Urine Glucose (UA) (Negative) Urine Ketones (Negative) Urine Blood (Negative) Urine Nitrite (Negative) Urine Bilirubin (Negative) Urine Urobilinogen (Negative) Ur Leukocyte Esterase (Negative) Urine WBC (Auto) (0-5) /hpf Urine RBC (Auto) (0-4) /hpf U Hyaline Cast (Auto) (0-5) /lpf U Epithel Cells (Auto) (0-5) /lpf Urine Bacteria (Auto) (Negative) Ur Renal Epithelial Cell (0-5) /lpf Granular Casts (0) /lpf WBC Casts (0) /lpf COVID-19 Eval Order Covid19 at [facility] SARS-CoV-2 (PCR) (Negative) Blood Type Antibody Screen Diagnostic Findings I reviewed the AP Pelvis, Ap & Lateral left hip as well as the Sacrum/Coccyx series which showed a basicervicle non-displaced fracture, with possible extension to femoral head. I reviewed the CT Left hip which showed a basicervical and transcervical hip fracture with comminution at the head neck junction superiorly.
[2020-12-02] MEDS ORDERED: CLINDAMYCIN 600 MG/54 ML BAG IV SCH (14:30)
--- NOTE | 2020-12-02 14:33 | CT Scan Report ---
CT hip LT wo con HISTORY: 85 years-old Female Pre-op planning acute fracture of the left proximal femur COMPARISON: Pelvis and left hip radiographs of same day TECHNIQUE: Multiple axial CT images of the left hip were obtained without the use of IV contrast. Cor onal and sagittal reformatted images were obtained from the axial data set and were submitted for rev iew. Additional 3-D rendering images were also submitted. A dose lowering technique was used consiste nt with the principals of ERUM. FINDINGS: Hyperattenuating colonic diverticulosis suggestive of retained enteric contrast. Moderate fecal reten tion of the rectum. Partially imaged mesenteric edema. Decompressed urinary bladder with Tavares cathet er. Demineralized appearance of the bones. Mild left hip osteoarthritis. The imaged left hemipelvis a ppears intact. There is an acute fracture of the left femoral neck with transcervical and basicervica l components. The basicervical component demonstrates lateral cortical buckling with a minimally disp laced 1.3 severe lateral bone fragments on image 31 of series 300. There is no extension into the art icular femoral head. No intertrochanteric fracture extension. There is no large joint effusion or intramuscular hematoma. IMPRESSION: Acute fracture of the left femoral neck with transcervical and basicervical components. T here is a small minimally displaced fracture fragment as above. ACT 112: Negative or not required by law. The above report was generated using voice recognition software. It may contain grammatical, syntax o r spelling errors. Electronically signed by: Darnell Lau M.D. 12/02/2020 2:32 PM
[2020-12-02] MEDS ORDERED: fentaNYL citrate 100 MCG/2 ML VIAL ONE (15:02)
--- NOTE | 2020-12-02 15:10 | Anesthesiology Consultation ---
Date of Service December 02, 2020 Assessment & Plan (1) Encounter for pre-operative examination: Chart Review Chart Review: Acceptable Risk for Surgery and Patient NOT seen in Pre Admission Testing Consults Requested none History Surgery Operation Date: 12/02/20 12:45 Proposed Procedures p Left Hip Hemiarthroplasty - Osiel Jennifer Peña MD Height/Weight Height: 5 ft 8 in Weight: 68.5 kg Allergies Allergy/AdvReac Type Severity Reaction Status Date / Time influenza virus vaccine Allergy Intermediate rash Verified 12/02/20 07:58 trivalent amoxicillin [From Amoxil] Allergy Unknown Unknown Verified 12/02/20 07:58 Anesthetics - Amide Type - Allergy Unknown Unknown Verified 12/02/20 07:58 Select A [Anesthetics - Amide Type] diazepam [From Valium] Allergy Unknown Unknown Verified 12/02/20 07:58 ethyl chloride Allergy Unknown Unknown Verified 12/02/20 07:58 procaine [From Novocain] Allergy Unknown Unknown Verified 12/02/20 07:58 Penicillins AdvReac Unknown SEVERE Verified 12/02/20 07:58 INTERNAL VAGINITIS Medications Home Medications Medication Instructions Recorded Confirmed Last Taken polyethylene glycol 3350 17 17 gm PO DAILY PRN gm 01/17/19 12/02/20 10/03/19 gram/dose oral powder cyanocobalamin (vitamin B-12) 1,000 mcg SUBLINGUAL QAM 05/23/20 12/02/20 11/14/20 08:00 1,000 mcg sublingual lozenge cholecalciferol (vitamin D3) 25 mcg PO QAM 11/14/20 12/02/20 11/14/20 08:00 [Vitamin D3] multivitamin [Daily-Charlie] 1 tab PO QAM 11/14/20 12/02/20 11/14/20 08:00 clopidogrel 75 mg PO DAILY #30 tab 11/18/20 12/02/20 Unknown pantoprazole 40 mg tablet,delayed 40 mg PO DAILY 11/26/20 12/02/20 Unknown release pyridoxine (vitamin B6) 25 mg 25 mg PO DAILY 11/26/20 12/02/20 Unknown tablet atorvastatin 40 mg PO DAILY 12/02/20 12/02/20 Unknown NPO Date Last Intake of Fluids: 12/02/20 Last Intake of Fluids Comment: sips Past Medical History Medical History Abrasion of knee Actinic keratosis Anemia Benign positional vertigo Cheilosis CKD (chronic kidney disease), stage III Cystocele, midline Elevated blood pressure reading without diagnosis of hypertension Gastroparesis Generalized anxiety disorder Hip fracture, left History of skin cancer of unknown type Hyperglycemia Hypothyroidism Irregular heartbeat Irritable bowel syndrome Leukocytoclastic vasculitis Leukopenia Pain in joint of right shoulder Paresthesias Persistent insomnia Rectocele Second degree uterine prolapse Skin cancer Tonsillectomy planned (01/30/13) Vitamin D deficiency Past Family History Family History Mother , age 80 Lymphoma Heart disease Arthritis Father , age 56 Stroke Denies family history of Ovarian cancer Breast cancer Colorectal cancer Past Surgical History Surgical History H/O tooth extraction History of right cataract surgery History of surgical removal of ganglion cyst History of temporal artery biopsy (11/18/20) Right Temporal Artery Biopsy(Right) - Abebe العلي DO History of tonsillectomy History of tubal ligation (01/30/13) Social History Smoking Status: Former smoker tobacco type: cigarettes Smoking End Date: 1990 Hx Alcohol Use: Yes Alcohol type: beer, wine and hard liquor alcohol intake frequency: 0-2 drinks per day Alcohol Intake Frequency Comment: pt reports not drinking since beginning meds for vasculitis Hx Substance Use: No substance use type: does not use Physical Exam Vital Signs Last Vital Signs Temp 36.7 C 12/02/20 14:58 Pulse 108 H 12/02/20 14:58 Resp 16 12/02/20 14:58 BP 150/79 H 12/02/20 14:58 Pulse Ox 95 12/02/20 14:58 Testing Laboratory Results 12/02/20 09:32 12/02/20 09:32 PT 10.3 Seconds (9.0-12.0) 12/02/20 09:32 INR 1.0 (0.9-1.1) 12/02/20 09:32 APTT 21.1 Seconds (21.0-31.0) 12/02/20 09:32 Urine Color Yellow 12/02/20 09:45 Urine Appearance Clear (Clear) 12/02/20 09:45 Urine pH 6.5 (4.5-7.5) 12/02/20 09:45 Ur Specific [place] 1.012 (1.000-1.030) 12/02/20 09:45 Urine Protein 2+ (Negative) H 12/02/20 09:45 Urine Glucose (UA) Negative (Negative) 12/02/20 09:45 Urine Ketones Trace (Negative) H 12/02/20 09:45 Urine Nitrite Negative (Negative) 12/02/20 09:45 Ur Leukocyte Esterase Negative (Negative) 12/02/20 09:45 Urine WBC (Auto) 10-30 /hpf (0-5) H 12/02/20 09:45 Urine RBC (Auto) >30 /hpf (0-4) H 12/02/20 09:45 U Hyaline Cast (Auto) 1-5 /lpf (0-5) 12/02/20 09:45 U Epithel Cells (Auto) >30 /lpf (0-5) H 12/02/20 09:45 Urine Bacteria (Auto) Negative (Negative) 12/02/20 09:45 Blood Type B Positive 12/02/20 09:32 Antibody Screen NEGATIVE 12/02/20 09:32
[2020-12-02] MEDS ORDERED: BUPIVACAINE 0.5 % 5 MG/1 ML MPF 30ML VIAL ONE (15:42)
[2020-12-02] MEDS ORDERED: LIDOCAINE/EPINEPHRINE 1% 20 ML VIAL ONE (15:42)
[2020-12-02] MEDS ORDERED: ePHEDrine sulfate 50 MG/ML AMP IV PRN (16:33)
[2020-12-02] MEDS ORDERED: ATROPINE SULFATE 0.1 MG/ML 10ML SYR IV PRN (16:33)
[2020-12-02] MEDS ORDERED: ONDANSETRON INJ 2 MG/ML 2 ML VIAL IV PRN (16:33)
[2020-12-02] MEDS ORDERED: fentaNYL citrate 100 MCG/2 ML VIAL IV PRN ×2 (16:33→19:24)
--- NOTE | 2020-12-02 16:35 | Procedure Note ---
Procedure Note Date of Service December 02, 2020 Radial arterial line placed in preop in preparation for left hip fracture repair with Dr. Peña. Left wrist prepped with chlorhexidine and draped with sterile towels. Site infiltrated with 0.5 cc of 1% lidocaine. 20 G angiocath placed under sterile technique utilizing sterile gloves, surgical hats and masks. Catheter threaded using seldinger technique with return of pulsatile, bright red blood. Site covered with occlusive dressing and taped in place. Waveform consistent with correct arterial placement. After placement, fingers of procedural hand had normal perfusion. Patient tolerated procedure well without complications. Ryann Cedillo MD, PhD Anesthesiologist Coding
[2020-12-02] MEDS ORDERED: ALBUMIN HUMAN 5% 12.5 GM/250 ML VIAL IV ONE (17:31)
[2020-12-02] MEDS ORDERED: PROPOFOL IV EMULSION 10 MG/ML 20 ML VIAL IV ONE (18:17)
[2020-12-02] MEDS ORDERED: PHENYLEPHRINE 100MCG/ML 5ML SYR ONE (18:17)
[2020-12-02] MEDS ORDERED: ROCURONIUM BROMIDE 10 MG/ML 5 ML VIAL IV ONE (18:17)
[2020-12-02] MEDS ORDERED: NEOSTIGMINE METHYLSULFATE 1 MG/ML 10ML VIAL ONE (18:17)
[2020-12-02] MEDS ORDERED: ePHEDrine sulfate 50 MG/ML SYR ONE (18:17)
[2020-12-02] MEDS ORDERED: LIDOCAINE 2% 2 ML VIAL/AMP(20MG/ML) INFIL ONE (18:17)
[2020-12-02] MEDS ORDERED: GLYCOPYRROLATE 0.2 MG/ML VIAL ONE (18:17)
[2020-12-02] MEDS ORDERED: LARYING-O-JET KIT (LTA) ONE (18:17)
--- NOTE | 2020-12-02 18:44 | XRay Report ---
XR hip LT min 2V HISTORY: 85 years-old Female BIPOLAR LT HIP left hip total joint arthroplasty COMPARISON: CT left hip with same day TECHNIQUE: 2 views of the left hip FINDINGS: Left hip total joint arthroplasty appears to be in satisfactory positioning. Metallic density for sat ellite of the lungs. Metallic density leads are also present. Expected postsurgical soft tissue swell ing and deep tissue air. Limited lateral view secondary to magnification. IMPRESSION: Left hip total joint arthroplasty with satisfactory alignment. ACT 112: Negative or not required by law. The above report was generated using voice recognition software. It may contain grammatical, syntax o r spelling errors. Electronically signed by: Darnell Lau M.D. 12/02/2020 6:42 PM
--- NOTE | 2020-12-02 19:05 | Post Operative Brief Note ---
Immediate Post Op Note v1 Date of Surgery December 02, 2020 Pre & Post Diagnosis Operation Date: 12/02/20 12:45 Pre-Op Diagnosis: Left hip fracture Post-Op Diagnosis: Left hip fracture I identified the patient and participated in the time-out.: Yes Procedure Operation Date: 12/02/20 12:45 Actual Procedures p Left Hip Hemiarthroplasty-Cemented(Left) - Osiel Peña MD Surgeon Osiel Peña MD Dry Plasterer C ANISHA Yip (No fellow avail) Estimated Blood Loss 200 Findings Consistent with Post-Op Diagnosis Fluids 1500 cc Specimens Left hip contents Drains Tavares Catheter (from inpatient floor. Clear yellow urine noted. Anesthesia to monitor urine output) Anesthesia Type General Complications none
[2020-12-02] MEDS ORDERED: ESMOLOL HCL INJ 10 MG/ML 10ML VIAL IV ONE (19:06)
--- NOTE | 2020-12-02 19:07 | Operative Report ---
Post Operative Report Pre & Post Diagnosis Operation Date: 12/02/20 12:45 Pre-Op Diagnosis: Left hip fracture Post-Op Diagnosis: Left hip fracture I identified the patient and participated in the time-out.: Yes Procedure Operation Date: 12/02/20 12:45 Actual Procedures p Left Hip Hemiarthroplasty-Cemented(Left) - Osiel Peña MD Surgeon Osiel Peña MD Flat Lock Operator Nydia Yip PA-C (No fellow avail) Estimated Blood Loss 200 Findings See Below Left femoral neck fracture, disruption gluteus juventino fascia Fluids 1500 cc Specimens Left hip contents Drains Tavares Anesthesia Type General Complications none Indications The patient is a 85 year old female who sustained a Traumatic Osteoporotic fracture of left femoral neck in setting of ground level fall. After orthopedic consult discussing the patients treatment options of conservative versus surgical intervention, she agreed for a planned hemiarthroplasty. Since the patient was ambulatory prior to the injury and to avoid the risks of bed sores, pulmonary complications, and to give the patient the best chance for ambulation, I recommended surgery. The patient understands the risks of surgery, which include but are not limited to: bleeding, infection, re-operation, damage to nerves and arteries, continued pain, failure of the hardware, dislocation, DVT, and . In addition the patient is aware of the 20-30% morbidity associated with hip fracture for up to 1 year following a hip fracture. The patient and her understands all of these instructions and explanations, all of their questions have been satisfactorily addressed. The patient and her has elected to proceed with surgery and the informed consent was signed. Description of Procedure IMPLANTS: 1) LD Fx Stem, Size 12 Standard body/Neck Offset Cemented (Francisco/Biomet). 2) Femoral Head 28mm Diameter, + 0 mm Neck Length. 3) 47 mm Multipolar Bipolar Cup. 4) 28 mm ID Liner, Multipolar Bipolar Cup. 5) Distal Centralizer 10 mm. 6) Simplex cement 2 (Styker). PROCEDURE: The patient was taken to the Operating Room and placed in the lateral position with a leroy bag following general anesthesia administration. A multidisciplinary time-out was performed identifying my initials on the right lower limb as the correct and operative limb. Prior to the incision being made, 600 milligrams of intravenous Clindamycin were given. The left lower extremity was prepped in the standard fashion. The trochanter was marked as was the planned incision 1/3 proximal and 2/3 distal to the tip of the greater trochanter. The incisions were injected with a 50:50 mixture of 1% Lidocaine epi and 0.5% Bupivacaine plain for a total of 15 cc. A standard posterior approach was made. The planned incision was carried down through the Tensor Fascia Irina , which was then split in-line with its fibers and along the split in the Gluteus Juventino that was already present. The Piriformis and short external rotators were dissected off the capsule and femur and tagged for later repair. The fracture was easily identified from the bleeding fracture fragments. The Neck cut was made to allow removal of the femoral head and comminuted fragments to be removed. The femoral canal was prepared with Box osteotome, followed by a canal finder, and lateralizing reamer. The femur was sequentially broached in the standard fashion, and trial heads were placed. Fluoroscopy was brought in to ensure adequate proper alignment, fill of the canal, head size, and leg length. Fluoroscopy showed good canal fill and position. The trial components were removed and the wound and femoral canal were copiously irrigated and dried. The femur was cemented using 3rd generation technique followed by placement of the components in the standard fashion and the hip reduced. There was excellent stability with no sense of dislocation with 20 degrees adduction, flexion 90 degrees, and internal rotation to 40 degrees. The wounds were copiously irrigated. The External rotators and capsule were closed over bon bridges with #2 FiberWire. The Tensor Fascia Irina was closed with #1 Vicryl. A single subcutaneous fat stay suture was placed using 0 Vicryl. The subcutaneous tissue was closed with 3-0 Vicryl. The skin was closed with Zipline and shield. The incisions were covered with 4 x 4's, ABD, and foam tape. The patient was transfer to her hospital bed and taken to the PACU in stable condition. The sponge and needle counts were correct. Post-op Instructions: The patient was admitted to back to the [facility]. Final x-rays will be obtained in the PACU. The patient will be WBAT with a walker and likely need an assit. The patient will be seen by PT/OT. The patient's labs will be checked in the am. DVT prophylaxis will be with TEDs, mechanical devices and will ASA tonight, resume Plavix in the AM. I attest to the content of the Intraoperative Record and any orders documented therein. Any exceptions are noted below.
--- NOTE | 2020-12-02 19:39 | Operative Report ---
Post Operative Report Pre & Post Diagnosis Operation Date: 12/02/20 12:45 Pre-Op Diagnosis: Left hip fracture Post-Op Diagnosis: Left hip fracture I identified the patient and participated in the time-out.: Yes Procedure Operation Date: 12/02/20 12:45 Actual Procedures p Left Hip Hemiarthroplasty-Cemented(Left) - Osiel Jennifer Peña MD Surgeon Liborio Peña MD Reverberatory Furnace Supervisor Nydia Yip PA-C (No fellow avail) Estimated Blood Loss 200 Findings Consistent with Post-Op Diagnosis Specimens see operative report Drains none Complications none Disposition Accompanied Patient To Recovery: Yes Disposition: Recovery Room Indications This 85-year-old female presented through the ED after fall and sustaining a left hip fracture. She elected to proceed with surgical intervention after being educated about potential risks and outcomes. Preoperative imaging was obtained. Description of Procedure Patient was administered a spinal anesthetic and then taken to the operating room where she was given sedation. She was prepped and draped in the usual sterile fashion. Please see Dr. Peña's operative report for specifics of the procedure. I was present for the entire case from initial patient positioning through final wound closure. Assistance was provided in tissue retraction, hemostasis, trial implant placement, final implant placement, and final wound closure. Patient was taken to the recovery room in satisfactory condition. I attest to the content of the Intraoperative Record and any orders documented therein. Any exceptions are noted below.
--- NOTE | 2020-12-02 19:58 | Anesthesiology Progress Note ---
Date of Service December 02, 2020 Anesthesia Post Procedure Vital Signs Vital Signs: Temp Pulse Pulse Pulse Resp BP BP 12/02/20 19:45 73 15 134/63 12/02/20 19:35 69 15 128/65 12/02/20 19:25 104 H 15 151/84 H 12/02/20 19:15 36.2 C L 105 H 26 H 136/92 12/02/20 15:45 36.7 C 110 H 16 169/100 H 12/02/20 14:58 36.7 C 108 H 16 150/79 H 12/02/20 12:33 36.8 C 89 14 161/90 H 12/02/20 11:30 101 H 20 142/99 H 12/02/20 11:00 109 H 17 155/111 H 12/02/20 10:30 103 H 24 166/83 H 12/02/20 10:00 108 H 18 159/82 H 12/02/20 09:37 114 H 17 164/110 H 12/02/20 09:07 12/02/20 07:15 36.8 C 86 20 159/103 H Pulse Ox 12/02/20 19:45 100 12/02/20 19:35 98 12/02/20 19:25 98 12/02/20 19:15 100 12/02/20 15:45 95 12/02/20 14:58 95 12/02/20 12:33 94 12/02/20 11:30 91 12/02/20 11:00 93 12/02/20 10:30 94 12/02/20 10:00 92 12/02/20 09:37 94 12/02/20 09:07 93 12/02/20 07:15 99 Pain Intensity Left Leg: Pain Intensity: 8 Transfer of Care Handoff Completed per policy Notes Mental Status: alert / awake / arousable and participated in evaluation Patient Amnestic to Procedure: Yes Nausea / Vomiting: adequately controlled Pain: adequately controlled Airway Patency, RR, SpO2: stable & adequate BP & HR: stable & adequate Hydration State: stable & adequate Anesthetic Complications: no major complications apparent and Pt Satisfied with anesthetic care
--- NOTE | 2020-12-02 20:03 | XRay Report ---
XR pelvis 1-2V routine HISTORY: 85 years-old Female Post Surgical left hip total joint arthroplasty COMPARISON: Pelvis and left hip radiographs of same day TECHNIQUE: AP view of the pelvis FINDINGS: Mild right hip osteoarthritis. Left hip total joint arthroplasty demonstrates satisfactory alignment. No acute fracture or retained foreign body. Expected postsurgical soft tissue swelling and deep tiss ue air surrounding the left hip. Pelvic basin calcifications. IMPRESSION: Left hip total joint arthroplasty with expected postoperative changes. ACT 112: Negative or not required by law. The above report was generated using voice recognition software. It may contain grammatical, syntax o r spelling errors. Electronically signed by: Darnell Lau M.D. 12/02/2020 8:01 PM
[2020-12-02 20:39] LABS: Potassium 3.4 mmol/L (3.5-5.1)
[2020-12-02 20:57] LABS: Magnesium 1.9 mg/dl (1.8-2.4); Thyroid Stimulating Hormone 29.9 uIu/ml (0.300-4.500); Troponin I 0.026 ng/ml (0-0.045)
[2020-12-02 21:00] LABS: Hematocrit (blood only) 19.1 % (37-47); Hemoglobin 6.1 g/dL (12.0-16.0)
[2020-12-02] MEDS ORDERED: METOCLOPRAMIDE HCL INJ 5 MG/ML 2 ML VIAL IV PRN (21:02)
[2020-12-02] MEDS ORDERED: HYDROCODONE/ACETAMOPHEN 5/325MG TAB PO PRN (21:02)
[2020-12-02] MEDS ORDERED: diphenhydrAMINE 50 MG/ML VIAL IV PRN (21:02)
[2020-12-02] MEDS ORDERED: ALUMINUM/MAGNESIUM SUSP 30 ML UDC PO PRN (21:02)
[2020-12-02 21:12] LABS: T4 Free Thyroxine 1.22 ng/dl (0.8-1.6)
[2020-12-02] MEDS ORDERED: SODIUM CHLORIDE 0.9% 250 ML IV PRN ×2 (21:32→22:31)
--- NOTE | 2020-12-02 21:43 | Communication Note ---
Date of Service: December 02, 2020 Patient with Hgb returned at 6.1 down from 9.4, Potassium 3.4, Magnesium 1.9. Will give 2 units PRBC, 20meq KCl, 2 grams Mag. Will watch closely for fluid overload, most recent Echo with EF 55-60%. Repeat labs in early AM after completion of blood transfusion. Resident Activity Tracking Resident Involvement: Resident Care Provided and [facility] Coverage Note Care Provided: Adult Hospital Medicine
[2020-12-02] MEDS: MoRPHine SULFATE 2 MG/ML CARP IV PRN (23:35)
[2020-12-03] MEDS: POTASSIUM CHLORIDE / WTR 10 MEQ/100 ML PLCT IV SCH ×2 (00:34→01:39)
[2020-12-03] MEDS: DOCUSATE SODIUM/SENNA 50/8.6MG TAB PO SCH ×2 (02:07→21:00)
[2020-12-03] MEDS: MoRPHine SULFATE 2 MG/ML CARP IV PRN ×3 (02:11→23:55)
[2020-12-03] MEDS: MAGNESIUM SULFATE / D5W 1 GM/100 ML BAG IV SCH ×2 (03:36→05:36)
[2020-12-03] MEDS: CLINDAMYCIN 600 MG in DEXTROSE 5% 50 ML IV SCH ×2 (03:50→08:13)
[2020-12-03] MEDS: LACTATED RINGER'S 1,000 ML IV SCH ×2 (07:44→17:31)
[2020-12-03] MEDS: MULTIVITAMIN TAB PO SCH (08:06)
[2020-12-03] MEDS: PANTOprazole 40 MG TAB PO SCH (08:06)
[2020-12-03] MEDS: CLOPIDOGREL BISULFATE 75 MG TAB PO SCH (08:06)
[2020-12-03] MEDS: ATORVASTATIN 40 MG TAB PO SCH (08:06)
[2020-12-03] MEDS: ONDANSETRON INJ 2 MG/ML 2 ML VIAL IV PRN (08:22)
--- NOTE | 2020-12-03 08:46 | Orthopedic Progress Note ---
Date of Service December 03, 2020 Assessment & Plan (1) Basicervical fracture of left femur: POD #1 s/p left hip hemiarthroplasty, acute anemia blood loss, new onset A. fib. Resume diet. WBAT as tolerated with walker and assistance. OOB to chair. Continue pain control. Labs pending, currently completing transfusion for acute anemia blood loss. DVT prophylaxis: TEDs 3 weeks, foot pumps while in hospital, restart Plavix and ASA, which she was on prior to this admission. PT/OT. D/C planning. Change dressing postop day 2, to Silverlon. Continue care per primary service. Present on Admission?: Yes Admission and Anticipated Discharge Date Admission Date: December 02, 2020 Subjective Doing better than I thought I would be doing after surgery. Review of Systems Review of Systems: All systems reviewed & are unremarkable except as noted in HPI & below Physical Exam Physical Exam: LLE: Neurovascularly unchanged. Calf soft and non-tender. Abduction pillow in place. Dressing is clean, dry, intact. Results & Data ([facility]) Vital Signs (Past 12 Hours) Vital Signs Temp Pulse Pulse Resp BP BP Pulse Ox 12/03/20 07:45 36.6 C 88 20 146/76 H 96 12/03/20 07:00 36.6 C 93 H 20 146/76 H 96 12/03/20 06:45 36.7 C 96 H 18 144/71 H 99 12/03/20 05:53 36.6 C 85 13 136/64 99 12/03/20 05:45 36.6 C 84 12 136/65 99 12/03/20 05:20 36.6 C 85 13 136/64 99 12/03/20 05:15 36.6 C 85 13 136/64 99 12/03/20 05:05 36.6 C 106 H 16 143/80 H 96 12/03/20 05:00 36.6 C 106 H 16 143/80 H 96 12/03/20 04:45 36.4 C L 98 H 16 152/72 H 97 12/03/20 04:44 36.4 C L 98 H 16 152/72 H 97 12/03/20 04:16 36.6 C 102 H 18 146/78 H 98 12/03/20 04:00 36.6 C 86 15 142/78 H 99 12/03/20 03:31 36.5 C 84 12 137/83 12/03/20 03:05 36.7 C 83 12 137/83 99 12/03/20 03:00 36.5 C 72 12 137/83 12/03/20 02:05 36.4 C 75 12 133/69 12/03/20 01:05 36.3 C L 78 18 139/64 12/03/20 00:35 36.6 C 71 18 138/64 12/03/20 00:20 36.4 C 75 18 139/64 12/02/20 23:55 36.4 C L 72 18 135/66 12/02/20 23:32 36.4 C L 85 18 130/67 12/02/20 23:15 36.4 C L 82 20 130/67 12/02/20 22:32 36.4 C 70 12 132/65 12/02/20 21:32 36.4 C L 67 12 133/62 12/02/20 21:02 36.4 C L 65 12 132/64 97 Laboratory Results 12/03/20 12/02/20 12/02/20 Range/Units 07:14 19:55 19:55 WBC (4.8-10.8) K/uL RBC (4.2-5.4) M/uL Hgb 6.1 L* D (12.0-16.0) g/dL Hct 19.1 L* (37-47) % MCV (80-100) fL MCH (25-34) pg MCHC (32-36) g/dL RDW Std Deviation (36.4-46.3) fL RDW Coeff of Arturo (11.5-14.5) % Plt Count (130-400) K/uL MPV (7.4-10.4) fL Immature Gran % (Auto) % Neut % (Auto) % Lymph % (Auto) % [place] % (Auto) % Eos % (Auto) % Baso % (Auto) % Neut # (Auto) (1.4-6.5) K/uL Lymph # (Auto) (1.2-3.4) K/uL [place] # (Auto) (0.11-0.59) K/uL Eos # (Auto) (0-0.5) K/uL Baso # (Auto) (0-0.2) K/uL Immature Gran # (Auto) (0.00-0.02) K/uL PT (9.0-12.0) Seconds INR (0.9-1.1) APTT (21.0-31.0) Seconds PTT Ratio Sodium (136-145) mmol/L Potassium 3.4 L (3.5-5.1) mmol/L Chloride (98-107) mmol/L Carbon Dioxide (21-32) mmol/L Anion Gap (3-11) BUN (7-18) mg/dl Creatinine (0.6-1.2) mg/dl Est Cr Clr Drug Dosing ml/min Est GFR ( Amer) ml/min Est GFR (Non-Af Amer) ml/min BUN/Creatinine Ratio (10-20) Glucose (70-99) mg/dl POC Glucose 111 H (70-99) mg/dl Calcium (8.5-10.1) mg/dl Magnesium 1.9 (1.8-2.4) mg/dl Total Bilirubin (0.2-1) mg/dl AST (15-37) U/L ALT (12-78) U/L Alkaline Phosphatase (45-117) U/L Troponin I 0.026 (0-0.045) ng/ml Total Protein (6.4-8.2) gm/dl Albumin (3.4-5.0) gm/dl Globulin (2.5-4.0) gm/dl Albumin/Globulin Ratio (0.9-2) TSH 29.900 H (0.300-4.500) uIu/ml Free T4 1.22 (0.8-1.6) ng/dl Urine Color Urine Appearance (Clear) Urine pH (4.5-7.5) Ur Specific [place] (1.000-1.030) Urine Protein (Negative) Urine Glucose (UA) (Negative) Urine Ketones (Negative) Urine Blood (Negative) Urine Nitrite (Negative) Urine Bilirubin (Negative) Urine Urobilinogen (Negative) Ur Leukocyte Esterase (Negative) Urine WBC (Auto) (0-5) /hpf Urine RBC (Auto) (0-4) /hpf U Hyaline Cast (Auto) (0-5) /lpf U Epithel Cells (Auto) (0-5) /lpf Urine Bacteria (Auto) (Negative) Ur Renal Epithelial Cell (0-5) /lpf Granular Casts (0) /lpf WBC Casts (0) /lpf COVID-19 Eval Order SARS-CoV-2 (PCR) (Negative) Blood Type Antibody Screen Crossmatch 12/02/20 12/02/20 12/02/20 Range/Units 09:45 09:32 09:32 WBC (4.8-10.8) K/uL RBC (4.2-5.4) M/uL Hgb (12.0-16.0) g/dL Hct (37-47) % MCV (80-100) fL MCH (25-34) pg MCHC (32-36) g/dL RDW Std Deviation (36.4-46.3) fL RDW Coeff of Arturo (11.5-14.5) % Plt Count (130-400) K/uL MPV (7.4-10.4) fL Immature Gran % (Auto) % Neut % (Auto) % Lymph % (Auto) % [place] % (Auto) % Eos % (Auto) % Baso % (Auto) % Neut # (Auto) (1.4-6.5) K/uL Lymph # (Auto) (1.2-3.4) K/uL [place] # (Auto) (0.11-0.59) K/uL Eos # (Auto) (0-0.5) K/uL Baso # (Auto) (0-0.2) K/uL Immature Gran # (Auto) (0.00-0.02) K/uL PT 10.3 (9.0-12.0) Seconds INR 1.0 (0.9-1.1) APTT 21.1 (21.0-31.0) Seconds PTT Ratio 0.8 Sodium 143 (136-145) mmol/L Potassium 3.5 (3.5-5.1) mmol/L Chloride 110 H (98-107) mmol/L Carbon Dioxide 27 (21-32) mmol/L Anion Gap 6.0 (3-11) BUN 14 (7-18) mg/dl Creatinine 1.03 (0.6-1.2) mg/dl Est Cr Clr Drug Dosing 41.7 ml/min Est GFR ( Amer) 58.2 ml/min Est GFR (Non-Af Amer) 50.2 ml/min BUN/Creatinine Ratio 14.0 (10-20) Glucose 96 (70-99) mg/dl POC Glucose (70-99) mg/dl Calcium 9.2 (8.5-10.1) mg/dl Magnesium (1.8-2.4) mg/dl Total Bilirubin 0.9 (0.2-1) mg/dl AST 32 (15-37) U/L ALT 12 (12-78) U/L Alkaline Phosphatase 63 (45-117) U/L Troponin I (0-0.045) ng/ml Total Protein 6.8 (6.4-8.2) gm/dl Albumin 3.3 L (3.4-5.0) gm/dl Globulin 3.5 (2.5-4.0) gm/dl Albumin/Globulin Ratio 0.9 (0.9-2) TSH (0.300-4.500) uIu/ml Free T4 (0.8-1.6) ng/dl Urine Color Yellow Urine Appearance Clear (Clear) Urine pH 6.5 (4.5-7.5) Ur Specific [place] 1.012 (1.000-1.030) Urine Protein 2+ H (Negative) Urine Glucose (UA) Negative (Negative) Urine Ketones Trace H (Negative) Urine Blood 3+ H (Negative) Urine Nitrite Negative (Negative) Urine Bilirubin Negative (Negative) Urine Urobilinogen Negative (Negative) Ur Leukocyte Esterase Negative (Negative) Urine WBC (Auto) 10-30 H (0-5) /hpf Urine RBC (Auto) >30 H (0-4) /hpf U Hyaline Cast (Auto) 1-5 (0-5) /lpf U Epithel Cells (Auto) >30 H (0-5) /lpf Urine Bacteria (Auto) Negative (Negative) Ur Renal Epithelial Cell 0-5 (0-5) /lpf Granular Casts 1-5 H (0) /lpf WBC Casts 1-5 H (0) /lpf COVID-19 Eval Order SARS-CoV-2 (PCR) (Negative) Blood Type Antibody Screen Crossmatch 12/02/20 12/02/20 12/02/20 Range/Units 09:32 09:32 09:25 WBC 8.74 (4.8-10.8) K/uL RBC 3.12 L (4.2-5.4) M/uL Hgb 9.4 L (12.0-16.0) g/dL Hct 29.4 L (37-47) % MCV 94.2 (80-100) fL MCH 30.1 (25-34) pg MCHC 32.0 (32-36) g/dL RDW Std Deviation 55.4 H (36.4-46.3) fL RDW Coeff of Arturo 16.1 H (11.5-14.5) % Plt Count 155 (130-400) K/uL MPV 9.4 (7.4-10.4) fL Immature Gran % (Auto) 0.1 % Neut % (Auto) 86.1 % Lymph % (Auto) 8.8 % [place] % (Auto) 4.3 % Eos % (Auto) 0.6 % Baso % (Auto) 0.1 % Neut # (Auto) 7.52 H (1.4-6.5) K/uL Lymph # (Auto) 0.77 L (1.2-3.4) K/uL [place] # (Auto) 0.38 (0.11-0.59) K/uL Eos # (Auto) 0.05 (0-0.5) K/uL Baso # (Auto) 0.01 (0-0.2) K/uL Immature Gran # (Auto) 0.01 (0.00-0.02) K/uL PT (9.0-12.0) Seconds INR (0.9-1.1) APTT (21.0-31.0) Seconds PTT Ratio Sodium (136-145) mmol/L Potassium (3.5-5.1) mmol/L Chloride (98-107) mmol/L Carbon Dioxide (21-32) mmol/L Anion Gap (3-11) BUN (7-18) mg/dl Creatinine (0.6-1.2) mg/dl Est Cr Clr Drug Dosing ml/min Est GFR ( Amer) ml/min Est GFR (Non-Af Amer) ml/min BUN/Creatinine Ratio (10-20) Glucose (70-99) mg/dl POC Glucose (70-99) mg/dl Calcium (8.5-10.1) mg/dl Magnesium (1.8-2.4) mg/dl Total Bilirubin (0.2-1) mg/dl AST (15-37) U/L ALT (12-78) U/L Alkaline Phosphatase (45-117) U/L Troponin I (0-0.045) ng/ml Total Protein (6.4-8.2) gm/dl Albumin (3.4-5.0) gm/dl Globulin (2.5-4.0) gm/dl Albumin/Globulin Ratio (0.9-2) TSH (0.300-4.500) uIu/ml Free T4 (0.8-1.6) ng/dl Urine Color Urine Appearance (Clear) Urine pH (4.5-7.5) Ur Specific [place] (1.000-1.030) Urine Protein (Negative) Urine Glucose (UA) (Negative) Urine Ketones (Negative) Urine Blood (Negative) Urine Nitrite (Negative) Urine Bilirubin (Negative) Urine Urobilinogen (Negative) Ur Leukocyte Esterase (Negative) Urine WBC (Auto) (0-5) /hpf Urine RBC (Auto) (0-4) /hpf U Hyaline Cast (Auto) (0-5) /lpf U Epithel Cells (Auto) (0-5) /lpf Urine Bacteria (Auto) (Negative) Ur Renal Epithelial Cell (0-5) /lpf Granular Casts (0) /lpf WBC Casts (0) /lpf COVID-19 Eval Order SARS-CoV-2 (PCR) NEGATIVE (Negative) Blood Type B Positive Antibody Screen NEGATIVE Crossmatch See Detail 12/02/20 Range/Units 09:25 WBC (4.8-10.8) K/uL RBC (4.2-5.4) M/uL Hgb (12.0-16.0) g/dL Hct (37-47) % MCV (80-100) fL MCH (25-34) pg MCHC (32-36) g/dL RDW Std Deviation (36.4-46.3) fL RDW Coeff of Arturo (11.5-14.5) % Plt Count (130-400) K/uL MPV (7.4-10.4) fL Immature Gran % (Auto) % Neut % (Auto) % Lymph % (Auto) % [place] % (Auto) % Eos % (Auto) % Baso % (Auto) % Neut # (Auto) (1.4-6.5) K/uL Lymph # (Auto) (1.2-3.4) K/uL [place] # (Auto) (0.11-0.59) K/uL Eos # (Auto) (0-0.5) K/uL Baso # (Auto) (0-0.2) K/uL Immature Gran # (Auto) (0.00-0.02) K/uL PT (9.0-12.0) Seconds INR (0.9-1.1) APTT (21.0-31.0) Seconds PTT Ratio Sodium (136-145) mmol/L Potassium (3.5-5.1) mmol/L Chloride (98-107) mmol/L Carbon Dioxide (21-32) mmol/L Anion Gap (3-11) BUN (7-18) mg/dl Creatinine (0.6-1.2) mg/dl Est Cr Clr Drug Dosing ml/min Est GFR ( Amer) ml/min Est GFR (Non-Af Amer) ml/min BUN/Creatinine Ratio (10-20) Glucose (70-99) mg/dl POC Glucose (70-99) mg/dl Calcium (8.5-10.1) mg/dl Magnesium (1.8-2.4) mg/dl Total Bilirubin (0.2-1) mg/dl AST (15-37) U/L ALT (12-78) U/L Alkaline Phosphatase (45-117) U/L Troponin I (0-0.045) ng/ml Total Protein (6.4-8.2) gm/dl Albumin (3.4-5.0) gm/dl Globulin (2.5-4.0) gm/dl Albumin/Globulin Ratio (0.9-2) TSH (0.300-4.500) uIu/ml Free T4 (0.8-1.6) ng/dl Urine Color Urine Appearance (Clear) Urine pH (4.5-7.5) Ur Specific [place] (1.000-1.030) Urine Protein (Negative) Urine Glucose (UA) (Negative) Urine Ketones (Negative) Urine Blood (Negative) Urine Nitrite (Negative) Urine Bilirubin (Negative) Urine Urobilinogen (Negative) Ur Leukocyte Esterase (Negative) Urine WBC (Auto) (0-5) /hpf Urine RBC (Auto) (0-4) /hpf U Hyaline Cast (Auto) (0-5) /lpf U Epithel Cells (Auto) (0-5) /lpf Urine Bacteria (Auto) (Negative) Ur Renal Epithelial Cell (0-5) /lpf Granular Casts (0) /lpf WBC Casts (0) /lpf COVID-19 Eval Order Covid19 at [facility] SARS-CoV-2 (PCR) (Negative) Blood Type Antibody Screen Crossmatch Diagnostic Findings AP pelvis shows cemented shayne-arthroplasty in good position. No fracture or dislocation. (1) Basicervical fracture of left femur Encounter type: initial encounter Fracture type: closed Fracture alignment: nondisplaced Qualified Code(s): S72.045A - Nondisplaced fracture of base of neck of left femur, initial encounter for closed fracture
--- NOTE | 2020-12-03 08:48 | Electrocardiogram Report ---
Test Reason : Blood Pressure : / mmHG Vent. Rate : 069 BPM Atrial Rate : 069 BPM P-R Int : 140 ms QRS Dur : 086 ms QT Int : 424 ms P-R-T Axes : 038 016 046 degrees QTc Int : 454 ms Normal sinus rhythm Nonspecific T wave abnormality Anterior leads Abnormal ECG When compared with ECG of 02-DEC-2020 09:25, Premature supraventricular complexes are no longer Present Vent. rate has decreased BY 43 BPM Confirmed by Blas Carpio ([id number]) on 12/03/2020 8:48:44 AM Referred By: [facility] Confirmed By:Blas Carpio
[2020-12-03] MEDS: CHOLECALCIFEROL 1,000 UNITS 25 MCG TAB PO SCH (08:54)
[2020-12-03] MEDS: CYANOCOBALAMIN 500 MCG TABLET (VITAMIN B-12) PO SCH (08:54)
[2020-12-03] MEDS: LEVOTHYROXINE SODIUM 50 MCG TABLET PO SCH (08:54)
[2020-12-03] MEDS: PYRIDOXINE HCL 50 MG TAB PO SCH (08:54)
[2020-12-03 09:30] LABS: Basophils # (auto) 0.01 K/uL (0-0.2); Basophils % (auto) 0.1 %; Eosinophils # (auto) 0.04 K/uL (0-0.5); Eosinophils % (auto) 0.5 %; Hematocrit (blood only) 32.4 % (37-47); Hemoglobin 10.6 g/dL (12.0-16.0); Immature Granulocytes # (auto) 0.02 K/uL (0.00-0.02); Immature Granulocytes % (auto) 0.2 %; Lymphocytes # (auto) 0.66 K/uL (1.2-3.4); Lymphocytes % (auto) 7.8 %; Mean Corpuscular Hemoglobin 29.7 pg (25-34); Mean Corpuscular Hgb Conc 32.7 g/dL (32-36); Mean Corpuscular Volume 90.8 fL (80-100); Mean Platelet Volume 9.7 fL (7.4-10.4); Monocytes # (auto) 0.43 K/uL (0.11-0.59); Monocytes % (auto) 5.1 %; Neutrophils # (auto) 7.35 K/uL (1.4-6.5); Neutrophils % (auto) 86.3 %; Platelet Count 109 K/uL (130-400); RDW Standard Deviation 53.1 fL (36.4-46.3); Red Blood Count 3.57 M/uL (4.2-5.4); White Blood Count 8.51 K/uL (4.8-10.8)
[2020-12-03 09:43] LABS: BUN Creatinine Ratio 16.9 (10-20); Calcium 8.2 mg/dl (8.5-10.1); Creatinine Clr Calc Pharmacy 46.2 ml/min; Est GFR (African American) 65.9 ml/min; Est GFR (Non-African American) 56.8 ml/min; Magnesium 2.6 mg/dl (1.8-2.4)
[2020-12-03 11:50] LABS: Potassium 4.1 mmol/L (3.5-5.1)
--- NOTE | 2020-12-03 14:52 | Hospitalist Progress Note ---
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 POD #1 s/p ORIF by Dr Osiel Peña, [facility]. From ortho standpoint she is stable. DVT proph - plavix (with asa? - will d/w ortho). 25-OH vit D w/ robust level. Cont vit D supplementation when allowed to take PO. (2) Acute blood loss anemia: significant - 3+ gm drop from admission. Lowest Hb - 6.1, s/p 2 units PRBCs. 10.6 Hb this am. acute blood loss anemia 2nd to operative blood loss, soft tissue bleeding from hip fracture itself, blood draws/phlebotomy, etc. some element of dilution with copious IV fluids also possible. cbc in am. (3) Anemia: spring 2020 - Hb baseline 9.5 to 10.5. consider Fe studies. has already been taking B12 supplementation at home. needs folate supplementation due to high homocysteine levels. remains on B6. see above re: acute blood loss. cbc am. (4) CVA (cerebral vascular accident): x 2 in 2020 -- first, September 2020 (right ji radiata and the right basal ganglia). second, November 2020 (right thalamus). on plavix for secondary prevention. CT head at admission yesterday w/o acute stroke/ICH. I repeated a head CT today to ensure her fall at SNF was not from new stroke. CT head again negative. LUE/LLE weakness thus from 2 prior CVAs. Treat homocysteinemia. Watch for PAF on monitoring. ?2 minute episode of PAF at end of ORIF hip surgery? likely PAT given the PAT we have been seeing on monitoring on the floor. (5) Hyperhomocystinemia: add folate 1mg IV daily cont B6 cont B12 (6) Dysphagia: 2nd to recent stroke. speech consult appreciated. keep NPO until video swallow tomorrow. 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 no rash on exam that would suggest recurrent vasculitis. monitor. (8) CKD (chronic kidney disease), stage III: baseline CrCl high 40s bmp am IV fluids due to NPO status (9) Hypothyroidism: history of such per records, but has not been on synthroid in some time. she cannot recall when she took meds in the past. TSH nearly 30 yesterday. start replacement 50mcg daily. TSH 6 weeks. (10) PAT (paroxysmal atrial tachycardia): numerous runs of such on monitoring. would start metoprolol 12.5mg BID if allowed to take PO. (11) Thrombocytopenia: mild, suspect consumptive in setting of acute blood loss anemia. trend. (12) DVT prophylaxis: plavix will d/w ortho - add asa as well?? extensively updated by phone this evening I explained that the recovery journey ahead will be long and likely to be challenging in light of CVA x 2 this year and now this. he stated she had not been progressing with therapy at the [facility] after her November stroke she may need formal palliative care consult if she does poorly this admission Admission and Anticipated Discharge Date Admission Date: December 02, 2020 Subjective called by nursing staff this am that patient was having hard time taking meds choking on them - didn't get all of them down I asked nursing to make her NPO I consulted speech tele overnight -- multiple episodes of a-tach; no discrete a.fib during rounds - patient very weak, dry mouth, c/o pain L hip she was oriented - knew she was in the hospital denied dyspnea, cp, abd pain passing no flatus yet Review of Systems Constitutional: + fatigue and + weakness Respiratory: no cough Cardiovascular: no chest pain Gastrointestinal: no nausea and no vomiting Musculoskeletal: + joint pain (L hip ) Neurologic: + localized weakness (Left arm/leg ) Physical Exam Constitutional: + ill appearing and + frail appearing; no acute distress and no altered mental status dehydrated ENMT: Mouth: + dry oral mucous membranes left facial droop noted Respiratory: normal respiratory effort, lungs clear to auscultation Cardiovascular: Rate/Rhythm: regular rhythm and + tachycardic Heart Sounds: normal S1 and normal S2; no murmur Vessels: posterior tibial pulses present and dorsalis pedis pulses present; no JVD Extremities: no edema Gastrointestinal (Abdomen): Inspection/Auscultation: + abdomen distended (mild) and + hypoactive bowel sounds Percussion/Palpation: abdomen nontender and no hepatosplenomegaly Musculoskeletal: left thigh w/ gross swelling Skin: + pallor (but improved today ) Psychiatric: Orientation: alert, oriented to person and oriented to place Results & Data Results & Data ([facility]) Vital Signs (Past 12 Hours) Vital Signs Temp Pulse Pulse Resp BP BP Pulse Ox 12/03/20 11:00 88 12/03/20 10:34 36.8 C 105 H 18 158/57 H 99 12/03/20 08:00 36.8 C 98 H 20 154/87 H 97 12/03/20 07:45 36.6 C 88 20 146/76 H 96 12/03/20 07:00 36.6 C 93 H 20 146/76 H 96 12/03/20 06:45 36.7 C 96 H 18 144/71 H 99 12/03/20 05:53 36.6 C 85 13 136/64 99 12/03/20 05:45 36.6 C 84 12 136/65 99 12/03/20 05:20 36.6 C 85 13 136/64 99 12/03/20 05:15 36.6 C 85 13 136/64 99 12/03/20 05:05 36.6 C 106 H 16 143/80 H 96 12/03/20 05:00 36.6 C 106 H 16 143/80 H 96 12/03/20 04:45 36.4 C L 98 H 16 152/72 H 97 12/03/20 04:44 36.4 C L 98 H 16 152/72 H 97 12/03/20 04:16 36.6 C 102 H 18 146/78 H 98 12/03/20 04:00 36.6 C 86 15 142/78 H 99 12/03/20 03:31 36.5 C 84 12 137/83 100 12/03/20 03:05 36.7 C 83 12 137/83 99 12/03/20 03:00 36.5 C 72 12 137/83 100 Laboratory Results Hb 10.6 Cr 0.9 K 4.1 tele - PAT runs PG Care Time/CCT Total # of Minutes Spent Total Time Spent with Patient: Total time spent is greater than 50% in coordination of care (as documented) at patient's floor/unit and/or counseling patient: Coding Level of Care Code 92940 Subseq Hosp Care Lvl 3 Diagnoses 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 M80.059A Acute blood loss anemia D62 Anemia D64.9 Anemia type: unspecified type CVA (cerebral vascular accident) I63.9 CVA mechanism: unspecified Hyperhomocystinemia E72.11 Dysphagia R13.10 Leukocytoclastic vasculitis M31.0 CKD (chronic kidney disease), stage III N18.30 Chronic kidney disease stage 3 subtype: unspecified whether 3a or 3b Hypothyroidism E03.9 PAT (paroxysmal atrial tachycardia) I47.1 Thrombocytopenia D69.6 DVT prophylaxis Z29.9 (1) Anemia Anemia type: unspecified type Qualified Code(s): D64.9 - Anemia, unspecified (2) CVA (cerebral vascular accident) CVA mechanism: unspecified Qualified Code(s): I63.9 - Cerebral infarction, unspecified (3) CKD (chronic kidney disease), stage III Chronic kidney disease stage 3 subtype: unspecified whether 3a or 3b Qualified Code(s): N18.30 - Chronic kidney disease, stage 3 unspecified
[2020-12-03] MEDS: NSS + 20MEQ KCL 20 MEQ/1,000 ML BAG IV SCH (15:21)
--- NOTE | 2020-12-03 15:52 | CT Scan Report ---
CT SCAN OF THE BRAIN WITHOUT IV CONTRAST CLINICAL HISTORY: Left-sided weakness. Recent stroke. Change in mental status. COMPARISON STUDY: CT of the brain dated 12/02/2020. MRI of the brain dated 11/15/2020. TECHNIQUE: Unenhanced axial CT scan of the brain is performed from the vertex to the skull base. A do se lowering technique was utilized adhering to the principles of ALARA. CT DOSE: 926.94 mGycm FINDINGS: Brain parenchyma: There are age-related involutional changes noting mild subcortical and periventric ular microangiopathic change. There is no hemorrhage, mass effect, or evidence of acute territorial i schemia by CT criteria. There subacute lacunar infarcts again seen in the right basal ganglia. Zhu-w sarita matter differentiation is preserved. No extra-axial fluid collection is seen. Ventricles, sulci, cisterns: Prominent secondary to involutional change. Intracranial vasculature: There is atherosclerotic calcification of the cavernous carotid and vertebr al arteries. Calvarium: Unremarkable. Sinuses and mastoids: There is mild mucosal thickening in the ethmoid sinuses. The remaining paranasa l sinuses are clear. The mastoid air cells are well pneumatized. Orbits: The bony orbits are grossly intact. There is a right ocular lens implant. IMPRESSION: 1. There is no hemorrhage, mass effect, or evidence of acute territorial ischemia by CT criteria. 2. Subacute lacunar infarcts are again seen in the right basal ganglia. ACT 112: Negative or not required by law. Electronically signed by: Kevin Dobson M.D. 12/03/2020 3:51 PM
[2020-12-04 06:59] LABS: Basophils # (auto) 0.01 K/uL (0-0.2); Basophils % (auto) 0.1 %; Eosinophils # (auto) 0.04 K/uL (0-0.5); Eosinophils % (auto) 0.5 %; Hematocrit (blood only) 30.2 % (37-47); Hemoglobin 9.7 g/dL (12.0-16.0); Immature Granulocytes # (auto) 0.04 K/uL (0.00-0.02); Immature Granulocytes % (auto) 0.5 %; Lymphocytes # (auto) 1.28 K/uL (1.2-3.4); Lymphocytes % (auto) 14.8 %; Mean Corpuscular Hemoglobin 29.7 pg (25-34); Mean Corpuscular Hgb Conc 32.1 g/dL (32-36); Mean Corpuscular Volume 92.4 fL (80-100); Mean Platelet Volume 9.5 fL (7.4-10.4); Monocytes # (auto) 0.53 K/uL (0.11-0.59); Monocytes % (auto) 6.1 %; Neutrophils # (auto) 6.73 K/uL (1.4-6.5); Platelet Count 101 K/uL (130-400); RDW Coefficient of Variation 16.2 % (11.5-14.5); RDW Standard Deviation 54.4 fL (36.4-46.3); Red Blood Count 3.27 M/uL (4.2-5.4); White Blood Count 8.63 K/uL (4.8-10.8)
[2020-12-04 07:50] LABS: BUN Creatinine Ratio 20.7 (10-20); Calcium 7.6 mg/dl (8.5-10.1); Creatinine Clr Calc Pharmacy 46.8 ml/min; Est GFR (African American) 67.6 ml/min; Est GFR (Non-African American) 58.3 ml/min; Magnesium 2.3 mg/dl (1.8-2.4); Potassium 4.3 mmol/L (3.5-5.1)
[2020-12-04] MEDS: LEVOTHYROXINE SODIUM 50 MCG TABLET PO SCH (07:52)
[2020-12-04] MEDS: CHOLECALCIFEROL 1,000 UNITS 25 MCG TAB PO SCH (08:08)
[2020-12-04] MEDS: NSS + 20MEQ KCL 20 MEQ/1,000 ML BAG IV SCH (08:08)
[2020-12-04] MEDS: ATORVASTATIN 40 MG TAB PO SCH (08:08)
[2020-12-04] MEDS: CLOPIDOGREL BISULFATE 75 MG TAB PO SCH (08:08)
[2020-12-04] MEDS: MULTIVITAMIN TAB PO SCH (08:13)
[2020-12-04] MEDS: CYANOCOBALAMIN 500 MCG TABLET (VITAMIN B-12) PO SCH (08:13)
[2020-12-04] MEDS: PANTOprazole 40 MG TAB PO SCH (08:13)
[2020-12-04] MEDS: FOLIC ACID 1 MG in SYRINGE 9.8 ML IV SCH (08:13)
[2020-12-04] MEDS: PYRIDOXINE HCL 50 MG TAB PO SCH (08:14)
[2020-12-04] MEDS ORDERED: CALCIUM GLUCONATE 10% 1,000 MG in SODIUM CHLORIDE 0.9% 50 ML IV ONE (08:30)
--- NOTE | 2020-12-04 14:34 | Orthopedic Progress Note ---
Date of Service December 04, 2020 Assessment & Plan (1) Basicervical fracture of left femur: POD #1 s/p left hip hemiarthroplasty, acute anemia blood loss, new onset A. fib. Resume diet. WBAT as tolerated with walker and assistance. OOB to chair. Continue pain control. Labs pending, currently completing transfusion for acute anemia blood loss. DVT prophylaxis: TEDs 3 weeks, foot pumps while in hospital, restart Plavix and ASA, which she was on prior to this admission. PT/OT. D/C planning. Change dressing postop day 2, to Silverlon. Continue care per primary service. Admission and Anticipated Discharge Date Admission Date: December 02, 2020 Subjective Patient seen by Dr Peña this am. I went to see this PM to change post-op dressing, at a [facility] study. Results & Data ([facility]) Vital Signs (Past 12 Hours) Vital Signs Temp Pulse Resp BP Pulse Ox 12/04/20 11:38 36.9 C 94 H 20 158/83 H 97 12/04/20 08:06 37.0 C 96 H 20 135/99 100 12/04/20 02:58 36.9 C 85 16 142/78 H 100 (1) Basicervical fracture of left femur Encounter type: initial encounter Fracture type: closed Fracture alignment: nondisplaced Qualified Code(s): S72.045A - Nondisplaced fracture of base of neck of left femur, initial encounter for closed fracture
[2020-12-04] MEDS: METOPROLOL TARTRATE 1 MG/ML VIAL IV PRN ×2 (15:03→22:15)
[2020-12-04] MEDS: MoRPHine SULFATE 2 MG/ML CARP IV PRN (15:03)
--- NOTE | 2020-12-04 15:33 | Fluoroscopy Report ---
FL video swallow HISTORY: r/o aspiration TECHNIQUE: Video fluoroscopic evaluation of swallowing was performed in the AP and lateral projection s by the speech pathology staff. The patient is fed nectar-thick and thin liquid barium, a barium coa chelo wafer, and barium pudding. FLUOROSCOPY TIME: 4.1 minutes. NUMBER OF FLUOROSCOPY IMAGES: [id number] COMPARISON STUDY: November 13, 2020 FINDINGS: Pharyngeal penetration is again seen as well as esophageal dysmotility. No definite aspiration demons trated. IMPRESSION: 1. No aspiration identified. Esophageal dysmotility is again seen. 2. Please see the speech pathologist report for detailed findings and recommendations. ACT 112: Negative or not required by law. The above report was generated using voice recognition software. It may contain grammatical, syntax o r spelling errors. Electronically signed by: Xochitl Li DO 12/04/2020 3:31 PM
--- NOTE | 2020-12-04 20:13 | Orthopedic Progress Note ---
Date of Service December 04, 2020 Assessment & Plan (1) Basicervical fracture of left femur: POD #2 s/p left hip hemiarthroplasty, acute anemia blood loss improved following transfusion, new onset A. fib. Resume diet. WBAT as tolerated with walker and assistance. OOB to chair. Continue pain control. DVT prophylaxis: TEDs 3 weeks, foot pumps while in hospital, restart Plavix and ASA, which she was on prior to this admission. PT/OT. D/C planning. Change dressing postop day 3, to Silverlon. Continue care per primary service. Admission and Anticipated Discharge Date Admission Date: December 02, 2020 Subjective Feeling tired and weak Review of Systems Review of Systems: All systems reviewed & are unremarkable except as noted in HPI & below unable to move left leg Physical Exam Physical Exam: LLE: Neurovascularly sensation to light touch is intact. BCR < 2 sec. ankle dorsiflexion/toe and foot plantar flexion 3/5. Calf soft and non- tender. Abduction pillow in place. Dressing is clean, dry, intact. Results & Data ([facility]) Vital Signs (Past 12 Hours) Vital Signs Temp Pulse Pulse Resp BP Pulse Ox 12/04/20 19:24 37.1 C 122 H 17 152/118 H 97 12/04/20 15:45 37.4 C 95 H 18 138/81 95 12/04/20 15:03 121 H 12/04/20 11:38 36.9 C 94 H 20 158/83 H 97 Laboratory Results 12/04/20 12/04/20 12/04/20 Range/Units 16:16 11:04 07:06 WBC (4.8-10.8) K/uL RBC (4.2-5.4) M/uL Hgb (12.0-16.0) g/dL Hct (37-47) % MCV (80-100) fL MCH (25-34) pg MCHC (32-36) g/dL RDW Std Deviation (36.4-46.3) fL RDW Coeff of Arturo (11.5-14.5) % Plt Count (130-400) K/uL MPV (7.4-10.4) fL Immature Gran % (Auto) % Neut % (Auto) % Lymph % (Auto) % [place] % (Auto) % Eos % (Auto) % Baso % (Auto) % Neut # (Auto) (1.4-6.5) K/uL Lymph # (Auto) (1.2-3.4) K/uL [place] # (Auto) (0.11-0.59) K/uL Eos # (Auto) (0-0.5) K/uL Baso # (Auto) (0-0.2) K/uL Immature Gran # (Auto) (0.00-0.02) K/uL Sodium (136-145) mmol/L Potassium (3.5-5.1) mmol/L Chloride (98-107) mmol/L Carbon Dioxide (21-32) mmol/L Anion Gap (3-11) BUN (7-18) mg/dl Creatinine (0.6-1.2) mg/dl Est Cr Clr Drug Dosing ml/min Est GFR ( Amer) ml/min Est GFR (Non-Af Amer) ml/min BUN/Creatinine Ratio (10-20) Glucose (70-99) mg/dl POC Glucose 107 H 93 92 (70-99) mg/dl Calcium (8.5-10.1) mg/dl Magnesium (1.8-2.4) mg/dl 12/04/20 12/04/20 12/03/20 Range/Units 06:44 06:44 20:32 WBC 8.63 (4.8-10.8) K/uL RBC 3.27 L (4.2-5.4) M/uL Hgb 9.7 L (12.0-16.0) g/dL Hct 30.2 L (37-47) % MCV 92.4 (80-100) fL MCH 29.7 (25-34) pg MCHC 32.1 (32-36) g/dL RDW Std Deviation 54.4 H (36.4-46.3) fL RDW Coeff of Arturo 16.2 H (11.5-14.5) % Plt Count 101 L (130-400) K/uL MPV 9.5 (7.4-10.4) fL Immature Gran % (Auto) 0.5 % Neut % (Auto) 78.0 % Lymph % (Auto) 14.8 % [place] % (Auto) 6.1 % Eos % (Auto) 0.5 % Baso % (Auto) 0.1 % Neut # (Auto) 6.73 H (1.4-6.5) K/uL Lymph # (Auto) 1.28 (1.2-3.4) K/uL [place] # (Auto) 0.53 (0.11-0.59) K/uL Eos # (Auto) 0.04 (0-0.5) K/uL Baso # (Auto) 0.01 (0-0.2) K/uL Immature Gran # (Auto) 0.04 H (0.00-0.02) K/uL Sodium 144 (136-145) mmol/L Potassium 4.3 (3.5-5.1) mmol/L Chloride 115 H (98-107) mmol/L Carbon Dioxide 22 (21-32) mmol/L Anion Gap 7.0 (3-11) BUN 19 H (7-18) mg/dl Creatinine 0.91 (0.6-1.2) mg/dl Est Cr Clr Drug Dosing 46.8 ml/min Est GFR ( Amer) 67.6 ml/min Est GFR (Non-Af Amer) 58.3 ml/min BUN/Creatinine Ratio 20.7 H (10-20) Glucose 94 (70-99) mg/dl POC Glucose 115 H (70-99) mg/dl Calcium 7.6 L (8.5-10.1) mg/dl Magnesium 2.3 (1.8-2.4) mg/dl (1) Basicervical fracture of left femur Encounter type: initial encounter Fracture type: closed Fracture alignment: nondisplaced Qualified Code(s): S72.045A - Nondisplaced fracture of base of neck of left femur, initial encounter for closed fracture
[2020-12-04] MEDS: DOCUSATE SODIUM/SENNA 50/8.6MG TAB PO SCH (21:55)
[2020-12-04] MEDS: ONDANSETRON INJ 2 MG/ML 2 ML VIAL IV PRN (21:58)
--- NOTE | 2020-12-04 22:25 | Hospitalist Progress Note ---
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 POD #2 s/p ORIF by Dr Osiel Peña, [facility]. From ortho standpoint she is stable. DVT proph - plavix (with asa? - will d/w ortho). 25-OH vit D w/ robust level. Cont vit D supplementation. PT/OT. Rehab - [facility]? back to the [facility]? (2) Acute blood loss anemia: significant - 3+ gm drop from admission. Lowest Hb - 6.1, s/p 2 units PRBCs. 10.6 Hb yesterday am. today 9.7. acute blood loss anemia 2nd to operative blood loss, soft tissue bleeding from hip fracture itself, blood draws/phlebotomy, etc. some element of dilution with copious IV fluids also possible. cbc in am for stability. (3) Anemia: spring 2020 - Hb baseline 9.5 to 10.5. obtain Fe studies in am. has already been taking B12 supplementation at home. needs folate supplementation due to high homocysteine levels - this was added. remains on B6. see above re: acute blood loss. cbc am. (4) CVA (cerebral vascular accident): x 2 in 2020 -- first, September 2020 (right ji radiata and the right basal ganglia). second, November 2020 (right thalamus). on plavix for secondary prevention. CT head at admission w/o acute stroke/ICH. I repeated a head CT on POD#1 to ensure her fall at SNF was not from new stroke. CT head again negative. LUE/LLE weakness thus from 2 prior CVAs. Treat homocysteinemia. Watch for PAF on monitoring. ?2 minute episode of PAF at end of ORIF hip surgery? likely PAT given the PAT we have been seeing on monitoring on the floor. (5) Hyperhomocystinemia: added folate 1mg IV daily cont B6 cont B12 (6) Dysphagia: speech consult appreciated. video swallow completed. no significant aspiration. pureed with thins recommended. she simply has prolonged mastication - chronic per . 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 previously followed by [facility] for this. saw Dr Telles about 10 days ago - see her scanned note. no rash on exam that would suggest recurrent vasculitis. ESR on 10/29/20 was 71. saw Nicole Cat MD - [facility] heme/onc - see scanned note re: their concerns about gammopathy repeat sed rate/crp am. Dr Hackett to be consulted. (8) CKD (chronic kidney disease), stage III: baseline CrCl high 40s bmp am IV fluids due to poor PO intake (9) Hypothyroidism: history of such per records, but had not been on synthroid in some time. she cannot recall when she took meds in the past. TSH nearly 30. start replacement 50mcg daily. TSH 6 weeks. (10) PAT (paroxysmal atrial tachycardia): numerous runs of such on monitoring. start metoprolol 25mg BID. (11) Thrombocytopenia: mild, suspect consumptive in setting of acute blood loss anemia. trend. 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 extensively updated at bedside today he again expresses frustration by her poor forward progress he directs a lot of his anger at the SNF as patient was there since early October and "hasn't made progress" he asks for Dr Hackett to see his while hospitalized inquires if she will be a candidate for [facility] he states "she gets 1 hour of therapy at the [facility] - it's not enough" she may need formal palliative care consult if she does poorly this admission but uncertain if she or he will be receptive (16) Complex care coordination: total time today - 70 minutes - discussing care with nursing, speech, and 2 bedside visits 1 of which involved counseling her extensive records reviewed Admission and Anticipated Discharge Date Admission Date: December 02, 2020 Subjective tele overnight - runs of PAT no discrete a.fib seen runs brief, asymptomatic patient very fatigued, tired during the visit I saw her before her video swallow study was donoe c/o severe dry mouth worked with PT today and did get OOB arrived in afternoon - I went to bedside for 2nd visit I gave him/her the video swallow results she is not aspirating but masticates on her food for a lengthy period of time he reports this is chronic for years Review of Systems Respiratory: no dyspnea Cardiovascular: no chest pain, no orthopnea and no palpitations Gastrointestinal: + bloating; no abdominal pain has not passed flatus since admission Physical Exam Constitutional: + ill appearing and + frail appearing; no acute distress and no altered mental status ENMT: Mouth: + dry oral mucous membranes Respiratory: normal respiratory effort, lungs clear to auscultation Cardiovascular: Rate/Rhythm: regular rhythm and + tachycardic Heart Sounds: normal S1 and normal S2; no murmur Vessels: posterior tibial pulses present and dorsalis pedis pulses present; no JVD Extremities: + edema (Trace b/l ankles; left thigh swelling) Gastrointestinal (Abdomen): Inspection/Auscultation: + abdomen distended (mild) and normal bowel sounds Percussion/Palpation: abdomen nontender and no hepatosplenomegaly Skin: + pallor (but improved today ) dressings intact left lateral thight Psychiatric: Orientation: alert, oriented to person and oriented to place Results & Data Results & Data ([facility]) Vital Signs (Past 12 Hours) Vital Signs Temp Pulse Pulse Resp BP BP Pulse Ox 12/04/20 22:15 115 H 152/118 H 12/04/20 19:24 37.1 C 122 H 17 152/118 H 97 12/04/20 15:45 37.4 C 95 H 18 138/81 95 12/04/20 15:03 121 H 12/04/20 11:38 36.9 C 94 H 20 158/83 H 97 Laboratory Results Laboratory Results - last 24 hr 12/04/20 12/04/20 12/04/20 06:44 06:44 07:06 WBC 8.63 RBC 3.27 L Hgb 9.7 L Hct 30.2 L MCV 92.4 MCH 29.7 MCHC 32.1 RDW Std Deviation 54.4 H RDW Coeff of Arturo 16.2 H Plt Count 101 L MPV 9.5 Immature Gran % (Auto) 0.5 Neut % (Auto) 78.0 Lymph % (Auto) 14.8 [place] % (Auto) 6.1 Eos % (Auto) 0.5 Baso % (Auto) 0.1 Neut # (Auto) 6.73 H Lymph # (Auto) 1.28 [place] # (Auto) 0.53 Eos # (Auto) 0.04 Baso # (Auto) 0.01 Immature Gran # (Auto) 0.04 H Sodium 144 Potassium 4.3 Chloride 115 H Carbon Dioxide 22 Anion Gap 7.0 BUN 19 H Creatinine 0.91 Est Cr Clr Drug Dosing 46.8 Est GFR ( Amer) 67.6 Est GFR (Non-Af Amer) 58.3 BUN/Creatinine Ratio 20.7 H Glucose 94 POC Glucose 92 Calcium 7.6 L Magnesium 2.3 12/04/20 12/04/20 12/04/20 11:04 16:16 20:34 WBC RBC Hgb Hct MCV MCH MCHC RDW Std Deviation RDW Coeff of Arturo Plt Count MPV Immature Gran % (Auto) Neut % (Auto) Lymph % (Auto) [place] % (Auto) Eos % (Auto) Baso % (Auto) Neut # (Auto) Lymph # (Auto) [place] # (Auto) Eos # (Auto) Baso # (Auto) Immature Gran # (Auto) Sodium Potassium Chloride Carbon Dioxide Anion Gap BUN Creatinine Est Cr Clr Drug Dosing Est GFR ( Amer) Est GFR (Non-Af Amer) BUN/Creatinine Ratio Glucose POC Glucose 93 107 H 113 H Calcium Magnesium PG Care Time/CCT Total # of Minutes Spent Total Time Spent with Patient: Total time spent is greater than 50% in coordination of care (as documented) at patient's floor/unit and/or counseling patient: Prolonged Care Time Prolonged Care Time: Yes Total Prolonged Care Time: 70 Coding Level of Care Code 52946 Subseq Hosp Care Lvl 3 (25 - SIGNIFICANT, SEPARATELY IDENTIFIABLE ) Diagnoses 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 M80.059A Acute blood loss anemia D62 Anemia D64.9 Anemia type: unspecified type CVA (cerebral vascular accident) I63.9 CVA mechanism: unspecified Hyperhomocystinemia E72.11 Dysphagia R13.10 Leukocytoclastic vasculitis M31.0 CKD (chronic kidney disease), stage III N18.30 Chronic kidney disease stage 3 subtype: unspecified whether 3a or 3b Hypothyroidism E03.9 PAT (paroxysmal atrial tachycardia) I47.1 Thrombocytopenia D69.6 Lung nodule < 6cm on CT R91.1 Low serum immunoglobulin kappa light chain R77.1 Hypocalcemia E83.51 DVT prophylaxis Z29.9 Complex care coordination Z71.89 Additional Codes Prolonged Care Time - Prolonged Care Time: Yes ([id number]) Time Spent (min) 70 (1) CKD (chronic kidney disease), stage III Chronic kidney disease stage 3 subtype: unspecified whether 3a or 3b Qualified Code(s): N18.30 - Chronic kidney disease, stage 3 unspecified (2) Anemia Anemia type: unspecified type Qualified Code(s): D64.9 - Anemia, unspecified (3) CVA (cerebral vascular accident) CVA mechanism: unspecified Qualified Code(s): I63.9 - Cerebral infarction, unspecified
[2020-12-05] MEDS: NSS + 20MEQ KCL 20 MEQ/1,000 ML BAG IV SCH (00:57)
[2020-12-05] MEDS: METOPROLOL TARTRATE 1 MG/ML VIAL IV PRN (02:45)
[2020-12-05] MEDS: LEVOTHYROXINE SODIUM 50 MCG TABLET PO SCH (05:37)
[2020-12-05 06:24] LABS: Basophils # (auto) 0.01 K/uL (0-0.2); Basophils % (auto) 0.1 %; Eosinophils # (auto) 0.05 K/uL (0-0.5); Eosinophils % (auto) 0.5 %; Hematocrit (blood only) 31.6 % (37-47); Hemoglobin 10.1 g/dL (12.0-16.0); Immature Granulocytes # (auto) 0.02 K/uL (0.00-0.02); Immature Granulocytes % (auto) 0.2 %; Lymphocytes # (auto) 0.95 K/uL (1.2-3.4); Lymphocytes % (auto) 10.4 %; Mean Corpuscular Hemoglobin 29.8 pg (25-34); Mean Corpuscular Volume 93.2 fL (80-100); Mean Platelet Volume 9.7 fL (7.4-10.4); Monocytes # (auto) 0.57 K/uL (0.11-0.59); Monocytes % (auto) 6.3 %; Neutrophils # (auto) 7.51 K/uL (1.4-6.5); Neutrophils % (auto) 82.5 %; Platelet Count 120 K/uL (130-400); RDW Coefficient of Variation 16.4 % (11.5-14.5); RDW Standard Deviation 55.9 fL (36.4-46.3); Red Blood Count 3.39 M/uL (4.2-5.4); White Blood Count 9.11 K/uL (4.8-10.8)
[2020-12-05 07:36] LABS: BUN Creatinine Ratio 24.1 (10-20); Calcium 7.9 mg/dl (8.5-10.1); Creatinine Clr Calc Pharmacy 45.3 ml/min; Est GFR (African American) 64.2 ml/min; Est GFR (Non-African American) 55.4 ml/min; Potassium 4.3 mmol/L (3.5-5.1)
[2020-12-05 07:41] LABS: C Reactive Protein 21.3 mg/dl (0-0.29); Ferritin 358.7 ng/ml (8-388)
[2020-12-05] MEDS: FOLIC ACID 1 MG in SYRINGE 9.8 ML IV SCH (08:29)
[2020-12-05] MEDS: CLOPIDOGREL BISULFATE 75 MG TAB PO SCH (08:29)
[2020-12-05] MEDS: METOPROLOL TARTRATE 25 MG TAB PO SCH ×2 (08:29→21:39)
[2020-12-05] MEDS: PANTOprazole 40 MG TAB PO SCH (08:30)
[2020-12-05] MEDS: MULTIVITAMIN TAB PO SCH (08:30)
[2020-12-05] MEDS: PYRIDOXINE HCL 50 MG TAB PO SCH (08:30)
[2020-12-05] MEDS: ATORVASTATIN 40 MG TAB PO SCH (08:30)
[2020-12-05] MEDS: CYANOCOBALAMIN 500 MCG TABLET (VITAMIN B-12) PO SCH (08:30)
[2020-12-05] MEDS: CHOLECALCIFEROL 1,000 UNITS 25 MCG TAB PO SCH (08:31)
--- NOTE | 2020-12-05 09:06 | Orthopedic Progress Note ---
Date of Service December 05, 2020 Assessment & Plan (1) Basicervical fracture of left femur: POD #3 s/p left hip hemiarthroplasty, acute anemia blood loss improved/stable following transfusion, new onset A. fib. Resume diet. WBAT as tolerated with walker and assistance. OOB to chair. Continue pain control. DVT prophylaxis: TEDs 3 weeks, foot pumps while in hospital, restart Plavix and ASA, which she was on prior to this admission. Continue Total hip precautions total 8 weeks. PT/OT. D/C planning. Silverlon dressing applied today, leave on until 2 week follow-up appointment. Continue care per primary service. I, Dr. Peña, saw and examined the patient and discussed the management with my PA. I reviewed my PAs note and agree with the documented findings and the plan of care I developed. Admission and Anticipated Discharge Date Admission Date: December 02, 2020 Subjective This 85-year-old female who is 3 days status post left hip hemiarthroplasty. Patient states that she has had difficulty performing activity with physical therapy and Occupational Therapy. She complains of fatigue. She denies chest pain, shortness of breath, fever, chills, sweats or numbness or tingling in her left lower extremity but states that it feels very weak. Review of Systems Review of Systems: All systems reviewed & are unremarkable except as noted in Subjective Physical Exam Physical Exam: Left hip: Foam tape and outer dressing was removed from the patient's left hip. The zipper line and shield were in place. Wound appears to be healing well. There is no drainage. There is no palpable fluctuance. Patient is unable to perform a straight leg raise test. She is unable to actively dorsi and plantarflex her foot. Passive straight leg raise test and dorsi and plantar flexion causes referred pain to the patient's knee. - Logroll hip. Patient experiences tensile type pain with light passive internal and external hip rotation. Patient is neurovascularly unchanged. Peripheral pulses are 1+. Capillary refill slightly greater than 2 seconds. Quad strength is 1-2 out of 5. Results & Data ([facility]) Vital Signs (Past 12 Hours) Vital Signs Temp Pulse Pulse Resp BP BP Pulse Ox 12/05/20 07:00 36.7 C 117 H 18 166/99 H 92 12/05/20 03:49 36.4 C L 113 H 24 150/78 H 91 12/05/20 02:45 128 H 12/04/20 23:47 36.9 C 110 H 16 148/91 H 95 12/04/20 22:15 115 H 152/118 H Laboratory Results 12/05/20 12/05/20 12/05/20 Range/Units 07:19 06:09 06:09 WBC (4.8-10.8) K/uL RBC (4.2-5.4) M/uL Hgb (12.0-16.0) g/dL Hct (37-47) % MCV (80-100) fL MCH (25-34) pg MCHC (32-36) g/dL RDW Std Deviation (36.4-46.3) fL RDW Coeff of Arturo (11.5-14.5) % Plt Count (130-400) K/uL MPV (7.4-10.4) fL Immature Gran % (Auto) % Neut % (Auto) % Lymph % (Auto) % [place] % (Auto) % Eos % (Auto) % Baso % (Auto) % Neut # (Auto) (1.4-6.5) K/uL Lymph # (Auto) (1.2-3.4) K/uL [place] # (Auto) (0.11-0.59) K/uL Eos # (Auto) (0-0.5) K/uL Baso # (Auto) (0-0.2) K/uL Immature Gran # (Auto) (0.00-0.02) K/uL ESR 58 H (0-30) mm/hr Sodium (136-145) mmol/L Potassium (3.5-5.1) mmol/L Chloride (98-107) mmol/L Carbon Dioxide (21-32) mmol/L Anion Gap (3-11) BUN (7-18) mg/dl Creatinine (0.6-1.2) mg/dl Est Cr Clr Drug Dosing ml/min Est GFR ( Amer) ml/min Est GFR (Non-Af Amer) ml/min BUN/Creatinine Ratio (10-20) Glucose (70-99) mg/dl POC Glucose 111 H (70-99) mg/dl Calcium (8.5-10.1) mg/dl Iron 15 L (35-150) mcg/dl Transferrin 159 L (200-360) mg/dl Transferrin % Sat 7 L (15-50) % Ferritin 358.7 (8-388) ng/ml C-Reactive Protein 21.30 H (0-0.29) mg/dl 12/05/20 12/05/20 12/04/20 Range/Units 06:09 06:09 20:34 WBC 9.11 (4.8-10.8) K/uL RBC 3.39 L (4.2-5.4) M/uL Hgb 10.1 L (12.0-16.0) g/dL Hct 31.6 L (37-47) % MCV 93.2 (80-100) fL MCH 29.8 (25-34) pg MCHC 32.0 (32-36) g/dL RDW Std Deviation 55.9 H (36.4-46.3) fL RDW Coeff of Arturo 16.4 H (11.5-14.5) % Plt Count 120 L (130-400) K/uL MPV 9.7 (7.4-10.4) fL Immature Gran % (Auto) 0.2 % Neut % (Auto) 82.5 % Lymph % (Auto) 10.4 % [place] % (Auto) 6.3 % Eos % (Auto) 0.5 % Baso % (Auto) 0.1 % Neut # (Auto) 7.51 H (1.4-6.5) K/uL Lymph # (Auto) 0.95 L (1.2-3.4) K/uL [place] # (Auto) 0.57 (0.11-0.59) K/uL Eos # (Auto) 0.05 (0-0.5) K/uL Baso # (Auto) 0.01 (0-0.2) K/uL Immature Gran # (Auto) 0.02 (0.00-0.02) K/uL ESR (0-30) mm/hr Sodium 142 (136-145) mmol/L Potassium 4.3 (3.5-5.1) mmol/L Chloride 112 H (98-107) mmol/L Carbon Dioxide 21 (21-32) mmol/L Anion Gap 9.0 (3-11) BUN 23 H (7-18) mg/dl Creatinine 0.95 (0.6-1.2) mg/dl Est Cr Clr Drug Dosing 45.3 ml/min Est GFR ( Amer) 64.2 ml/min Est GFR (Non-Af Amer) 55.4 ml/min BUN/Creatinine Ratio 24.1 H (10-20) Glucose 104 H (70-99) mg/dl POC Glucose 113 H (70-99) mg/dl Calcium 7.9 L (8.5-10.1) mg/dl Iron (35-150) mcg/dl Transferrin (200-360) mg/dl Transferrin % Sat (15-50) % Ferritin (8-388) ng/ml C-Reactive Protein (0-0.29) mg/dl 12/04/20 12/04/20 Range/Units 16:16 11:04 WBC (4.8-10.8) K/uL RBC (4.2-5.4) M/uL Hgb (12.0-16.0) g/dL Hct (37-47) % MCV (80-100) fL MCH (25-34) pg MCHC (32-36) g/dL RDW Std Deviation (36.4-46.3) fL RDW Coeff of Arturo (11.5-14.5) % Plt Count (130-400) K/uL MPV (7.4-10.4) fL Immature Gran % (Auto) % Neut % (Auto) % Lymph % (Auto) % [place] % (Auto) % Eos % (Auto) % Baso % (Auto) % Neut # (Auto) (1.4-6.5) K/uL Lymph # (Auto) (1.2-3.4) K/uL [place] # (Auto) (0.11-0.59) K/uL Eos # (Auto) (0-0.5) K/uL Baso # (Auto) (0-0.2) K/uL Immature Gran # (Auto) (0.00-0.02) K/uL ESR (0-30) mm/hr Sodium (136-145) mmol/L Potassium (3.5-5.1) mmol/L Chloride (98-107) mmol/L Carbon Dioxide (21-32) mmol/L Anion Gap (3-11) BUN (7-18) mg/dl Creatinine (0.6-1.2) mg/dl Est Cr Clr Drug Dosing ml/min Est GFR ( Amer) ml/min Est GFR (Non-Af Amer) ml/min BUN/Creatinine Ratio (10-20) Glucose (70-99) mg/dl POC Glucose 107 H 93 (70-99) mg/dl Calcium (8.5-10.1) mg/dl Iron (35-150) mcg/dl Transferrin (200-360) mg/dl Transferrin % Sat (15-50) % Ferritin (8-388) ng/ml C-Reactive Protein (0-0.29) mg/dl (1) Basicervical fracture of left femur Encounter type: initial encounter Fracture alignment: nondisplaced Fracture type: closed Qualified Code(s): S72.045A - Nondisplaced fracture of base of neck of left femur, initial encounter for closed fracture
--- NOTE | 2020-12-05 11:35 | Consultation Report ---
DATE OF CONSULTATION: 12/05/2020 HEMATOLOGY CONSULTATION REASON FOR CONSULTATION: Pancytopenia and monoclonal gammopathy of unclear significance. HISTORY OF PRESENT ILLNESS: Nuris Benito is a pleasant, somewhat unfortunate 85-year-old female patient who was admitted to [facility] on 12/02 status post fall at her residence at the [facility]. She was recovering and rehabilitating from CVA that she suffered in mid November. The patient was attempting to remove blankets from her bed when she became entangled and subsequently fell to the floor fracturing her left hip. She was unable to bear weight and her notified EMS to transport her to hospital. Hip and pelvic x-rays revealed a basicervical fracture of the left femur, which might extend into the femoral head with possible adjacent bone fragment. Nuris subsequently underwent a left hip hemiarthroplasty. I have been asked to evaluate Nuris for some hematologic anomalies. First and foremost, she has a recent diagnosis of leukocytoclastic vasculitis. She apparently had been on chronic steroids until a couple of months ago. Since that particular diagnosis, apparently her blood counts across the board have faltered. She now suffers from mild pancytopenia. In the midst of her hypercoag workup undertaken at the time of her CVA, she was found to have a monoclonal spike of approximately 0.8 grams per deciliter, which is of the IgM subclass. Nuris was scheduled for an outpatient consultation in my office on 12/04 and obviously was hospitalized and thus, Dr. Rowan requested that I visit with Nuris while inhouse. PAST MEDICAL HISTORY: As follows -- actinic keratoses, anemia, benign positional vertigo, cheilosis, chronic kidney disease, cystocele, gastroparesis, anxiety, hyperglycemia, hypothyroidism, irritable bowel syndrome, leukocytoclastic vasculitis, leukopenia, rectocele, second-degree uterine prolapse, skin cancer. PAST SURGICAL HISTORY: Tooth extraction, cataract surgery, removal of ganglion cyst, history of temporal artery biopsy on 11/18/2020, tonsillectomy and tubal ligation. CURRENT MEDICATIONS: Include atorvastatin 40 mg p.o. daily, vitamin B6 25 mg p.o. daily, Protonix 40 mg p.o. daily, Plavix 75 mg p.o. daily, multivitamin 1 tablet p.o. daily, cholecalciferol 25 mcg p.o. daily, cyanocobalamin 1000 mcg sublingual q.a.m., MiraLax 17 grams p.o. daily p.r.n. ALLERGIES: INFLUENZA VACCINE, AMOXICILLIN, ANESTHETICS, DIAZEPAM, METHYL CHLORIDE, PROCAINAMIDE AND PENICILLINS. FAMILY HISTORY: Mother at age 80, suffered from non-Hodgkin's lymphoma, cardiovascular disease, had arthritis. Father at age 56 attributable to stroke. SOCIAL HISTORY: Lives at the [facility] with her spouse. She enjoys social alcohol. Negative for cigarettes or illicit substances. REVIEW OF SYSTEMS: As per HPI, recent cardiovascular accident, status post fall resulting in a fractured left hip. CONSTITUTIONAL: No fevers, chills or sweats. She is not anorexic or losing weight. SKIN: Multiple senile purpura lesions. Has history of leukocytoclastic vasculitis. No rashes or lesions otherwise. HEENT: Negative for headaches, lightheadedness or dizziness. No acute visual or hearing deficits. No sinus symptoms, sore throat or dysphagia. LYMPHATICS: No history of lymphoproliferative disease. CARDIAC: Positive history of abnormal heart rhythm, perhaps atrial fibrillation. No current angina or palpitations. PULMONARY: She is not acutely short of breath, dyspneic or orthopneic. No cough or hemoptysis. GASTROINTESTINAL: Negative for abdominal pain, nausea, vomiting, diarrhea or constipation, hematochezia or melena stools. GENITOURINARY: No hematuria, dysuria, or urinary incontinence. PSYCHIATRIC: Positive for anxiety. ENDOCRINE: Positive for hypothyroidism. MUSCULOSKELETAL: Status post left hip fracture. NEUROLOGIC: Recent history of cerebrovascular accident. HEMATOLOGIC: History of anemia and mild thrombocytopenia. PHYSICAL EXAMINATION: GENERAL: Very pleasant 85-year-old female patient, awake, alert and appropriate, in no acute distress. VITAL SIGNS: Temperature 36.7, pulse 117, respiratory rate 18, blood pressure 166/99. SKIN: Again, several senile purpura are seen on her upper extremities predominantly. HEENT: Atraumatic, normocephalic. Eyes: PERRLA, EOMI. Sclerae nonicteric. Nares patent without rhinorrhea or discharge. Throat clear. Tongue midline. Mucous membranes are moist. NECK: Supple without JVD or thyromegaly. LYMPHATICS: No cervical or supraclavicular palpable nodes. HEART: Regular rate and rhythm. No clicks, rubs, murmurs or gallops. LUNGS: Clear to auscultation bilaterally. ABDOMEN: Soft, nontender, nondistended. EXTREMITIES: Strength testing not done. Pulses are equal in all 4 quadrants. No clubbing, cyanosis or edema noted. NEUROLOGICAL: She is awake, alert and oriented x3. LABORATORY DATA: WBC count of 9110, hemoglobin 10.1, platelet count 120,000, absolute neutrophil count 7510. Sodium 142, potassium 4.3, chloride 112, carbon dioxide 21, creatinine 0.95, BUN 23. Iron 15, transferrin 159, ferritin 358.7. C-reactive protein 21.3. IMPRESSION: 1. Status post left hip fracture/open reduction and internal fixation. 2. Anemia/thrombocytopenia. 3. Monoclonal gammopathy of unclear significance (IgM). 4. Iron-deficiency anemia. 5. Leukocytoclastic vasculitis by history. 6. Idiopathic polyneuropathy. 7. Cerebrovascular accident. PLAN: It is my pleasure to visit with Nuris at bedside today. She was originally scheduled for an outpatient consultation on 12/04; however, obviously was predisposed, admitted to [facility] status post fall, suffering a fractured left hip, requiring operative repair. The purpose of her visit at [facility] is to evaluate monoclonal gammopathy of unclear significance. She has a small M spike of 0.8 grams per deciliter IgM subclass. She also suffers from cytopenias, particularly anemia and mild thrombocytopenia. Her iron studies in hospital reflect deficiency state and thus recommend iron sucrose 300 mg perhaps x2 doses while inhouse. Cannot readily explain her mild thrombocytopenia. However, the anemia component certainly with incorporation of iron may improve. Her monoclonal gammopathy of unclear significance, I doubt, is actually impacting her hematopoietic capabilities. That said, she needs to heal and rehabilitate. I would like to see her within a month or so once the dust settles and she fully recovers, reevaluate her counts at that time. We will continue to monitor serum protein electrophoresis with immunofixation and I have asked the hospitalist to draw quantitative immunoglobulins while inhouse. I agree with medical management otherwise. Thank you for allowing me to participate in her care and I will continue to follow periodically with you during her hospital stay.
[2020-12-05] MEDS ORDERED: FUROSEMIDE 20 MG in SYRINGE 0 ML IV ONE (15:15)
[2020-12-05] MEDS: MoRPHine SULFATE 2 MG/ML CARP IV PRN (15:34)
--- NOTE | 2020-12-05 15:41 | XRay Report ---
XR chest 1V portable CLINICAL HISTORY: bibasilar rales - eval for edema COMPARISON STUDY: December 02, 2020 FINDINGS: No pneumothorax. Interval development of left pleural effusion associated with atelectasis/infiltrate at the left base . Interval worsening of diffuse reticular opacities throughout bilateral lungs with hazy component in c entral distribution which usually is seen in pulmonary edema. Cardiomediastinal silhouette is not significantly changed since prior and partially obscured by surro unding opacities. Aorta is calcified Pulmonary vasculature is indistinct.. Osseous structures: Osteopenia. Mild degenerative changes of the spine. IMPRESSION: 1. Interval development of pulmonary edema and left pleural effusion. 2. Atelectasis/infiltrate at the left base. ACT 112: Positive. There are findings on this exam that require communication between the performing entity and the patient following Patient Test Result Information Act ([place] Act 112) guidelines. The above report was generated using voice recognition software. It may contain grammatical, syntax o r spelling errors. Electronically signed by: Xochitl Li DO 12/05/2020 3:40 PM
[2020-12-05] MEDS ORDERED: Nursing to Pharmacy Communication SCH (16:45)
[2020-12-05] MEDS ORDERED: METOPROLOL TARTRATE 25 MG TAB PO STA (18:46)
--- NOTE | 2020-12-05 20:27 | Hospitalist Progress Note ---
Date of Service December 05, 2020 Assessment & Plan (1) Acute diastolic CHF (congestive heart failure): Clinically & radiographically volume overloaded today. Echo in November 2020 with preserved EF. Stop IVF. lasix 20mg IV x 1. Repeat bmp am. (2) Atrial dysrhythmia: Patient has had runs of PAT throughout her stay. However, this am she developed SVT or other atrial dysrhythmia. HR was 120-125 all day today. Additional metoprolol was given mid-day. Standing metoprolol was increased to 50mg BID this evening. Continue telemetry. If SVT does not resolve consider adenosine. (3) PAT (paroxysmal atrial tachycardia): numerous runs of such on monitoring this admission. NO A.fib or A.flutter however. continue metoprolol; dose increased to 50mg BID. 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 POD #3 s/p ORIF by Dr Osiel Peña, [facility]. WBAT. DVT proph - plavix (was already on such for secondary stroke prevention); adding heparin SC BID. Cont vit D supplementation. PT/OT. Rehab - [facility]? back to the [facility]? requesting rehab at [facility] once medically ready. (5) Acute blood loss anemia: 3+ gm drop on day of admission. Lowest Hb - 6.1, s/p 2 units PRBCs. 10.1 today. acute blood loss anemia 2nd to operative blood loss, soft tissue bleeding from hip fracture itself, blood draws/phlebotomy, etc. cbc in am for stability. (6) Anemia: spring 2020 - Hb baseline 9.5 to 10.5. Fe studies c/w Fe deficiency. has already been taking B12 supplementation at home. needs folate supplementation due to high homocysteine levels - this was added. remains on B6. see above re: acute blood loss. cbc am. (7) CVA (cerebral vascular accident): x 2 in 2020 -- first, September 2020 (right ji radiata and the right basal ganglia). second, November 2020 (right thalamus). on plavix for secondary prevention. CT head at admission w/o acute stroke/ICH. CT head hospital day #2 - also negative for acute stroke. LUE/LLE weakness thus from 2 prior CVAs. Treat homocysteinemia. Watch for a.fib/flutter on monitoring - thus far we have seen PAT and SVT as denoted above. (8) Hyperhomocystinemia: added folate 1mg IV daily cont B6 cont B12 (9) Dysphagia: speech consult appreciated. video swallow completed. no significant aspiration. pureed with thins recommended. she simply has prolonged mastication - chronic per . (10) Leukocytoclastic vasculitis: history of such. had been steroid dependent until September 2020 when her steroids were weaned off. previously followed by [facility] for this. saw Dr Telles about 10 days ago - see her scanned note in [facility]. no rash on exam that would suggest recurrent vasculitis. ESR on 10/29/20 was 71. Now 58. Crp / saw Nicole Cat MD - [facility] heme/onc - 08/2020 see scanned note re: their concerns about gammopathy Dr Hackett saw patient in consult today -- recommended IV iron replacement while he re, checking quantitative Immunoglobulins, and will see her post-d/c to determine if she has bone marrow dyscrasia. (11) CKD (chronic kidney disease), stage III: baseline CrCl high 40s bmp am IV fluids stopped today (12) Hypothyroidism: history of such per records, but had not been on synthroid in some time. she cannot recall when she took meds in the past. TSH nearly 30 this admission. start replacement 50mcg daily. TSH 6 weeks. (13) Thrombocytopenia: mild, suspect consumptive in setting of acute blood loss anemia. platelets 120 today. repeat cbc in am. (14) Lung nodule < 6cm on CT: 3cm, RUL, pleural-based seen on CTA neck during November 2020 admission for acute stroke deserves f/u with pulmonary for such depending on her recovery from her recent stroke & hip fracture this could be lung ca (15) Low serum immunoglobulin kappa light chain: noted appreciate Dr Hackett's consultation check IgG, IgM, and IgA see discussion above (16) Hypocalcemia: s/p calcium gluconate, now improved (17) DVT prophylaxis: plavix add heparin 5000 BID left message for pt's on voicemail at their home Admission and Anticipated Discharge Date Admission Date: December 02, 2020 Subjective patient very confused during the visit today very poor appetite today - little intake either solids or liquids no stool or flatus since surgery tele today with HR of about 120-125 for much of the day; no variation with activity or otherwise 12-lead EKG obtained- suspected SVT c/o left hip pain denied chest pain denied abd pain Review of Systems Constitutional: + fatigue, + weakness and + anorexia Respiratory: + dyspnea; no cough Cardiovascular: no chest pain Gastrointestinal: no abdominal pain, no nausea and no vomiting Genitourinary: reeves still in place Integumentary: no rash Physical Exam Constitutional: + acute distress (mildly tachypneic ), + ill appearing, + altered mental status and + frail appearing ENMT: Mouth: + dry oral mucous membranes Respiratory: + tachypneic Auscultation: + crackles (diffuse b/l ); no wheezes Cardiovascular: Rate/Rhythm: regular rhythm and + tachycardic Heart Sounds: normal S1 and normal S2; no murmur Vessels: + JVD, posterior tibial pulses present and dorsalis pedis pulses present Extremities: + edema (1+ b/l ankles; left thigh swelling from L hip fracture s/p ORIF) Gastrointestinal (Abdomen): Inspection/Auscultation: + abdomen distended (mild) and + hypoactive bowel sounds Percussion/Palpation: abdomen nontender and no hepatosplenomegaly Skin: ecchymoses left thigh / left groin Psychiatric: Orientation: alert, oriented to person and oriented to place; + not oriented to time Results & Data Results & Data ([facility]) Vital Signs (Past 12 Hours) Vital Signs Temp Pulse Resp BP BP Pulse Ox 12/05/20 19:31 36.7 C 111 H 16 165/92 H 95 12/05/20 15:00 36.7 C 123 H 19 164/101 H 93 12/05/20 11:00 37.0 C 123 H 18 154/102 H 96 Laboratory Results Laboratory Results - last 24 hr 12/04/20 12/05/20 12/05/20 20:34 06:09 06:09 WBC 9.11 RBC 3.39 L Hgb 10.1 L Hct 31.6 L MCV 93.2 MCH 29.8 MCHC 32.0 RDW Std Deviation 55.9 H RDW Coeff of Arturo 16.4 H Plt Count 120 L MPV 9.7 Immature Gran % (Auto) 0.2 Neut % (Auto) 82.5 Lymph % (Auto) 10.4 [place] % (Auto) 6.3 Eos % (Auto) 0.5 Baso % (Auto) 0.1 Neut # (Auto) 7.51 H Lymph # (Auto) 0.95 L [place] # (Auto) 0.57 Eos # (Auto) 0.05 Baso # (Auto) 0.01 Immature Gran # (Auto) 0.02 ESR Sodium 142 Potassium 4.3 Chloride 112 H Carbon Dioxide 21 Anion Gap 9.0 BUN 23 H Creatinine 0.95 Est Cr Clr Drug Dosing 45.3 Est GFR ( Amer) 64.2 Est GFR (Non-Af Amer) 55.4 BUN/Creatinine Ratio 24.1 H Glucose 104 H POC Glucose 113 H Calcium 7.9 L Iron Transferrin Transferrin % Sat Ferritin C-Reactive Protein 12/05/20 12/05/20 12/05/20 06:09 06:09 07:19 WBC RBC Hgb Hct MCV MCH MCHC RDW Std Deviation RDW Coeff of Arturo Plt Count MPV Immature Gran % (Auto) Neut % (Auto) Lymph % (Auto) [place] % (Auto) Eos % (Auto) Baso % (Auto) Neut # (Auto) Lymph # (Auto) [place] # (Auto) Eos # (Auto) Baso # (Auto) Immature Gran # (Auto) ESR 58 H Sodium Potassium Chloride Carbon Dioxide Anion Gap BUN Creatinine Est Cr Clr Drug Dosing Est GFR ( Amer) Est GFR (Non-Af Amer) BUN/Creatinine Ratio Glucose POC Glucose 111 H Calcium Iron 15 L Transferrin 159 L Transferrin % Sat 7 L Ferritin 358.7 C-Reactive Protein 21.30 H 12/05/20 12/05/20 11:30 16:16 WBC RBC Hgb Hct MCV MCH MCHC RDW Std Deviation RDW Coeff of Arturo Plt Count MPV Immature Gran % (Auto) Neut % (Auto) Lymph % (Auto) [place] % (Auto) Eos % (Auto) Baso % (Auto) Neut # (Auto) Lymph # (Auto) [place] # (Auto) Eos # (Auto) Baso # (Auto) Immature Gran # (Auto) ESR Sodium Potassium Chloride Carbon Dioxide Anion Gap BUN Creatinine Est Cr Clr Drug Dosing Est GFR ( Amer) Est GFR (Non-Af Amer) BUN/Creatinine Ratio Glucose POC Glucose 131 H 112 H Calcium Iron Transferrin Transferrin % Sat Ferritin C-Reactive Protein cxr - pulm edema, b/l pleural effusions EKG - my reading - SVT, rate 125, nonspecific T wave changes PG Care Time/CCT Total # of Minutes Spent Total Time Spent with Patient: Total time spent is greater than 50% in coordination of care (as documented) at patient's floor/unit and/or counseling patient: Coding Level of Care Code 29353 Subseq Hosp Care Lvl 3 Diagnoses Acute diastolic CHF (congestive heart failure) I50.31 Atrial dysrhythmia I49.8 PAT (paroxysmal atrial tachycardia) I47.1 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 M80.059A Acute blood loss anemia D62 Anemia D64.9 Anemia type: unspecified type CVA (cerebral vascular accident) I63.9 CVA mechanism: unspecified Hyperhomocystinemia E72.11 Dysphagia R13.10 Leukocytoclastic vasculitis M31.0 CKD (chronic kidney disease), stage III N18.30 Chronic kidney disease stage 3 subtype: unspecified whether 3a or 3b Hypothyroidism E03.9 Thrombocytopenia D69.6 Lung nodule < 6cm on CT R91.1 Low serum immunoglobulin kappa light chain R77.1 Hypocalcemia E83.51 DVT prophylaxis Z29.9 (1) CKD (chronic kidney disease), stage III Chronic kidney disease stage 3 subtype: unspecified whether 3a or 3b Qualified Code(s): N18.30 - Chronic kidney disease, stage 3 unspecified (2) Anemia Anemia type: unspecified type Qualified Code(s): D64.9 - Anemia, unspecified (3) CVA (cerebral vascular accident) CVA mechanism: unspecified Qualified Code(s): I63.9 - Cerebral infarction, unspecified
[2020-12-05] MEDS: DOCUSATE SODIUM/SENNA 50/8.6MG TAB PO SCH (21:39)
[2020-12-05] MEDS: ONDANSETRON INJ 2 MG/ML 2 ML VIAL IV PRN (22:52)
[2020-12-06 05:53] LABS: Hematocrit (blood only) 27.2 % (37-47); Hemoglobin 8.8 g/dL (12.0-16.0); Mean Corpuscular Hemoglobin 29.6 pg (25-34); Mean Corpuscular Hgb Conc 32.4 g/dL (32-36); Mean Corpuscular Volume 91.6 fL (80-100); Mean Platelet Volume 9.7 fL (7.4-10.4); Platelet Count 134 K/uL (130-400); RDW Coefficient of Variation 16.4 % (11.5-14.5); RDW Standard Deviation 54.6 fL (36.4-46.3); Red Blood Count 2.97 M/uL (4.2-5.4); White Blood Count 9.26 K/uL (4.8-10.8)
[2020-12-06] MEDS: LEVOTHYROXINE SODIUM 50 MCG TABLET PO SCH (05:56)
[2020-12-06 06:48] LABS: BUN Creatinine Ratio 28.1 (10-20); Calcium 8.3 mg/dl (8.5-10.1); Creatinine Clr Calc Pharmacy 39.1 ml/min; Est GFR (African American) 53.8 ml/min; Est GFR (Non-African American) 46.4 ml/min; Potassium 4.2 mmol/L (3.5-5.1)
[2020-12-06] MEDS: PANTOprazole 40 MG TAB PO SCH (08:49)
[2020-12-06] MEDS: CLOPIDOGREL BISULFATE 75 MG TAB PO SCH (08:49)
[2020-12-06] MEDS: METOPROLOL TARTRATE 50 MG TAB PO SCH ×2 (08:49→21:15)
[2020-12-06] MEDS: CYANOCOBALAMIN 500 MCG TABLET (VITAMIN B-12) PO SCH (08:49)
[2020-12-06] MEDS: ATORVASTATIN 40 MG TAB PO SCH (08:49)
[2020-12-06] MEDS: MULTIVITAMIN TAB PO SCH (08:49)
[2020-12-06] MEDS: PYRIDOXINE HCL 50 MG TAB PO SCH (08:49)
[2020-12-06] MEDS: FOLIC ACID 1 MG in SYRINGE 9.8 ML IV SCH (08:49)
[2020-12-06] MEDS: CHOLECALCIFEROL 1,000 UNITS 25 MCG TAB PO SCH (08:49)
--- NOTE | 2020-12-06 12:46 | Electrocardiogram Report ---
Test Reason : Blood Pressure : / mmHG Vent. Rate : 125 BPM Atrial Rate : 125 BPM P-R Int : 140 ms QRS Dur : 074 ms QT Int : 324 ms P-R-T Axes : 063 029 057 degrees QTc Int : 467 ms Sinus tachycardia vs. SVT Diffuse Nonspecific T wave abnormality Abnormal ECG When compared with ECG of 02-DEC-2020 19:44, Vent. rate has increased BY 56 BPM Confirmed by Blas Carpio ([id number]) on 12/06/2020 12:45:41 PM Referred By: [facility] Confirmed By:Blas Carpio
[2020-12-06] MEDS ORDERED: SODIUM CHLORIDE 0.9% 500 ML IV SCH (17:30)
--- NOTE | 2020-12-06 18:54 | XRay Report ---
LEFT ANKLE 3 VIEWS HISTORY: Left ankle pain. recent fall, malleoli pain, r/o fracture COMPARISON: None. FINDINGS: There is no fracture or dislocation. Mild soft tissue swelling. Plantar and posterior calca christiano spurs are noted. No radiopaque foreign bodies. IMPRESSION: Soft tissue swelling within the left ankle. No fractures. ACT 112: Negative or not required by law. Electronically signed by: Juan Luis Ugalde M.D. 12/06/2020 6:53 PM
--- NOTE | 2020-12-06 19:03 | XRay Report ---
KUB HISTORY: vomiting, abd distension, eval ileus COMPARISON: Abdomen and pelvis CT 01/30/2013. FINDINGS: Residual oral contrast within the proximal colon. Mild gaseous distention of the majority o f the colon. No dilated loops of small bowel to suggest small bowel obstruction. There is a large geoff unt of well-formed stool within the distal sigmoid colon/rectum. This includes a 7.3 cm rectal stool ball. This could account for the mild gaseous distention of the colon. There is a left hip hemiarthro plasty. No renal calculi. No ureteral calculi. No pneumoperitoneum or pneumatosis. IMPRESSION: Mild gaseous distention of the majority of the colon. This could be secondary to the large rectal sto ol ball measuring 7.3 cm. ACT 112: Negative or not required by law. Electronically signed by: Juan Luis Ugalde M.D. 12/06/2020 7:02 PM
[2020-12-06] MEDS ORDERED: SOD PHOSPHATE/SOD BIPHOSPHATE ENEMA 132 ML BTL PR STA (19:41)
--- NOTE | 2020-12-06 20:08 | Hospitalist Progress Note ---
Date of Service December 06, 2020 Assessment & Plan (1) Fecal impaction: severe, on x-rays today. fleets ID x 1 - re-eval in am. with resulting mild ileus/obstipation. (2) Obstipation: due to fecal impaction. fleets x 1 ID. then will need senna + miralax - at minimum - for maintenance. likely contributing to some degree to her anorexia. (3) Esophageal spasm: severe episode of such today. resulting in dry heaves, etc. video swallow results noted from other day. cont pureed diet. cont PPI. (4) Left ankle pain: x-rays obtained - no acute fracture. either sprain from recent fall or could have inflammatory arthropathy. re-eval in am. (5) Dysphagia: speech consult appreciated. video swallow completed. no significant aspiration. pureed with thins recommended. she simply has prolonged mastication - chronic per . and probably some element of esophageal dysmotility?? (given events of today) (6) 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: LEFT. POD #4 s/p ORIF by Dr Osiel Peña, [facility]. WBAT. DVT proph - plavix (was already on such for secondary stroke prevention); also added heparin SC BID. Cont vit D supplementation. PT/OT. Rehab - [facility]? back to [facility]? requesting rehab at [facility] once medically ready. (7) Acute diastolic CHF (congestive heart failure): Clinically & radiographically volume overloaded on 12/05/20. Echo in November 2020 with preserved EF. Received diuresis yesterday. Exam improved today. (8) Atrial dysrhythmia: Patient has had runs of intermittent PAT throughout her stay. No obvious Afib or Aflutter. Developed sustained SVT or other atrial dysrhythmia on 12/05/20. HR was 120-125 consistently. Metoprolol was increased to 50mg BID 12/05/20. SVT resolved; HRs <100. Continue telemetry. (9) PAT (paroxysmal atrial tachycardia): numerous runs of such on monitoring this admission. NO A.fib or A.flutter however. continue metoprolol; dose increased to 50mg BID. (10) Acute blood loss anemia: 3+ gm drop on day of admission. Lowest Hb - 6.1, s/p 2 units PRBCs. Hb today 8.8 --- obtain fecal occult blood. acute blood loss anemia 2nd to operative blood loss, soft tissue bleeding from hip fracture itself, blood draws/phlebotomy, etc. cannot rule out occult GI blood loss - needs hemoccult. cbc in am for stability. (11) Anemia: spring 2020 - Hb baseline 9.5 to 10.5. Fe studies c/w Fe deficiency. has already been taking B12 supplementation at home. needs folate supplementation due to high homocysteine levels - this was added. remains on B6. Dr Hackett recommending IV venofer while hospitalized. cbc am. (12) CVA (cerebral vascular accident): x 2 in 2020 -- first, September 2020 (right ji radiata and the right basal ganglia). second, November 2020 (right thalamus). on plavix for secondary prevention. CT head at admission w/o acute stroke/ICH. CT head hospital day #2 - also negative for acute stroke. LUE/LLE weakness thus from 2 prior CVAs. Treat homocysteinemia. Watch for a.fib/flutter on monitoring - thus far we have seen PAT and SVT as denoted above. 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 previously followed by [facility] for this. saw Dr Telles about 10 days ago - see her scanned note in [facility]. no rash on exam that would suggest recurrent vasculitis. ESR on 10/29/20 was 71. Now 58. Crp 21. saw Nicole Cat MD - [facility] heme/onc - 08/2020 see scanned note re: their concerns about gammopathy Dr Hackett saw patient in consult yesterday -- recommended IV iron replacement while here, checking quantitative Immunoglobulins, and will see her post-d/c to determine if she has bone marrow dyscrasia. 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 Defer management to Dr Hackett. (16) CKD (chronic kidney disease), stage III: baseline CrCl high 40s bmp am IV fluids stopped due to concern of acute diastolic CHF, but now UOP low today. I'm afraid she may be total body volume overloaded but dry intravascularly. Due to low UOP today - give back 500cc total over 10 hours (50/hr). Repeat BMP am. (17) Hypothyroidism: history of such per records, but had not been on synthroid in some time. she cannot recall when she last took meds in the past. TSH nearly 30 this admission. replacement initiated at 50mcg daily. TSH 6 weeks. (18) Thrombocytopenia: mild, suspect consumptive in setting of acute blood loss anemia. platelets 134 today. repeat cbc in am. 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 appreciate Dr Hackett's consultation checked IgG, IgM, and IgA see discussion above (21) DVT prophylaxis: plavix heparin 5000 BID updated at bedside today I am concerned about her overall status she has done poorly chronically since her stroke in September, and now a new CVA in November and her hip fracture this week recommend palliative care consultation Admission and Anticipated Discharge Date Admission Date: December 02, 2020 Subjective tele overnight - NSR no further SVT or atrial tachycardia when I walked into room pt's was present her mealtray was set up in front of her she was actively eating shortly after my arrival she started clutching the top portion of her chest she said the food was stuck she began to cough then stated she felt some nausea dry heaves ensued lasted several minutes then resolved chest tightness/pain resolved feels bloated not passing much flatus staff report no BM since admission denied any dyspnea left hip pain similar to yesterday felt she was much better today with her overall constitution, mental status, and appetite finally, c/o left ankle pain when she tried to weight-bear today this was first time her ankle hurt since admission Review of Systems Constitutional: + fatigue and + weakness Respiratory: no cough Cardiovascular: as per Subjective / HPI and + edema ( reports months of such ) Gastrointestinal: + bloating, + nausea, + vomiting and + constipation Musculoskeletal: as per Subjective / HPI Neurologic: + localized weakness (Left arm/leg) Physical Exam Constitutional: + acute distress (Esophageal spasm; coughing; then dry heaves), + ill appearing and + frail appearing ENMT: Mouth: + dry oral mucous membranes Respiratory: + tachypneic (Quiet) Auscultation: + crackles (Minimal bases b/l ); no wheezes Cardiovascular: Rate/Rhythm: regular rate and regular rhythm Heart Sounds: normal S1 and normal S2; no murmur Vessels: posterior tibial pulses present and dorsalis pedis pulses present; no JVD Extremities: + edema (1+ b/l ankles; left thigh swelling from L hip fracture s/p ORIF) Gastrointestinal (Abdomen): Inspection/Auscultation: + abdomen distended (mild) and + hypoactive bowel sounds Percussion/Palpation: abdomen nontender and no hepatosplenomegaly Musculoskeletal: l ankle - tender over lateral malleolus; tender over ankle ligaments inferior to lateral malleolus; mild ankle swelling Skin: + ecchymosis (Left hip region/ left groin region ) Psychiatric: Orientation: alert, oriented to person and oriented to place; + not oriented to time Results & Data Results & Data ([facility]) Vital Signs (Past 12 Hours) Vital Signs Temp Pulse Resp BP Pulse Ox 12/06/20 19:14 36.8 C 93 H 18 154/98 H 91 12/06/20 15:11 36.7 C 97 H 20 152/97 H 97 12/06/20 12:07 36.8 C 89 20 139/90 97 Laboratory Results Laboratory Results - last 24 hr 12/06/20 12/06/20 05:16 05:16 WBC 9.26 RBC 2.97 L Hgb 8.8 L Hct 27.2 L MCV 91.6 MCH 29.6 MCHC 32.4 RDW Std Deviation 54.6 H RDW Coeff of Arturo 16.4 H Plt Count 134 MPV 9.7 Sodium 143 Potassium 4.2 Chloride 114 H Carbon Dioxide 21 Anion Gap 8.0 BUN 31 H Creatinine 1.10 Est Cr Clr Drug Dosing 39.1 Est GFR ( Amer) 53.8 Est GFR (Non-Af Amer) 46.4 BUN/Creatinine Ratio 28.1 H Glucose 103 H Calcium 8.3 L IgG 275.0 L IgA 40.0 L IgM 1130.0 H PG Care Time/CCT Total # of Minutes Spent Total Time Spent with Patient: Total time spent is greater than 50% in coordination of care (as documented) at patient's floor/unit and/or counseling patient: Coding Level of Care Code 21792 Subseq Hosp Care Lvl 3 Diagnoses Fecal impaction K56.41 Obstipation K59.00 Esophageal spasm K22.4 Left ankle pain M25.572 Dysphagia R13.10 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 M80.059A Acute diastolic CHF (congestive heart failure) I50.31 Atrial dysrhythmia I49.8 PAT (paroxysmal atrial tachycardia) I47.1 Acute blood loss anemia D62 Anemia D64.9 Anemia type: unspecified type CVA (cerebral vascular accident) I63.9 CVA mechanism: unspecified Hyperhomocystinemia E72.11 Leukocytoclastic vasculitis M31.0 Immunoglobulin deficiency D80.9 CKD (chronic kidney disease), stage III N18.30 Chronic kidney disease stage 3 subtype: unspecified whether 3a or 3b Hypothyroidism E03.9 Thrombocytopenia D69.6 Lung nodule < 6cm on CT R91.1 Low serum immunoglobulin kappa light chain R77.1 DVT prophylaxis Z29.9 (1) CKD (chronic kidney disease), stage III Chronic kidney disease stage 3 subtype: unspecified whether 3a or 3b Qualified Code(s): N18.30 - Chronic kidney disease, stage 3 unspecified (2) Anemia Anemia type: unspecified type Qualified Code(s): D64.9 - Anemia, unspecified (3) CVA (cerebral vascular accident) CVA mechanism: unspecified Qualified Code(s): I63.9 - Cerebral infarction, unspecified
[2020-12-06] MEDS ORDERED: HYDROCODONE/ACETAMOPHEN 5/325MG TAB PO PRN (20:09)
[2020-12-06] MEDS: DOCUSATE SODIUM/SENNA 50/8.6MG TAB PO SCH (21:18)
[2020-12-07] MEDS: LEVOTHYROXINE SODIUM 50 MCG TABLET PO SCH (05:49)
[2020-12-07 06:37] LABS: Hematocrit (blood only) 29.4 % (37-47); Hemoglobin 9.6 g/dL (12.0-16.0); Mean Corpuscular Hemoglobin 29.4 pg (25-34); Mean Corpuscular Hgb Conc 32.7 g/dL (32-36); Mean Corpuscular Volume 90.2 fL (80-100); Mean Platelet Volume 9.7 fL (7.4-10.4); Platelet Count 139 K/uL (130-400); RDW Coefficient of Variation 16.3 % (11.5-14.5); RDW Standard Deviation 53.8 fL (36.4-46.3); Red Blood Count 3.26 M/uL (4.2-5.4); White Blood Count 6.96 K/uL (4.8-10.8)
[2020-12-07 07:17] LABS: Calcium 8.7 mg/dl (8.5-10.1)
[2020-12-07 07:18] LABS: BUN Creatinine Ratio 35.3 (10-20); Creatinine Clr Calc Pharmacy 38.4 ml/min; Est GFR (African American) 52.6 ml/min; Est GFR (Non-African American) 45.4 ml/min; Potassium 3.9 mmol/L (3.5-5.1)
[2020-12-07] MEDS: CYANOCOBALAMIN 500 MCG TABLET (VITAMIN B-12) PO SCH (09:41)
[2020-12-07] MEDS: PYRIDOXINE HCL 50 MG TAB PO SCH (09:41)
[2020-12-07] MEDS: METOPROLOL TARTRATE 50 MG TAB PO SCH ×2 (09:41→20:53)
[2020-12-07] MEDS: CLOPIDOGREL BISULFATE 75 MG TAB PO SCH (09:41)
[2020-12-07] MEDS: CHOLECALCIFEROL 1,000 UNITS 25 MCG TAB PO SCH (09:42)
[2020-12-07] MEDS: ATORVASTATIN 40 MG TAB PO SCH (09:42)
[2020-12-07] MEDS: MULTIVITAMIN TAB PO SCH (09:42)
[2020-12-07] MEDS: PANTOprazole 40 MG TAB PO SCH (09:42)
[2020-12-07] MEDS: POLYETHYLENE (MIRALAX) 17 GM PACK PO SCH (09:44)
[2020-12-07] MEDS: DOCUSATE SODIUM/SENNA 50/8.6MG TAB PO SCH (20:55)
--- NOTE | 2020-12-07 21:51 | Hospitalist Progress Note ---
Date of Service December 07, 2020 Assessment & Plan (1) Fecal impaction: severe, on x-rays today. fleets MO x 1 - with resulting mild ileus/obstipation. APPEARS MORE COMFORTABLE ON 12/07 (2) Obstipation: due to fecal impaction. fleets x 1 MO. then will need senna + miralax - at minimum - for maintenance. likely contributing to some degree to her anorexia. (3) Esophageal spasm: severe episode of such today. resulting in dry heaves, etc. video swallow results noted from other day. cont pureed diet. cont PPI. (4) Left ankle pain: x-rays obtained - no acute fracture. either sprain from recent fall or could have inflammatory arthropathy. (5) Dysphagia: speech consult appreciated. video swallow completed. no significant aspiration. pureed with thins recommended. she simply has prolonged mastication - chronic per . and probably some element of esophageal dysmotility?? (given events of today) (6) 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: LEFT. POD #4 s/p ORIF by Dr Osiel Peña, [facility]. WBAT. DVT proph - plavix (was already on such for secondary stroke prevention); also added heparin SC BID. Cont vit D supplementation. PT/OT. Rehab - [facility]? back to [facility]? requesting rehab at [facility] once medically ready. (7) Acute diastolic CHF (congestive heart failure): Clinically & radiographically volume overloaded on 12/05/20. Echo in November 2020 with preserved EF. Received diuresis yesterday. Exam improved today. (8) Atrial dysrhythmia: Patient has had runs of intermittent PAT throughout her stay. No obvious Afib or Aflutter. Developed sustained SVT or other atrial dysrhythmia on 12/05/20. HR was 120-125 consistently. Metoprolol was increased to 50mg BID 12/05/20. SVT resolved; HRs <100. Continue telemetry. (9) PAT (paroxysmal atrial tachycardia): numerous runs of such on monitoring this admission. NO A.fib or A.flutter however. continue metoprolol; dose increased to 50mg BID. (10) Acute blood loss anemia: 3+ gm drop on day of admission. Lowest Hb - 6.1, s/p 2 units PRBCs. Hb today 8.8 --- obtain fecal occult blood. acute blood loss anemia 2nd to operative blood loss, soft tissue bleeding from hip fracture itself, blood draws/phlebotomy, etc. cannot rule out occult GI blood loss - needs hemoccult. cbc in am for stability. (11) Anemia: spring 2020 - Hb baseline 9.5 to 10.5. Fe studies c/w Fe deficiency. has already been taking B12 supplementation at home. needs folate supplementation due to high homocysteine levels - this was added. remains on B6. Dr Hackett recommending IV venofer while hospitalized. (12) CVA (cerebral vascular accident): x 2 in 2020 -- first, September 2020 (right ji radiata and the right basal ganglia). second, November 2020 (right thalamus). on plavix for secondary prevention. CT head at admission w/o acute stroke/ICH. CT head hospital day #2 - also negative for acute stroke. LUE/LLE weakness thus from 2 prior CVAs. Treat homocysteinemia. Watch for a.fib/flutter on monitoring - thus far we have seen PAT and SVT as denoted above. 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 previously followed by [facility] for this. saw Dr Telles about 10 days ago - see her scanned note in [facility]. no rash on exam that would suggest recurrent vasculitis. ESR on 10/29/20 was 71. Now 58. Crp 21. saw Nicole Cat MD - [facility] heme/onc - 08/2020 see scanned note re: their concerns about gammopathy Dr Hackett saw patient in consult yesterday -- recommended IV iron replacement while here, checking quantitative Immunoglobulins, and will see her post-d/c to determine if she has bone marrow dyscrasia. 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 Defer management to Dr Hackett. (16) CKD (chronic kidney disease), stage III: baseline CrCl high 40s bmp am IV fluids stopped due to concern of acute diastolic CHF, but now UOP low today. I'm afraid she may be total body volume overloaded but dry intravascularly. Due to low UOP - give back 500cc total over 10 hours (50/hr). . creatinine is 1.12 on 12/07 (17) Hypothyroidism: history of such per records, but had not been on synthroid in some time. she cannot recall when she last took meds in the past. TSH nearly 30 this admission. replacement initiated at 50mcg daily. TSH 6 weeks. (18) Thrombocytopenia: mild, suspect consumptive in setting of acute blood loss anemia. platelets 134 today. repeat cbc in am. 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 She has no new complaints. Review of Systems Review of Systems: All systems reviewed & are unremarkable except as noted in HPI & below Physical Exam Physical Exam: Constitutional: + ill appearing and + frail appearing ENMT: Mouth: + dry oral mucous membranes Respiratory: Auscultation: + crackles (Minimal bases b/l ); no wheezes Cardiovascular: Rate/Rhythm: regular rate and regular rhythm Heart Sounds: normal S1 and normal S2; no murmur Vessels: posterior tibial pulses present and dorsalis pedis pulses present; no JVD Extremities: + edema (1+ b/l ankles; left thigh swelling from L hip fracture s/p ORIF) Gastrointestinal (Abdomen): Inspection/Auscultation: + abdomen distended (mild) and + hypoactive bowel sounds Percussion/Palpation: abdomen nontender and no hepatosplenomegaly Musculoskeletal: l ankle - tender over lateral malleolus; tender over ankle ligaments inferior to lateral malleolus; mild ankle swelling Skin: + ecchymosis (Left hip region/ left groin region ) Psychiatric: Orientation: alert, oriented to person and oriented to place; + not oriented to time Results & Data Results & Data ([facility]) Vital Signs (Past 12 Hours) Vital Signs Temp Pulse Resp BP Pulse Ox 12/07/20 19:00 36.6 C 92 H 18 148/88 H 100 12/07/20 15:14 36.5 C 92 H 18 165/106 H 94 12/07/20 11:50 36.5 C 88 18 157/90 H 100 PG Care Time/CCT Total # of Minutes Spent Total Time Spent with Patient: Total time spent is greater than 50% in coordination of care (as documented) at patient's floor/unit and/or counseling patient: Coding Level of Care Code 37295 Subseq Hosp Care Lvl 3 Diagnoses Fecal impaction K56.41 Obstipation K59.00 Esophageal spasm K22.4 Left ankle pain M25.572 Dysphagia R13.10 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 M80.059A Acute diastolic CHF (congestive heart failure) I50.31 Atrial dysrhythmia I49.8 PAT (paroxysmal atrial tachycardia) I47.1 Acute blood loss anemia D62 Anemia D64.9 Anemia type: unspecified type CVA (cerebral vascular accident) I63.9 CVA mechanism: unspecified Hyperhomocystinemia E72.11 Leukocytoclastic vasculitis M31.0 Immunoglobulin deficiency D80.9 CKD (chronic kidney disease), stage III N18.30 Chronic kidney disease stage 3 subtype: unspecified whether 3a or 3b Hypothyroidism E03.9 Thrombocytopenia D69.6 Lung nodule < 6cm on CT R91.1 Low serum immunoglobulin kappa light chain R77.1 DVT prophylaxis Z29.9 Time Spent (min) 35 (1) CKD (chronic kidney disease), stage III Chronic kidney disease stage 3 subtype: unspecified whether 3a or 3b Qualified Code(s): N18.30 - Chronic kidney disease, stage 3 unspecified (2) Anemia Anemia type: unspecified type Qualified Code(s): D64.9 - Anemia, unspecified (3) CVA (cerebral vascular accident) CVA mechanism: unspecified Qualified Code(s): I63.9 - Cerebral infarction, unspecified
[2020-12-08] MEDS: LEVOTHYROXINE SODIUM 50 MCG TABLET PO SCH (06:03)
[2020-12-08] MEDS: ATORVASTATIN 40 MG TAB PO SCH (09:30)
[2020-12-08] MEDS: PANTOprazole 40 MG TAB PO SCH (09:31)
[2020-12-08] MEDS: METOPROLOL TARTRATE 50 MG TAB PO SCH ×2 (09:31→20:40)
[2020-12-08] MEDS: CHOLECALCIFEROL 1,000 UNITS 25 MCG TAB PO SCH (09:31)
[2020-12-08] MEDS: CLOPIDOGREL BISULFATE 75 MG TAB PO SCH (09:31)
[2020-12-08] MEDS: MULTIVITAMIN TAB PO SCH (09:31)
[2020-12-08] MEDS: CYANOCOBALAMIN 500 MCG TABLET (VITAMIN B-12) PO SCH (09:31)
[2020-12-08] MEDS: PYRIDOXINE HCL 50 MG TAB PO SCH (09:32)
[2020-12-08] MEDS: POLYETHYLENE (MIRALAX) 17 GM PACK PO SCH (09:32)
--- NOTE | 2020-12-08 09:32 | Orthopedic Progress Note ---
Date of Service December 08, 2020 Assessment & Plan (1) Basicervical fracture of left femur: POD #3 s/p left hip hemiarthroplasty, acute anemia blood loss improved/stable following transfusion, new onset A. fib. Left ankle pain and weakness Will speak to Dr Peña regarding left ankle new onset of pain. Will order AFO left LE when ambulating. If cannot get here in hospital recommend [facility] provide upon D/C. WBAT with assistance and use of walker; OOB to chair. Continue pain control. DVT prophylaxis: TEDs 3 weeks, foot pumps while in hospital, restart Plavix and ASA, which she was on prior to this admission. Continue Total hip precautions total 8 weeks. PT/OT D/C planning: waiting on placement to [facility] Silverlon dressing applied today, leave on until 2 week follow-up appointment. Continue care per primary service. Admission and Anticipated Discharge Date Admission Date: December 02, 2020 Subjective Seen in this AM. Alert. Denies left hip pain. Says left ankle has been "hurting some". Says she is ready to "go home". Spoke to nurse. She said this is a new complaint. No injury since admitted. Per hospitalist note xrays done, neg for fracture. Physical Exam Physical Exam: Patient resting in bed. Alert. Left hip silverlon dressing intact. Painless log rolling to left hip. Painless gentle AAROM to left knee. Left ankle/foot with moderate amount of swelling. No signs of cellulitis. Skin intact. Unable to dorsiflex her left ankle. Pain with Passive Dorsiflexion. Able to wiggle toes slightly. General discomfort to palpation to ankle and top of foot. Grossly intact sensation L LE, soft and nontender calve. Palpable DP and PT pulses. Results & Data ([facility]) Vital Signs (Past 12 Hours) Vital Signs Temp Pulse Pulse Resp BP Pulse Ox 12/08/20 08:05 36.7 C 93 H 18 164/86 H 93 12/08/20 03:00 36.8 C 84 18 155/90 H 96 12/08/20 01:53 69 12/07/20 23:00 36.7 C 77 16 152/93 H 96 Diagnostic Findings LEFT ANKLE 3 VIEWS HISTORY: Left ankle pain. recent fall, malleoli pain, r/o fracture COMPARISON: None. FINDINGS: There is no fracture or dislocation. Mild soft tissue swelling. Plantar and posterior calcaneal spurs are noted. No radiopaque foreign bodies. IMPRESSION: Soft tissue swelling within the left ankle. No fractures. (1) Basicervical fracture of left femur Encounter type: initial encounter Fracture type: closed Fracture alignment: nondisplaced Qualified Code(s): S72.045A - Nondisplaced fracture of base of neck of left femur, initial encounter for closed fracture
[2020-12-08 15:16] LABS: Eosinophils # (auto) 0.02 K/uL (0-0.5); Eosinophils % (auto) 0.2 %; Hematocrit (blood only) 30.1 % (37-47); Hemoglobin 9.8 g/dL (12.0-16.0); Immature Granulocytes # (auto) 0.03 K/uL (0.00-0.02); Immature Granulocytes % (auto) 0.4 %; Lymphocytes # (auto) 1.38 K/uL (1.2-3.4); Lymphocytes % (auto) 17.1 %; Mean Corpuscular Hemoglobin 29.2 pg (25-34); Mean Corpuscular Hgb Conc 32.6 g/dL (32-36); Mean Corpuscular Volume 89.6 fL (80-100); Mean Platelet Volume 9.6 fL (7.4-10.4); Monocytes # (auto) 0.39 K/uL (0.11-0.59); Monocytes % (auto) 4.8 %; Neutrophils # (auto) 6.26 K/uL (1.4-6.5); Neutrophils % (auto) 77.5 %; Platelet Count 158 K/uL (130-400); RDW Coefficient of Variation 15.9 % (11.5-14.5); RDW Standard Deviation 51.8 fL (36.4-46.3); Red Blood Count 3.36 M/uL (4.2-5.4); White Blood Count 8.08 K/uL (4.8-10.8)
[2020-12-08 15:47] LABS: BUN Creatinine Ratio 33.9 (10-20); Calcium 8.2 mg/dl (8.5-10.1); Creatinine Clr Calc Pharmacy 39.4 ml/min; Est GFR (African American) 54.4 ml/min; Est GFR (Non-African American) 46.9 ml/min; Ferritin 443.4 ng/ml (8-388); Potassium 3.8 mmol/L (3.5-5.1)
[2020-12-08 16:42] LABS: Folate (Folic Acid) > 20.00 ng/ml (>5.38); Vitamin B12 > 2000 pg/ml (193-986)
[2020-12-08] MEDS ORDERED: IRON SUCROSE 300 MG in SODIUM CHLORIDE 0.9% 250 ML IV ONE (18:00)
[2020-12-08] MEDS: DOCUSATE SODIUM/SENNA 50/8.6MG TAB PO SCH (20:43)
--- NOTE | 2020-12-08 21:22 | Hospitalist Progress Note ---
Date of Service December 08, 2020 Assessment & Plan (1) Fecal impaction: severe, on x-rays today. fleets MA x 1 - with resulting mild ileus/obstipation. Resolved as she had a BM on 12/08 (2) Obstipation: due to fecal impaction. fleets x 1 MA. then will need senna + miralax - at minimum - for maintenance. likely contributing to some degree to her anorexia. Her appetite appears improved. (3) Esophageal spasm: severe episode of such today. resulting in dry heaves, etc. video swallow results noted from other day. cont pureed diet. cont PPI. (4) Left ankle pain: x-rays obtained - no acute fracture. either sprain from recent fall or could have inflammatory arthropathy. Appreciate input from ortho. (5) Dysphagia: speech consult appreciated. video swallow completed. no significant aspiration. pureed with thins recommended. she simply has prolonged mastication - chronic per . and probably some element of esophageal dysmotility?? (given events of today) (6) 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: LEFT. POD #5 s/p ORIF by Dr Osiel Peña, [facility]. WBAT. DVT proph - plavix (was already on such for secondary stroke prevention); also added heparin SC BID. Cont vit D supplementation. PT/OT. Rehab - [facility]? back [facility]? requesting rehab at [facility] once medically ready. (7) Acute diastolic CHF (congestive heart failure): Clinically & radiographically volume overloaded on 12/05/20. Echo in November 2020 with preserved EF. Received diuresis yesterday. Exam improved today. (8) Atrial dysrhythmia: Patient has had runs of intermittent PAT throughout her stay. No obvious Afib or Aflutter. Developed sustained SVT or other atrial dysrhythmia on 12/05/20. HR was 120-125 consistently. Metoprolol was increased to 50mg BID 12/05/20. SVT resolved; HRs <100. Continue telemetry. (9) PAT (paroxysmal atrial tachycardia): numerous runs of such on monitoring this admission. NO A.fib or A.flutter however. continue metoprolol; dose increased to 50mg BID. (10) Acute blood loss anemia: 3+ gm drop on day of admission. Lowest Hb - 6.1, s/p 2 units PRBCs. acute blood loss anemia 2nd to operative blood loss, soft tissue bleeding from hip fracture itself, blood draws/phlebotomy, etc. cannot rule out occult GI blood loss - needs hemoccult. Hemoglobin is stable. Ordered venofer. Labs though are questionable in regards to Iron def. anemia with low TIBC, and elevated ferritin. (11) Anemia: spring 2020 - Hb baseline 9.5 to 10.5. Fe studies c/w Fe deficiency. has already been taking B12 supplementation at home. needs folate supplementation due to high homocysteine levels - this was added. remains on B6. Dr Hackett recommending IV venofer while hospitalized. Ordered on 12/08 (12) CVA (cerebral vascular accident): x 2 in 2020 -- first, September 2020 (right ji radiata and the right basal ganglia). second, November 2020 (right thalamus). on plavix for secondary prevention. CT head at admission w/o acute stroke/ICH. CT head hospital day #2 - also negative for acute stroke. LUE/LLE weakness thus from 2 prior CVAs. Treat homocysteinemia. Watch for a.fib/flutter on monitoring - thus far we have seen PAT and SVT as denoted above. 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 previously followed by [facility] for this. saw Dr Telles about 10 days ago - see her scanned note in [facility]. no rash on exam that would suggest recurrent vasculitis. ESR on 10/29/20 was 71. Now 58. Crp 21. saw Nicole Cat MD - [facility] heme/onc - 08/2020 see scanned note re: their concerns about gammopathy Dr Hackett saw patient in consult yesterday -- recommended IV iron replacement while here, checking quantitative Immunoglobulins, and will see her post-d/c to determine if she has bone marrow dyscrasia. 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 Defer management to Dr Hackett. (16) CKD (chronic kidney disease), stage III: baseline CrCl high 40s bmp am IV fluids stopped due to concern of acute diastolic CHF, but now UOP low today. I'm afraid she may be total body volume overloaded but dry intravascularly. Due to low UOP - give back 500cc total over 10 hours (50/hr). . creatinine is 1.12 on 12/07 (17) Hypothyroidism: history of such per records, but had not been on synthroid in some time. she cannot recall when she last took meds in the past. TSH nearly 30 this admission. replacement initiated at 50mcg daily. TSH 6 weeks. (18) Thrombocytopenia: mild, suspect consumptive in setting of acute blood loss anemia. platelets 134 today. repeat cbc in am. 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 Explained to him that she is medically stable for discharge, and plan is to see how she tolerates rehab. However, given how she has been in the hospital for multiple admissions in the past recent months, including 2 CVAs. Her prognosis is likely guarded. Suggested that to that a goals of care discussion should be had either in-house or as an outpatient. I recommended to do this prior to discharge. was agreeable. Admission and Anticipated Discharge Date Admission Date: December 02, 2020 Subjective 85 yo female reports no new complaints. She had a BM this AM, and has been having an improved appetite today. Her is at bedside and had extensive discussion with him regarding plan of care. Explained to him that she is medically stable for discharge, and plan is to see how she tolerates rehab. However, given how she has been in the hospital for multiple admissions in the past recent months, including 2 CVAs. Her prognosis is likely guarded. Suggested that to that a goals of care discussion should be had either in-house or as an outpatient. I recommended to do this prior to discharge. was agreeable. Review of Systems Review of Systems: All systems reviewed & are unremarkable except as noted in HPI & below Physical Exam Physical Exam: Constitutional: + frail appearing ENMT: Mouth: + moist oral mucous membranes Respiratory: Auscultation: + crackles (Minimal bases b/l ); no wheezes Cardiovascular: Rate/Rhythm: regular rate and regular rhythm Heart Sounds: normal S1 and normal S2; no murmur Vessels: posterior tibial pulses present and dorsalis pedis pulses present; no JVD Extremities: + edema (1+ b/l ankles; left thigh swelling from L hip fracture s/p ORIF) Gastrointestinal (Abdomen): Inspection/Auscultation: + abdomen distended (mild) and + hypoactive bowel sounds Percussion/Palpation: abdomen nontender and no hepatosplenomegaly Musculoskeletal: l ankle - tender over lateral malleolus; tender over ankle ligaments inferior to lateral malleolus; mild ankle swelling Psychiatric: Orientation: alert, oriented to person and oriented to place; + not oriented to time Results & Data Results & Data ([facility]) Vital Signs (Past 12 Hours) Vital Signs Temp Pulse Pulse Resp BP Pulse Ox 12/08/20 19:15 36.4 C L 89 18 157/82 H 95 12/08/20 16:00 71 12/08/20 15:46 36.6 C 72 18 147/89 H 97 12/08/20 10:49 36.4 C L 82 18 157/95 H 97 PG Care Time/CCT Total # of Minutes Spent Total Time Spent with Patient: Total time spent is greater than 50% in coordination of care (as documented) at patient's floor/unit and/or counseling patient: Coding Level of Care Code 93475 Subseq Hosp Care Lvl 3 Diagnoses Fecal impaction K56.41 Obstipation K59.00 Esophageal spasm K22.4 Left ankle pain M25.572 Dysphagia R13.10 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 M80.059A Acute diastolic CHF (congestive heart failure) I50.31 Atrial dysrhythmia I49.8 PAT (paroxysmal atrial tachycardia) I47.1 Acute blood loss anemia D62 Anemia D64.9 Anemia type: unspecified type CVA (cerebral vascular accident) I63.9 CVA mechanism: unspecified Hyperhomocystinemia E72.11 Leukocytoclastic vasculitis M31.0 Immunoglobulin deficiency D80.9 CKD (chronic kidney disease), stage III N18.30 Chronic kidney disease stage 3 subtype: unspecified whether 3a or 3b Hypothyroidism E03.9 Thrombocytopenia D69.6 Lung nodule < 6cm on CT R91.1 Low serum immunoglobulin kappa light chain R77.1 DVT prophylaxis Z29.9 Time Spent (min) 35 (1) CKD (chronic kidney disease), stage III Chronic kidney disease stage 3 subtype: unspecified whether 3a or 3b Qualified Code(s): N18.30 - Chronic kidney disease, stage 3 unspecified (2) Anemia Anemia type: unspecified type Qualified Code(s): D64.9 - Anemia, unspecified (3) CVA (cerebral vascular accident) CVA mechanism: unspecified Qualified Code(s): I63.9 - Cerebral infarction, unspecified
[2020-12-09] MEDS: LEVOTHYROXINE SODIUM 50 MCG TABLET PO SCH (05:34)
[2020-12-09 06:26] LABS: Calcium 8.5 mg/dl (8.5-10.1)
[2020-12-09 06:27] LABS: BUN Creatinine Ratio 38.7 (10-20); C Reactive Protein 6.44 mg/dl (0-0.29); Creatinine Clr Calc Pharmacy 41.7 ml/min; Est GFR (African American) 58.2 ml/min; Est GFR (Non-African American) 50.2 ml/min; Magnesium 2.2 mg/dl (1.8-2.4); Potassium 3.4 mmol/L (3.5-5.1)
[2020-12-09 07:08] LABS: Basophils # (auto) 0.01 K/uL (0-0.2); Basophils % (auto) 0.1 %; Eosinophils # (auto) 0.08 K/uL (0-0.5); Eosinophils % (auto) 1.1 %; Hematocrit (blood only) 29.6 % (37-47); Hemoglobin 9.6 g/dL (12.0-16.0); Immature Granulocytes # (auto) 0.04 K/uL (0.00-0.02); Immature Granulocytes % (auto) 0.6 %; Lymphocytes # (auto) 1.46 K/uL (1.2-3.4); Lymphocytes % (auto) 20.7 %; Mean Corpuscular Hemoglobin 29.5 pg (25-34); Mean Corpuscular Hgb Conc 32.4 g/dL (32-36); Mean Corpuscular Volume 91.1 fL (80-100); Monocytes # (auto) 0.39 K/uL (0.11-0.59); Monocytes % (auto) 5.5 %; Neutrophils # (auto) 5.06 K/uL (1.4-6.5); Platelet Count 161 K/uL (130-400); RDW Coefficient of Variation 16.1 % (11.5-14.5); RDW Standard Deviation 53.4 fL (36.4-46.3); Red Blood Count 3.25 M/uL (4.2-5.4); White Blood Count 7.04 K/uL (4.8-10.8)
[2020-12-09] MEDS: CLOPIDOGREL BISULFATE 75 MG TAB PO SCH (08:21)
[2020-12-09] MEDS: PANTOprazole 40 MG TAB PO SCH (08:21)
[2020-12-09] MEDS: METOPROLOL TARTRATE 50 MG TAB PO SCH (08:21)
[2020-12-09] MEDS: CHOLECALCIFEROL 1,000 UNITS 25 MCG TAB PO SCH (08:21)
[2020-12-09] MEDS: ATORVASTATIN 40 MG TAB PO SCH (08:21)
[2020-12-09] MEDS: PYRIDOXINE HCL 50 MG TAB PO SCH (08:21)
[2020-12-09] MEDS: POLYETHYLENE (MIRALAX) 17 GM PACK PO SCH (08:22)
[2020-12-09] MEDS: CYANOCOBALAMIN 500 MCG TABLET (VITAMIN B-12) PO SCH (08:22)
[2020-12-09] MEDS: MULTIVITAMIN TAB PO SCH (08:22)
--- NOTE | 2020-12-09 09:40 | Orthopedic Progress Note ---
Date of Service December 09, 2020 Assessment & Plan (1) Basicervical fracture of left femur: POD #7 s/p left hip hemiarthroplasty, acute anemia blood loss improved/stable following transfusion, new onset A. fib. Left ankle pain and weakness AFO braces in place on the patient's left lower extremity WBAT with assistance and use of walker; OOB to chair. Continue pain control. DVT prophylaxis: TEDs 3 weeks, foot pumps while in hospital, restart Plavix and ASA, which she was on prior to this admission. Continue Total hip precautions total 8 weeks. PT/OT D/C planning: waiting on placement to [facility] Silverlon dressing applied today, leave on until 2 week follow-up appointment. Continue care per primary service. Admission and Anticipated Discharge Date Admission Date: December 02, 2020 Subjective This 85-year-old female seen today for follow-up of a left hip hemiarthroplasty that was cemented. Patient states she is doing fairly well. She has no pain in her hip. She has had difficulty doing physical therapy however. She states she has been able to transition from her bed to the bedside chair without significant difficulty. Currently she denies chest pain, shortness of breath, fever, chills, sweats, lethargy or numbness or tingling in her left lower extremity. She has been placed into an AFO splint on her left lower extremity. Review of Systems Review of Systems: All systems reviewed & are unremarkable except as noted in Subjective Physical Exam Physical Exam: Left hip: Silverlon dressing is clean dry and intactWith no drainage over the central portion. There is no palpable fluctuance. Patient is unable to perform a straight leg raise test. She is unable to actively dorsi and plantarflex her foot. Passive straight leg raise test and dorsi and plantar flexion No longer causes knee pain. Logroll Was negative.. Patient Patient is neurovascularly intact. Peripheral pulses are 1+. Capillary refill slightly greater than 2 seconds. Quad strength is 1-2 out of 5. complains of some tension with light passive internal hip rotation but no pain with external rotation. Knee range of motion is from 0 to 80 degrees actively. Results & Data ([facility]) Vital Signs (Past 12 Hours) Vital Signs Temp Pulse Pulse Pulse Resp BP Pulse Ox 12/09/20 07:05 36.5 C 65 17 157/85 H 98 12/09/20 05:00 145/75 H 12/09/20 04:00 36.5 C 69 18 165/100 H 93 12/08/20 23:59 73 12/08/20 23:50 36.4 C L 79 18 152/86 H 97 (1) Basicervical fracture of left femur Encounter type: initial encounter Fracture type: closed Fracture alignment: nondisplaced Qualified Code(s): S72.045A - Nondisplaced fracture of base of neck of left femur, initial encounter for closed fracture
--- NOTE | 2020-12-09 09:46 | Palliative Care Consultation ---
Date of Consultation December 09, 2020 Assessment & Plan (1) Palliative care encounter: This individual is an 85 year old female who presented to the [facility] from [facility] s/p a witnessed fall. A CT scan was performed and results indicated that she fractured her left hip. Orthopedics evaluated her and a left hip shayne-arthroscopy was performed and now she is POD #7. Nuris's medical history is quite complex and includes: two CVA's (September 2020, and November 2020) which included her thalamus and R ganglia and she has been on Plavix, immunoglobulin deficiency which is management here locally by Dr. Hackett, CHF, paroxysmal atrial tachycardia, and leukocytoclastic vasculitis that is typically management by Rheumatology at [facility]. 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 Patient is currently a full code. Palliative Medicine was consulted to address goals of care, including code status with family. I was able to meet with Mrs. Benito who was sitting in her bedside chair. She was picking at her gown and looking down at the floor. She was able to turn her head and look at me slightly. She was able to answer yes and no to some questions, somewhat meaningful interaction, but unsure of patients ability to understand the gravity of her illness. I was able to talk with Mr. Sonia Benito on the phone at [phone]. We agreed to meet at 1400 outside of her room. We met in the conference room across from room 201. We had a lengthy conversation regarding her past medical ailments and experiences, along with her current hospitalization. He has been having concerns about her ability to get better, and has been frustrated with previous care outside of the hospital. I asked him what a meaningful recovery would look like to him and he said "I just don't think she will ever get there". When asked to elaborate at a different time of the conversation, he said "I think I lost my a long time ago". We talked about [facility] goals, [facility] goals, Hospice care, and Comfort measures all in detail about how they are similar and different. He asked about what services are available here at the hospital which was discussed also. Explained that this is an acute care hospital and we could provide a transition to comfort measures and see how the next few days go, while ensuring appropriate medications available if necessary. He is not sure that she would do well at [facility], which I agree based on her ailments that [facility] would be too rigorous for her. We talked about gentle rehabilitation, but he mentioned he did not want to pursue that based on previous experiences. He does have three adult children: Rach who lives in [place]; Sonia Cedillo) who lives in [place], [place]; and Jenifer who lives in [place]. He stated that he has had recent conversation with them and all three agree that she has been going down a slippery slope for some time now. I discussed Nuris's code status and discussed in detail what CPR and intubation means. Based on the conversation, he stated he would not want her to receive CPR or intubation in the event of cardiac or pulmonary arrest. This has been reflected in the computer as DNR/DNI. When asking Mr. Benito what him and his used to do together, he went into details about being with friends, going out to dinner, being avid readers and enjoying time with family. We did discuss hospice at home but he stated, at this time, was not an option. We did discuss transition to comfort measures and what that looks like and after discussion, he decided to pursue this route as he stated how hard it is to see his this way. I offered to speak with his three children and he would like to talk with them tonight and have a zoom arranged over the next day or two. I provided him with the palliative phone number to reach us with any questions. He would like to transition to comfort measures today and move forward in that regard. All non-comfort focused medications have been discontinued and all blood draws stopped. Comfort medications ordered PRN including Morphine and Ativan if necessary. We will see how the next 24 to 48 hours go and discuss further plans moving forward. At this time, life expectancy is likely weeks to a month or so, depending on how she progresses. Palliative Medicine will follow. (2) CVA (cerebral vascular accident): CVA mechanism: unspecified Qualified Code(s): I63.9 - Cerebral infarction, unspecified (3) Dysphagia: (4) Weakness: History of Present Illness Reason for Consultation: Goals of Care Requesting Physician: Dr. Alba Attending Physician: Stephane Alba History of Present Illness This individual is an 85 year old female who presented to the [facility] from [facility] s/p a witnessed fall. A CT scan was performed and results indicated that she fractured her left hip. Orthopedics evaluated her and a left hip shayne-arthroscopy was performed and now she is POD #7. Nuris's medical history is quite complex and includes: two CVA's (September 2020, and November 2020) which included her thalamus and R ganglia and she has been on Plavix, immunoglobulin deficiency which is management here locally by Dr. Hackett, CHF, paroxysmal atrial tachycardia, and leukocytoclastic vasculitis that is typically management by Rheumatology at [facility]. 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 Patient is currently a full code. Palliative Medicine was consulted to address goals of care, including code status with family. Please see A/P for further details. Thanks kindly for involving Palliative Medicine with this unfortunate patient. Allergies Allergy/AdvReac Type Severity Reaction Status Date / Time influenza virus vaccine Allergy Intermediate rash Verified 12/02/20 07:58 trivalent amoxicillin [From Amoxil] Allergy Unknown Unknown Verified 12/02/20 07:58 Anesthetics - Amide Type - Allergy Unknown Unknown Verified 12/02/20 07:58 Select A [Anesthetics - Amide Type] diazepam [From Valium] Allergy Unknown Unknown Verified 12/02/20 07:58 ethyl chloride Allergy Unknown Unknown Verified 12/02/20 07:58 procaine [From Novocain] Allergy Unknown Unknown Verified 12/02/20 07:58 Penicillins AdvReac Unknown SEVERE Verified 12/02/20 07:58 INTERNAL VAGINITIS Home Medications Medication Instructions Recorded Confirmed Type polyethylene glycol 3350 17 17 gm PO DAILY PRN gm 01/17/19 12/02/20 History gram/dose oral powder cyanocobalamin (vitamin B-12) 1,000 mcg SUBLINGUAL QAM 05/23/20 12/02/20 History 1,000 mcg sublingual lozenge cholecalciferol (vitamin D3) 25 mcg PO QAM 11/14/20 12/02/20 History [Vitamin D3] multivitamin [Daily-Charlie] 1 tab PO QAM 11/14/20 12/02/20 History clopidogrel 75 mg PO DAILY #30 tab 05/18/21 06/01/21 Rx pantoprazole 40 mg tablet,delayed 40 mg PO DAILY 11/26/20 12/02/20 History release pyridoxine (vitamin B6) 25 mg 25 mg PO DAILY 11/26/20 12/02/20 History tablet atorvastatin 40 mg PO DAILY 12/02/20 12/02/20 History Patient History Medical History Abrasion of knee Actinic keratosis Anemia Benign positional vertigo Cheilosis CKD (chronic kidney disease), stage III Cystocele, midline Elevated blood pressure reading without diagnosis of hypertension Gastroparesis Generalized anxiety disorder Hip fracture, left History of skin cancer of unknown type Hyperglycemia Hypothyroidism Irregular heartbeat Irritable bowel syndrome Leukocytoclastic vasculitis Leukopenia Pain in joint of right shoulder Palliative care encounter Paresthesias Persistent insomnia Rectocele Second degree uterine prolapse Skin cancer Tonsillectomy planned (01/30/13) Vitamin D deficiency Weakness Surgical History H/O tooth extraction History of right cataract surgery History of surgical removal of ganglion cyst History of temporal artery biopsy (11/18/20) Right Temporal Artery Biopsy(Right) - Abebe العلي DO History of tonsillectomy History of tubal ligation (01/30/13) Family History Mother , age 80 Lymphoma Heart disease Arthritis Father , age 56 Stroke Denies family history of Ovarian cancer Breast cancer Colorectal cancer Social History Smoking Status: Former smoker Tobacco Type: Cigarettes Age Started Using Tobacco: 22; Age Quit Using Tobacco: 42; packs per day: 1; Years Smoked: 20; Smoking End Date: 1990; Second Hand Exposure: No; Hx Alcohol Use: Yes Alcohol type: beer, wine and hard liquor Alcohol Intake Frequency: Monthly or Less Hx Substance Use: No Preferred Language: American Communication Ability: Effective Visual Impairment: Limited Hearing Ability: Normal Screen Machine Operator Required: No Beliefs That Will Affect Care: None marital status: Current Living Situation: Spouse Current Living Situation Comment: [facility] current occupational status: retired Other Information That Helps Us Care for You: No Feels Safe at Home: Yes Safety Concerns: Feels Safe At This Time Childhood Exposure to Second-Hand Smoke: Yes caffeine: No Dental Care, Regularly: Yes Physical Activity Frequency: Does not Exercise Seatbelt Use: always Sunscreen Use: Yes Assistive Devices: Glasses and Walker Review of Systems Review of Systems: Baldwin System Assessment Scale: Pain: 0/3 Anxiety: 1/3 Shortness of breath: 0/3 Lack of Appetite: 1/3 Tiredness: 2/3 Drowsiness: 0/3 Palliative Performance Scale: 30% Physical Exam Constitutional: + ill appearing, + thin, + frail appearing, cooperative and comfortable ENMT: Nose: + dry nasal mucous membranes Respiratory: normal respiratory effort Auscultation: + diminished lung sounds Cardiovascular: Heart Sounds: normal S1 and normal S2 Extremities: normal capillary refill; no edema Gastrointestinal (Abdomen): normal bowel sounds, soft, nontender, no hepatosplenomegaly Percussion/Palpation: abdomen soft; abdomen nontender Skin: + ecchymosis and + pallor Psychiatric: Orientation: alert, oriented to person, oriented to place and cooperative Insight: + poor insight Judgement: + poor judgement Results & Data ([facility]) Vital Signs (Past 12 Hours) Vital Signs Temp Pulse Pulse Pulse Resp BP Pulse Ox 12/09/20 07:05 36.5 C 65 17 157/85 H 98 12/09/20 05:00 145/75 H 12/09/20 04:00 36.5 C 69 18 165/100 H 93 12/08/20 23:59 73 12/08/20 23:50 36.4 C L 79 18 152/86 H 97 PG Care Time/CCT Total # of Minutes Spent Total Time Spent with Patient: Total time spent is greater than 50% in coordination of care (as documented) at patient's floor/unit and/or counseling patient: 100 minutes with > 50% Of that time spent assessing the patient, discussing goals of care with family and collaborating with IDT Coding Level of Care Code 06468 Inpt Consult Level 4 Diagnoses Palliative care encounter Z51.5 CVA (cerebral vascular accident) I63.9 CVA mechanism: unspecified Dysphagia R13.10 Weakness R53.1 Time Spent (min) 100
[2020-12-09] MEDS ORDERED: IRON SUCROSE 200 MG in 0.9 % SODIUM CHLORIDE 100 ML IV ONE (14:00)
[2020-12-09] MEDS ORDERED: MoRPHine SULFATE 5 MG/0.25 ML UDP PO PRN (15:38)
--- NOTE | 2020-12-09 21:38 | Hospitalist Progress Note ---
Date of Service December 09, 2020 Assessment & Plan (1) Fecal impaction: severe, on x-rays today. fleets [place] x 1 - with resulting mild ileus/obstipation. Resolved as she had a BM on 12/08 (2) Obstipation: due to fecal impaction. fleets x 1 [place]. then will need senna + miralax - at minimum - for maintenance. likely contributing to some degree to her anorexia. Her appetite appears improved. (3) Esophageal spasm: severe episode of such today. resulting in dry heaves, etc. video swallow results noted from other day. cont pureed diet. cont PPI. (4) Left ankle pain: x-rays obtained - no acute fracture. either sprain from recent fall or could have inflammatory arthropathy. Appreciate input from ortho. (5) Dysphagia: speech consult appreciated. video swallow completed. no significant aspiration. pureed with thins recommended. she simply has prolonged mastication - chronic per . and probably some element of esophageal dysmotility?? (given events of today) (6) 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: LEFT. POD #5 s/p ORIF by Dr Osiel Peña, [facility]. WBAT. DVT proph - plavix (was already on such for secondary stroke prevention); also added heparin SC BID. Cont vit D supplementation. PT/OT. Rehab - [facility]? back to [facility]? requesting rehab at [facility] once medically ready. (7) Acute diastolic CHF (congestive heart failure): Clinically & radiographically volume overloaded on 12/05/20. Echo in November 2020 with preserved EF. Received diuresis yesterday. Exam improved today. (8) Atrial dysrhythmia: Patient has had runs of intermittent PAT throughout her stay. No obvious Afib or Aflutter. Developed sustained SVT or other atrial dysrhythmia on 12/05/20. HR was 120-125 consistently. Metoprolol was increased to 50mg BID 12/05/20. SVT resolved; HRs <100. Continue telemetry. (9) PAT (paroxysmal atrial tachycardia): numerous runs of such on monitoring this admission. NO A.fib or A.flutter however. continue metoprolol; dose increased to 50mg BID. (10) Acute blood loss anemia: 3+ gm drop on day of admission. Lowest Hb - 6.1, s/p 2 units PRBCs. acute blood loss anemia 2nd to operative blood loss, soft tissue bleeding from hip fracture itself, blood draws/phlebotomy, etc. cannot rule out occult GI blood loss - needs hemoccult. Hemoglobin is stable. Ordered venofer. Labs though are questionable in regards to Iron def. anemia with low TIBC, and elevated ferritin. (11) Anemia: spring 2020 - Hb baseline 9.5 to 10.5. Fe studies c/w Fe deficiency. has already been taking B12 supplementation at home. needs folate supplementation due to high homocysteine levels - this was added. remains on B6. Dr Hackett recommending IV venofer while hospitalized. Ordered on 12/08 (12) CVA (cerebral vascular accident): x 2 in 2020 -- first, September 2020 (right ji radiata and the right basal ganglia). second, November 2020 (right thalamus). on plavix for secondary prevention. CT head at admission w/o acute stroke/ICH. CT head hospital day #2 - also negative for acute stroke. LUE/LLE weakness thus from 2 prior CVAs. Treat homocysteinemia. Watch for a.fib/flutter on monitoring - thus far we have seen PAT and SVT as denoted above. 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 previously followed by [facility] for this. saw Dr Telles about 10 days ago - see her scanned note in [facility]. no rash on exam that would suggest recurrent vasculitis. ESR on 10/29/20 was 71. Now 58. Crp 21. saw Nicole Cat MD - [facility] heme/onc - 08/2020 see scanned note re: their concerns about gammopathy Dr Hackett saw patient in consult yesterday -- recommended IV iron replacement while here, checking quantitative Immunoglobulins, and will see her post-d/c to determine if she has bone marrow dyscrasia. 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 Defer management to Dr Hackett. (16) CKD (chronic kidney disease), stage III: baseline CrCl high 40s bmp am IV fluids stopped due to concern of acute diastolic CHF, but now UOP low today. I'm afraid she may be total body volume overloaded but dry intravascularly. Due to low UOP - give back 500cc total over 10 hours (50/hr). . creatinine is 1.12 on 12/07 (17) Hypothyroidism: history of such per records, but had not been on synthroid in some time. she cannot recall when she last took meds in the past. TSH nearly 30 this admission. replacement initiated at 50mcg daily. TSH 6 weeks. (18) Thrombocytopenia: mild, suspect consumptive in setting of acute blood loss anemia. platelets 134 today. repeat cbc in am. 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 Explained to him that she is medically stable for discharge, and plan is to see how she tolerates rehab. However, given how she has been in the hospital for multiple admissions in the past recent months, including 2 CVAs. Her prognosis is likely guarded. Suggested that to that a goals of care discussion should be had either in-house or as an outpatient. I recommended to do this prior to discharge. was agreeable. On 12/09 agreeable to Comfort measures only. will transfer to med/surg D/W palliative care Admission and Anticipated Discharge Date Admission Date: December 02, 2020 Subjective 85 YO FEMALE appears tired. She has no new complaints. Review of Systems Review of Systems: All systems reviewed & are unremarkable except as noted in HPI & below Physical Exam Physical Exam: Constitutional: + frail appearing ENMT: Mouth: + moist oral mucous membranes Respiratory: Auscultation: + crackles (Minimal bases b/l ); no wheezes Cardiovascular: Rate/Rhythm: regular rate and regular rhythm Heart Sounds: normal S1 and normal S2; no murmur Vessels: posterior tibial pulses present and dorsalis pedis pulses present; no JVD Extremities: + edema (1+ b/l ankles; left thigh swelling from L hip fracture s/p ORIF) Gastrointestinal (Abdomen): Inspection/Auscultation: + abdomen distended (mild) and + hypoactive bowel sounds Percussion/Palpation: abdomen nontender and no hepatosplenomegaly Musculoskeletal: l ankle - tender over lateral malleolus; tender over ankle ligaments inferior to lateral malleolus; mild ankle swelling Psychiatric: Orientation: alert, oriented to person and oriented to place; + not oriented to time Results & Data Results & Data ([facility]) Vital Signs (Past 12 Hours) Vital Signs Temp Pulse Resp BP BP Pulse Ox 12/09/20 15:32 36.4 C L 69 18 150/91 H 98 12/09/20 10:47 36.9 C 85 18 148/93 H 98 PG Care Time/CCT Total # of Minutes Spent Total Time Spent with Patient: Total time spent is greater than 50% in coordination of care (as documented) at patient's floor/unit and/or counseling patient: Coding Level of Care Code 24637 Subseq Hosp Care Lvl 2 Diagnoses Fecal impaction K56.41 Obstipation K59.00 Esophageal spasm K22.4 Left ankle pain M25.572 Dysphagia R13.10 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 M80.059A Acute diastolic CHF (congestive heart failure) I50.31 Atrial dysrhythmia I49.8 PAT (paroxysmal atrial tachycardia) I47.1 Acute blood loss anemia D62 Anemia D64.9 Anemia type: unspecified type CVA (cerebral vascular accident) I63.9 CVA mechanism: unspecified Hyperhomocystinemia E72.11 Leukocytoclastic vasculitis M31.0 Immunoglobulin deficiency D80.9 CKD (chronic kidney disease), stage III N18.30 Chronic kidney disease stage 3 subtype: unspecified whether 3a or 3b Hypothyroidism E03.9 Thrombocytopenia D69.6 Lung nodule < 6cm on CT R91.1 Low serum immunoglobulin kappa light chain R77.1 DVT prophylaxis Z29.9 Time Spent (min) 25 (1) CKD (chronic kidney disease), stage III Chronic kidney disease stage 3 subtype: unspecified whether 3a or 3b Qualified Code(s): N18.30 - Chronic kidney disease, stage 3 unspecified (2) Anemia Anemia type: unspecified type Qualified Code(s): D64.9 - Anemia, unspecified (3) CVA (cerebral vascular accident) CVA mechanism: unspecified Qualified Code(s): I63.9 - Cerebral infarction, unspecified
--- NOTE | 2020-12-10 17:42 | Palliative Care Progress Note ---
Date of Service December 10, 2020 Assessment & Plan (1) Palliative care encounter: I was able to meet with Mrs. Benito who was sitting in her bedside chair. The patient has been transitioned to a more comfort and hospice care approach while here in the hospital. Nuris is having a relatively good day today. Per Scott she has some good parts of the day and is tired many other parts of the day. She has not required any comfort driven medications over the last day. I was able to help Nuris brush her teeth and she did relatively well with this. I did open her toothpaste, etc. Mr. Benito and I re-addressed what we talked about with [facility] goals, Hospice care, and Comfort measures all in detail about how they are similar and different. He did express that he wished she could stay here. He did turn to Nuris and asked her if she would rather stay here vs go back to [facility]. I did discuss that I do not feel she is actively dying and that making a transition to a more hospice approach can ensure more quality of life focus with him spending time with her, and their family. He agreed. I did bring up the option of doing hospice at home; however, he stated that he would not want to do this as he believes he would be reluctant to additional folks coming into the h ome, and understandably, does not feel confident with his ability to care for her on his own. He did say that he reflected on our conversation last night and was able to discuss with his children, independent of each other and he stated all were in agreement with him. As Nuris is not actively dying, we will need to move forward with additional planning, which was discussed with Mr. Benito. He did say that he does understand and over the next few days we will move forward with Nuris returning to [facility] with additional Hospice Services in place and to start upon her return. Appropriate hospice diagnosis: CVA. I did discuss that I would update case management in the morning. Palliative Medicine will follow. (2) CVA (cerebral vascular accident): (3) Dysphagia: (4) Weakness: Admission and Anticipated Discharge Date Admission Date: December 02, 2020 Subjective Patient declines pain. Pt sitting at her bedside. Please see A/P for further details. Review of Systems Review of Systems: [place] [facility] Assessment Scale: Pain: 0/3 Anxiety: 1/3 Shortness of breath: 0/3 Lack of Appetite: 1/3 Tiredness: 2/3 Drowsiness: 0/3 Palliative Performance Scale: 30% Physical Exam Constitutional: + ill appearing, + thin, + frail appearing, cooperative and comfortable ENMT: Nose: + dry nasal mucous membranes Respiratory: normal respiratory effort Auscultation: + diminished lung sounds Cardiovascular: Heart Sounds: normal S1 and normal S2 Extremities: normal capillary refill; no edema Gastrointestinal (Abdomen): normal bowel sounds, soft, nontender, no hepatosplenomegaly Percussion/Palpation: abdomen soft; abdomen nontender Skin: + ecchymosis and + pallor Psychiatric: Orientation: alert, oriented to person, oriented to place and cooperative Insight: + poor insight Judgement: + poor judgement PG Care Time/CCT Total # of Minutes Spent Total Time Spent with Patient: Total time spent is greater than 50% in coordination of care (as documented) at patient's floor/unit and/or counseling patient: 45 minutes with > 50% of that time spent assessing the patient, discussing goals of care with the patients , discussing symptom management and collaborating with the IDT Coding Level of Care Code ADVNCD CARE PLAN 30 MIN Diagnoses Palliative care encounter Z51.5 CVA (cerebral vascular accident) I63.9 CVA mechanism: unspecified Dysphagia R13.10 Weakness R53.1 Time Spent (min) 45 (1) CVA (cerebral vascular accident) CVA mechanism: unspecified Qualified Code(s): I63.9 - Cerebral infarction, unspecified
--- NOTE | 2020-12-10 23:01 | Hospitalist Progress Note ---
Date of Service December 10, 2020 Assessment & Plan (1) Comfort measures only status: Patient is now comfort measures status. Appreciate input from palliative care. If patient does not pass within next few days, will consider discharge to outpatient facility. D/W . Below was plan prior to changing to Comfort measures. (2) Fecal impaction: severe, on x-rays today. fleets [place] x 1 - with resulting mild ileus/obstipation. Resolved as she had a BM on 12/08 (3) Obstipation: due to fecal impaction. fleets x 1 [place]. then will need senna + miralax - at minimum - for maintenance. (4) Esophageal spasm: severe episode of such today. resulting in dry heaves, etc. video swallow results noted from other day. cont pureed diet. cont PPI. (5) Left ankle pain: x-rays obtained - no acute fracture. either sprain from recent fall or could have inflammatory arthropathy. Appreciate input from ortho. (6) Dysphagia: speech consult appreciated. video swallow completed. no significant aspiration. pureed with thins recommended. she simply has prolonged mastication - chronic per . and probably some element of esophageal dysmotility?? (given events of today) (7) 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: LEFT. POD #5 s/p ORIF by Dr Osiel Peña, [facility]. WBAT. DVT proph - plavix (was already on such for secondary stroke prevention); also added heparin SC BID. Cont vit D supplementation. PT/OT. Rehab - [facility]? [facility]? requesting rehab at [facility] once medically ready. (8) Acute diastolic CHF (congestive heart failure): Clinically & radiographically volume overloaded on 12/05/20. Echo in November 2020 with preserved EF. Received diuresis yesterday. Exam improved today. (9) Atrial dysrhythmia: Patient has had runs of intermittent PAT throughout her stay. No obvious Afib or Aflutter. Developed sustained SVT or other atrial dysrhythmia on 12/05/20. HR was 120-125 consistently. Metoprolol was increased to 50mg BID 12/05/20. SVT resolved; HRs <100. Continue telemetry. (10) PAT (paroxysmal atrial tachycardia): numerous runs of such on monitoring this admission. NO A.fib or A.flutter however. continue metoprolol; dose increased to 50mg BID. (11) Acute blood loss anemia: 3+ gm drop on day of admission. Lowest Hb - 6.1, s/p 2 units PRBCs. acute blood loss anemia 2nd to operative blood loss, soft tissue bleeding from hip fracture itself, blood draws/phlebotomy, etc. cannot rule out occult GI blood loss - needs hemoccult. Hemoglobin is stable. Ordered venofer. Labs though are questionable in regards to Iron def. anemia with low TIBC, and elevated ferritin. (12) Anemia: spring 2020 - Hb baseline 9.5 to 10.5. Fe studies c/w Fe deficiency. has already been taking B12 supplementation at home. needs folate supplementation due to high homocysteine levels - this was added. remains on B6. Dr Hackett recommending IV venofer while hospitalized. Ordered on 12/08 (13) CVA (cerebral vascular accident): x 2 in 2020 -- first, September 2020 (right ji radiata and the right basal ganglia). second, November 2020 (right thalamus). on plavix for secondary prevention. CT head at admission w/o acute stroke/ICH. CT head hospital day #2 - also negative for acute stroke. LUE/LLE weakness thus from 2 prior CVAs. Treat homocysteinemia. Watch for a.fib/flutter on monitoring - thus far we have seen PAT and SVT as denoted above. 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 previously followed by [facility] for this. saw Dr Telles about 10 days ago - see her scanned note in [facility]. no rash on exam that would suggest recurrent vasculitis. ESR on 10/29/20 was 71. Now 58. Crp 21. saw Nicole Cat MD - [facility] heme/onc - 08/2020 see scanned note re: their concerns about gammopathy Dr Hackett saw patient in consult yesterday -- recommended IV iron replacement while here, checking quantitative Immunoglobulins, and will see her post-d/c to determine if she has bone marrow dyscrasia. 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 Defer management to Dr Hackett. (17) CKD (chronic kidney disease), stage III: baseline CrCl high 40s bmp am IV fluids stopped due to concern of acute diastolic CHF, but now UOP low today. I'm afraid she may be total body volume overloaded but dry intravascularly. Due to low UOP - give back 500cc total over 10 hours (50/hr). . creatinine is 1.12 on 12/07 (18) Hypothyroidism: history of such per records, but had not been on synthroid in some time. she cannot recall when she last took meds in the past. TSH nearly 30 this admission. replacement initiated at 50mcg daily. TSH 6 weeks. (19) Thrombocytopenia: mild, suspect consumptive in setting of acute blood loss anemia. platelets 134 today. repeat cbc in am. 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 Review of Systems Review of Systems: Unobtainable due to reduced consciousness Physical Exam 2 Constitutional: WD/WN, vitals as above PG Care Time/CCT Total # of Minutes Spent Total Time Spent with Patient: Total time spent is greater than 50% in coordination of care (as documented) at patient's floor/unit and/or counseling patient: Coding Level of Care Code 09105 Subseq Hosp Care Lvl 1 Diagnoses Comfort measures only status Z51.5 Fecal impaction K56.41 Obstipation K59.00 Esophageal spasm K22.4 Left ankle pain M25.572 Dysphagia R13.10 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 M80.059A Acute diastolic CHF (congestive heart failure) I50.31 Atrial dysrhythmia I49.8 PAT (paroxysmal atrial tachycardia) I47.1 Acute blood loss anemia D62 Anemia D64.9 Anemia type: unspecified type CVA (cerebral vascular accident) I63.9 CVA mechanism: unspecified Hyperhomocystinemia E72.11 Leukocytoclastic vasculitis M31.0 Immunoglobulin deficiency D80.9 CKD (chronic kidney disease), stage III N18.30 Chronic kidney disease stage 3 subtype: unspecified whether 3a or 3b Hypothyroidism E03.9 Thrombocytopenia D69.6 Lung nodule < 6cm on CT R91.1 Low serum immunoglobulin kappa light chain R77.1 DVT prophylaxis Z29.9 (1) CKD (chronic kidney disease), stage III Chronic kidney disease stage 3 subtype: unspecified whether 3a or 3b Qualified Code(s): N18.30 - Chronic kidney disease, stage 3 unspecified (2) Anemia Anemia type: unspecified type Qualified Code(s): D64.9 - Anemia, unspecified (3) CVA (cerebral vascular accident) CVA mechanism: unspecified Qualified Code(s): I63.9 - Cerebral infarction, unspecified
--- NOTE | 2020-12-11 18:25 | Palliative Care Progress Note ---
Date of Service December 11, 2020 Assessment & Plan (1) Palliative care encounter: I was able to meet with Mrs. Benito who was sitting in her hospital bed in no apparent distress. The patient remains on comfort focused approach to her care and she has continued to not require any comfort medications. Nuris was able to eat on her own independently and make her needs known by using the call jansen appropriately per nursing. She did decline any dinner tonight. I was able to speak with Mr. Benito on the phone twice today; however, was unable to meet in person due to timing of both of our visits. Mr. Benito was able to talk with [place]ka in case management regarding next steps of having Nuris return to the [facility] with Hospice services. He did express that he wished she could stay here. As Nuris is not actively dying, we will need to move forward with additional planning, as previously mentioned, which was discussed with Mr. Benito. Appropriate hospice diagnosis for Nuris upon her return to the [facility] would be: CVA. As patient is not actively dying and is eating, could consider re- starting certain medications, that she could return to the [facility] with under Hospice support. Discussed with the hospitalist. I did discuss in detail with case management. Palliative Medicine will follow and see Nuris tomorrow. (2) CVA (cerebral vascular accident): (3) Dysphagia: (4) Weakness: Admission and Anticipated Discharge Date Admission Date: December 02, 2020 Subjective Nuris was sitting upright in her bed in no apparent distress. She had just been bathed by nursing and denied any discomfort. Please see A/P for further details Review of Systems Review of Systems: [place] System Assessment Scale: Pain: 0/3 Anxiety: 1/3 Shortness of breath: 0/3 Lack of Appetite: 1/3 Tiredness: 1/3 Drowsiness: 0/3 Palliative Performance Scale: 30% Physical Exam Constitutional: + ill appearing, + thin, + frail appearing, cooperative and comfortable ENMT: Nose: + dry nasal mucous membranes Respiratory: normal respiratory effort Auscultation: + diminished lung sounds Cardiovascular: Heart Sounds: normal S1 and normal S2 Extremities: normal capillary refill; no edema Gastrointestinal (Abdomen): normal bowel sounds, soft, nontender, no hepatosplenomegaly Percussion/Palpation: abdomen soft; abdomen nontender Skin: + ecchymosis and + pallor Psychiatric: Orientation: alert, oriented to person, oriented to place and cooperative Insight: + poor insight Judgement: + poor judgement PG Care Time/CCT Total # of Minutes Spent Total Time Spent with Patient: Total time spent is greater than 50% in coordination of care (as documented) at patient's floor/unit and/or counseling patient: 35 minutes with > 50% of that time spent assessing the patient, discussing goals of care, evaluating symptom management needs, and collaborating with IDT. Coding Level of Care Code 75064 Subseq Hosp Care Lvl 3 Diagnoses Palliative care encounter Z51.5 CVA (cerebral vascular accident) I63.9 CVA mechanism: unspecified Dysphagia R13.10 Weakness R53.1 Time Spent (min) 35 (1) CVA (cerebral vascular accident) CVA mechanism: unspecified Qualified Code(s): I63.9 - Cerebral infarction, unspecified
--- NOTE | 2020-12-11 23:01 | Hospitalist Progress Note ---
Date of Service December 11, 2020 Assessment & Plan (1) Comfort measures only status: Patient is now comfort measures status. Appreciate input from palliative care. If patient does not pass within next few days, will consider discharge to outpatient facility. D/W . Below was plan prior to changing to Comfort measures. (2) Fecal impaction: severe, on x-rays today. fleets MN x 1 - with resulting mild ileus/obstipation. Resolved as she had a BM on 12/08 (3) Obstipation: due to fecal impaction. fleets x 1 MN. then will need senna + miralax - at minimum - for maintenance. (4) Esophageal spasm: severe episode of such today. resulting in dry heaves, etc. video swallow results noted from other day. cont pureed diet. cont PPI. (5) Left ankle pain: x-rays obtained - no acute fracture. either sprain from recent fall or could have inflammatory arthropathy. Appreciate input from ortho. (6) Dysphagia: speech consult appreciated. video swallow completed. no significant aspiration. pureed with thins recommended. she simply has prolonged mastication - chronic per . and probably some element of esophageal dysmotility?? (given events of today) (7) 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: LEFT. POD #5 s/p ORIF by Dr Osiel Peña, [facility]. WBAT. DVT proph - plavix (was already on such for secondary stroke prevention); also added heparin SC BID. Cont vit D supplementation. PT/OT. Rehab - [facility]? back to the [facility]? requesting rehab at [facility] once medically ready. (8) Acute diastolic CHF (congestive heart failure): Clinically & radiographically volume overloaded on 12/05/20. Echo in November 2020 with preserved EF. Received diuresis yesterday. Exam improved today. (9) Atrial dysrhythmia: Patient has had runs of intermittent PAT throughout her stay. No obvious Afib or Aflutter. Developed sustained SVT or other atrial dysrhythmia on 12/05/20. HR was 120-125 consistently. Metoprolol was increased to 50mg BID 12/05/20. SVT resolved; HRs <100. Continue telemetry. (10) PAT (paroxysmal atrial tachycardia): numerous runs of such on monitoring this admission. NO A.fib or A.flutter however. continue metoprolol; dose increased to 50mg BID. (11) Acute blood loss anemia: 3+ gm drop on day of admission. Lowest Hb - 6.1, s/p 2 units PRBCs. acute blood loss anemia 2nd to operative blood loss, soft tissue bleeding from hip fracture itself, blood draws/phlebotomy, etc. cannot rule out occult GI blood loss - needs hemoccult. Hemoglobin is stable. Ordered venofer. Labs though are questionable in regards to Iron def. anemia with low TIBC, and elevated ferritin. (12) Anemia: spring 2020 - Hb baseline 9.5 to 10.5. Fe studies c/w Fe deficiency. has already been taking B12 supplementation at home. needs folate supplementation due to high homocysteine levels - this was added. remains on B6. Dr Hackett recommending IV venofer while hospitalized. Ordered on 12/08 (13) CVA (cerebral vascular accident): x 2 in 2020 -- first, September 2020 (right ji radiata and the right basal ganglia). second, November 2020 (right thalamus). on plavix for secondary prevention. CT head at admission w/o acute stroke/ICH. CT head hospital day #2 - also negative for acute stroke. LUE/LLE weakness thus from 2 prior CVAs. Treat homocysteinemia. Watch for a.fib/flutter on monitoring - thus far we have seen PAT and SVT as denoted above. 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 previously followed by [facility] for this. saw Dr Telles about 10 days ago - see her scanned note in [facility]. no rash on exam that would suggest recurrent vasculitis. ESR on 10/29/20 was 71. Now 58. Crp 21. saw Nicole Cat MD - [facility] heme/onc - 08/2020 see scanned note re: their concerns about gammopathy Dr Hackett saw patient in consult yesterday -- recommended IV iron replacement while here, checking quantitative Immunoglobulins, and will see her post-d/c to determine if she has bone marrow dyscrasia. 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 Defer management to Dr Hackett. (17) CKD (chronic kidney disease), stage III: baseline CrCl high 40s bmp am IV fluids stopped due to concern of acute diastolic CHF, but now UOP low today. I'm afraid she may be total body volume overloaded but dry intravascularly. Due to low UOP - give back 500cc total over 10 hours (50/hr). . creatinine is 1.12 on 12/07 (18) Hypothyroidism: history of such per records, but had not been on synthroid in some time. she cannot recall when she last took meds in the past. TSH nearly 30 this admission. replacement initiated at 50mcg daily. TSH 6 weeks. (19) Thrombocytopenia: mild, suspect consumptive in setting of acute blood loss anemia. platelets 134 today. repeat cbc in am. 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 Review of Systems Review of Systems: All systems reviewed & are unremarkable except as noted in HPI & below Physical Exam Physical Exam: Constitutional: + frail appearing ENMT: Mouth: + moist oral mucous membranes Respiratory: Auscultation: + crackles (Minimal bases b/l ); no wheezes Cardiovascular: Rate/Rhythm: regular rate and regular rhythm Heart Sounds: normal S1 and normal S2; no murmur Vessels: posterior tibial pulses present and dorsalis pedis pulses present; no JVD Extremities: + edema (1+ b/l ankles; left thigh swelling from L hip fracture s/p ORIF) Gastrointestinal (Abdomen): Inspection/Auscultation: + abdomen distended (mild) and + hypoactive bowel sounds Percussion/Palpation: abdomen nontender and no hepatosplenomegaly Psychiatric: Orientation: alert, oriented to person and oriented to place; + not oriented to time Constitutional: WD/WN, vitals as above PG Care Time/CCT Total # of Minutes Spent Total Time Spent with Patient: Total time spent is greater than 50% in coordination of care (as documented) at patient's floor/unit and/or counseling patient: Coding Level of Care Code 00247 Subseq Hosp Care Lvl 1 Diagnoses Comfort measures only status Z51.5 Fecal impaction K56.41 Obstipation K59.00 Esophageal spasm K22.4 Left ankle pain M25.572 Dysphagia R13.10 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 M80.059A Acute diastolic CHF (congestive heart failure) I50.31 Atrial dysrhythmia I49.8 PAT (paroxysmal atrial tachycardia) I47.1 Acute blood loss anemia D62 Anemia D64.9 Anemia type: unspecified type CVA (cerebral vascular accident) I63.9 CVA mechanism: unspecified Hyperhomocystinemia E72.11 Leukocytoclastic vasculitis M31.0 Immunoglobulin deficiency D80.9 CKD (chronic kidney disease), stage III N18.30 Chronic kidney disease stage 3 subtype: unspecified whether 3a or 3b Hypothyroidism E03.9 Thrombocytopenia D69.6 Lung nodule < 6cm on CT R91.1 Low serum immunoglobulin kappa light chain R77.1 DVT prophylaxis Z29.9 (1) CKD (chronic kidney disease), stage III Chronic kidney disease stage 3 subtype: unspecified whether 3a or 3b Qualified Code(s): N18.30 - Chronic kidney disease, stage 3 unspecified (2) Anemia Anemia type: unspecified type Qualified Code(s): D64.9 - Anemia, unspecified (3) CVA (cerebral vascular accident) CVA mechanism: unspecified Qualified Code(s): I63.9 - Cerebral infarction, unspecified
[2020-12-12] MEDS: CLOPIDOGREL BISULFATE 75 MG TAB PO SCH (08:44)
--- NOTE | 2020-12-12 10:42 | Palliative Care Progress Note ---
Date of Service December 12, 2020 Assessment & Plan (1) Palliative care encounter: I was able to meet with Mrs. Benito who was sitting in her hospital bed in no apparent distress at the moment. She did awake to my voice, but did seem overall more tired and less interactive than in previous days. Per nursing, she did cry out and yell out that she was anxious. The patient remains on comfort focused approach to her care and received one dose of Ativan around noontime today which did help her symptoms. Nuris was able to eat on her own independently this morning, but only consumed about 25% of her meals. I was able to speak with Mr. Benito on the phone today as he will not be able to visit until later in the afternoon. I did talk with Sonia and he prefers she stay through the weekend. I stated that this is out of my hands, but would pass along the request. Dr. Emanuel and case management aware. As Nuris is not actively dying, we will need to move forward with additional planning, as previously mentioned, which was discussed with Mr. Benito. Appropriate hospice diagnosis for Nuris upon her return to the [facility] would be: CVA and that referral has been placed and she has been accepted. Plavix was restarted yesterday for a palliative measure to prevent further CVA's, which was discussed with Mr. Benito. Goal is to return to the [facility] with under Hospice support over the next few days. Discussed with the hospitalist and case management. Palliative Medicine will follow as necessary. (2) CVA (cerebral vascular accident): (3) Dysphagia: (4) Weakness: Admission and Anticipated Discharge Date Admission Date: December 02, 2020 Subjective Resting comfortably in no apparent distress. More tired today and more lethargic. Did have some anxiety earlier today, which was resolved with with Ativan per nursing. Consumed 25% of her breakfast meal. case discussed with the hospitalist at length. See A/P for further details. Review of Systems Review of Systems: [place] [facility] Assessment Scale: Pain: 0/3 Anxiety: 1/3 Shortness of breath: 0/3 Lack of Appetite: 1/3 Tiredness: 1/3 Drowsiness: 0/3 Palliative Performance Scale: 30% Physical Exam Constitutional: + ill appearing, + thin, + frail appearing, cooperative and comfortable ENMT: Nose: + dry nasal mucous membranes Respiratory: normal respiratory effort Auscultation: + diminished lung sounds Cardiovascular: Heart Sounds: normal S1 and normal S2 Extremities: normal capillary refill; no edema Gastrointestinal (Abdomen): normal bowel sounds, soft, nontender, no hepatosplenomegaly Percussion/Palpation: abdomen soft; abdomen nontender Skin: + ecchymosis and + pallor Psychiatric: Orientation: alert, oriented to person, oriented to place and cooperative Insight: + poor insight Judgement: + poor judgement PG Care Time/CCT Total # of Minutes Spent Total Time Spent with Patient: Total time spent is greater than 50% in coordination of care (as documented) at patient's floor/unit and/or counseling patient: 35 minutes with > 50% of that time spent assessing the patient, discussing goals of care with the patients , assessing symptom management needs, and collaborating with IDT Coding Level of Care Code 33919 Subseq Hosp Care Lvl 3 Diagnoses Palliative care encounter Z51.5 CVA (cerebral vascular accident) I63.9 CVA mechanism: unspecified Dysphagia R13.10 Weakness R53.1 Time Spent (min) 35 (1) CVA (cerebral vascular accident) CVA mechanism: unspecified Qualified Code(s): I63.9 - Cerebral infarction, unspecified
[2020-12-12] MEDS: LORazepam 1 MG/2 ML VIAL IV PRN (11:57)
--- NOTE | 2020-12-12 15:43 | Hospitalist Progress Note ---
Date of Service December 12, 2020 Assessment & Plan (1) Comfort measures only status: Patient is now comfort measures status. Defer any daily labs. - Appreciate input from palliative care. - Plan for [facility] with hospice on Tuesday. - Presently, she has no pain which she reports she is thankful for. I did offer to help in any way she needs. - On pain medication PRN, nausea medication PRN, anxiety medication PRN. Mostly needing some nausea medication; otherwise symptoms are generally not too burdensome. (2) CVA (cerebral vascular accident): x 2 in 2020 -- first, September 2020 (right ji radiata and the right basal ganglia). Second, November 2020 (right thalamus). - On Plavix for secondary prevention. - Held when she was initially made comfort care, but she is swallowing well at this point. Restarted by palliative care which I think is appropriate. Admission and Anticipated Discharge Date Admission Date: December 02, 2020 Subjective Overall doing well today. When asked about any concerns, she reports she has many, but that I may not be able to help with many. When I asked what ones I could assist with, she reports that people sometimes move her left leg with too much force when they need to move her. I did report I would try to help as able. Reports no fevers/chills, chest pain, shortness of breath, abdominal pain, na usea, or vomiting. Physical Exam Constitutional: WD/WN, vitals as above Eyes: EOM intact bilaterally; no conjunctival abnormality ENMT: external ear and nose normal, oropharynx normal Neck: trachea midline, no thyromegaly normal visual inspection Respiratory: normal respiratory effort, lungs clear to auscultation no respiratory distress Cardiovascular: RRR, no murmur, no edema Gastrointestinal (Abdomen): Inspection/Auscultation: abdomen normal to inspection; abdomen not distended Musculoskeletal: no cyanosis or clubbing, extremities motor strength 5/5 Skin: no rashes, warm and dry Neurologic: moves all extremities (Left leg weaker; some toe movement mostly.) and awake Psychiatric: Orientation: alert, oriented to person and cooperative PG Care Time/CCT Total # of Minutes Spent Total Time Spent with Patient: Total time spent is greater than 50% in coordination of care (as documented) at patient's floor/unit and/or counseling patient: Coding Level of Care Code 93363 Subseq Hosp Care Lvl 2 Diagnoses Comfort measures only status Z51.5 CVA (cerebral vascular accident) I63.9 CVA mechanism: unspecified (1) CVA (cerebral vascular accident) CVA mechanism: unspecified Qualified Code(s): I63.9 - Cerebral infarction, unspecified
[2020-12-13] MEDS: CLOPIDOGREL BISULFATE 75 MG TAB PO SCH (08:19)
[2020-12-13] MEDS: LORazepam 1 MG/2 ML VIAL IV PRN (15:21)
--- NOTE | 2020-12-13 15:59 | Hospitalist Progress Note ---
Date of Service December 13, 2020 Assessment & Plan (1) Comfort measures only status: Patient is now comfort measures status. Defer any daily labs. - Appreciate input from palliative care. - Plan for [facility] with hospice on Tuesday. - On pain medication PRN, nausea medication PRN, anxiety medication PRN. Mostly needing some nausea medication; otherwise symptoms are generally not too burdensome. - Stable today. Continue plan for next week discharge. (2) CVA (cerebral vascular accident): x 2 in 2020 -- first, September 2020 (right ji radiata and the right basal ganglia). Second, November 2020 (right thalamus). - On Plavix for secondary prevention. - Held when she was initially made comfort care, but she is swallowing well at this point. Restarted by palliative care which I think is appropriate. Admission and Anticipated Discharge Date Admission Date: December 02, 2020 Subjective Had a reported accident. Somewhat upset about that, but otherwise doing ok today. Reports no fevers/chills, chest pain, shortness of breath, abdominal pain, nausea, or vomiting. Physical Exam Constitutional: WD/WN, vitals as above Eyes: EOM intact bilaterally; no conjunctival abnormality ENMT: external ear and nose normal, oropharynx normal Neck: trachea midline, no thyromegaly normal visual inspection Respiratory: normal respiratory effort, lungs clear to auscultation no respiratory distress Cardiovascular: RRR, no murmur, no edema Gastrointestinal (Abdomen): Inspection/Auscultation: abdomen normal to inspection; abdomen not distended Musculoskeletal: no cyanosis or clubbing, extremities motor strength 5/5 Skin: no rashes, warm and dry Neurologic: moves all extremities (Left leg weaker; some toe movement mostly.) and awake Psychiatric: Orientation: alert, oriented to person and cooperative PG Care Time/CCT Total # of Minutes Spent Total Time Spent with Patient: Total time spent is greater than 50% in coordination of care (as documented) at patient's floor/unit and/or counseling patient: Coding Level of Care Code 67956 Subseq Hosp Care Lvl 2 Diagnoses Comfort measures only status Z51.5 CVA (cerebral vascular accident) I63.9 CVA mechanism: unspecified (1) CVA (cerebral vascular accident) CVA mechanism: unspecified Qualified Code(s): I63.9 - Cerebral infarction, unspecified
[2020-12-14] MEDS: CLOPIDOGREL BISULFATE 75 MG TAB PO SCH (09:51)
--- NOTE | 2020-12-14 17:39 | Hospitalist Progress Note ---
Date of Service December 14, 2020 Assessment & Plan (1) Comfort measures only status: Patient is now comfort measures status. Defer any daily labs. - Plan for [facility] with hospice on Tuesday. - On pain medication PRN, nausea medication PRN, anxiety medication PRN. Mostly needing some nausea medication; otherwise symptoms are generally not too burdensome. - Stable today overall. Has not needed any Ativan or Zofran since yesterday. Still not in any pain. (2) CVA (cerebral vascular accident): x 2 in 2020 -- first, September 2020 (right ji radiata and the right basal ganglia). Second, November 2020 (right thalamus). - On Plavix for secondary prevention. - Held when she was initially made comfort care, but she is swallowing well at this point. Restarted by palliative care which I think is appropriate. Admission and Anticipated Discharge Date Admission Date: December 02, 2020 Subjective Less agitated today and more sleepy. Checked in a few times today and was sleeping most of the times. Did report that her right eye felt like there was "gunk" in it and was a bit blurry. Reports no fevers/chills, chest pain, shortness of breath, abdominal pain, nausea, or vomiting. Physical Exam Constitutional: WD/WN, vitals as above Eyes: normal visual rush by confrontation, PERRL and EOM intact bilaterally; no eyelid abnormality and no conjunctival abnormality ENMT: external ear and nose normal, oropharynx normal Neck: trachea midline, no thyromegaly normal visual inspection Respiratory: normal respiratory effort, lungs clear to auscultation no respiratory distress Cardiovascular: RRR, no murmur, no edema Gastrointestinal (Abdomen): Inspection/Auscultation: abdomen normal to inspection; abdomen not distended Musculoskeletal: no cyanosis or clubbing, extremities motor strength 5/5 Skin: no rashes, warm and dry Neurologic: moves all extremities (Left leg weaker; some toe movement mostly.) and awake Psychiatric: Orientation: alert, oriented to person and cooperative PG Care Time/CCT Total # of Minutes Spent Total Time Spent with Patient: Total time spent is greater than 50% in coordination of care (as documented) at patient's floor/unit and/or counseling patient: Coding Level of Care Code 76031 Subseq Hosp Care Lvl 2 Diagnoses Comfort measures only status Z51.5 CVA (cerebral vascular accident) I63.9 CVA mechanism: unspecified (1) CVA (cerebral vascular accident) CVA mechanism: unspecified Qualified Code(s): I63.9 - Cerebral infarction, unspecified
[2020-12-14] MEDS: KETOROLAC 0.5% OP SOLN 5 ML BTL OPR SCH (20:04)
[2020-12-15] MEDS: KETOROLAC 0.5% OP SOLN 5 ML BTL OPR SCH (09:06)
[2020-12-15] MEDS: CLOPIDOGREL BISULFATE 75 MG TAB PO SCH (09:06)
--- NOTE | 2020-12-15 12:24 | Orthopedic Progress Note ---
Date of Service December 15, 2020 Assessment & Plan (1) Basicervical fracture of left femur: POD #7 s/p left hip hemiarthroplasty, acute anemia blood loss improved/stable following transfusion, new onset A. fib. Left ankle pain and weakness h/o stroke. AFO brace left lower extremity when transferring/ambulating WBAT with assistance and use of walker; OOB to chair. Continue pain control. DVT prophylaxis: TEDs 3 weeks, foot pumps while in hospital, restart Plavix and ASA, which she was on prior to this admission. Continue Total hip precautions total 8 weeks. PT/OT D/C planning: waiting on placement to [facility] Zipline removed and Steri strips placed. Replace as needed over next week, can then fall off. Do not submerge incision for 1 week. Follow-up in 4 weeks . Continue care per primary service. Admission and Anticipated Discharge Date Admission Date: December 02, 2020 Subjective "My left hip is not bothering me" Physical Exam Physical Exam: LLE: Neurovascularly unchanged. Incision is healing nicely with no evidence of infection. ZipLine removed and replaced with Steri Strips. Calf soft and non-tender. Results & Data ([facility]) Vital Signs (Past 12 Hours) Vital Signs Temp Pulse Pulse Resp BP BP Pulse Ox 12/15/ 09:23 36.4 C L 69 69 18 148/93 H 150/91 H 98 (1) Basicervical fracture of left femur Encounter type: initial encounter Fracture type: closed Fracture alignment: nondisplaced Qualified Code(s): S72.045A - Nondisplaced fracture of base of neck of left femur, initial encounter for closed fracture
--- NOTE | 2020-12-15 18:36 | Discharge Summary ---
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 Her history is also significant for leukocytoclastic vasculitis; followed by ruehmatology at [facility] as well as Dr. Telles [facility], mild HTN, low IgM [place], mild Mitral [place]ur[place]. The patient comes to the emergency room after experiencing a fall this morning at the [facility], where she was recovering and rehabbing following the above CVA. Following her CVA admisison her statin was discontinued and on Plavix. Her last dose of Plavix was 31May2 021 per the patient. The patient was attempting to get blankets off her bed, where she became tangled in them and fell onto her left hip. She had immediate pain at that site and was unable to bear weight. The patient did not use her walker, as she says it was out of reach. In the [facility] the patient had a multiple Xrays performed and a head CT scan performed. Hip and Pelvis X-ray revealed an acute basicervical fracture of the left femur which may extend into the femoral head with possible adjacent bone fragment. Orthopaedics was consulted by the [facility] physician Dr. Bledsoe and hospitalist team was notified for admisison. Patient will be admitted to medical surgical floor, await orthopaedics evaluation and treatment plan, will keep NPO at this time. I have updated the Sonia via phone as he called the nursing station for an update. He will be coming back to the hospital today or this evening The patient was in the process of getting her vasculitis workup started to rule out any hematologic malignancies, as reportedly was not responding to conservative therapies. She was being weaned off her steroids when she had her first CVA on October 01. She had residual left sided weakness and persistent balance and facial droop. She had repeat imaging on November 15 which revealed the right infarction of the right thalamus. During this CVA work up with her history of vasculitis, she was to have a temporal artery biopsy that was performed, but unfortunately did not have any arterial material in the biopsy for diagnosis. Her harness puller at [facility] is Dr. Dayne Leavitt, his phone number is [phone]. The patient's speech is improved at this time, with some residual left sided mild weakness in her upper extremity. She feels that her rehab was going very well and she was progressing. Her was not at the bedside, but she is anxious at this time. Principal Diagnosis Hip fracture History of strokes Discharge Exam Constitutional WD/WN, vitals as above Eyes normal visual rush by confrontation, PERRL and EOM intact bilaterally; no eyelid abnormality and no conjunctival abnormality ENMT external ear and nose normal, oropharynx normal Neck trachea midline, no thyromegaly normal visual inspection Respiratory normal respiratory effort, lungs clear to auscultation no respiratory distress Cardiovascular RRR, no murmur, no edema Gastrointestinal (Abdomen) Inspection/Auscultation: abdomen normal to inspection; abdomen not distended Musculoskeletal no cyanosis or clubbing, extremities motor strength 5/5 Skin no rashes, warm and dry Neurologic moves all extremities (Left leg weaker; some toe movement mostly.) and awake Psychiatric Orientation: alert, oriented to person and cooperative Discharge Data Allergies Allergy/AdvReac Type Severity Reaction Status Date / Time influenza virus vaccine Allergy Intermediate rash Verified 12/02/20 07:58 trivalent amoxicillin [From Amoxil] Allergy Unknown Unknown Verified 12/02/20 07:58 Anesthetics - Amide Type - Allergy Unknown Unknown Verified 12/02/20 07:58 Select A [Anesthetics - Amide Type] diazepam [From Valium] Allergy Unknown Unknown Verified 12/02/20 07:58 ethyl chloride Allergy Unknown Unknown Verified 12/02/20 07:58 procaine [From Novocain] Allergy Unknown Unknown Verified 12/02/20 07:58 Penicillins AdvReac Unknown SEVERE Verified 12/02/20 07:58 INTERNAL VAGINITIS Consultations 12/02/20 09:39 ED Decision to Admit Stat 12/02/20 10:25 Consult Anesthesiology Routine Consult Orthopedic Surgery Routine 12/05/20 08:03 Consult Hematology Routine 12/05/20 09:01 Consult Oncology Routine 12/08/20 15:53 Consult Palliative Care Routine Procedures Performed Operation Date: 12/02/20 12:45 Actual Procedures p Left Hip Hemiarthroplasty-Cemented(Left) - Osiel Jennifer Peña MD Ordered Studies 12/02/20 07:10 CT head/brain wo con Stat 12/02/20 12:57 CT hip LT wo con Stat 12/03/20 14:50 CT head/brain wo con Routine 12/04/20 13:30 FL video swallow Routine Hospital Course (1) Comfort measures only status: Patient is now comfort measures status. Defer any daily labs. - Plan for [facility] with hospice on Tuesday. - On pain medication PRN, nausea medication PRN, anxiety medication PRN. Mostly needing some nausea medication; otherwise symptoms are generally not too burdensome. - Stable today overall. Has not needed any Ativan or Zofran since yesterday. Still not in any pain. (2) CVA (cerebral vascular accident): x 2 in 2020 -- first, September 2020 (right ji radiata and the right basal ganglia). Second, November 2020 (right thalamus). - On Plavix for secondary prevention. - Held when she was initially made comfort care, but she is swallowing well at this point. Restarted by palliative care which I think is appropriate. Total Time Total Time Spent Total Time Spent (In Minutes): 35 Discharge Plan Discharge Items Patient Disposition: Hospice - Medical Facility Reason For Visit: FALL Discharge Diagnosis: Fall, strokes Activity: Resume your previous activity Non-emergency contact: Primary Care Provider Call non-emergency contact if: your symptoms worsen Follow-up/Referrals: Osiel Peña MD [Physician] - None (Please call the office to schedule a f/u with Dr Peña in 4wks for xrays. ) [place] [facility] Sky Leyva [Primary Care Provider] - Diet: Regular Diet Texture: Pureed (blended smooth) Ricci Attending Provider Instructions: Ms. Benito was admitted to the hospital after a fall with a hip fracture. However, given the multiple medical issues that are working against her, she and family elected to move toward comfort measures. She required occasional doses of Zofran and Ativan while in the hospital, but was in very little pain in the days leading up to discharge. Addtl Internist Provider Instructions: ORTHOPEDICS: *WBAT L LE as tolerated with walker and assistance. *Follow SHP; Pillow between legs in bed *PT/OT *DVT prophylaxis: TEDs 3 weeks, restart Plavix *Steri strips to remain on incision for 7 days. After that, can remove. Can bathe. Do not submerge. *Left ankle pain and weakness. neg xray for fracture. Recommend AFO with ambulation. * Ice left hip/left ankle as needed for pain *Pain medication as precribed by medicine service *Please call the office to schedule a f/u appt with Dr Peña in approximately 4wks for xrays of left hip. [phone] Pending Studies at Discharge: No Stand-Alone Forms: My [facility] Skilled Items Patient informed of condition?: Yes DNR: No Discharge Level of Care: Other Communicable Disease: No Discharge Prognosis: Stable Lines: None Urinary Catheter: Yes Medications and DC Order Prescriptions: New hydrocodone-acetaminophen 5-325 mg Tablet 1 tab PO Q6H PRN (Reason: pain) Qty: 3 RF: 0 lorazepam [Ativan] 1 mg tablet 1 mg buccal TID PRN (Reason: anxiety) Qty: 7 RF: 0 ondansetron 4 mg tablet,disintegrating 4 mg PO QID PRN (Reason: nausea and vomiting) Qty: 7 RF: 0 Continued polyethylene glycol 3350 17 gram/dose powder 17 gm PO DAILY PRN (Reason: Constipation) RF: 0 pantoprazole [Protonix] 40 mg tablet,delayed release (DR/EC) 40 mg PO DAILY RF: 0 clopidogrel 75 mg tablet 75 mg PO DAILY Qty: 30 RF: 0 Discontinued cyanocobalamin (vitamin B-12) 1,000 mcg lozenge 1,000 mcg sublingual QAM RF: 0 pyridoxine (vitamin B6) 25 mg tablet 25 mg PO DAILY RF: 0 atorvastatin 40 mg tablet 40 mg PO DAILY RF: 0 multivitamin [Daily-Charlie] Tablet 1 tab PO QAM RF: 0 cholecalciferol (vitamin D3) [Vitamin D3] 25 mcg (1,000 unit) Capsule 25 mcg PO QAM RF: 0 Discharge Orders: Discharge Order (Routine); Ordered 12/15/20 Ordered By: Rolando Emanuel Admission Data Admit Date/Time: 12/02/20 10:37 Attending Provider: Rolando Emanuel Admit Provider: Mike Alfonso Primary Care [facility] Other Providers: Eric Hackett V. ; Oneil Rowan ; Randa Barrios ; Rosa Marcelino ; Kacie De La Fuente ; Aliya Shane ; Blanca [place] ; Keely Cortes ; Ziyad Kramer ; Magdi Hatfield ; Galindo Aragon ; Juan Luis Woods ; Shelia Woods ; Segun Rosario ; Angelina Nicholas ; Benton Ramos ; Brian Weinberg ; Piero Waterman ; Richy Schneider ; Farzana Carrillo ; Herve Ramos ; Lucille Rubin ; Ashley Ramos ; Edin Spencer ; Rosaline Chen ; Ruel Najera ; Amena Reid ; Aydee Poe ; Rosaline Hamilton ; Mickie Chung ; Saad Lazcano ; Charlette Gordon ; Fatmata Aldridge ; Bernie Llanes ; Damaris Weinstein ; Dwayne Weinstein V ; Donavon Mcgill ; Kacie Robbins ; Juan Diego Mcmillan ; Fuad Lopez ; Ryann Cedillo ; Yulia Lemus ; Dwayne Paz ; Gerard Carrillo ; Jimmy Shanks ; Nahomy Costa ; Bernie Jones ; Eric Jiménez ; Rakan Schneider ; Richa Horne ; Néstor Snowden ; Felipa Leung ; Arie Diaz ; Byron Moore ; Néstor Ballard ; Ziyad Keita Jr ; Zamzam Fraga ; Osiel Peña ; Zamzam Gonzalez ; [facility] Other Interventions: Discharge Summary Assessment (RN) Last Done: 12/15/20 09:23 Coding Level of Care Code D/C Day Management >30 mins Diagnoses Comfort measures only status Z51.5 CVA (cerebral vascular accident) I63.9 CVA mechanism: unspecified
== END 2020-12-15 12:42 | disposition hospice, inpatient (51) | DRG 521 ==
LOC: ED 07:02 → SUATTDRO 10:37 → 3E 10:37 → 2E 21:00 → 3E 12-09 15:42